=== PATIENT | female | born 1960 | race Caucasian/White ===

== ENCOUNTER 2023-03-17 06:15 | Emergency (ER) | payer OTHER, SELFPAY ==
[2023-03-17 06:26] VITALS: BP 134/69; PULSE 108; RESP 16; TEMP 36.9; O2SAT 100; BMI 18.3
--- NOTE | 2023-03-17 06:47 | DI.CT.S_ITS ---
PROCEDURE: CT ABDOMEN PELVIS W CON INDICATIONS: Abdominal pain TECHNIQUE: After the administration of intravenous contrast, axial sections acquired from the lung bases to the pubic symphysis. Coronal and sagittal reformats were performed. For radiation dose reduction, the following was used: automated exposure control, adjustment of mA and/or kV according to patient size. COMPARISON: None. FINDINGS: Image quality: Diagnostic. Lower Chest: Patchy consolidations in the right lower lobe. 3 mm right lower lobe nodule. ABDOMEN: Liver: Right hepatic lobe low attenuating mass measuring approximately 1.9 cm with suggestion of peripheral enhancement is incompletely characterized. Gallbladder: No radiopaque gallstones or wall thickening. Biliary ducts: No biliary dilation. Pancreas: Multiple multiple cystic structures are seen within the pancreas body and tail adjacent to the duct. The largest cystic structure measures up to 1.1 cm. The pancreatic duct is mildly dilated measuring up to 5 mm in caliber. . Spleen: Size is within normal limits. Adrenal Glands: No adrenal nodules. Kidneys and Ureters: No hydronephrosis. No solid mass. No complex renal cystic lesion which requires follow up. Stomach and Bowel: No small bowel obstruction. The large bowel is fluid filled with increased mucosal enhancement suggestive of colitis. No pneumatosis coli. Peritoneum: No abnormal intraperitoneal fluid. No free air. Ventral Wall: No hernia. Abdominal Nodes: No retroperitoneal or mesenteric adenopathy by size criteria. Vessels: Aorta and inferior vena cava are normal in size. Aorto bi iliac atherosclerotic calcifications. PELVIS: Pelvic Organs: Unremarkable. Bladder: Unremarkable. Pelvic Nodes: No enlarged lymph nodes. Miscellaneous: No inguinal hernias are seen. Bones: Degenerative changes without acute or suspicious osseous abnormality. IMPRESSION: Fluid filled large bowel with increased mucosal enhancement suggestive of colitis. Right lower lobe patchy consolidations likely reflect infectious/inflammatory etiology, including atypical viral pneumonia such as covid. Right lower lobe 3 mm nodule. If patient is high risk for lung malignancy, recommend follow-up CT in 12 months to demonstrate stability. Multiple pancreatic cystic masses measuring to 1.1 cm with mildly dilated pancreatic duct measuring up to 5 mm in caliber. Recommend further evaluation with nonemergent abdominal MRI or CT with contrast pancreatic protocol. Right hepatic lobe 1.9 cm low attenuating mass with suggestion of peripheral enhancement is incompletely evaluated on the single phase exam, possible hemangioma. This can be further characterized on exam for pancreatic masses. Dictated by: Deborah Umana M.D. on 03/17/2023 at 8:03 Approved by: Deborah Umana M.D. on 03/17/2023 at 8:18
--- NOTE | 2023-03-17 06:55 | ED_ITS ---
HPI - Abdominal Pain <Kory Gilmore MD - Last Filed: 04/30/23 06:17> General Chief Complaint: Abdominal Pain Stated Complaint: hernia surgery 1yr ago,think might have ripped Time Seen by Provider: 03/17/23 06:47 Source: patient Mode of arrival: Ambulatory History of Present Illness HPI narrative: 63-year-old female who presents with left lower quadrant abdominal pain for 1 month with increased in severity x1 day ago. Pain is described as sharp, non- radiating and worse with palpation. No other complaints or associated symptoms noted. Patient reports hernia repair in that area in 01/2022 Patient arrives via private vehicle. Patient is ambulatory, awake, alert, in no apparent distress and maintaining her own airway. Related Data Home Medications Medication Instructions Recorded Confirmed aripiprazole 10 mg tablet (Abilify) 10 mg PO DAILY 03/21/23 03/29/23 atomoxetine 80 mg capsule 80 mg PO DAILY 03/21/23 03/29/23 (Strattera) lamotrigine 25 mg tablet (Lamictal) 50 mg PO DAILY 03/21/23 03/29/23 potassium chloride 10 mEq 20 meq PO BID 03/21/23 03/29/23 capsule,extended release trazodone 100 mg tablet 100 mg PO BEDTIME PRN 03/21/23 03/29/23 Previous Rx's Medication Instructions Recorded ciprofloxacin HCl 500 mg tablet 500 mg PO BID #20 tabs 03/21/23 (Cipro) metronidazole 500 mg tablet 500 mg PO Q8H #30 tabs 03/21/23 acyclovir 400 mg tablet 400 mg PO TID #30 tabs 03/29/23 Allergies Allergy/AdvReac Type Severity Reaction Status Date / Time Opioids-Meperidine and Allergy Mild Nausea Verified 03/29/23 08:03 Related Review of Systems <Kory Gilmore MD - Last Filed: 04/30/23 06:17> Review of Systems Narrative: See HPI for pertinent positives, otherwise review of systems negative Patient History <Kory Gilmore MD - Last Filed: 04/30/23 06:17> Medical History (Updated 04/24/23 @ 20:55 by Katya Garcia) Fibromyalgia (~2008) Substance abuse Restless leg syndrome Arthritis Osteopenia Foot pain Chicken pox Vertigo Pancreatitis Hemorrhoid Colon polyps Coronary artery calcification seen on CT scan Osteoarthritis of left hip CKD (chronic kidney disease) Hx of bulimia nervosa Hx of anorexia nervosa Depression ADD (attention deficit disorder) History of tobacco use Nodule of lower lobe of right lung Family History (Updated 04/24/23 @ 21:02 by Katya Garcia) Father History of heart disease Hypertension Sister Mental health problem Hypertension Stroke Fracture Grandfather Cancer Grandmother Brain aneurysm Social History Smoking Status: Former smoker Smoking Status: Former smoker Substance Use Type: does not use Exam <Kory Gilmore MD - Last Filed: 04/30/23 06:17> Initial Vital Signs Initial Vital Signs: Vital Signs Temperature 98.4 F 03/17/23 06:26 Pulse Rate 108 H 03/17/23 06:26 Respiratory Rate 16 03/17/23 06:26 Blood Pressure 134/69 03/17/23 06:26 Pulse Oximetry 100 03/17/23 06:26 Oxygen Delivery Method Room Air 03/17/23 06:26 Const General: cooperative, healthy appearing, comfortable, well developed, well groomed, No acute distress, No diaphoretic and No ill appearing HENMT Head: normal to inspection, normocephalic and atraumatic Nose: external nose normal and nares normal Eyes General: Yes appearance normal, both eyes and all related structures Neck Neck: normal visual inspection Chest Chest: normal inspection of the chest Resp Effort & Inspection: normal respiratory effort and able to speak in complete sentences Cardio Rate: regular rate Rhythm: regular rhythm GI Inspection: normal to inspection, non-distended, no visible herniation and other (Tenderness localized to scar of hernia repair) External Female Exam: normal external appearance Back/Spine/Pelvis Back: normal to inspection Skin General: no rashes or lesions noted Neuro General: patient alert, patient awake, oriented and moves all extremities Extrem General: normal to inspection and full ROM Psych Appearance: grossly normal and well kempt <Antoni Ohara DO - Last Filed: 03/17/23 08:53> Initial Vital Signs Initial Vital Signs: Vital Signs Temperature 98.4 F 03/17/23 06:26 Pulse Rate 108 H 03/17/23 06:26 Respiratory Rate 16 03/17/23 06:26 Blood Pressure 134/69 03/17/23 06:26 Pulse Oximetry 100 03/17/23 06:26 Oxygen Delivery Method Room Air 03/17/23 06:26 Course <Kory Gilmore MD - Last Filed: 04/30/23 06:17> Course Course Narrative: See MDM Orders Ordered: Discontinued Medications Hydrocodone Bitart/Acetaminophen (Hydrocodone/Acet 5/325 Tablet) 1 tab PO NOW ONE Stop: 03/17/23 08:03 Last Admin: 03/17/23 08:10 Dose: 1 tab Documented By: CTS Vital Signs Vital signs: Vital Signs - 8 hr 03/17/23 06:26 03/17/23 07:10 03/17/23 07:31 Temperature 98.4 F Pulse Rate 108 H 105 H 96 H Respiratory Rate 16 Blood Pressure 134/69 Pulse Oximetry 100 96 100 Oxygen Delivery Method Room Air 03/17/23 07:32 03/17/23 07:32 03/17/23 08:00 Temperature Pulse Rate 96 H 95 H Respiratory Rate Blood Pressure 119/69 Pulse Oximetry 100 99 Oxygen Delivery Method 03/17/23 08:00 03/17/23 08:30 03/17/23 08:30 Temperature Pulse Rate 91 H Respiratory Rate Blood Pressure 120/71 117/64 Pulse Oximetry 98 Oxygen Delivery Method <Antoni Ohara DO - Last Filed: 03/17/23 08:53> Orders Ordered: Discontinued Medications Hydrocodone Bitart/Acetaminophen (Hydrocodone/Acet 5/325 Tablet) 1 tab PO NOW ONE Stop: 03/17/23 08:03 Last Admin: 03/17/23 08:10 Dose: 1 tab Documented By: CTS Vital Signs Vital signs: Vital Signs - 8 hr 03/17/23 06:26 03/17/23 07:10 03/17/23 07:31 Temperature 98.4 F Pulse Rate 108 H 105 H 96 H Respiratory Rate 16 Blood Pressure 134/69 Pulse Oximetry 100 96 100 Oxygen Delivery Method Room Air 03/17/23 07:32 03/17/23 07:32 03/17/23 08:00 Temperature Pulse Rate 96 H 95 H Respiratory Rate Blood Pressure 119/69 Pulse Oximetry 100 99 Oxygen Delivery Method 03/17/23 08:00 03/17/23 08:30 03/17/23 08:30 Temperature Pulse Rate 91 H Respiratory Rate Blood Pressure 120/71 117/64 Pulse Oximetry 98 Oxygen Delivery Method MDM - Abdominal Pain <Kory Gilmore MD - Last Filed: 04/30/23 06:17> Differential Diagnosis Differential diagnosis: Likely abdominal pain, constipation, diverticulitis, gastroenteritis, small bowel obstruction and other (hernia mesh failure) Lab Data 03/17/23 06:50 03/17/23 06:50 Labs: Lab Results 03/17/23 03/17/23 Range/Units 06:50 06:55 WBC 11.9 H (4.5-11.0) X10^3/uL RBC 4.08 (4.0-5.2) X10^6/uL Hgb 12.4 (12.0-16.0) g/dL Hct 37.6 (36-46) % MCV 92.1 (80-100) fL MCH 30.4 (26-34) PG MCHC 33.0 (30-36) % RDW 13.0 (11.6-14.8) % Plt Count 253 (150-400) X10^3/uL Neut % (Auto) 81.1 H (50-75) % Lymph % (Auto) 10.4 L (25-40) % [place] % (Auto) 7.4 (3-14) % Eos % (Auto) 0.7 L (2-4) % Baso % (Auto) 0.4 (0-2) % Neut # (Auto) 9700 H (3065-6284) /uL Lymph # (Auto) 1200 (3125-8777) /uL [place] # (Auto) 900 (0-900) /uL Eos # (Auto) 100 (0-450) /uL Baso # (Auto) 0 (0-100) /uL Sodium 133 L (137-145) mmol/L Potassium 3.5 (3.4-5.1) mmol/L Chloride 96 L (98-107) mmol/L Carbon Dioxide 29 (22-32) mmol/L BUN 18 H (7-17) mg/dL Creatinine 1.46 H (0.52-1.04) mg/dL Estimated GFR 40 L (>60) mL/min BUN/Creatinine Ratio 12.3 (6-22) Glucose 129 H (80-110) mg/dL Calcium 9.2 (8.4-10.2) mg/dL Total Bilirubin 0.4 (0.2-1.3) mg/dL AST 26 (14-36) IU/L ALT 26 (<35) IU/L Alkaline Phosphatase 54 (38-126) U/L Total Protein 5.9 L (6.3-8.2) g/dL Albumin 3.4 L (3.5-5.0) g/dL Globulin 2.5 (1.7-4.1) g/dL Albumin/Globulin Ratio 1.4 (1.0-2.8) Urine Color Yellow Urine Appearance Clear Urine pH 6.5 (4.5-8.0) Ur Specific [place] 1.020 (1.000-1.035) Urine Protein Negative (Negative) Urine Glucose (UA) Negative (Negative) g/dL Urine Ketones Negative (NEGATIVE) Urine Occult Blood Negative (Negative) Urine Nitrate Negative (Negative) Urine Bilirubin Negative (NEGATIVE) Urine Urobilinogen 0.2 (0.2) E.U./dL Ur Leukocyte Esterase Trace H (NEGATIVE) Urine RBC 0-1/hpf (0-5/HPF) Urine WBC 1-5/hpf (0-5/HPF) Ur Squamous Epith Cells 0-1 /hpf (0-5/HPF) Urine Bacteria Occasional (0-1) (None) Ur Culture Indicated? Cult not indicated MDM Narrative Medical decision making narrative: Patient presents with left lower quadrant abdominal pain localized area of previous hernia repair. Current vital signs are within normal limits/no natural. Patient is afebrile. Labs and imaging ordered. Pain control offered but declined by patient. Patient signed out to Dr. Ohara. Please see his note for continuity of care. <Antoni Ohara, DO - Last Filed: 03/17/23 08:53> Lab Data Attestation: I reviewed the patient's lab results. Labs: Lab Results 03/17/23 03/17/23 Range/Units 06:50 06:55 WBC 11.9 H (4.5-11.0) X10^3/uL RBC 4.08 (4.0-5.2) X10^6/uL Hgb 12.4 (12.0-16.0) g/dL Hct 37.6 (36-46) % MCV 92.1 (80-100) fL MCH 30.4 (26-34) PG MCHC 33.0 (30-36) % RDW 13.0 (11.6-14.8) % Plt Count 253 (150-400) X10^3/uL Neut % (Auto) 81.1 H (50-75) % Lymph % (Auto) 10.4 L (25-40) % [place] % (Auto) 7.4 (3-14) % Eos % (Auto) 0.7 L (2-4) % Baso % (Auto) 0.4 (0-2) % Neut # (Auto) 9700 H (5037-9352) /uL Lymph # (Auto) 1200 (6766-9306) /uL [place] # (Auto) 900 (0-900) /uL Eos # (Auto) 100 (0-450) /uL Baso # (Auto) 0 (0-100) /uL Sodium 133 L (137-145) mmol/L Potassium 3.5 (3.4-5.1) mmol/L Chloride 96 L (98-107) mmol/L Carbon Dioxide 29 (22-32) mmol/L BUN 18 H (7-17) mg/dL Creatinine 1.46 H (0.52-1.04) mg/dL Estimated GFR 40 L (>60) mL/min BUN/Creatinine Ratio 12.3 (6-22) Glucose 129 H (80-110) mg/dL Calcium 9.2 (8.4-10.2) mg/dL Total Bilirubin 0.4 (0.2-1.3) mg/dL AST 26 (14-36) IU/L ALT 26 (<35) IU/L Alkaline Phosphatase 54 (38-126) U/L Total Protein 5.9 L (6.3-8.2) g/dL Albumin 3.4 L (3.5-5.0) g/dL Globulin 2.5 (1.7-4.1) g/dL Albumin/Globulin Ratio 1.4 (1.0-2.8) Urine Color Yellow Urine Appearance Clear Urine pH 6.5 (4.5-8.0) Ur Specific [place] 1.020 (1.000-1.035) Urine Protein Negative (Negative) Urine Glucose (UA) Negative (Negative) g/dL Urine Ketones Negative (NEGATIVE) Urine Occult Blood Negative (Negative) Urine Nitrate Negative (Negative) Urine Bilirubin Negative (NEGATIVE) Urine Urobilinogen 0.2 (0.2) E.U./dL Ur Leukocyte Esterase Trace H (NEGATIVE) Urine RBC 0-1/hpf (0-5/HPF) Urine WBC 1-5/hpf (0-5/HPF) Ur Squamous Epith Cells 0-1 /hpf (0-5/HPF) Urine Bacteria Occasional (0-1) (None) Ur Culture Indicated? Cult not indicated Imaging Data CT scan - abdomen/pelvis: Radiologist's Impression: PROCEDURE: CT ABDOMEN PELVIS W CON INDICATIONS: Abdominal pain TECHNIQUE: After the administration of intravenous contrast, axial sections acquired from the lung bases to the pubic symphysis. Coronal and sagittal reformats were performed. For radiation dose reduction, the following was used: automated exposure control, adjustment of mA and/or kV according to patient size. COMPARISON: None. FINDINGS: Image quality: Diagnostic. Lower Chest: Patchy consolidations in the right lower lobe. 3 mm right lower lobe nodule. ABDOMEN: Liver: Right hepatic lobe low attenuating mass measuring approximately 1.9 cm with suggestion of peripheral enhancement is incompletely characterized. Gallbladder: No radiopaque gallstones or wall thickening. Biliary ducts: No biliary dilation. Pancreas: Multiple multiple cystic structures are seen within the pancreas body and tail adjacent to the duct. The largest cystic structure measures up to 1.1 cm. The pancreatic duct is mildly dilated measuring up to 5 mm in caliber. . Spleen: Size is within normal limits. Adrenal Glands: No adrenal nodules. Kidneys and Ureters: No hydronephrosis. No solid mass. No complex renal cystic lesion which requires follow up. Stomach and Bowel: No small bowel obstruction. The large bowel is fluid filled with increased mucosal enhancement suggestive of colitis. No pneumatosis coli. Peritoneum: No abnormal intraperitoneal fluid. No free air. Ventral Wall: No hernia. Abdominal Nodes: No retroperitoneal or mesenteric adenopathy by size criteria. Vessels: Aorta and inferior vena cava are normal in size. Aorto bi iliac atherosclerotic calcifications. PELVIS: Pelvic Organs: Unremarkable. Bladder: Unremarkable. Pelvic Nodes: No enlarged lymph nodes. Miscellaneous: No inguinal hernias are seen. Bones: Degenerative changes without acute or suspicious osseous abnormality. IMPRESSION: Fluid filled large bowel with increased mucosal enhancement suggestive of colitis. Right lower lobe patchy consolidations likely reflect infectious/inflammatory etiology, including atypical viral pneumonia such as covid. Right lower lobe 3 mm nodule. If patient is high risk for lung malignancy, recommend follow-up CT in 12 months to demonstrate stability. Multiple pancreatic cystic masses measuring to 1.1 cm with mildly dilated pancreatic duct measuring up to 5 mm in caliber. Recommend further evaluation with nonemergent abdominal MRI or CT with contrast pancreatic protocol. Right hepatic lobe 1.9 cm low attenuating mass with suggestion of peripheral enhancement is incompletely evaluated on the single phase exam, possible hemangioma. This can be further characterized on exam for pancreatic masses. MDM Narrative Medical decision making narrative: Patient presents with left lower quadrant abdominal pain localized area of previous hernia repair. Current vital signs are within normal limits/no natural. Patient is afebrile. Labs and imaging ordered. Pain control offered but declined by patient. Patient signed out to Dr. Ohara. Please see his note for continuity of care. Dr. Ohara: Received turned over. Review patient's history and physical exam. CT scan today does show what appears to be a colitis. Patient states she is having loose stools over the past week. The abdominal pain that brought her in today actually has been going on for the past month or so. There are no acute findings noted on the CT scan requiring surgery. We did discuss the incidental findings of the pulmonary nodule. She does have a prior history of a smoker but not currently smoking. She currently does not clinically have pneumonia. We discussed the incidental findings of the liver and also the pancreas. She has no prior history of pancreatitis or other liver issues. She has an appointment scheduled on the of this month with her primary doctor. I advised that she talk with her primary doctor at that point about these incidental findings and further workup. Will discharge patient home with return precautions. She expressed understanding and agreement. Discharge Plan Departure Patient Disposition: Home Clinical Impression: Abdominal pain, Incidental pulmonary nodule, Pancreatic cyst, Liver mass Instructions: DI for Abdominal Pain-Adult Activity Restrictions/Additional Instructions: I recommend that you keep your appointment with your primary doctor that is scheduled for the 18 of this month. Be sure that you let them know that you had a CT scan done today that had the incidental findings on it and to discuss follow-up and further evaluation. You can even contact them on Sunday to let them know to see if there is anything that can be done before your appointment however waiting until the is perfectly acceptable. Return to the emergency department for worsening symptoms Prescriptions: No Action acyclovir 400 mg tablet 400 mg PO TID Qty: 30 0RF Rx Instructions: Take 3x per day for 5-10 days until cold sores resolve lamotrigine [Lamictal] 25 mg tablet 50 mg PO DAILY atomoxetine [Strattera] 80 mg capsule 80 mg PO DAILY aripiprazole [Abilify] 10 mg tablet 10 mg PO DAILY trazodone 100 mg tablet 100 mg PO BEDTIME PRN potassium chloride 10 mEq capsule, extended release 20 meq PO BID metronidazole 500 mg tablet 500 mg PO Q8H Qty: 30 0RF ciprofloxacin HCl [Cipro] 500 mg tablet 500 mg PO BID Qty: 20 0RF Stand Alone Forms: Patient Portal/API
[2023-03-17 06:57] LABS: Add Manual Diff / Slide Review NO; Basophils Absolute Auto 0 /uL (0-100); Basophils Percent Auto 0.4 % (0-2); Eosinophils Absolute Auto 100 /uL (0-450); Eosinophils Percent Auto 0.7 % (2-4); Hematocrit 37.6 % (36-46); Hemoglobin 12.4 g/dL (12.0-16.0); Lymphocytes Absolute Auto 1200 /uL (1100-4500); Lymphocytes Percent Auto 10.4 % (25-40); Mean Corpuscular Hemoglobin 30.4 PG (26-34); Mean Corpuscular Volume 92.1 fL (80-100); Monocytes Absolute Auto 900 /uL (0-900); Monocytes Percent Auto 7.4 % (3-14); Neutrophils Absolute Auto 9700 /uL (1500-7000); Neutrophils Percent Auto 81.1 % (50-75); Platelet Count 253 X10^3/uL (150-400); Red Blood Cell Count 4.08 X10^6/uL (4.0-5.2); White Blood Cell Count 11.9 X10^3/uL (4.5-11.0)
[2023-03-17 06:59] LABS: Appearance Urine UA CLEAR; Bilirubin Urine UA NEGATIVE (NEGATIVE); Color Urine UA YELLOW; Glucose Urine UA NEGATIVE (Negative); Ketones Urine UA NEGATIVE (NEGATIVE); Leukocyte Esterase Urine UA TRACE (NEGATIVE); Nitrite Urine UA NEGATIVE (Negative); Occult Blood Urine UA NEGATIVE (Negative); Protein Urine UA NEGATIVE (Negative); Urobilinogen Urine UA 0.2 E.U./dL (0.2)
[2023-03-17 07:07] LABS: Alanine Aminotransferase 26 IU/L (<35); Albumin 3.4 g/dL (3.5-5.0); Albumin Globulin Ratio 1.4 (1.0-2.8); Alkaline Phosphatase 54 U/L (38-126); Aspartate Aminotransferase 26 IU/L (14-36); BUN Creatinine Ratio 12.3 (6-22); Bilirubin Total 0.4 mg/dL (0.2-1.3); Blood Urea Nitrogen 18 mg/dL (7-17); Calcium 9.2 mg/dL (8.4-10.2); Carbon Dioxide 29 mmol/L (22-32); Chloride 96 mmol/L (98-107); Estimated Glomerular Filt Rate 40 mL/min (>60); Globulin 2.5 g/dL (1.7-4.1); Glucose 129 mg/dL (80-110); HEMOLYSIS < 15 (0-50); Potassium 3.5 mmol/L (3.4-5.1); Sodium 133 mmol/L (137-145); Total Protein 5.9 g/dL (6.3-8.2)
[2023-03-17 07:09] LABS: pH Urine UA 6.5 (4.5-8.0)
[2023-03-17 07:10] VITALS: PULSE 105; O2SAT 96
[2023-03-17 07:14] LABS: Bacteria Urine Occasional (0-1); Culture Indicated Urine Cult Not Indicated; RBC Urine 0-1/HPF (0-5/HPF); Squamous Epithelial Cell Urine 0-1 /HPF (0-5/HPF); WBC Urine 1-5/HPF (0-5/HPF)
[2023-03-17 07:31] VITALS: PULSE 96; O2SAT 100
[2023-03-17 07:32] VITALS: BP 119/69; PULSE 96; O2SAT 100
[2023-03-17 08:00] VITALS: BP 120/71; PULSE 95; O2SAT 99
[2023-03-17] MEDS: HYDROCODONE/ACET 5/325 TABLET 1 TAB PO (08:10)
[2023-03-17 08:30] VITALS: BP 117/64; PULSE 91; O2SAT 98
== END 2023-03-17 08:57 | disposition home or self-care (01) ==
PROVIDERS: Emergency Medicine; Emergency Provider Emergency Medicine
DX: R10.32 Left lower quadrant pain (principal); R16.0 Hepatomegaly, not elsewhere classified; K86.2 Cyst of pancreas; R91.1 Solitary pulmonary nodule
CPT/HCPCS: 36415; 74177; 80053; 81001; 85025; 99283; 99284; Q9967

== ENCOUNTER → 2023-03-22 07:55 | Outpatient (CLI) | payer OTHER, SELFPAY ==
--- NOTE | 2023-03-22 07:57 | DI.RAD.S_ITS ---
PROCEDURE: [id number] W PEL IF PERFORMED INDICATIONS: left hip pain, suspect arthritis TECHNIQUE: AP pelvis with lateral view(s) of the bilateral hip(s). COMPARISON: None. FINDINGS: Bones: No fractures or dislocations. Moderate to severe left hip joint osteoarthritis and moderate right hip joint osteoarthritis is seen. No evidence of avascular necrosis of femoral head. Pelvic ring appears intact. No suspicious bony lesions. Soft tissues: The visualized bowel gas pattern is normal. No suspicious soft tissue calcifications. IMPRESSION: Moderate to severe left hip joint osteoarthritis and moderate right hip joint osteoarthritis. No fracture or dislocation. No evidence of avascular necrosis. Dictated by: Darren Cuevas M.D. on 03/22/2023 at 11:10 Approved by: Darren Cuevas M.D. on 03/22/2023 at 11:25
== END ==
PROVIDERS: PCP Family Medicine; Referring Provider Family Medicine; Visit Provider Family Medicine
DX: M16.0 Bilateral primary osteoarthritis of hip (principal); M25.552 Pain in left hip
CPT/HCPCS: 73522

== ENCOUNTER → 2023-03-30 11:17 | Outpatient (CLI) | payer OTHER, SELFPAY ==
--- NOTE | 2023-03-30 11:18 | DI.MRI.S_ITS ---
PROCEDURE: MR AB PANCREATIC/MRCP PROTOCOL INDICATIONS: R hepatic mass; mult cysts on pancreas w/ mild dilation duct TECHNIQUE: Coronal HASTE through the abdomen, axial 2-D FLASH in- and [id number], and breath-hold T2 FSE with fat saturation through the biliary system and pancreas. Oblique coronal and axial thin-slice HASTE, radial thick-slab HASTE centered on the extrahepatic bile ducts. Intravenous secretin: Not requested. COMPARISON: [facility], CT, CT ABDOMEN PELVIS W CON, 03/17/2023, 7:23. FINDINGS: Image quality: Diagnostic. Gallbladder: No gallstones or wall thickening. Biliary ducts: No biliary dilation. Pancreas: A few T2 hyperintense cystic lesions with connection to the pancreatic duct, largest measuring 1.9 cm in the pancreatic body (series 10, image 1). No associated nodularity. Mild ductal ectasia. OTHER: Lung bases: Unremarkable. Liver: Segment 7 hemangioma measuring 2.4 cm (series 11, image 31). Probable flash filling hemangioma in segment 8 measuring 0.9 cm (series 11, image 29). Spleen: Size is within normal limits. Adrenal Glands: No adrenal nodules. Kidneys and Ureters: No hydronephrosis. No solid mass. No complex renal cystic lesion which requires follow up. Stomach and Bowel: Normal colonic caliber, without significant wall thickening. Peritoneum: No abnormal intraperitoneal fluid. No free air. Ventral Wall: No hernia. Abdominal Nodes: No retroperitoneal or mesenteric adenopathy by size criteria. Vessels: Aorta and inferior vena cava are normal in size. Bones: No aggressive osseous abnormality. IMPRESSION: Pancreatic cystic lesions with connection to the pancreatic duct, largest measuring 1.9 cm. While there is ectasia of the pancreatic duct, there is not dilation by strict size criteria. No nodularity. Given size, follow-up in 1 year for a total of 5 years, per ACR consensus guidelines. Alternatively, GI referral for management could be considered. Liver hemangiomas present. Dictated by: Brody Coles M.D. on 03/30/2023 at 15:08 Approved by: Brody Coles M.D. on 03/30/2023 at 15:30
== END ==
LOC: MRI 11:17
PROVIDERS: PCP Family Medicine; Referring Provider Family Medicine; Visit Provider Family Medicine
DX: K86.2 Cyst of pancreas (principal); R16.0 Hepatomegaly, not elsewhere classified; R10.9 Unspecified abdominal pain; D18.09 Hemangioma of other sites
CPT/HCPCS: 74183; A9579

== ENCOUNTER → 2023-04-12 13:07 | Outpatient (CLI) | payer OTHER, SELFPAY ==
--- NOTE | 2023-04-12 13:08 | DI.CT.S_ITS ---
PROCEDURE: CT LUNG LOW DOSE SCREENING INDICATIONS: Lung cancer screening TECHNIQUE: Noncontrast 2.0-2.5 mm thick sections acquired from the pulmonary apices to the posterior costophrenic angles. 7 mm thick axial MIP, and 5 mm coronal and sagittal reformats were then acquired. For radiation dose reduction, the following was used: automated exposure control, adjustment of mA and/or kV according to patient size. COMPARISON: None. FINDINGS: Image quality: Diagnostic. Lower Neck: No enlarged lymph nodes. Thyroid: The thyroid is small in size. Axillae: No enlarged lymph nodes. Chest Wall: Unremarkable. Bones: Age-appropriate bony degenerative changes are seen. Lungs and Pleura: Within the right lower lobe, there is a 5 mm irregular nodule seen, as on series 3, image 226. Also within the right lower lobe, there is an irregular nodule measuring7 7 by 5 mm, as on series 3, image 192. There is a calcified granuloma seen within the right lower lobe laterally, as on series 3, image 189. On the prior study, there can be seen in retrospect several poorly defined nodules, which have largely resolved. Elsewhere within the lungs, scattered areas of mild ground-glass opacity can be seen, for example within the lingula on series 3, image 167. No pneumothorax or pleural effusions are seen. Heart: Heart size is normal. No pericardial effusion. Moderate coronary artery calcification can be seen. Thoracic Vessels: The aorta and pulmonary arteries demonstrate normal size. Atherosclerotic calcification is noted. Mediastinum and [place]: No enlarged lymph nodes. Esophagus: No wall thickening. There is a small hiatal hernia. Upper Abdomen: Visualized upper abdomen solid organs and bowel loops appear normal. IMPRESSION: Irregular nodules can be seen within the right lower lobe, measuring up to 7 mm. Elsewhere within the lungs, there are areas of mild ground-glass opacity seen, which are most likely related to resolving infection, given the appearance on 03/17/2023. LUNG-RADS 3; recommend 6 month follow-up noncontrast chest CT. Clinically Significant Non-pulmonary Findings: Atherosclerotic calcification, including moderate coronary artery calcification. Prior granulomatous exposure. Small hiatal hernia Dictated by: Efrem Jaramillo M.D. on 04/12/2023 at 15:56 Approved by: Efrem Jaramillo M.D. on 04/12/2023 at 16:01
== END ==
PROVIDERS: PCP Family Medicine; Referring Provider Family Medicine; Visit Provider Family Medicine
DX: Z12.2 Encounter for screening for malignant neoplasm of respiratory organs (principal); Z87.891 Personal history of nicotine dependence; R91.8 Other nonspecific abnormal finding of lung field; I25.10 Atherosclerotic heart disease of native coronary artery without angina pectoris; K44.9 Diaphragmatic hernia without obstruction or gangrene
CPT/HCPCS: 71271

== ENCOUNTER → 2023-05-10 07:15 | Outpatient (CLI) | payer OTHER, SELFPAY ==
[2023-05-10 08:29] LABS: Add Manual Diff / Slide Review NO; Basophils Absolute Auto 0 /uL (0-100); Basophils Percent Auto 0.7 % (0-2); Eosinophils Absolute Auto 100 /uL (0-450); Hematocrit 32.7 % (36-46); Hemoglobin 10.9 g/dL (12.0-16.0); Lymphocytes Absolute Auto 1300 /uL (1100-4500); Lymphocytes Percent Auto 19.1 % (25-40); Mean Corpuscular HGB Conc 33.3 % (30-36); Mean Corpuscular Hemoglobin 30.9 PG (26-34); Mean Corpuscular Volume 92.6 fL (80-100); Monocytes Absolute Auto 1000 /uL (0-900); Monocytes Percent Auto 14.5 % (3-14); Neutrophils Absolute Auto 4400 /uL (1500-7000); Neutrophils Percent Auto 64.7 % (50-75); Platelet Count 220 X10^3/uL (150-400); Red Blood Cell Count 3.53 X10^6/uL (4.0-5.2); Red Cell Distribution Width 14.1 % (11.6-14.8); White Blood Cell Count 6.8 X10^3/uL (4.5-11.0)
[2023-05-10 08:41] LABS: Hemoglobin A1C% w Est Avg Glu 5.9 % (4.0-6.0)
[2023-05-10 09:03] LABS: Albumin 2.5 g/dL (3.5-5.0); BUN Creatinine Ratio 15.8 (6-22); Blood Urea Nitrogen 15 mg/dL (7-17); Calcium 8.3 mg/dL (8.4-10.2); Carbon Dioxide 25 mmol/L (22-32); Chloride 104 mmol/L (98-107); Estimated Glomerular Filt Rate > 60 mL/min (>60); Glucose 90 mg/dL (80-110); HEMOLYSIS < 15 (0-50); Potassium 3.6 mmol/L (3.4-5.1); Sodium 133 mmol/L (137-145)
[2023-05-10 09:10] LABS: Prealbumin 18.4 mg/dL (17.6-36.0)
[2023-05-10 09:28] LABS: Vitamin D 25 Hydroxy (D3) 36.4 ng/mL (30.0-100.0)
== END ==
PROVIDERS: Family Provider Family Medicine; PCP Family Medicine; Referring Provider Orthopaedic Surgery Adult Reconstructive Orthopaedic Surgery; Visit Provider Orthopaedic Surgery Adult Reconstructive Orthopaedic Surgery
DX: Z01.818 Encounter for other preprocedural examination (principal); R77.0 Abnormality of albumin; E55.9 Vitamin D deficiency, unspecified; Z01.812 Encounter for preprocedural laboratory examination; R73.9 Hyperglycemia, unspecified
CPT/HCPCS: 36415; 80048; 82040; 82306; 83036; 84134; 85025; 93005

== ENCOUNTER 2023-05-21 14:58 | Emergency (ER) | payer OTHER, SELFPAY ==
[2023-05-21 15:14] VITALS: BP 109/55; PULSE 94; RESP 18; TEMP 37; O2SAT 100; BMI 17.8
--- NOTE | 2023-05-21 15:44 | DI.RAD.S_ITS ---
PROCEDURE: XR CHEST 2V INDICATIONS: leg swelling TECHNIQUE: 2 views of the chest were acquired. COMPARISON: [facility], CR, XR CHEST 1 VIEW, 06/05/2022, 8:44. FINDINGS: Surgical changes and devices: None. Lungs and pleura: Subtle infiltrate in the right lower lobe. No pleural effusions or pneumothorax. Mediastinum: Mediastinal contours are normal. Heart size is normal. Bones and chest wall: No suspicious bony abnormalities. Soft tissues appear unremarkable. IMPRESSION: Subtle infiltrate in the right lower lobe suspicious for pneumonia. Dictated by: Ivana Escobar M.D. on 05/21/2023 at 16:50 Approved by: Ivana Escobar M.D. on 05/21/2023 at 16:51
--- NOTE | 2023-05-21 15:48 | ED_ITS ---
HPI - Extremity Problem <Dory Molina PA-C - Last Filed: 05/22/23 12:53> General Chief complaint: Extremity Problem,Nontraumatic Stated complaint: leg and feet swelling Time Seen by Provider: 05/21/23 15:28 Source: patient Mode of arrival: Ambulatory History of Present Illness HPI Narrative: 63-year-old female with past medical history osteoarthritis, osteopenia, fibromyalgia presents to the ED with 4 days of feet and hand swelling. Patient complains of acute onset swelling in bilateral feet, lower legs, hands. Patient endorses all-over mild swelling. Patient does endorse some epigastric discomfort, nausea, chills. Patient denies fever, chest pain, shortness of breath, dysuria, vomiting, lightheadedness, dizziness, syncope. Patient is status post a inguinal hernia repair. Patient had a CT scan performed in March 2023 which showed a isolated lung nodule, several pancreatic lesions. Patient is currently being worked up for it. CT also showed calcification, for which her PCP has ordered an angiography. Patient is a past smoker. Related Data Home Medications Medication Instructions Recorded Confirmed aripiprazole 10 mg tablet (Abilify) 10 mg PO DAILY 03/21/23 05/14/23 atomoxetine 80 mg capsule 80 mg PO DAILY 03/21/23 05/14/23 (Strattera) lamotrigine 25 mg tablet (Lamictal) 50 mg PO DAILY 03/21/23 05/14/23 trazodone 100 mg tablet 100 mg PO BEDTIME PRN 03/21/23 05/14/23 Previous Rx's Medication Instructions Recorded acyclovir 400 mg tablet 400 mg PO TID #30 tabs 03/29/23 atorvastatin 40 mg tablet 40 mg PO DAILY #90 tabs 05/14/23 azithromycin 250 mg tablet See Rx Instructions PO .COMPLEX #6 05/21/23 (Zithromax Z-Chet) tabs Allergies Allergy/AdvReac Type Severity Reaction Status Date / Time Opioids-Meperidine and Allergy Mild Nausea Verified 05/14/23 11:10 Related Review of Systems <Dory Molina PA-C - Last Filed: 05/22/23 12:53> Constitutional Constitutional: Reports chills, Denies fatigue, Denies fever(s), Denies frequent falls, Denies lethargy and Denies weakness Eyes Eyes: Denies change in vision, Denies eye discharge, Denies irritation and Denies loss of vision ENT Ears, Nose, Mouth, and Throat: Denies change in voice, Denies dizziness, Denies neck pain, Denies sore throat and Denies throat swelling Cardiovascular Cardiovascular: Denies chest pain, Reports edema, Denies irregular heart rhythm, Reports leg edema, Denies lightheadedness, Denies palpitations, Denies dyspnea, Denies dyspnea on exertion and Denies orthopnea Respiratory Respiratory: Denies cough, Denies dyspnea, Denies dyspnea on exertion and Denies wheezing Gastrointestinal Gastrointestinal: Reports abdominal pain, Denies change in bowel habits, Reports diarrhea, Reports nausea and Denies vomiting Musculoskeletal Musculoskeletal: Denies neck pain and Denies numbness Integumentary/Breasts Skin/Breast: Denies pruritus, Denies erythema, Denies rash and Denies wounds Neurologic Neurologic: Denies behavioral changes, Denies confusion, Denies dizziness, Denies frequent falls, Denies loss of vision, Denies numbness and Denies weakness Psychiatric Psychiatric: Denies anxiety, Denies behavioral changes, Denies confusion, Denies depression, Denies homicidal ideation and Denies suicidal ideation Endocrine Endocrine: Denies fatigue, Denies flushing and Denies palpitations Hematologic/Lymphatic Hematologic/Lymphatic: Denies easy bruising Allergic/Immunologic Allergic/Immunologic: Denies urticaria, Denies throat swelling and Denies wheezing Patient History <Dory Molina PA-C - Last Filed: 05/22/23 12:53> Medical History (Updated 05/21/23 @ 17:58 by Dory Molina PA-C) Fibromyalgia (~2008) Substance abuse Restless leg syndrome Arthritis Osteopenia Foot pain Chicken pox Vertigo Pancreatitis Hemorrhoid Colon polyps Coronary artery calcification seen on CT scan Osteoarthritis of left hip CKD (chronic kidney disease) Hx of bulimia nervosa Hx of anorexia nervosa Depression ADD (attention deficit disorder) History of tobacco use Nodule of lower lobe of right lung Family History (Updated 04/24/23 @ 21:02 by Katya Garcia) Father History of heart disease Hypertension Sister Mental health problem Hypertension Stroke Fracture Grandfather Cancer Grandmother Brain aneurysm Social History Smoking Status: Former smoker Smoking Status: Former smoker alcohol intake frequency: other Substance Use Type: does not use Exam <Dory Molina PA-C - Last Filed: 05/22/23 12:53> Narrative Exam Narrative: Const General:?cooperative, healthy appearing and comfortable [facility] [place] Head:?normal to inspection Ears:?hearing grossly normal bilaterally Nose:?external nose normal Face and sinus:?normal facial exam and sinuses nontender Mouth:?oral mucosae normal Throat:?posterior oropharynx normal Eyes General:?appearance normal, both eyes and all related structures Neck Neck:?normal visual inspection and no lymphadenopathy noted Resp Effort & Inspection:?normal respiratory effort Auscultation:?clear to auscultation bilaterally Cardio Rate:?regular rate Rhythm:?regular rhythm There is bilateral feet and lower leg swelling. Minimal hand swelling. Abdomen does not appear to be distended. GI Abdomen is soft, nondistended. Abdomen with generalized tenderness to palpation, particularly in the epigastric region Neuro General:?patient alert, patient awake and patient oriented x3 Initial Vital Signs Initial Vital Signs: Vital Signs Temperature 98.6 F 05/21/23 15:14 Pulse Rate 94 H 05/21/23 15:14 Respiratory Rate 18 05/21/23 15:14 Blood Pressure 109/55 L 05/21/23 15:14 Pulse Oximetry 100 05/21/23 15:14 Oxygen Delivery Method Room Air 05/21/23 15:14 <Kitty Elizondo DO - Last Filed: 05/23/23 13:38> Initial Vital Signs Initial Vital Signs: Vital Signs Temperature 98.6 F 05/21/23 15:14 Pulse Rate 94 H 05/21/23 15:14 Respiratory Rate 18 05/21/23 15:14 Blood Pressure 109/55 L 05/21/23 15:14 Pulse Oximetry 100 05/21/23 15:14 Oxygen Delivery Method Room Air 05/21/23 15:14 Course <JALEN Chavez Last Filed: 05/22/23 12:53> Orders Ordered: ED Orders 05/21/23 15:44 CXR [XR chest 2V] Stat BNP [NT-proBNP (BNP-Adult 18+)] Stat CBC Auto Diff [Complete Blood Count AUTO DIFF] Stat CMP [Comprehensive Metabolic Panel] Stat Lipase Stat Troponin & CK Cardiac Panel Stat EKG-12 Lead Stat 05/21/23 15:45 MAG [Magnesium] Stat PT [Prothrombin Time INR] Stat PTT [PTT Partial Thromboplastin [place]] Stat Vital Signs Vital signs: Vital Signs - 8 hr 05/21/23 15:14 Temperature 98.6 F Pulse Rate 94 H Respiratory Rate 18 Blood Pressure 109/55 L Pulse Oximetry 100 Oxygen Delivery Method Room Air <Kitty Zander Elizondo DO - Last Filed: 05/23/23 13:38> Orders Ordered: ED Orders 05/21/23 15:44 CXR [XR chest 2V] Stat BNP [NT-proBNP (BNP-Adult 18+)] Stat CBC Auto Diff [Complete Blood Count AUTO DIFF] Stat CMP [Comprehensive Metabolic Panel] Stat Lipase Stat Troponin & CK Cardiac Panel Stat EKG-12 Lead Stat 05/21/23 15:45 MAG [Magnesium] Stat PT [Prothrombin Time INR] Stat PTT [PTT Partial Thromboplastin [place]] Stat Vital Signs Vital signs: Vital Signs - 8 hr 05/21/23 15:14 Temperature 98.6 F Pulse Rate 94 H Respiratory Rate 18 Blood Pressure 109/55 L Pulse Oximetry 100 Oxygen Delivery Method Room Air MDM - Extremity (Nontraumatic) <Dory Molina PA-C - Last Filed: 05/22/23 12:53> Lab Data 05/21/23 15:50 05/21/23 15:50 Labs: Lab Results 05/21/23 Range/Units 15:50 WBC 16.2 H (4.5-11.0) X10^3/uL RBC 3.18 L (4.0-5.2) X10^6/uL Hgb 9.6 L (12.0-16.0) g/dL Hct 29.5 L (36-46) % MCV 92.9 (80-100) fL MCH 30.3 (26-34) PG MCHC 32.6 (30-36) % RDW 14.5 (11.6-14.8) % Plt Count 381 (150-400) X10^3/uL Neut % (Auto) 78.7 H (50-75) % Lymph % (Auto) 10.7 L (25-40) % [place] % (Auto) 9.4 (3-14) % Eos % (Auto) 0.6 L (2-4) % Baso % (Auto) 0.6 (0-2) % Neut # (Auto) 70580 H (2040-2890) /uL Lymph # (Auto) 1700 (9517-5768) /uL [place] # (Auto) 1500 H (0-900) /uL Eos # (Auto) 100 (0-450) /uL Baso # (Auto) 100 (0-100) /uL PT 11.8 (9.4-12.5) SECONDS INR 1.0 (0.9-1.3) APTT 36 (25.1-36.5) SECONDS Sodium 135 L (137-145) mmol/L Potassium 3.8 (3.4-5.1) mmol/L Chloride 102 (98-107) mmol/L Carbon Dioxide 33 H (22-32) mmol/L BUN 12 (7-17) mg/dL Creatinine 0.95 (0.52-1.04) mg/dL Estimated GFR > 60 (>60) mL/min BUN/Creatinine Ratio 12.6 (6-22) Glucose 90 (80-110) mg/dL Calcium 8.5 (8.4-10.2) mg/dL Magnesium 2.0 (1.6-2.3) mg/dL Total Bilirubin 0.2 (0.2-1.3) mg/dL AST 32 (14-36) IU/L ALT 35 H (<35) IU/L Alkaline Phosphatase 75 (38-126) U/L Total Creatine Kinase < 20 L (30-135) U/L Troponin I < 0.012 (0.01-0.034) ng/mL NT-Pro-B Natriuret Pep 400 H (<125) pg/mL Total Protein 5.0 L (6.3-8.2) g/dL Albumin 2.5 L (3.5-5.0) g/dL Globulin 2.5 (1.7-4.1) g/dL Albumin/Globulin Ratio 1.0 (1.0-2.8) Lipase 159 (23-300) U/L Urine Dip Bedside Urine Glucose Negative Bedside Urine Bilirubin - Negative Bedside Urine Ketone - Negative Urine Specific [place] 1.015 Bedside Urine Occult Blood - Negative Bedside Urine pH 6.0 Bedside Urine Protein - Negative Bedside Urine Urobilinogen - Negative Bedside Urine Nitrite - Negative Bedside Urine Leukocytes - Negative Esterase MDM Narrative Medical decision making narrative: 63-year-old female with past medical history osteoarthritis, osteopenia, fibromyalgia presents to the ED with 4 days of feet and hand swelling. Concern for CKD, renal insufficiency, CHF, malignancy, other. Will obtain EKG, chest x- ray, labs, troponin, BNP. Will reassess WBC elevated to 16.2, labs otherwise within normal limits. Troponin BNP within normal limits. UA without UTI. EKG is normal sinus rhythm with no acute ST-T changes. No axis deviation. Chest x-ray shows a subtle infiltrate in the right lower lobe suspicious for pneumonia. Chest CTA shows no pulmonary embolus. There are multiple subsolid ground-glass nodules present bilaterally, predominantly involving the right upper lobe and right lower, most likely infectious or inflammatory in etiology. Compared to the last CT dated 04/12/2023, right upper lobe and lower lobe nodules are increased but lingula opacities are decreased. There is mild coronary artery atherosclerosis. CT abdomen pelvis shows segmental small-bowel wall thickening suggesting enteritis. Fluid-filled colon loops are noted, nonspecific and probably secondary to enteritis. No colonic wall thickening. There are punctate calcifications in pancreatic uncinate process, likely secondary to chronic pancreatitis. Multiple indeterminate cystic lesions in pancreas. Differential diagnosis are benign cyst versus IPMN. There is a 1.2 x 2.0 cm indeterminate hypodense lesion in the right hepatic lobe, unchanged. Patient's WBC elevation could possibly be due to pneumonia versus infectious or inflammatory process of enteritis. Prescribed antibiotics. Unclear etiology of foot swelling. Recommend follow-up with PCP. Recommend follow-up with GI for further evaluation of pancreatic, hepatic lesions and to r/o malignancies. Recommend a being hydration and resting an elevation of feet. ED return precautions were discussed with patient. Patient verbalized understanding. Medical records reviewed: Yes <Kitty Elizondo, - Last Filed: 05/23/23 13:38> Lab Data Labs: Lab Results 05/21/23 Range/Units 15:50 WBC 16.2 H (4.5-11.0) X10^3/uL RBC 3.18 L (4.0-5.2) X10^6/uL Hgb 9.6 L (12.0-16.0) g/dL Hct 29.5 L (36-46) % MCV 92.9 (80-100) fL MCH 30.3 (26-34) PG MCHC 32.6 (30-36) % RDW 14.5 (11.6-14.8) % Plt Count 381 (150-400) X10^3/uL Neut % (Auto) 78.7 H (50-75) % Lymph % (Auto) 10.7 L (25-40) % [place] % (Auto) 9.4 (3-14) % Eos % (Auto) 0.6 L (2-4) % Baso % (Auto) 0.6 (0-2) % Neut # (Auto) 58978 H (8001-2175) /uL Lymph # (Auto) 1700 (8012-0810) /uL [place] # (Auto) 1500 H (0-900) /uL Eos # (Auto) 100 (0-450) /uL Baso # (Auto) 100 (0-100) /uL PT 11.8 (9.4-12.5) SECONDS INR 1.0 (0.9-1.3) APTT 36 (25.1-36.5) SECONDS Sodium 135 L (137-145) mmol/L Potassium 3.8 (3.4-5.1) mmol/L Chloride 102 (98-107) mmol/L Carbon Dioxide 33 H (22-32) mmol/L BUN 12 (7-17) mg/dL Creatinine 0.95 (0.52-1.04) mg/dL Estimated GFR > 60 (>60) mL/min BUN/Creatinine Ratio 12.6 (6-22) Glucose 90 (80-110) mg/dL Calcium 8.5 (8.4-10.2) mg/dL Magnesium 2.0 (1.6-2.3) mg/dL Total Bilirubin 0.2 (0.2-1.3) mg/dL AST 32 (14-36) IU/L ALT 35 H (<35) IU/L Alkaline Phosphatase 75 (38-126) U/L Total Creatine Kinase < 20 L (30-135) U/L Troponin I < 0.012 (0.01-0.034) ng/mL NT-Pro-B Natriuret Pep 400 H (<125) pg/mL Total Protein 5.0 L (6.3-8.2) g/dL Albumin 2.5 L (3.5-5.0) g/dL Globulin 2.5 (1.7-4.1) g/dL Albumin/Globulin Ratio 1.0 (1.0-2.8) Lipase 159 (23-300) U/L Urine Dip Bedside Urine Glucose Negative Bedside Urine Bilirubin - Negative Bedside Urine Ketone - Negative Urine Specific [place] 1.015 Bedside Urine Occult Blood - Negative Bedside Urine pH 6.0 Bedside Urine Protein - Negative Bedside Urine Urobilinogen - Negative Bedside Urine Nitrite - Negative Bedside Urine Leukocytes - Negative Esterase Discharge Plan Departure Patient Disposition: Home Clinical Impression: Foot swelling Pneumonia Qualifiers: Pneumonia type: due to unspecified organism Laterality: right Lung location: u nspecified part of lung Qualified Code(s): J18.9 - Pneumonia, unspecified organism Instructions: DI for Pneumonia -- Adult, DI for Peripheral Edema -- Bilateral Activity Restrictions/Additional Instructions: You were evaluated in the ED today for foot swelling. Your EKG and chest x-ray were normal. Your labs did show an elevated white count and your CT chest did show a possible pneumonia. Your CT scan of the abdomen and pelvis was largely unchanged from prior 1 in March of this year, however it does show an enteritis which could be from food poisoning. Again, the antibiotic prescribed for the pneumonia will cover a bacterial cause for the food poisoning. It is not entirely clear why you have the feet swelling over the past several days. It is advisable to really load up on your water intake which will help with some of that water retention. Please follow-up with your PCP as soon as possible. Please keep your appointment with the GI doctor in July as scheduled for further workup of the pancreatic nodules. Return to the ED if you have worsening symptoms, chest pain, shortness of breath. Prescriptions: New azithromycin [Zithromax Z-Chet] 250 mg tablet See Rx Instructions .ROUTE .COMPLEX Qty: 6 0RF Rx Instructions: For 250 mg dose pack: take 500 mg today (day 1), then 250 mg for 4 days (days 2-5) No Action acyclovir 400 mg tablet 400 mg PO TID Qty: 30 0RF Rx Instructions: Take 3x per day for 5-10 days until cold sores resolve atorvastatin 40 mg tablet 40 mg PO DAILY Qty: 90 3RF lamotrigine [Lamictal] 25 mg tablet 50 mg PO DAILY atomoxetine [Strattera] 80 mg capsule 80 mg PO DAILY aripiprazole [Abilify] 10 mg tablet 10 mg PO DAILY trazodone 100 mg tablet 100 mg PO BEDTIME PRN Referrals: Dee Dee Mann DO [Primary Care Provider] - Stand Alone Forms: Patient Portal/API ED Sign-out <Kitty Elizondo DO - Last Filed: 05/23/23 13:38> Cosign ED Attending Bertha Attestation: I was immediately available in the department for consultation.
[2023-05-21 16:04] LABS: Add Manual Diff / Slide Review NO; Basophils Absolute Auto 100 /uL (0-100); Basophils Percent Auto 0.6 % (0-2); Eosinophils Absolute Auto 100 /uL (0-450); Eosinophils Percent Auto 0.6 % (2-4); Hematocrit 29.5 % (36-46); Hemoglobin 9.6 g/dL (12.0-16.0); Lymphocytes Absolute Auto 1700 /uL (1100-4500); Lymphocytes Percent Auto 10.7 % (25-40); Mean Corpuscular HGB Conc 32.6 % (30-36); Mean Corpuscular Hemoglobin 30.3 PG (26-34); Mean Corpuscular Volume 92.9 fL (80-100); Monocytes Absolute Auto 1500 /uL (0-900); Monocytes Percent Auto 9.4 % (3-14); Neutrophils Absolute Auto 12700 /uL (1500-7000); Neutrophils Percent Auto 78.7 % (50-75); Platelet Count 381 X10^3/uL (150-400); Red Blood Cell Count 3.18 X10^6/uL (4.0-5.2); Red Cell Distribution Width 14.5 % (11.6-14.8); White Blood Cell Count 16.2 X10^3/uL (4.5-11.0)
[2023-05-21 16:17] LABS: Prothrombin Time 11.8 SECONDS (9.4-12.5)
[2023-05-21 16:20] LABS: PTT Partial Thromboplastin Tim 36 SECONDS (25.1-36.5)
[2023-05-21 16:23] LABS: Alanine Aminotransferase 35 IU/L (<35); Albumin 2.5 g/dL (3.5-5.0); Alkaline Phosphatase 75 U/L (38-126); Aspartate Aminotransferase 32 IU/L (14-36); BUN Creatinine Ratio 12.6 (6-22); Bilirubin Total 0.2 mg/dL (0.2-1.3); Blood Urea Nitrogen 12 mg/dL (7-17); Calcium 8.5 mg/dL (8.4-10.2); Carbon Dioxide 33 mmol/L (22-32); Chloride 102 mmol/L (98-107); Creatine Kinase < 20 U/L (30-135); Estimated Glomerular Filt Rate > 60 mL/min (>60); Globulin 2.5 g/dL (1.7-4.1); Glucose 90 mg/dL (80-110); HEMOLYSIS < 15 (0-50); Lipase 159 U/L (23-300); Potassium 3.8 mmol/L (3.4-5.1); Sodium 135 mmol/L (137-145)
--- NOTE | 2023-05-21 16:40 | DI.CT.S_ITS ---
PROCEDURE: CT ABDOMEN PELVIS W CON INDICATIONS: leg swelling, abd pain TECHNIQUE: After the administration of intravenous contrast, axial sections acquired from the lung bases to the pubic symphysis. Coronal and sagittal reformats were performed. For radiation dose reduction, the following was used: automated exposure control, adjustment of mA and/or kV according to patient size. COMPARISON: [facility], CT, CT LUNG LOW DOSE SCREENING, 04/12/2023, 13:17. [facility], MR, MR AB PANCREATIC/MRCP PROTOCOL, 03/30/2023, 11:26. [facility], CT, CT ABDOMEN PELVIS W CON, 03/17/2023, 7:23. FINDINGS: Image quality: Diagnostic. Lower Chest: Please see separate CT chest angiogram report. ABDOMEN: Liver: Normal size. There is a 1.2 x 2.0 cm hypodense lesion in the posterior segment of the right hepatic lobe medially, unchanged in size. No solid mass. Gallbladder: No radiopaque gallstones or wall thickening. Biliary ducts: No biliary dilation. Pancreas: Punctate calcifications involving the uncinate process likely secondary to chronic pancreatitis. Cystic changes in pancreas. For example, there is a 1 cm cyst in the pancreatic body. A 0.7 cm cyst is seen in the pancreatic head and neck junction. The pancreatic duct is mildly dilated. Spleen: Size is within normal limits. Adrenal Glands: No adrenal nodules. Kidneys and Ureters: No hydronephrosis. No solid mass. No complex renal cystic lesion which requires follow up. Stomach and Bowel: Normal bowel caliber. There is wall thickening involving the small intestine in the left upper quadrant and right lower quadrant the with sparing of the terminal ileum. Fluid-filled distal small colon loops are seen without wall thickening. Peritoneum: No abnormal intraperitoneal fluid. No free air. Ventral Wall: No significant ventral hernia. Abdominal Nodes: No retroperitoneal or mesenteric adenopathy by size criteria. Vessels: Aorta and inferior vena cava are normal in size. Severe atherosclerotic calcifications. PELVIS: Pelvic Organs: Unremarkable. Bladder: No bladder wall thickening, accounting for underdistention. Pelvic Nodes: No enlarged lymph nodes. Miscellaneous: No inguinal hernias are seen. Bones: No aggressive osseous abnormality. Mild spondylitic changes in lumbar spine. Subtle anterior wedge deformity of T12 and L3. IMPRESSION: 1. Segmental small bowel wall thickening suggesting enteritis. Fluid-filled colon loops are noted, nonspecific and probably secondary to enteritis. No colonic wall thickening. 2. Punctate calcifications in pancreatic uncinate process, likely secondary to chronic pancreatitis. 3. Multiple indeterminate cystic lesions in pancreas. Differential diagnoses are benign cyst versus IPMN. Consider CT or MRI follow-up in 12 months. 4. A 1.2 x 2.0 cm indeterminate hypodense lesion in the right hepatic lobe, unchanged. Dictated by: Ivana Escobar M.D. on 05/21/2023 at 16:21 Approved by: Ivana Escobar M.D. on 05/21/2023 at 16:37
--- NOTE | 2023-05-21 16:40 | DI.CT.S_ITS ---
PROCEDURE: CT ANGIO CHEST PE PROTOCOL INDICATIONS: leg swelling TECHNIQUE: After the administration of intravenous contrast, 2 mm thick sections acquired from the pulmonary apices to the posterior costophrenic angles. 3-dimensional maximum intensity projection (MIP) coronal and sagittal reformats were then acquired through the thorax. For radiation dose reduction, the following was used: automated exposure control, adjustment of mA and/or kV according to patient size. COMPARISON: [facility], CT, CT ABDOMEN PELVIS W CON, 03/17/2023, 7:23. [facility], CT, CT LUNG LOW DOSE SCREENING, 04/12/2023, 13:17. [facility], CR, XR CHEST 2V, 05/21/2023, 15:58. FINDINGS: Image quality: Diagnostic. Pulmonary arteries: Pulmonary arteries are normal in size, and demonstrate no intraluminal filling defects to suggest central pulmonary embolism. Lower Neck: No enlarged lymph nodes. Thyroid: No thyroid nodules which require sonographic follow up, per consensus guidelines. Axillae: No enlarged lymph nodes. Chest Wall: Unremarkable. Bones: Unremarkable. Lungs and Pleura: There are multiple subsolid nodules bilaterally, predominantly involving the right upper lobe and right lower lobe. Compared to the last exam dated 04/12/2023, right upper lobe and lower lobe nodules are increased but pulmonary opacities in lingula are improved. No pneumothorax or pleural effusions. No consolidation. Heart: Heart size is normal. No pericardial effusion. Thoracic Vessels: No aortic aneurysm. Mediastinum and [place]: No enlarged lymph nodes. Esophagus: No wall thickening. Small hiatal hernia. Upper Abdomen: Please see separate CT abdomen pelvis report. IMPRESSION: 1. No pulmonary embolus. 2. Multiple subsolid ground glass nodules are present bilaterally, predominantly involving the right upper lobe and right lower, most likely infectious or inflammatory in etiology. Compared to the last CT dated 04/12/2023, right upper lobe and lower lobe nodules are increased, but lingula opacities are decreased. Recommend follow-up to resolution. 3. Mild coronary artery atherosclerosis. Dictated by: Ivana Escobar M.D. on 05/21/2023 at 16:11 Approved by: Ivana Escobar M.D. on 05/21/2023 at 16:20
[2023-05-21 16:41] LABS: NT-proBNP (BNP-Adult 18+) 400 pg/mL (<125); Troponin I < 0.012 ng/mL (0.01-0.034)
[2023-05-21 18:02] VITALS: BP 98/56; PULSE 89; RESP 16; O2SAT 100
== END 2023-05-21 18:23 | disposition home or self-care (01) ==
PROVIDERS: Emergency Provider Student in an Organized Health Care Education/Training Program; Family Provider Family Medicine; PCP Family Medicine
DX: R60.9 Edema, unspecified (principal); J18.9 Pneumonia, unspecified organism; R10.13 Epigastric pain
CPT/HCPCS: 71046; 71275; 74177; 80053; 81003; 82550; 83690; 83735; 83880; 84484; 85025; 85610; 85730; 93005; 93010; 99284; Q9967

== ENCOUNTER → 2023-05-31 08:59 | Outpatient (CLI) | payer OTHER, SELFPAY ==
--- NOTE | 2023-05-31 09:00 | DI.ECHO.S_ITS ---
[facility]---------+ [facility] +---------+ : : [address] : : : : [id number] : : : : Phone: [phone]+ Echocardiogram Report + + :Name: JERROD HUITRON Study Date: 05/31/2023 Height: 66 in : :[facility] ReadingLocation: Weight: 105 lb : : Gender: Female BSA: 1.5 m2 : :: 1960 Age: 63 yrs BP: 106/62 mmHg: :Reason For Study: ATHEROSCLEROTIC HEART DISEASE : :Ordering Physician: KT, : :GENEVIEVE Performed By: Julian Potter : :Referring: GENEVIEVE MERAZ : + + Interpretation Summary 1) Normal left ventricular thickness and size with mildly reducedsystolic function (EF 45-50%). 2) Normal right ventricular size and function. 3) No significant valvular abnormalities. 4) Compared to the Echo done 06/05/2022, LVEF has decreased from 50-55% to 45- 50% on this study. Procedure: A two-dimensional transthoracic echocardiogram with color flow and Doppler was performed. The study quality was technically adequate. Comparison is made with the echocardiogram of 06/05/2022. The patient was in normal sinus rhythm during the exam. The heart rate ranged between 92-97 bpm during the study. Left Ventricle: The left ventricle is normal in size and wall thickness. The ejection fraction is estimated to be 45-50%. Right Ventricle: The right ventricle is normal in size and function. The right ventricular systolic function is normal. Atria: The left atrial size is normal. Right atrial size is normal. The interatrial septum grossly appears intact with no obvious evidence for an atrial septal defect. Mitral Valve: The mitral valve is normal in structure and function. There is no mitral valve stenosis. There is mild mitral regurgitation. Aortic Valve: The aortic valve is trileaflet. There is no aortic valve stenosis. No aortic regurgitation is present. Tricuspid Valve: The tricuspid valve is normal in structure and function. There is no tricuspid stenosis. There is trace tricuspid regurgitation. The right ventricular systolic pressure is estimated to be at least 24 mmHg based on an estimated right atrial pressure of 3 mm Hg. Pulmonic Valve: The pulmonic valve leaflets are thin and pliable; valve motion is normal. There is no pulmonic valvular stenosis. There is a trace or physiologic amount of pulmonic regurgitation. Great Vessels: The aortic root is normal size. The dimensions of the ascending aorta are normal. The IVC is of normal diameter and collapses greater than 50% with a sniff. This suggests a low right atrial pressure of 3 mm Hg. Pericardium/ Pleura There is no pericardial effusion. There is no pleural effusion. MMode/2D Measurements & Calculations LVIDd: 4.8 cm LVOT diam: 1.9 cm LVIDs: 3.5 cm Ao root diam: 3.2 cm FS: 26.6 % asc Aorta Diam: 3.0 cm IVSd: 0.85 cm Ao Arch Diam (Prox Trans): 2.4 cm LVPWd: 0.89 cm LV hernandez. diameter/BSA (cm/m^2): 3.2 LV sys. diameter/BSA (cm/m^2): 2.3 LA A2 area: 15.4 cm2 RA long axis: 3.9 cm LA A4 area: 11.1 cm2 RA area: 10.1 cm2 LA length (vol): 4.2 cm RA vol: 22.7 ml LA vol: 34.6 ml RA : 14.9 ml/m2 LA vol index: 22.7 ml/m2 IVC diam: 1.1 cm RVD1 (basal): 3.2 cm RVD2 (mid): 2.6 cm TAPSE: 2.0 cm Doppler Measurements & Calculations Ao V2 max: 130.8 cm/sec LVOT Max Eliud: 93.7 cm/sec Ao V2 mean: 91.5 cm/sec LV V1 max P.5 mmHg Ao max P.8 mmHg LV V1 VTI: 16.4 cm Ao mean P.7 mmHg VALERIY(I,D): 2.0 cm2 Ao V2 VTI: 24.0 cm VALERIY(V,D): 2.1 cm2 sev ratio: 0.68 VALERIY indexed to BSA (cm^2/m^2): 1.3 MV E max eliud: 68.2 cm/sec TR max eliud: 230.0 cm/sec MV A max eliud: 81.1 cm/sec TR max P.2 mmHg MV E/A: 0.84 PA V2 max: 83.6 cm/sec Med Peak E' Eliud: 7.6 cm/sec PA V2 mean: 66.2 cm/sec E/E' med: 9.0 PA mean P.8 mmHg Lat Peak E' Eliud: 7.7 cm/sec PA pr(Accel): 29.3 mmHg E/E' lat: 8.9 E/e' average: 8.9 MV dec time: 0.19 sec SV(LVOT): 48.9 ml Reading Physician:10:54 AM
== END ==
LOC: ECHO 09:00
PROVIDERS: Family Provider Family Medicine; PCP Family Medicine; Referring Provider Family Medicine; Visit Provider Family Medicine
DX: I34.0 Nonrheumatic mitral (valve) insufficiency (principal); I25.10 Atherosclerotic heart disease of native coronary artery without angina pectoris; M79.89 Other specified soft tissue disorders
CPT/HCPCS: 93306

== ENCOUNTER → 2023-07-06 10:46 | Outpatient (CLI) | payer OTHER, SELFPAY ==
[2023-07-06 12:44] LABS: Add Manual Diff / Slide Review NO; Basophils Absolute Auto 0 /uL (0-100); Basophils Percent Auto 0.6 % (0-2); Eosinophils Absolute Auto 200 /uL (0-450); Eosinophils Percent Auto 1.8 % (2-4); Hematocrit 37.7 % (36-46); Hemoglobin 12.4 g/dL (12.0-16.0); Lymphocytes Absolute Auto 2000 /uL (1100-4500); Lymphocytes Percent Auto 22.8 % (25-40); Monocytes Absolute Auto 900 /uL (0-900); Monocytes Percent Auto 10.7 % (3-14); Neutrophils Absolute Auto 5600 /uL (1500-7000); Neutrophils Percent Auto 64.1 % (50-75); Platelet Count 258 X10^3/uL (150-400); Red Blood Cell Count 4.01 X10^6/uL (4.0-5.2); Red Cell Distribution Width 12.8 % (11.6-14.8); White Blood Cell Count 8.7 X10^3/uL (4.5-11.0)
[2023-07-06 13:31] LABS: Alanine Aminotransferase 32 IU/L (<35); Albumin 3.7 g/dL (3.5-5.0); Albumin Globulin Ratio 1.6 (1.0-2.8); Alkaline Phosphatase 66 U/L (38-126); Aspartate Aminotransferase 33 IU/L (14-36); BUN Creatinine Ratio 14.6 (6-22); Bilirubin Total 0.3 mg/dL (0.2-1.3); Blood Urea Nitrogen 20 mg/dL (7-17); Calcium 9.4 mg/dL (8.4-10.2); Carbon Dioxide 35 mmol/L (22-32); Chloride 90 mmol/L (98-107); Cholesterol 148 mg/dL (140-199); Estimated Glomerular Filt Rate 43 mL/min (>60); Globulin 2.3 g/dL (1.7-4.1); Glucose 111 mg/dL (80-110); HDL Cholesterol 58 mg/dL (40-60); HEMOLYSIS < 15 (0-50); LDL Cholesterol Calculated 48 mg/dL (<100); Potassium 3.1 mmol/L (3.4-5.1); Sodium 135 mmol/L (137-145); Triglycerides 211 mg/dL (35-150)
== END ==
PROVIDERS: Family Provider Family Medicine; PCP Family Medicine; Referring Provider Family Medicine; Visit Provider Family Medicine
DX: Z13.220 Encounter for screening for lipoid disorders (principal); I25.10 Atherosclerotic heart disease of native coronary artery without angina pectoris; Z87.891 Personal history of nicotine dependence; I50.20 Unspecified systolic (congestive) heart failure; R74.8 Abnormal levels of other serum enzymes; D64.9 Anemia, unspecified; R79.89 Other specified abnormal findings of blood chemistry
CPT/HCPCS: 36415; 80053; 80061; 85025

== ENCOUNTER 2023-07-27 06:05 | Day surgery (SDC) | payer OTHER, SELFPAY ==
[2023-07-17 08:19] VITALS: BMI 18.0
[2023-07-27] VITALS (21 sets, daily range): BP systolic 80–129; BP diastolic 40–75; PULSE 83–107; RESP 12–90; TEMP 36.6–38.6; O2SAT 18–100; BMI 16.9
--- NOTE | 2023-07-27 | DI.RAD.S_ITS ---
PROCEDURE: XR HIP W PEL IF DONE LT 2V INDICATIONS: TOTAL LT HIP TECHNIQUE: Six fluoroscopic views of the hip were acquired. COMPARISON: [facility], CR, [id number] W PEL IF PERFORMED, 03/22/2023, 8:09. FINDINGS: Left hip arthroplasty Sizer and arthroplasty components are present in place. No unexpected fractures. IMPRESSION: Intraoperative fluoroscopy for left hip arthroplasty. Dictated by: Danyelle Easley M.D. on 07/27/2023 at 15:54 Approved by: Danyelle Easley M.D. on 07/27/2023 at 15:55
--- NOTE | 2023-07-27 06:00 | DI.RAD.S_ITS ---
PROCEDURE: XR HIP W PEL IF DONE LT 2V INDICATIONS: DAVID TECHNIQUE: 2 view(s) of the hip acquired. COMPARISON: [facility], CR, XR HIP W PEL IF DONE LT 2V, 07/27/2023, 8:39. FINDINGS: Bones: Patient is status post total left hip arthroplasty, with hardware components in expected positions. The hip joint appears congruent. The visualized bony structures appear intact. Soft tissues: Overlying postoperative changes are noted. No suspicious soft tissue densities. IMPRESSION: Expected immediate postoperative appearance, status post total left hip arthroplasty. Dictated by: Kodi Colindres M.D. on 07/27/2023 at 11:17 Approved by: Kodi Colindres M.D. on 07/27/2023 at 11:18
[2023-07-27] MEDS: MELOXICAM 7.5 MG TABLET PO (06:52)
[2023-07-27] MEDS: ACETAMINOPHEN 325 MG TABLET 975 MG PO (06:52)
[2023-07-27] MEDS: LACTATED RINGERS 1,000 ML 42 ML IV ×2 (06:53→09:20)
--- NOTE | 2023-07-27 07:42 | PM.PREOP ---
Pre-operative Note Interval Note History & Physical reviewed/Exam performed by Physician: Yes Changes to H&P: No
[2023-07-27 07:44] LABS: Influenza A - CEPHEID Flu A NEGATIVE (NEGATIVE); Influenza B - CEPHEID Flu B NEGATIVE (NEGATIVE); Respiratory Syncytial Virus Negative (Negative)
[2023-07-27] MEDS: CEFAZOLIN 2 GM/100 ML PREMIX 100 ML IV ×2 (07:45→17:09)
--- NOTE | 2023-07-27 08:24 | SUR.OPER ---
Supine on padded Kimberly table with bilateral legs secured in padded positioning boots and suspended in positioning spars, operative leg in traction per surgeon. Head on one pillow. Arms on secured on padded armboards <90 degrees abduction. Padded perineal post in place per surgeon.
[2023-07-27 09:12] LABS: COVID-19 CEPHEID 4-PLEX PCR Negative (Negative)
[2023-07-27] MEDS: ROPIVACAINE/EPI/CLONIDINE/KET 50 ML SYRINGE INJ (09:22)
[2023-07-27] MEDS: TRANEXAMIC ACID 1,000 MG VIAL 1000 MG INJ ×2 (09:23→09:31)
[2023-07-27] MEDS: SODIUM CHLORIDE IRRIG SOLUTION 250 ML, EPINEPHrine 1 MG IRR (09:25)
--- NOTE | 2023-07-27 09:50 | P.OP_ITS ---
Operative Date/Time/Diagnoses Date of procedure: 07/27/23 Pre-op diagnosis: Left hip osteoarthritis Post-op diagnosis: same Procedure & Clinicians Procedure: Left hybrid total hip arthroplasty with cemented femoral component and uncemented acetabular component through direct anterior approach Same procedure as scheduled: Yes Surgeon: Roland Wills Laborer Cook House: Krystyna Hooks Anesthesia Type: Spinal, Sedation and Local Operative Notes Estimated Blood Loss (mL): 200 Procedure in detail: Left Hybrid Direct Anterior Total Hip Arthroplasty with Uncemented Acetabular Component and Cemented Femoral Component: Implants: * Depuy [place] Gription size 50 cup?with 2 screws (40 mm and 15 mm) * Depuy C Stem femoral stem size 2 standard offset? * 32 mm +5 ceramic femoral head? Procedure Summary: This 63-year-old female patient had debilitating symptoms secondary to left hip osteoarthritis. When she was seen preoperatively I noted that she had a very slender body habitus. Due to concerns regarding her nutritional status I obtained a DEXA scan which demonstrated a T-score of-2.3 in her operative hip. She was additionally mildly anemic with a hemoglobin of 10.9 and had a low prealbumin on her preoperative nutritional panel. Based on these results I counseled her to utilized high-protein supplementation and iron supplementation in anticipation of her eventual surgery. Since she began doing this she has successfully gained 5 lb in the lead up to surgery. Intraoperatively today I noted poor bone quality consistent with her preoperative DEXA scan. I therefore utilized screws for supplemental fixation on her acetabular component and cemented femoral fixation. She had instability past 120? of manual external rotation during initial trialing so during the cementation of the final stem I left the stem slightly proud to increased length slightly. I repeated the trialing process and found that this had resolved the instability. All radiographic parameters were appropriate. Procedure in Detail: This patient was seen preoperatively and evaluated for hip pain which was refractory to numerous nonoperative treatment modalities. Their hip pain co rrelated with radiographic changes demonstrating significant degeneration in the hip joint. The risks and benefits of continued nonoperative management versus operative management were discussed at length and all of the patient?s questions were answered. Additional educational materials providing further details beyond our discussion in clinic were provided via a publicly available patient educati on video which included the incidence of medical complications associated with total hip arthroplasty, reasons for revision following total hip arthroplasty, and patient satisfaction rates following total hip arthroplasty. That video can be accessed at [email or web address] . With this understanding of the risks inherent to the procedure, the patient elected to move forward with operative management. Following preoperative optimization, the patient was scheduled for surgery. The patient was met in the preoperative holding area the day of the procedure and all questions were answered. The patient?s nares were swabbed with betadine in order to decolonize them from MRSA. Informed consent was signed and the operative limb was marked with indelible ink.? The patient was brought back to the operating room where anesthesia was induced. The patient was transferred to the [place] table and all bony prominences were padded. The operative site was prepped and draped in the usual sterile fashion. Prior to incision, tranexamic acid and cefazolin were administered. Operative templating images were displayed demonstrating the anticipated implant sizes and correct operative extremity. A timeout procedure was performed verifying the patient?s identity, medical comorbidities, allergies, relevant medications, anesthesia type and the surgical plan. All present were in agreement. The assistance of a physician patient care nursing assistant was required for positioning, room setup, soft tissue retraction and wound closure. Without this assistance, the procedure would have been significantly more challenging and time consuming.?? A direct anterior approach to the hip was utilized. This was performed with a longitudinal incision through a Heuter interval. The incision was planned 2 cm distal and 2 cm lateral to the ASIS extending towards the lateral patella, in line with the muscle body of the TFL. Following incision, the subcutaneous tissue was dissected while taking care to avoid injury to the lateral femoral cutaneous nerve. The fascia overlying the TFL was identified by dissecting off the overlying fat and identifying perforating vessels to the TFL. The TFL fascia was incised and dissected away from the medial border of the TFL. A cobra retractor was placed over the superior femoral neck between the abductors and the hip capsule and used to reflect the TFL laterally. A Hankins self-retainer was then placed in the distal aspect of the wound between the TFL and the rectus femoris. This was tensioned to open up the direct anterior interval and the lateral circumflex vessels were identified and coagulated using electrocautery. The floor of the TFL fascia was incised, exposing the pericapsular fat overlying the hip capsule. A second cobra retractor was placed on the inferior femoral neck. A double-bent soft tissue retractor was placed on the anterior wall of the acetabulum and used to tension the reflected head of rectus femoris, which was then released in order to limit soft tissue tension. A capsulotomy was made in the midline of the anterior hip capsule in line with the femoral neck ending at the vastus tubercle. The double-bent retractor was removed in order to limit the amount of time that a soft tissue retractor remained on the anterior wall and protect the femoral nerve. Tag stitches were placed in the superior and inferior leaflets of the hip capsule. An Bentley soft tissue retractor was introduced over the tag stitches and tensioned in the interval between the rectus femoris and the TFL in order to retract and protect those muscles. The cobra retractors were replaced intracapsularly, with one over the superior neck in the pocket created by the base of the greater trochanter and the other on the femoral head. The capsulotomy was extended laterally to the base of the greater trochanter and medially to the lesser trochanter. This required externally rotating the hip. Once the lesser trochanter had been identified, a neck cut was planned according to measurements from preoperative templating. A ruler was cut at the length measured between the superior aspect of the lesser trochanter and the collar of the prosthesis. This line was extended towards the inferior aspect of the lateral cobra retractor to plan a cut which would leave minimal residual femoral neck laterally. The neck was cut at 60 degrees of external rotation along that line. A second cut was performed to remove a large napkin ring and facilitate head extraction. The napkin ring cut and femoral head were removed.?? A broad anterior wall retractor was placed between the labrum and the anterior capsule so that the anterior capsule would prevent capturing and pinching the femoral nerve anteriorly. An additional retractor was placed on the posterior wall. External rotation and traction were applied through the [place] table so that the cut surface of the femoral neck would not restrict access to the acetabulum. The labrum was excised sharply and the pulvinar was excised with electrocautery to limit bleeding from branches of the obturator artery. Acetabular reamers were selected based on preoperative templating and measurements of the excised femoral head. These were introduced into the acetabulum. Fluoroscopy was utilized to replicate a standing AP pelvis radiograph by centering over the pelv is, rotating until there was appropriate symmetry between the obturator foramen, and introducing caudal tilt to match the position of the pubic symphysis relative to the sacrococcygeal junction according to the patient?s anatomy. Fluoroscopy was utilized to ensure appropriate reaming depth. Once satisfied with the reaming depth corresponding to the preoperative template and the pinch fit between the columns, an appropriate sized acetabular cup was selected which would provide 1 mm of press-fit. This cup was introduced and manipulated until appropriate abduction and anteversion angles were obtained with careful attention to appropriate abduction and anteversion angles as evaluated by the position of the cup relative to the anterior and posterior rivera of the acetabulum and the AP fluoroscopy which recreated the patient?s standing radiograph. The cup was impacted into place. Two screws were placed to provide additional fixation. Peripheral osteophytes were removed. The acetabular liner w as then placed with care to ensure locking of the locking mechanism.? Attention was then turned to the femur. All retractors were removed, traction was released, a retractor was placed in the interval between the hip capsule and the gluteus minimus, and the hip was externally rotated to 90 degrees. Traction was applied through the [place] table to tension the lateral capsule and this was released using electrocautery. Traction was released and a [place] hook was placed posteriorly around the proximal femur at the level of the vastus ridge. The table height was lowered in order to restrict the tension on the anterior structures during hip hyperextension to limit the risk of femoral nerve palsy. With traction off and the hip at 90 degrees of external rotation, the hip was hyperextended and adducted while manually elevating the femur away from the acetabulum with the [place] hook to ensure it would not be caught behind the greater trochanter. An asymmetric retractor was placed over the calcar and a broad double-pronged retractor was placed over the greater trochanter. The tag stitch capturing the lateral leaflet of the capsule was moved to the medial side, leaving the conjoined and piriformis tendons isolated in the face of the greater trochanter. The hip was externally rotated and elevated. A release of the conjoined tendon was not necessary in order to obtain adequate exposure for broaching. The canal was opened with an opening broach and a rasp was used to remove cancellous bone. A rongeur was used to remove the residual lateral bone at the base of the greater trochanter to avoid placing the stem in varus. The femur was then broached to the appropriate sized stem yielding good rotational fit and fill of the canal as well as appropriate version of the stem trial. Neck and head trials were placed, all retractors were removed and the hip was returned to neutral abduction and extension. I then reduced the hip. Initial trialing was performed with a size 2 broach, a standard offset neck and a +1.5 head. I initially manually externally rotated the hip and found that it easily dislocated. I therefore upsized to a +5 head. This would still dislocate past 120? of external rotation. I then locked the hip in 45 degrees of external rotation and dropped it to the floor with traction off which demonstrated no instability. An AP pelvis fluoroscopic image matching the preoperative standing radiograph with both lesser trochanters visible and both hips in 40 degrees of external rotation demonstrated that the operative side was likely very slightly short relative to the nonoperative side. AP and lateral hip fluoroscopic images were obtained to evaluate the broach size which demonstrated that the broach was slightly undersized. The hip was dislocated and I returned to the broaching position. Based on my evaluation during initial trialing I planned to use the size 2 broach even though it was slightly undersized as this would just require a slightly larger cement mantle and going up to a size 3 stem would not increase any of my leg lengths were offset. I furthermore planned to leave the stem slightly proud to my broached position to slightly increased the leg length and resolved the instability with 120? of external rotation. I then prepared for cementation. Prior to cementation I irrigated the canal, placed a cement restrictor, irrigated the canal again, placed epinephrine-soaked vaginal packing with a whistle-tip catheter, and removed the whistle-tip catheter after insertion of cement. I placed the definitive stem. Cement was allowed to dry. A head trial was placed and I reduced the hip and repeated the trialing process. The the hip was stable with maximum external rotation, and a 45 degree drop test. Leg lengths was equal to the contralateral side using an AP fluoroscopic image with a long metal bar across the trans ischial line to control for fluoroscopic distortion. Cement fill and stem sizing was appropriate on AP and lateral images. A dilute mixture of betadine and peroxide was used to bathe the soft tissues during final fluoroscopic assessment. The hip was copiously irrigated with pulse lavage. The capsule was closed with absorbable interrupted suture. The TFL fascia was closed with barbed suture while carefully protecting the lateral femoral cutaneous nerve from entrapment. A mixture of Ropivacaine, Epinephrine, Clonidine and Toradol was infiltrated throughout the soft tissues. The skin was closed with 2-0 and 3-0 sutures. Surgical glue was applied and a soft dressing was placed.??The sponge, instrument and needle counts were reported as being correct at the end of the case.??No obvious complications occurred. The patient was transferred from the [place] table back to a stretcher. The patient emerged from anesthesia without difficulty and was taken to the PACU in a stable condition.? Plan for aftercare: * Anterior hip precautions * Weightbearing as tolerated * Aspirin 81 twice per day for DVT prophylaxis * Anticipate discharge home today * Change into normal clothes upon arrival on the hospital floor * Mobilize in the halls as much as is logistically possible. If physical therapy is unavailable for mobilization, then patient should mobilize with nursing staff * Multimodal pain regimen with no IV opioids ordered * Apply ice machine to operative hip. Ensure that sufficient ice is in the c hamber for the pad to remain cold * Follow up at [facility] in 2 weeks * Detailed postoperative instructions available at [email or web address]
[2023-07-27] MEDS: ALBUTEROL/IPRATROPIUM 3 ML AMPUL INH (10:05)
[2023-07-27] MEDS: ALBUMIN HUMAN 12.5 GM/50 ML VIAL IV (11:27)
[2023-07-27] MEDS: OXYCODONE IR 5 MG TABLET PO ×3 (12:05→18:56)
[2023-07-27] MEDS: ACETAMINOPHEN 325 MG TABLET 650 MG PO ×2 (12:06→17:19)
[2023-07-27] MEDS: LACTATED RINGERS 1,000 ML 100 ML IV ×2 (12:10→15:18)
--- NOTE | 2023-07-27 15:10 | PT.IIE ---
Current Diagnoses Unilateral primary osteoarthritis, left hip (07/27/23) Surgery Performed Operation Date: 07/27/23 07:45 Actual Procedures p Total Hip Arthroplasty/Anterior Approach(Left) - Roland Wills MD Surgical History (Last Reviewed 07/27/23 @ 06:44 by Trista Jimenez, RN) Hx of hernia repair (~2020) Hx of thumb surgery Hx of tonsillectomy Medical History (Last Reviewed 07/27/23 @ 06:44 by Trista Jimenez RN) Acid reflux ADD (attention deficit disorder) Anxiety Arthritis Chicken pox CKD (chronic kidney disease) Colon polyps Coronary artery calcification seen on CT scan Depression Easy bruisability Ectopic Fibromyalgia (~2008) Foot pain Hemorrhoid History of COVID-19 (~2019) History of tobacco use HLD (hyperlipidemia) Hx of anorexia nervosa Hx of bulimia nervosa Nodule of lower lobe of right lung Osteoarthritis Osteoarthritis of left hip Osteopenia Pancreatitis Restless leg syndrome Substance abuse Vertigo Physical Therapy Inpatient Evaluation/Re-Eval M1 PT/OT-IP Prior Functional Status Start: 07/27/23 18:00 Freq: NEEDED Status: Active Protocol: Document 07/27/23 15:10 AB (Rec: 07/27/23 18:14 AB [id number]) Medical Review Prior Functional Status Medical History Reviewed Yes Communication able to make needs known Mobility and Gait pt stated that she was modified independent with all mobilities and ambulation without AD but occasionally uses a SPC Social History Household Members spouse Living Arrangements RV Number of Floors (Floors) One Floor Number of Stairs To Enter/Railing? ramp to enter Home Environment Standard Height Toilet,Walk in Shower Home Equipment Front Wheel Walker,Straight Cane,Hand Held Shower,Grab Bars In Shower M2 PT-IP Current Condition Start: 07/27/23 18:00 Freq: NEEDED Status: Active Protocol: Document 07/27/23 15:10 AB (Rec: 07/27/23 18:14 AB [id number]) Physical Therapy Current Condition Current Condition Evaluation Date 07/27/23 Treatment Diagnosis s/p L DAVID anterior; difficulty in walking Onset Date 07/27/23 M3 PT-IP Subjective Start: 07/27/23 18:00 Freq: NEEDED Status: Active Protocol: Document 07/27/23 15:10 AB (Rec: 07/27/23 18:14 AB [id number]) Subjective Physical Therapy Visit Type Type Initial Evaluation Visit Start Time 15:10 Visit Stop Time 16:13 Number of SALT CUTTER Visits 0 Physical Therapy Visit Comments Patient Comments agreeable to do PT Therapy Pain Assessment Pain When Pain Assessed At Rest Location left hip Scale Used pain scale not stated Pain Management Techniques Apply Cold,Distraction, Modification of Treatment,Re- positioning,Timing of Activity with Medications M4 PT-IP Mobility and Gait Start: 07/27/23 18:00 Freq: NEEDED Status: Active Protocol: Document 07/27/23 15:10 AB (Rec: 07/27/23 18:14 [id number]) PT-Bed Mobility Assessment Supine to Sit Supine to Sit Minimal Assistance,1 Person Assistance Sit to Supine Sit to Supine Minimal Assistance,1 Person Assistance PT-Transfer Assessment Sit to and From Stand Sit to and from Stand Minimal Assistance,1 Person Assistance,Use of Upper Extremities Equipment Transfer Assistive Device Gait Belt,Front Wheeled Walker Orthotic/Prosthetic Devices or Brace: No Comments Mobility Comments pt supine in bed and agreeable to do PT. BP in supine: 84/44 and rechecked: 82/37. no c/o dizziness in supine. agreed to mobilize with PT and BP monitored. obtained PLOF and home set up from pt. post-op folder provided and reviewed contents. educated pt regarding anterior hip precautions for LLE. pt was able to recall hip precautions afterwards. pt completed supine to sit min A and cues for techniques. able to sit on EOB with slight lightheadedness but stable. BP in sittin/72. pt completed sit to stand min A . able to stand using fWW for support CGA. BP in standin/42. instructed pt to sit back on EOB. pt completed sit to supine min A. BP in supine : 79/41. positioned pt on the bed. BP checked again: 84/42. cold therapy machine applied. call light and table placed within reach. pt will inform spouse to come in at ~ 9am for caregiver training. informed nurse regarding BP. PT-Balance Assessment Sitting Balance and Reactions Static Sitting Balance Ability Normal Dynamic Sitting Balance Ability Good Standing Balance and Reactions Static Standing Balance Ability Fair Dynamic Standing Balance Ability Fair Device Used FWW M5 PT-IP Objective Assessments Start: 07/27/23 18:00 Freq: NEEDED Status: Active Protocol: Document 07/27/23 15:10 AB (Rec: 07/27/23 18:14 AB [id number]) Orientation Orientation/Cognition Level of Alertness Alert Orientation Name,Place,Situation Language Function Ability No Deficits Noted Safety Awareness Decreased Safety Awareness Memory Description No Deficits Noted Gross Range of Motion Lower Extremity ROM Assessment Within Functional Limits Strength Lower Extremity Strength Assessment Left Impaired Hip 3-/5 Knee 4-5 Sensation Assessment Sensation Sensation Description Numbness Comments Sensation Comments slight inner calf numbness on LLE Muscle Tone Muscle Tone WNL Yes M6 PT-IP Treatment Start: 07/27/23 18:00 Freq: NEEDED Status: Active Protocol: Document 07/27/23 15:10 AB (Rec: 07/27/23 18:14 AB [id number]) Physical Therapy Treatment Education Education Provided Precautions,Weight Bearing Status,Post-Op Packet,Safety M7 PT-IP Assessment and Plan Start: 07/27/23 18:00 Freq: NEEDED Status: Active Protocol: Document 07/27/23 15:10 AB (Rec: 07/27/23 18:14 AB [id number]) PT Summary Assessment and Plan Potential Rehabilitation Potential Fair Status of Condition at Evaluation Evolving Summary Impairments Pain,ROM,Strength,Balance, Coordination,Sensation,Tone, Cognition,Bed Mobility, Transfers,Gait,Activity Tolerance Assessment Summary pt is a 63 y/o F s/p L DAVID anterior approach. pt with L hip anterior precautions and is WBAT. pt presenting with decrease BP 84/44 in supine and decreases to 75/42 in standing limiting mobility at this time. pt requiring min A for bed mobility and sit to stand but unable to transfer or ambulate due to decrease in BP. caregiver training set up for tomorrow at ~ 9 am. will continue to assess progress. Goals Bed Mobility Goal Independent Transfer Goal Independent,Front Wheeled Walker Gait Goal Independent,Front Wheel Walker Gait Distance 200 Days to Meet Goals 5 Frequency of Treatment Frequency Of Treatment Twice a Day Treatment Plan Physical Therapy Treatment Plan Bed Mobility Training,Transfer Training,Gait Training, Therapeutic Exercise,Balance Retraining,Post Op Education, Discharge Planning,Hot or Cold Pack,Neuromuscular Re-ed, Coordination Retraining,Manual Therapy Other Recommendations and Next Treatment caregiver training 07/27@ 9am Focus Precautions Anterior Hip Precautions No Hip Extension,No Hip External Rotation Other Precautions droplet precautions Weight Bearing Status Weight Bearing Status Weight Bear as Tolerated Allowed Weight Bearing Amount (enter % LLE WBAT or #) (%) Recommendations To Nursing Amount of Assist Needed 1 Person Assist Discharge Recommendations PT Discharge Recommendations Home with Assistance, Outpatient PT Transportation Needs at Discharge Private Vehicle
--- NOTE | 2023-07-27 15:18 | SUR.PREOP ---
Primary Nurse, Aysha, calling to report that patient is hypotensive with dizziness 81/46; reported findings to Dr Wills, currently in the middle of surgery. No orders from Dr Wills but Dr Wills informing PACU nurse that hospitalist would need to be consulted for hypotension. Relayed conversation to inpatient primary nurse.
[2023-07-27 16:49] LABS: Hemoglobin 8.6 g/dL (12.0-16.0); Mean Corpuscular HGB Conc 33.2 % (30-36); Mean Corpuscular Hemoglobin 30.5 PG (26-34); Mean Corpuscular Volume 92.1 fL (80-100); Platelet Count 165 X10^3/uL (150-400); Red Blood Cell Count 2.82 X10^6/uL (4.0-5.2); Red Cell Distribution Width 12.7 % (11.6-14.8); White Blood Cell Count 16.9 X10^3/uL (4.5-11.0)
[2023-07-27 17:03] LABS: Alanine Aminotransferase 27 IU/L (<35); Albumin 2.6 g/dL (3.5-5.0); Albumin Globulin Ratio 1.5 (1.0-2.8); Alkaline Phosphatase 51 U/L (38-126); Aspartate Aminotransferase 38 IU/L (14-36); BUN Creatinine Ratio 11.6 (6-22); Bilirubin Total 0.3 mg/dL (0.2-1.3); Blood Urea Nitrogen 18 mg/dL (7-17); Calcium 7.4 mg/dL (8.4-10.2); Carbon Dioxide 31 mmol/L (22-32); Chloride 93 mmol/L (98-107); Estimated Glomerular Filt Rate 37 mL/min (>60); Globulin 1.7 g/dL (1.7-4.1); Glucose 107 mg/dL (80-110); HEMOLYSIS < 15 (0-50); Sodium 128 mmol/L (137-145); Total Protein 4.3 g/dL (6.3-8.2)
[2023-07-27 17:05] LABS: Potassium 2.7 mmol/L (3.4-5.1)
--- NOTE | 2023-07-27 17:05 | OT.IP.EVAL ---
Current Diagnoses Unilateral primary osteoarthritis, left hip (07/27/23) Surgery Performed Operation Date: 07/27/23 07:45 Actual Procedures p Total Hip Arthroplasty/Anterior Approach(Left) - Roland Wills MD Past Medical History (Last Reviewed 07/27/23 @ 06:44 by Trista Jimenez, RN) Acid reflux ADD (attention deficit disorder) Anxiety Arthritis Chicken pox CKD (chronic kidney disease) Colon polyps Coronary artery calcification seen on CT scan Depression Easy bruisability Ectopic Fibromyalgia (~2008) Foot pain Hemorrhoid History of COVID-19 (~2019) History of tobacco use HLD (hyperlipidemia) Hx of anorexia nervosa Hx of bulimia nervosa Nodule of lower lobe of right lung Osteoarthritis Osteoarthritis of left hip Osteopenia Pancreatitis Restless leg syndrome Substance abuse Vertigo Surgical History (Last Reviewed 07/27/23 @ 06:44 by Trista Jimenez, RN) Hx of hernia repair (~2020) Hx of thumb surgery Hx of tonsillectomy Occupational Therapy Inpatient Evaluation/Re-Eval M1 PT/OT-IP Prior Functional Status Start: 07/27/23 17:07 Freq: NEEDED Status: Active Protocol: Document 07/27/23 16:50 [facility] (Rec: 07/27/23 17:19 [facility] [id number]) Medical Review Prior Functional Status Communication Independent Mobility and Gait Independent with no device but had pain and limited her distance. Activities of Daily Living and IADL's Pt had pain during ADL and IADL needs. Prior Functional Level (Other details) Pt's to be able to assist pt. Social History Household Members spouse Living Arrangements Mobile home Number of Floors (Floors) One Floor Number of Stairs To Enter/Railing? 3 steps with bilateral narrow steps. Home Environment Standard Height Toilet,Walk in Shower Home Equipment Front Wheel Walker,Straight Cane,Hand Held Shower Additional Social History Comment Pt states has already ordered a shower stool. 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 Patient/Caregiver Goals To go home. OT Pain Assessment Pain When Pain Assessed At Rest Pain Present Pain Present Pain Reported Location left hip Intensity 8 Scale Used Numeric (0 - 10) M4 OT- IP ADL's Start: 07/27/23 17:07 Freq: Status: Active Protocol: Document 07/27/23 16:50 [facility] (Rec: 07/27/23 17:19 [facility] [id number]) OT NET-[id number]-[id number] General Evaluation Self-Feeding Ability Independent OT ADL-Grooming Comments OT Grooming Comments No performed, no issues anticipated. OT ADL-Oral Care Comments Oral Care Comments Not performed, no need anticipated. OT ADL-Dressing Comments OT Dressing Comments Spoke of LB dressing needs for the pt and techniques. Pt states her will be able to assist. OT ADL-Toileting Comments OT Toileting Comments Educated pt to be mindful of her leg positioning needs especially during ADL needs. Suggested use of wet wipes and may be helpful to wear pads at night so not to have to hurry to the bathroom. OT ADL-Bathing Comments OT Bathing Comments Pt states has order a shower stool. Went over care of dressing for showering needs. M5 OT- IP IADL's Start: 07/27/23 17:07 Freq: Status: Active Protocol: Document 07/27/23 16:50 [facility] (Rec: 07/27/23 17:19 [facility] [id number]) OT-Instrumental Activities of Daily Living Deficits IADL Deficits Identified Deficits Home Safety Awareness Awareness of Need for Assistance at Home Good Awareness Ability to Problem Solve Emergency Able to Problem Solve Situations Home Safety Comments Pt's to be able to assist her. M6 OT- IP Functional Cognition Start: 07/27/23 17:07 Freq: Status: Active Protocol: Document 07/27/23 16:50 [facility] (Rec: 07/27/23 17:19 [facility] [id number]) Cognitive Factors Limiting Selfcare Function Cognitive Ability Level of Alertness Alert Patient Orientation Name,Age,Birthday,Month,Date, Year,Day of Week,Place, Situation Attention Span Ability Capable of Focused Attention, Capable of Sustained Attention Ability to Follow Commands Able to Follow One Step Commands Cognitive Comments Cognitive Assessment Comments Pt able to state her precautions. OT- Vision and Hearing OT- Hearing Assessment OT- Hearing Assessment WFL OT- Vision Assessment Visual Acuity Glasses All The Time Visual Attentiveness WFL Occular Pursuits WFL M7 OT- IP Mobility and Balance Start: 07/27/23 17:07 Freq: Status: Active Protocol: Document 07/27/23 16:50 [facility] (Rec: 07/27/23 17:19 [facility] [id number]) OT-Transfer Assessment Comments Mobility Comments Pt low BP while sitting 90/45. Spoke of sleeping positioning at night. Spoke of getting into and out of the car. M8 OT- IP Objective Assessments Start: 07/27/23 17:07 Freq: Status: Active Protocol: Document 07/27/23 16:50 [facility] (Rec: 07/27/23 17:19 [facility] [id number]) OT Gross Range of Motion Upper Extremity Range of Motion Assessment Within Functional Limits OT Strength Upper Extremity Strength Assessment Within Functional Limits M9 OT- IP Assessment and Plan Start: 07/27/23 17:07 Freq: Status: Active Protocol: Document 07/27/23 16:50 [facility] (Rec: 07/27/23 17:19 [facility] [id number]) OT Summary Assessment and Plan Potential Rehabilitation Potential Good Analytic Complexity at Evaluation Low Summary OT Impairments Pain,Balance,Functional Mobility,Dressing,Toileting, Bathing,Toilet Transfers, Shower Transfers,Activity Tolerance Progress Towards Goals Slow Progress due to Medical Issues Assessment Summary Pt low complexity and main barriers are pt having low BP and pain. Able to go over ADL equipment needs with pt and how to incorporate her hip precautions for ADL needs. Pt to go home with her when medically stable and have outpt PT. Goals Self-Feeding Goal Independent Grooming Goal Independent Dressing Goal Standby Assistance Toileting Goal Independent Bathing Goal Standby Assistance Toilet Transfer Goal Independent Shower Transfer Goal Standby Assistance Days to Meet Goals 5 Frequency of Treatment Frequency Of Treatment Once a Day Treatment Plan OT Treatment Plan ADL Training,Functional Mobility,Patient/Family Education,Discharge Planning Discharge Recommendations OT Discharge Recommendations Home with Assistance, Outpatient PT Home Equipment Needs LB dressing equipment, shower chair, long handled brush/ sponge, pads Transportation Needs at Discharge Private Vehicle
[2023-07-27 17:14] LABS: Troponin I < 0.012 ng/mL (0.01-0.034)
[2023-07-27] MEDS: IBUPROFEN 600 MG TABLET PO (17:18)
--- NOTE | 2023-07-27 17:26 | PM.CALLCOV.1 ---
Call Coverage Note Note Date of Patient Contact: 07/27/23 Narrative of Care Provided: Asked to evaluate patient's orthostatic hypotension. Labs are reassuring, notable for mildly low potassium, Hg of 8.6, troponin ordered given her prior TTE with EF of around 45% which was unremarkable. Orthostatic hypotension is likely related to anesthesia and acute blood loss anemia at this time. No further interventions recommended after repletion of potassium. If additional interventions will formally consult.
--- NOTE | 2023-07-27 17:54 | PC.NURSE ---
Day shift: Pt admitted to ACU from PACU. Noted that pt febrile to 101.5 prior to surgery with wet intermittent cough. When patient arrived on unit, no longer febrile. Cough still persistent, though lungs sound clear. O2 94 percent on room air. Pt was tested for covid and flu prior to surgery, which came back negative. Spoke with computer operations manager Magdalena, who recommended putting patient on droplet precaustions due to persistent cough. Pt rating pain 8/10. PO oxycodone + APAP given with adequate relief. Pt has been hypotensive since coming out of surgery. Notified MD Wills via JAYASHREE and ADAMARIS Hooks of continued decreased BP, did not hear back so called GALVANIZER ZINC Saritha who called into the OR to notified MD Wills. MD Wills reported that he could not put in orders for patient so this RN needed to consult hospitalist. Hospitalist MD Doty ordered labs and EKG. Critical potassium of 2.7. Notified MD Doty of lab results, and he instructed this RN to notify pharmacy. This RN called Airam, pharmacist, who said she would call MD Wills because patient's kidney function wasn't great. Potassium not replaced this shift, and Airam ordered PO potassium for 2100 this evening. RT at bedside and did EKG - relatively normal, with some irregularities likely due to low potassium. Pt continues to be hypotensive, though MAP is improving, and dizzy with sitting/standing. MD Doty and Elma aware. Will continue to monitor.
[2023-07-27] MEDS: CALCIUM CARBONATE 500 MG TAB PO ×2 (18:26→20:32)
[2023-07-27] MEDS: POTASSIUM CHLORIDE 20 MEQ TAB PO ×2 (20:32)
[2023-07-27] MEDS: ARIPiprazole 10 MG TABLET PO (20:32)
[2023-07-27] MEDS: ASPIRIN EC 81 MG TABLET PO (20:32)
[2023-07-27] MEDS: TRAZODONE 50 MG TABLET 150 MG PO (20:32)
[2023-07-27] MEDS: lamoTRIgine 100 MG TABLET 50 MG PO (20:32)
[2023-07-27] MEDS: FERROUS SULFATE 325 MG TABLET PO (20:33)
--- NOTE | 2023-07-27 20:39 | PM.PN.1 ---
Subjective Subjective Interval history: Patient seen postoperatively. Resting comfortably. Ice in place. No acute distress. Pain well controlled. She has been persistently hypotensive postoperatively. Most recently systolic in 90s and diastolic in 50s. This has been persistent since she was in the PACU. She has not been symptomatic from the hypotension. She has mobilized briefly with physical therapy but the session was discontinued due to her hypotension. I have consulted the medical team for input. We will continue monitoring her. If necessary to remain inpatient until Sunday in order to stabilize from a hemodynamic perspective we will do so. She is otherwise doing very well. Her dressing is clean dry and intact and she has intact plantar flexion and dorsiflexion of the ankle and intact quadriceps function. She has a palpable DP pulse and a well-perfused foot. Exam Vital Signs (past 8 hours): - 07/27/23 12:40 07/27/23 13:40 07/27/23 14:40 Temperature 98.5 F 98.9 F 98.9 F Pulse Rate 100 H 100 H 94 H Respiratory Rate 17 14 16 Blood Pressure 92/48 L 91/47 L 81/46 L Pulse Oximetry 97 98 100 Oxygen Flow Rate 07/27/23 15:31 07/27/23 17:53 07/27/23 18:16 Temperature 97.9 F 98.6 F Pulse Rate 95 H 90 Respiratory Rate 20 Blood Pressure 93/46 L 98/44 L 101/57 L Pulse Oximetry 94 100 Oxygen Flow Rate 0 07/27/23 20:24 Temperature 98.8 F Pulse Rate 89 Respiratory Rate 16 Blood Pressure 93/48 L Pulse Oximetry 97 Oxygen Flow Rate Oxygen Delivery Method Room Air Oxygen Flow Rate 0 Objective Labs 07/27/23 16:40 07/27/23 16:40 Labs: Laboratory Results - last 24 hr 07/27/23 07/27/23 06:56 16:40 WBC 16.9 H RBC 2.82 L Hgb 8.6 L Hct 26.0 L MCV 92.1 MCH 30.5 MCHC 33.2 RDW 12.7 Plt Count 165 Sodium 128 L Potassium 2.7 L* Chloride 93 L Carbon Dioxide 31 BUN 18 H Creatinine 1.55 H Estimated GFR 37 L BUN/Creatinine Ratio 11.6 Glucose 107 Calcium 7.4 L Total Bilirubin 0.3 AST 38 H ALT 27 Alkaline Phosphatase 51 Troponin I < 0.012 Total Protein 4.3 L Albumin 2.6 L Globulin 1.7 Albumin/Globulin Ratio 1.5 SARS-CoV-2 (PCR) Negative Influenza A (RT-PCR) Flu a negative Influenza B (RT-PCR) Flu b negative RSV (PCR) Negative PFSH Medical History Anxiety Easy bruisability Osteoarthritis Ectopic Acid reflux HLD (hyperlipidemia) History of COVID-19 (~2019) Fibromyalgia (~2008) Substance abuse Restless leg syndrome Arthritis Osteopenia Foot pain Chicken pox Vertigo Pancreatitis Hemorrhoid Colon polyps Coronary artery calcification seen on CT scan Osteoarthritis of left hip CKD (chronic kidney disease) Hx of bulimia nervosa Hx of anorexia nervosa Depression ADD (attention deficit disorder) History of tobacco use Nodule of lower lobe of right lung Surgical History Hx of thumb surgery Hx of tonsillectomy Hx of hernia repair (~2020) Family History Father History of heart disease Hypertension Sister Mental health problem Hypertension Stroke Fracture Grandfather Cancer Grandmother Brain aneurysm Social History household members: spouse Smoking Status: Former smoker alcohol intake: former Quality VTE Deep Vein Thrombosis/Pulmonary Embolism Present on Admission: No
[2023-07-28] VITALS (8 sets, daily range): BP systolic 88–108; BP diastolic 42–61; PULSE 81–95; RESP 16–19; TEMP 36.3–37.1; O2SAT 91–98
[2023-07-28] MEDS: LACTATED RINGERS 1,000 ML 100 ML IV
[2023-07-28] MEDS: CEFAZOLIN 2 GM/100 ML PREMIX 100 ML IV
[2023-07-28] MEDS: SODIUM CHLORIDE 0.9% 500 ML 1000 ML IV (04:35)
[2023-07-28 04:51] LABS: Hematocrit 25.7 % (36-46); Hemoglobin 8.6 g/dL (12.0-16.0)
[2023-07-28 05:20] LABS: BUN Creatinine Ratio 13.5 (6-22); Blood Urea Nitrogen 20 mg/dL (7-17); Calcium 8.2 mg/dL (8.4-10.2); Carbon Dioxide 31 mmol/L (22-32); Chloride 98 mmol/L (98-107); Estimated Glomerular Filt Rate 39 mL/min (>60); Glucose 122 mg/dL (80-110); HEMOLYSIS < 15 (0-50); Magnesium 1.7 mg/dL (1.6-2.3); Potassium 3.1 mmol/L (3.4-5.1); Sodium 132 mmol/L (137-145)
[2023-07-28] MEDS: TRAMADOL 50 MG TABLET PO (05:24)
[2023-07-28] MEDS: ACETAMINOPHEN 325 MG TABLET 650 MG PO ×4 (06:15→17:50)
[2023-07-28] MEDS: IBUPROFEN 600 MG TABLET PO ×4 (06:16→17:50)
[2023-07-28] MEDS: LORATADINE 10 MG TABLET PO (08:56)
[2023-07-28] MEDS: VENLAFAXINE ER 75 MG CAP 150 MG PO (08:56)
[2023-07-28] MEDS: FERROUS SULFATE 325 MG TABLET PO ×2 (08:56→21:09)
[2023-07-28] MEDS: ATORVASTATIN 20 MG TABLET 40 MG PO (08:56)
[2023-07-28] MEDS: DOCUSATE 100 MG CAPSULE PO ×2 (08:56→21:09)
[2023-07-28] MEDS: ASPIRIN EC 81 MG TABLET PO ×2 (08:56→21:09)
[2023-07-28] MEDS: OXYCODONE IR 5 MG TABLET PO ×4 (09:00→21:08)
--- NOTE | 2023-07-28 09:00 | PT.IPTN ---
Current Diagnoses Unilateral primary osteoarthritis, left hip (07/27/23) Surgery Performed Operation Date: 07/27/23 07:45 Actual Procedures p Total Hip Arthroplasty/Anterior Approach(Left) - Roland Wills MD Physical Therapy Treatment Note M2 PT-IP Current Condition Start: 07/27/23 18:00 Freq: NEEDED Status: Active Protocol: Document 07/27/23 15:10 AB (Rec: 07/27/23 18:14 AB [id number]) Physical Therapy Current Condition Current Condition Evaluation Date 07/27/23 Treatment Diagnosis s/p L DAVID anterior; difficulty in walking Onset Date 07/27/23 M3 PT-IP Subjective Start: 07/27/23 18:00 Freq: NEEDED Status: Active Protocol: Document 07/28/23 09:31 TS (Rec: 07/28/23 09:38 TS [id number]) Subjective Physical Therapy Visit Type Type Treatment Note Visit Start Time 09:00 Visit Stop Time 09:25 Number of HOMEOPATHIC DOCTOR Visits 1 Physical Therapy Visit Comments Patient Comments Pt found resting in bed, is agreeable to PT. Therapy Pain Assessment Pain When Pain Assessed During Mobility Pain Present Pain Present Pain Reported M4 PT-IP Mobility and Gait Start: 07/27/23 18:00 Freq: NEEDED Status: Active Protocol: Document 07/28/23 09:31 TS (Rec: 07/28/23 09:38 TS [id number]) PT-Bed Mobility Assessment Supine to Sit Supine to Sit Standby Assistance Scooting Scooting to Edge of Bed Standby Assistance PT-Transfer Assessment Sit to and From Stand Sit to and from Stand Standby Assistance Equipment Transfer Assistive Device Gait Belt,Front Wheeled Walker Orthotic/Prosthetic Devices or Brace: No Comments Mobility Comments BP in supine 90/51. Supine to sit SBA with HOB elevated and BUE support. BP in sitting 100 /44, pt denied any dizziness. Spouse donned gait belt. STS from bed SBA with FWW, BP in standing 111/47, pt reports some dizziness coming and going. She ambulated ~40' in room SBA with FWW. She performed steps with spouse CGA x4 with B handrails. Pt was left in chair, all needs met, RN notified. Gait Assessment Gait Gait Assistance Required: Standby Assistance Distance (Feet) 40 Assistive Devices Assistive Device Gait Belt,Front Wheeled Walker Gait Deviations General Gait Pattern Decreased Stride Length, Decreased Feet Clearance,Step- to Gait Factors Limiting Gait Function Factors Limiting Gait Function Decreased Activity Tolerance, Decreased Strength,Poor Balance Stair Climbing Assessment Evaluation Level of Assist On Stairs Contact Guard Assistance,1 Person Assistance Devices Stair Climbing Assistive Devices Left Railing,Right Railing Technique/Endurance Stair Climbing Direction Ascend and Descend Stair Climbing Technique Step to Step Number of Steps Climbed 4 PT-Balance Assessment Sitting Balance and Reactions Static Sitting Balance Ability Normal Dynamic Sitting Balance Ability Good Standing Balance and Reactions Static Standing Balance Ability Good Dynamic Standing Balance Ability Good Device Used FWW M5 PT-IP Objective Assessments Start: 07/27/23 18:00 Freq: NEEDED Status: Active Protocol: Document 07/27/23 15:10 AB (Rec: 07/27/23 18:14 AB [id number]) Orientation Orientation/Cognition Level of Alertness Alert Orientation Name,Place,Situation Language Function Ability No Deficits Noted Safety Awareness Decreased Safety Awareness Memory Description No Deficits Noted Gross Range of Motion Lower Extremity ROM Assessment Within Functional Limits Strength Lower Extremity Strength Assessment Left Impaired Hip 3-/5 Knee 4-5 Sensation Assessment Sensation Sensation Description Numbness Comments Sensation Comments slight inner calf numbness on LLE Muscle Tone Muscle Tone WNL Yes M6 PT-IP Treatment Start: 07/27/23 18:00 Freq: NEEDED Status: Active Protocol: Document 07/28/23 09:31 TS (Rec: 07/28/23 09:38 [id number]) Physical Therapy Treatment Education Education Provided Precautions,Weight Bearing Status,Post-Op Packet,Safety M7 PT-IP Assessment and Plan Start: 07/27/23 18:00 Freq: NEEDED Status: Active Protocol: Document 07/28/23 09:31 TS (Rec: 07/28/23 09:38 [id number]) PT Summary Assessment and Plan Potential Rehabilitation Potential Good Summary Impairments Pain,ROM,Strength,Balance, Coordination,Sensation,Tone, Cognition,Bed Mobility, Transfers,Gait,Activity Tolerance Progress Towards Goals Progressing Toward Goals Assessment Summary Neena is progressing well with her mobility. She is SBA for all bed mobility and STS from bed with FWW. She progressed her gait to ~40'SBA with FWW. She performed steps with spouse CGA with B handrails x4 . She had some dizziness that would come and go in standing, BP 11/47, up from 90/51 supine in bed. Spouse was instrcuted in and performed donning of gait belt, gait and stair training. PT is recommending home with assist and outpatient PT. Goals Bed Mobility Goal Independent Transfer Goal Independent,Front Wheeled Walker Gait Goal Independent,Front Wheel Walker Gait Distance 200 Days to Meet Goals 5 Frequency of Treatment Frequency Of Treatment Twice a Day Treatment Plan Physical Therapy Treatment Plan Bed Mobility Training,Transfer Training,Gait Training, Therapeutic Exercise,Balance Retraining,Post Op Education, Discharge Planning,Hot or Cold Pack,Neuromuscular Re-ed, Coordination Retraining,Manual Therapy Precautions Anterior Hip Precautions No Hip Extension,No Hip External Rotation Other Precautions droplet precautions Weight Bearing Status Weight Bearing Status Weight Bear as Tolerated Allowed Weight Bearing Amount (enter % LLE WBAT or #) (%) Recommendations To Nursing Amount of Assist Needed Standby Assistance Discharge Recommendations PT Discharge Recommendations Home with Assistance, Outpatient PT Transportation Needs at Discharge Private Vehicle
--- NOTE | 2023-07-28 09:21 | CM.DANOTE ---
DCP: Case received, EMR reviewed and met with patient. Introduced self and role. Was able to obtain information regarding patient's baseline activity status prior to hospitalization. DCP assessment completed with information currently available. Patient is a 63 year old female who admitted yesterday morning to the care of the orthopedic team. PCP: Dr. Mann. Payer: [facility]. Patient came to the hospital via private vehicle for a surgical procedure. Patient had left hybrid total hip arthroplasty, anterior approach. Patient has history of left hip osteoarthritis. Met with patient in her room. She was sitting up in bed, pleasant, noted a hoarse voice. Nurse, Jaja, indicated that she had developed some viral symptoms, tests came back negative. Also, was having some low blood pressures, and has not yet worked with P.T. Confirmed with patient that she resides here in [place] with spouse, Darius. At her baseline, she is independent, and is employed at [employer]. Indicated that her and spouse are currently living in an , and will be preparing for her to have knee surgery as well. P: DCP to continue to follow. She will be working with P.T. Patient should be able to go home when deemed medically stable. Sejal Morrell RN/Medical I D Sales Discharge Planning/Care Management CM Discharge Assessment Start: 07/28/23 09:19 Freq: Status: Active Protocol: Document 07/28/23 09:19 (Rec: 07/28/23 09:21 [id number]) Discharge Planning Assessment Assigned Cable Testers Helper Sejal Morrell RN/Medical I D Sales Advance Directives? No History Provided By Patient,Medical Record Prior Living Arrangements Mobile home Household Members spouse Type of transporation used prior to Drives own vehicle admit Independent with ADL's Yes Is patient alert and oriented? Yes Caregiver for Another No Barriers to Discharge No Comment Was having some blood pressures issues. Discharge Plan Home Transportation Arrangement Spouse Referrals Initiated None needed Additional Comment Has not yet worked with P.T. Whiteboard Updated in Patient Room with Yes name and ext. # of Cable Testers Helper Review Status In Process Next Review Type Continued Stay Review Pre-Anesthesia Assessment Start: 07/17/23 08:19 Freq: Status: Active Protocol: Document 07/17/23 08:19 CAB (Rec: 07/17/23 09:37 CAB [id number]) Pre-Anesthesia Assessment Patient Information Reviewed Via Phone Assessment Assessment Completed With Patient Diagnostic Results BMP/CMP,CBC,EKG Comment Labs/EKG @ Primary Care Provider Dee Dee Mann Comment Clearance form 05/09/23 scanned and in surgery folder Seen Specialist in Last 12 Months Yes Specialist Seen Orthopedist Primary Language Nam[place]ian Guncotton Packer Required No Height 5 ft 5.5 in Weight 110 lb Body Mass Index (BMI) 18.0 Hearing Ability Normal Visual Assist Glasses Barriers to Learning Memory Comment Full implants top and bottom Hx Anesthesia Reactions No Hx Family Anesthesia Reaction No Hx Malignant Hyperthermia No Hx Blood Transfusions Yes: s/p 2nd vaginal delivery Hx Blood Transfusion Reaction No Anesthesia Review Requested Yes: PAC courtesy re: Medical history Fire Code Inspector No alcohol intake former alcohol intake frequency other Alcohol Intake Frequency Other: Sober x 20 years Smoking Status Former smoker how long ago did patient quit smoking Quit 2008 Substance Use Type does not use,former substance user Comment Last used 1994 Pain Present Pain Reported Musculoskeletal Symptoms Abnormal Gait,Difficulty Walking,Joint Pain,Muscle Cramps History of Falling (Recent or History of No ) Patient is completely paralyzed or No completely immobile Prosthesis or Orthotic Device Cane Mental Status Oriented to own ability Is patient on oxygen? No Does patient have SHIRLEY/SOB No Hx Sleep Apnea No Currently Taking a Beta Bradley No Can You Climb a Flight of Stairs Without Yes SOB Hx Chest Pain No Hx SOB No Hx Syncope or Dizziness No Anti-Coagulant Therapy No Has a Fha Underwriter No: Scheduled to see in August 2023 Cardiac Testing Yes: Echo @ 05/31/23 LVEF decreased from 50-55% to 45-50 % Hx Pacemaker/ICD No Pacemaker Rep Required? No Diet Type At Home Regular Dysphagia Yes: Difficulty with solids Gastrointestinal Symptoms Reflux Chronic UTI No Urinary Catheter Present No Hx Urinary Self Catheterization No Diabetes No HgbA1C 5.9 Date 07/06/23 Patient No Lactating No Hx Drug Resistant Organism No Presence of External or Internal Medical No Devices Received a COVID vaccine? Yes Received all doses? Yes Marital Status Lives With spouse Current Living Arrangements Mobile home Number of Floors (Floors) One Floor Support System Spouse Does the Patient Have Assistance After Yes Surgery Patient Discharge Plan Description Return Home Comment Pt not advised on length of stay per surgeon Feels Safe in Current Environment Yes Been Physically Hurt or Threatened By a No Person in Current Environment Do you have thoughts of harming yourself None or others? Do you have a plan to hurt yourself or No Plan others? Do You Have Any Spiritual Beliefs That No May Affect Your HC Choices? Do You Have Any Cultural Practices That No May Affect Your HC Choices? Comment Hinduism Who Can We Speak to About Patient's Care Family, friends Identifying Code for Release of Patient Declines to issue Information Health Care Proxy/Next of Kin Darius () Health Care Proxy Emergency Contact Name Olvin (son) Emergency Contact Advance Directives? No Power of Cheesemaker No PAC Instructions Do not shave/clip surgical site,Durable medical equipment ,Medications to take/avoid, Nasal antibiotic,No ETOH/ petroleum product on skin DOS, NPO,Post-op transportation,Pre -surgical wash,Sensory aids, Sturdy shoes/comfortable clothes,Do not bring valuables and remove jewelry
--- NOTE | 2023-07-28 11:01 | PM.PNPO.1 ---
Subjective Subjective Interval history: Neena is a pleasant 63 year old female who is POD#1 s/p L DAVID by Dr. Wills. She has been persistently hypotensive postoperatively. Most recently systolic in 80s and diastolic in 40s. This has been persistent since she was in the PACU. She is not been symptomatic from the hypotension while resting but does feel light headed when standing up and working with PT. Medicine was consulted yesterday for input, we will continue monitoring her. Otherwise she is doing very well. She reports moderate pain that is tolerable with the oral pain medication. Lives at home with her who is willing and able to aid in her postop recovery, they do live in an RV and therefore plan to stay in a hotel for the first 2 nights post hospital discharge. Has post-op PT scheduled with [facility] and post-op pain medications at home already. She has been able to get up and urinate on her own with the assistance of a walker, she did have a purewik in place last night. Denies fever, chills, chest pain, shortness of breath, nausea, vomiting. Exam Vital Signs (past 8 hours): - 07/28/23 04:27 07/28/23 06:00 07/28/23 08:00 Temperature 97.4 F L 98.3 F Pulse Rate 81 91 H Respiratory Rate 16 19 Blood Pressure 89/44 L 93/53 L 88/42 L Pulse Oximetry 91 97 Oxygen Delivery Method Room Air Oxygen Flow Rate 0 Narrative Exam Narrative: Lying in bed comfortably during our interview this morning. SCDs on and functioning. Resp Effort & Inspection: normal respiratory effort and able to speak in complete sentences Cardio Other: Regular rate, brisk capillary refill. Skin Other: No rash. Neuro General: patient alert, patient awake and patient oriented x3 Extrem Other: Grossly normal alignment. 3/5 strength with PF, 5/5 EHL, DF. Intact quadriceps function Calf soft and nontender. Gross sensation intact to the LLE although she does have some pre-existing neuropathy in her left foot. She has a palpable DP pulse and a well-perfused foot. Dressing is clean, dry and intact over the left anterior hip. Ice pad in place over the left hip. Psych Appearance: grossly normal Mental Status: mental status grossly normal Speech and Movement: speech and movement normal Objective Labs 07/28/23 04:32 07/28/23 04:32 Labs: Laboratory Results - last 24 hr 07/27/23 07/28/23 16:40 04:32 WBC 16.9 H RBC 2.82 L Hgb 8.6 L 8.6 L Hct 26.0 L 25.7 L MCV 92.1 MCH 30.5 MCHC 33.2 RDW 12.7 Plt Count 165 Sodium 128 L 132 L Potassium 2.7 L* 3.1 L Chloride 93 L 98 Carbon Dioxide 31 31 BUN 18 H 20 H Creatinine 1.55 H 1.48 H Estimated GFR 37 L 39 L BUN/Creatinine Ratio 11.6 13.5 Glucose 107 122 H Calcium 7.4 L 8.2 L Magnesium 1.7 Total Bilirubin 0.3 AST 38 H ALT 27 Alkaline Phosphatase 51 Troponin I < 0.012 Total Protein 4.3 L Albumin 2.6 L Globulin 1.7 Albumin/Globulin Ratio 1.5 PFSH Medical History Anxiety Easy bruisability Osteoarthritis Ectopic Acid reflux HLD (hyperlipidemia) History of COVID-19 (~2019) Fibromyalgia (~2008) Substance abuse Restless leg syndrome Arthritis Osteopenia Foot pain Chicken pox Vertigo Pancreatitis Hemorrhoid Colon polyps Coronary artery calcification seen on CT scan Osteoarthritis of left hip CKD (chronic kidney disease) Hx of bulimia nervosa Hx of anorexia nervosa Depression ADD (attention deficit disorder) History of tobacco use Nodule of lower lobe of right lung Surgical History Hx of thumb surgery Hx of tonsillectomy Hx of hernia repair (~2020) Family History Father History of heart disease Hypertension Sister Mental health problem Hypertension Stroke Fracture Grandfather Cancer Grandmother Brain aneurysm Social History household members: spouse Smoking Status: Former smoker alcohol intake: former Assessment & Plan Post-op Postoperative Procedures: Procedures Operation Date: 07/27/23 07:45 Actual Procedure Side Surgeon p Total Hip Arthroplasty/Anterior Approach Left Roland Wills MD Postoperative day: 1 Postoperative status narrative: post-op hypotension, orthostatic hypotension Postoperative plan narrative: 1) Will continue to monitor BP and vitals. If necessary to remain inpatient until Sunday in order to stabilize from a hemodynamic perspective we will do so. Likely d/c to home tomorrow. 2) Continue to work with PT as tolerated, weight bearing as tolerated. Maintain anterior hip precautions. 3) ASA BID for DVT prophylaxis. 4) Continued multimodal pain management with ice to the hip for additional pain control. She has Oxycodone and Tramadol ordered, will try to control pain with Tramadol as much as possible to help limit any further lowering of the BP. She has her post-op pain medications at home already for when she d/c from hospital. 5) Keep dressing clean, dry and intact until 2 week postop appointment. No soaking the incision site in pools or tubs. All patients questions were answered and she is in agreement with the treatment plan. Quality VTE Deep Vein Thrombosis/Pulmonary Embolism Present on Admission: No
[2023-07-28] MEDS: CALCIUM CARBONATE 500 MG TAB PO ×4 (11:13→21:08)
[2023-07-28] MEDS: MIDODRINE HCL 5 MG TABLET 2.5 MG PO ×2 (12:08→17:49)
--- NOTE | 2023-07-28 14:55 | PT-IP ANOTE ---
Pt was to d/c this morning but is staying one more night due to concerns over her low BP. She was cleared by PT for home. She refused to work with PT at this time and will get up with nursing and her spouse later this afternoon. PT will check on her tomorrow morning.
[2023-07-28] MEDS: polyethylene glycoL 3350 17 GM POWD.PACK PO (17:58)
--- NOTE | 2023-07-28 18:23 | PM.CN ---
History of Present Illness Consult details Date Patient Seen: 07/28/23 Time Patient Seen: 18:26 Chief complaint: Left Total Hip Arthroplasty/Anterior Narrative: This is a 63 year old female with PMH of CKD, firbomyalgia, borderline EF but no prior history / signs of heart failure, anxiety and depression who was admitted after a left DAVID on 07/26. Medicine was asked for consultation for orthostatic hypotension. Yesterday patient had unremarkable lab workup, only notable for an acute blood loss anemia which is stable. Renal function appeared stable. She was mildly hypokalemic and troponin was negative, she denies chest pain. She remained orthostatic this AM, and midodrine was initiated at 2.5 mg TID, with improvement this evening. Meds Home Medications and Allergies Home Medications Medication Instructions Recorded Confirmed Type aripiprazole 10 mg tablet (Abilify) 10 mg PO BEDTIME 03/21/23 07/27/23 History atomoxetine 80 mg capsule 100 mg PO DAILY 03/21/23 07/27/23 History (Strattera) lamotrigine 25 mg tablet (Lamictal) 50 mg PO BEDTIME 03/21/23 07/27/23 History trazodone 100 mg tablet 150 mg PO BEDTIME 03/21/23 07/27/23 History atorvastatin 40 mg tablet 40 mg PO DAILY #90 tabs 05/14/23 07/27/23 Rx potassium chloride 20 mEq 20 meq PO DAILY #90 tabs 07/06/23 07/27/23 Rx tablet,extended release ferrous sulfate 325 mg (65 mg 325 mg PO BID 07/17/23 07/27/23 History iron) tablet loratadine 10 mg tablet 10 mg PO DAILY 07/17/23 07/27/23 History (Allerclear) venlafaxine 150 mg 150 mg PO DAILY 07/17/23 07/27/23 History capsule,extended release 24 hr ibuprofen 200 mg tablet 400 mg PO Q8H PRN Pain (Scale 07/27/23 07/27/23 History Score 7-10) Allergies Allergy/AdvReac Type Severity Reaction Status Date / Time Opioids-Meperidine and AdvReac Mild Nausea Verified 07/27/23 06:44 Related Review of Systems Review of Systems Narrative: All other systems reviewed with the patient and are negative unless otherwise stated. Exam Vital Signs (past 8 hours): - 07/28/23 12:00 05/18/24 14:16 07/28/23 16:00 Temperature 98.1 F 98.8 F Pulse Rate 95 H 84 Respiratory Rate 19 19 Blood Pressure 106/56 L 101/48 L 107/57 L Pulse Oximetry 94 98 Oxygen Delivery Method Room Air Oxygen Flow Rate 0 Narrative Exam Narrative: General:? Patient is well developed and well nourished, in no distress at this time. Chest:? Normal AP diameter and contour without kyphoscoliosis, no tachypnea, equal chest rise bilaterally. Lungs:? CTA b/l no wheezing rhonchi or rales. Cardio:?RRR no m/r/g. Abdomen: S NT ND. Musculoskeletal:? Muscle strength and tone are equal within normal limits, no deformity. Extremities: No edema or joint effusions. No cyanosis or clubbing. Neuro:? Alert and orientated x3,? sensation to touch intact in all extremities, no gross deficits noted of cranial nerves. Psych:? Patient has a well-kept appearance, appropriate affect, mental status attitude thought context and judgment are appropriate for age. Objective Labs 07/28/23 04:32 07/28/23 04:32 Labs: Laboratory Results - last 24 hr 07/28/23 04:32 Hgb 8.6 L Hct 25.7 L Sodium 132 L Potassium 3.1 L Chloride 98 Carbon Dioxide 31 BUN 20 H Creatinine 1.48 H Estimated GFR 39 L BUN/Creatinine Ratio 13.5 Glucose 122 H Calcium 8.2 L Magnesium 1.7 PFSH Medical History Anxiety Easy bruisability Osteoarthritis Ectopic Acid reflux HLD (hyperlipidemia) History of COVID-19 (~2019) Fibromyalgia (~2008) Substance abuse Restless leg syndrome Arthritis Osteopenia Foot pain Chicken pox Vertigo Pancreatitis Hemorrhoid Colon polyps Coronary artery calcification seen on CT scan Osteoarthritis of left hip CKD (chronic kidney disease) Hx of bulimia nervosa Hx of anorexia nervosa Depression ADD (attention deficit disorder) History of tobacco use Nodule of lower lobe of right lung Surgical History Hx of thumb surgery Hx of tonsillectomy Hx of hernia repair (~2020) Family History Father History of heart disease Hypertension Sister Mental health problem Hypertension Stroke Fracture Grandfather Cancer Grandmother Brain aneurysm Social History household members: spouse Tobacco & Substance Use Smoking Status: Former smoker alcohol intake: former Assessment & Plan Assessment & Plan narrative: 1. Orthostatic hypotension - likely secondary to combination of pain medication, acute blood loss anemia. It is persistent today. Improved with 2.5 mg TID of midodrine. Will continue for now and attempt to discontinue prior to discharge. If still present tomorrow will discuss how to monitor BP at home and stop medication at home. - No current symptoms to suggest cardiac etiology including palpitations, dyspnea, or LE edema. No additional evaluation is necessary at this time. - no indication for transfusion, h/h stable at 8.6. 2. Acute blood loss anemia secondary to surgical procedure, stable. 3. Hyponatremia, mild, chronic 4. CKD, stage III - unknown baseline creatinine, but stable here between 1.3 and 1.5. Continue to monitor with BMP. 5. Hypokalemia - repleted yesterday with 20 meQ in addition to home 20 meq. continue home dosing today. Continue to follow with BMP. Mg okay at 1.7. Code: Full, surrogate is patient's spouse DVT: per primary service I have utilized all available immediate resources to obtain, update, or review the patient's current medications. Medicine will continue to follow along until discharge as noted above. If more ambulatory and improved symptoms okay to discharge tomorrow, ideally without midodrine but this can be taken at home as well. Additional history obtained via discussions with the orthopedic provider yesterday. These discussions contributed to the creation of the above assessment and plan. I have reviewed patient's presenting documentation, labs, and imaging personally.
[2023-07-28] MEDS: ARIPiprazole 10 MG TABLET PO (21:08)
[2023-07-28] MEDS: lamoTRIgine 100 MG TABLET 50 MG PO (21:08)
[2023-07-28] MEDS: SODIUM CHLORIDE 0.9% FLUSH 10 ML IV (21:09)
[2023-07-28] MEDS: POTASSIUM CHLORIDE 20 MEQ TAB PO (21:09)
[2023-07-28] MEDS: TRAZODONE 50 MG TABLET 150 MG PO (21:09)
[2023-07-29] VITALS: BP 115/59; PULSE 96; RESP 16; TEMP 36.4; O2SAT 92
[2023-07-29] MEDS: IBUPROFEN 600 MG TABLET PO ×3 (00:54→13:01)
[2023-07-29] MEDS: ACETAMINOPHEN 325 MG TABLET 650 MG PO ×3 (00:54→13:02)
[2023-07-29 04:00] VITALS: BP 104/45; PULSE 101; RESP 19; TEMP 36.1; O2SAT 93
[2023-07-29 05:15] LABS: BUN Creatinine Ratio 14.2 (6-22); Blood Urea Nitrogen 18 mg/dL (7-17); Carbon Dioxide 26 mmol/L (22-32); Chloride 107 mmol/L (98-107); Estimated Glomerular Filt Rate 47 mL/min (>60); Glucose 83 mg/dL (80-110); HEMOLYSIS 20 (0-50); Magnesium 1.9 mg/dL (1.6-2.3); Potassium 3.3 mmol/L (3.4-5.1); Sodium 136 mmol/L (137-145)
[2023-07-29] MEDS: MIDODRINE HCL 5 MG TABLET 2.5 MG PO ×2 (06:16→13:03)
[2023-07-29 08:00] VITALS: BP 108/54; PULSE 101; RESP 16; TEMP 36.9; O2SAT 97
[2023-07-29] MEDS: FERROUS SULFATE 325 MG TABLET PO (08:33)
[2023-07-29] MEDS: LORATADINE 10 MG TABLET PO (08:34)
[2023-07-29] MEDS: VENLAFAXINE ER 75 MG CAP 150 MG PO (08:34)
[2023-07-29] MEDS: DOCUSATE 100 MG CAPSULE PO (08:34)
[2023-07-29] MEDS: ASPIRIN EC 81 MG TABLET PO (08:34)
[2023-07-29] MEDS: OXYCODONE IR 5 MG TABLET PO ×2 (08:34→14:00)
[2023-07-29] MEDS: ATORVASTATIN 20 MG TABLET 40 MG PO (08:34)
[2023-07-29] MEDS: POTASSIUM CHLORIDE 20 MEQ TAB 40 MEQ PO ×2 (08:35→13:59)
[2023-07-29] MEDS: CALCIUM CARBONATE 500 MG TAB PO ×2 (09:11→09:12)
--- NOTE | 2023-07-29 10:22 | PT.IPTN ---
Current Diagnoses Unilateral primary osteoarthritis, left hip (07/27/23) Surgery Performed Operation Date: 07/27/23 07:45 Actual Procedures p Total Hip Arthroplasty/Anterior Approach(Left) - Roland Wills MD Physical Therapy Treatment Note M2 PT-IP Current Condition Start: 07/27/23 18:00 Freq: NEEDED Status: Active Protocol: Document 07/27/23 15:10 AB (Rec: 07/27/23 18:14 AB [id number]) Physical Therapy Current Condition Current Condition Evaluation Date 07/27/23 Treatment Diagnosis s/p L DAVID anterior; difficulty in walking Onset Date 07/27/23 M3 PT-IP Subjective Start: 07/27/23 18:00 Freq: NEEDED Status: Active Protocol: Document 07/29/23 10:02 KS (Rec: 07/29/23 12:08 KS [id number]) Subjective Physical Therapy Visit Type Type Treatment Note Visit Start Time 10:02 Visit Stop Time 10:22 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 M4 PT-IP Mobility and Gait Start: 07/27/23 18:00 Freq: NEEDED Status: Active Protocol: Document 07/29/23 10:02 KS (Rec: 07/29/23 12:08 KS [id number]) PT-Bed Mobility Assessment Scooting Scooting to Edge of Bed Standby Assistance PT-Transfer Assessment Sit to and From Stand Sit to and from Stand Standby Assistance Equipment Transfer Assistive Device Gait Belt,Front Wheeled Walker Orthotic/Prosthetic Devices or Brace: No Transfers Transfer Destination Chair Transfer Technique amulated Transfer Ability Level of Assist Standby Assistance,Contact Guard Assistance,1 Person Assistance,Use of Upper Extremities Comments Mobility Comments Pt in chair upon arrival, agreeable to ambulate. SBA for scooting. CGA for sit<>stand w/ FWW. Pt ambulated ~150 ft w / FWW and CGA reported very slight lightheadedness that resolved on its own. Returned to chair. Left w/ all needs in reach. Gait Assessment Gait Gait Assistance Required: Standby Assistance,Contact Guard Assist Distance (Feet) 150 Gait Deviations General Gait Pattern Decreased Stride Length, Decreased Feet Clearance,Step- to Gait Factors Limiting Gait Function Factors Limiting Gait Function Decreased Activity Tolerance, Decreased Strength,Poor Balance Comments Gait Comments Good use of FWW, good safety awareness. Stair Climbing Assessment Evaluation Level of Assist On Stairs Contact Guard Assistance,1 Person Assistance PT-Balance Assessment Sitting Balance and Reactions Static Sitting Balance Ability Normal Dynamic Sitting Balance Ability Good Standing Balance and Reactions Static Standing Balance Ability Good Dynamic Standing Balance Ability Good Device Used FWW M5 PT-IP Objective Assessments Start: 07/27/23 18:00 Freq: NEEDED Status: Active Protocol: Document 07/27/23 15:10 AB (Rec: 07/27/23 18:14 AB [id number]) Orientation Orientation/Cognition Level of Alertness Alert Orientation Name,Place,Situation Language Function Ability No Deficits Noted Safety Awareness Decreased Safety Awareness Memory Description No Deficits Noted Gross Range of Motion Lower Extremity ROM Assessment Within Functional Limits Strength Lower Extremity Strength Assessment Left Impaired Hip 3-/5 Knee 4-5 Sensation Assessment Sensation Sensation Description Numbness Comments Sensation Comments slight inner calf numbness on LLE Muscle Tone Muscle Tone WNL Yes M6 PT-IP Treatment Start: 07/27/23 18:00 Freq: NEEDED Status: Active Protocol: Document 07/29/23 10:02 KS (Rec: 07/29/23 12:08 KS [id number]) Physical Therapy Treatment Education Education Provided Precautions,Weight Bearing Status,Post-Op Packet,Safety M7 PT-IP Assessment and Plan Start: 07/27/23 18:00 Freq: NEEDED Status: Active Protocol: Document 07/29/23 10:02 KS (Rec: 07/29/23 12:08 KS [id number]) PT Summary Assessment and Plan Potential Rehabilitation Potential Good Summary Impairments Pain,ROM,Strength,Balance, Coordination,Sensation,Tone, Cognition,Bed Mobility, Transfers,Gait,Activity Tolerance Progress Towards Goals Progressing Toward Goals Assessment Summary Neena continues to show progress w/ mobility. SBA to CGA throughout treatment. Able to tolerate 150 ft ambulation CGA. Feels better today, plans on staying in a hotel prior to going home d/t stairs . PT is recommending home with assist and outpatient PT. Goals Bed Mobility Goal Independent Transfer Goal Independent,Front Wheeled Walker Gait Goal Independent,Front Wheel Walker Gait Distance 200 Days to Meet Goals 5 Frequency of Treatment Frequency Of Treatment Twice a Day Treatment Plan Physical Therapy Treatment Plan Bed Mobility Training,Transfer Training,Gait Training, Therapeutic Exercise,Balance Retraining,Post Op Education, Discharge Planning,Hot or Cold Pack,Neuromuscular Re-ed, Coordination Retraining,Manual Therapy Precautions Anterior Hip Precautions No Hip Extension,No Hip External Rotation Other Precautions droplet precautions Weight Bearing Status Weight Bearing Status Weight Bear as Tolerated Allowed Weight Bearing Amount (enter % LLE WBAT or #) (%) Recommendations To Nursing Amount of Assist Needed Standby Assistance Discharge Recommendations PT Discharge Recommendations Home with Assistance, Outpatient PT Transportation Needs at Discharge Private Vehicle
[2023-07-29 12:00] VITALS: BP 144/77; PULSE 98; RESP 16; TEMP 37.1; O2SAT 99
--- NOTE | 2023-07-29 12:17 | PM.PN.1 ---
Subjective Subjective Interval history: 63 F consulted for orthostatic hypotension. Markedly better today, able to walk 150 ft with PT. Plans on going home today. Exam Vital Signs (past 8 hours): - 07/29/23 08:00 Temperature 98.4 F Pulse Rate 101 H Respiratory Rate 16 Blood Pressure 108/54 L Pulse Oximetry 97 Oxygen Flow Rate 0 Oxygen Delivery Method Room Air Oxygen Flow Rate 0 Narrative Exam Narrative: Gen: no acute distress, awake and alert. Objective Labs 07/28/23 04:32 07/29/23 04:28 Labs: Laboratory Results - last 24 hr 07/29/23 04:28 Sodium 136 L Potassium 3.3 L Chloride 107 Carbon Dioxide 26 BUN 18 H Creatinine 1.27 H Estimated GFR 47 L BUN/Creatinine Ratio 14.2 Glucose 83 Calcium 9.0 Magnesium 1.9 PFSH Medical History Anxiety Easy bruisability Osteoarthritis Ectopic Acid reflux HLD (hyperlipidemia) History of COVID-19 (~2019) Fibromyalgia (~2008) Substance abuse Restless leg syndrome Arthritis Osteopenia Foot pain Chicken pox Vertigo Pancreatitis Hemorrhoid Colon polyps Coronary artery calcification seen on CT scan Osteoarthritis of left hip CKD (chronic kidney disease) Hx of bulimia nervosa Hx of anorexia nervosa Depression ADD (attention deficit disorder) History of tobacco use Nodule of lower lobe of right lung Surgical History Hx of thumb surgery Hx of tonsillectomy Hx of hernia repair (~2020) Family History Father History of heart disease Hypertension Sister Mental health problem Hypertension Stroke Fracture Grandfather Cancer Grandmother Brain aneurysm Social History household members: spouse Smoking Status: Former smoker alcohol intake: former Assessment & Plan Assessment & Plan narrative: 1. Orthostatic hypotension - likely secondary to combination of pain medication, acute blood loss anemia. - responded well to 2.5 mg of midodrine. Advised patient to continue to monitor BP at home. And when SBP is in the 120-130 range (she normally is low 100s normally), she can trial stopping the midodrine. If she becomes dizzy recommended to remain on this temporarily and re-attempt stopping in a few days. Recommend outpatient follow up with PCP if symptoms remain ongoing after about a week or so. - No current symptoms to suggest cardiac etiology including palpitations, dyspnea, or LE edema. No additional evaluation is necessary at this time. - no indication for transfusion, h/h stable at 8.6. 2. Acute blood loss anemia secondary to surgical procedure, stable. 3. Hyponatremia, mild, chronic 4. CKD, stage III - unknown baseline creatinine, but stable here between 1.3 and 1.5. Cr 1.27 today, improved. 5. Hypokalemia - repleted yesterday with 20 meQ in addition to home 20 meq. continue home dosing today. Continue to follow with BMP. Mg okay at 1.9 Code: Full, surrogate is patient's spouse DVT: per primary service I have utilized all available immediate resources to obtain, update, or review the patient's current medications. Medicine will sign off at this time. Additional history obtained via discussions with the orthopedic provider yesterday. These discussions contributed to the creation of the above assessment and plan. I have reviewed patient's presenting documentation, labs, and imaging personally. Quality VTE Deep Vein Thrombosis/Pulmonary Embolism Present on Admission: No
--- NOTE | 2023-07-29 12:44 | PT.IPTN ---
Current Diagnoses Unilateral primary osteoarthritis, left hip (07/27/23) Surgery Performed Operation Date: 07/27/23 07:45 Actual Procedures p Total Hip Arthroplasty/Anterior Approach(Left) - Roland Wills MD Physical Therapy Treatment Note M2 PT-IP Current Condition Start: 07/27/23 18:00 Freq: NEEDED Status: Active Protocol: Document 07/27/23 15:10 AB (Rec: 07/27/23 18:14 AB [id number]) Physical Therapy Current Condition Current Condition Evaluation Date 07/27/23 Treatment Diagnosis s/p L DAVID anterior; difficulty in walking Onset Date 07/27/23 M3 PT-IP Subjective Start: 07/27/23 18:00 Freq: NEEDED Status: Active Protocol: Document 07/29/23 12:30 KS (Rec: 07/29/23 13:48 KS [id number]) Subjective Physical Therapy Visit Type Type Treatment Note Visit Start Time 12:30 Visit Stop Time 12:44 Number of SOUP PERSON Visits 3 Physical Therapy Visit Comments Patient Comments Pt agreeable to PT. Reports abdominal discomfort - RN aware. M4 PT-IP Mobility and Gait Start: 07/27/23 18:00 Freq: NEEDED Status: Active Protocol: Document 07/29/23 12:30 KS (Rec: 07/29/23 13:48 KS [id number]) PT-Bed Mobility Assessment Scooting Scooting to Edge of Bed Standby Assistance PT-Transfer Assessment Sit to and From Stand Sit to and from Stand Standby Assistance Equipment Transfer Assistive Device Gait Belt,Front Wheeled Walker Orthotic/Prosthetic Devices or Brace: No Transfers Transfer Destination Chair Transfer Technique amulated Transfer Ability Level of Assist Standby Assistance,Contact Guard Assistance,1 Person Assistance,Use of Upper Extremities Comments Mobility Comments Pt in bed upon arrival, agreeable to ambulate. SBA for bed mobility/scooting. CGA for sit<>stand w/ FWW. Pt ambulated ~50 ft w/ FWW and CGA reported very slight lightheadedness that resolved on its own. BP drops some after ambulation but not low. Returned to bed w/ Min A for LE elevation. Left w/ all needs in reach. Gait Assessment Gait Gait Assistance Required: Standby Assistance,Contact Guard Assist Distance (Feet) 50 Assistive Devices Assistive Device Gait Belt,Front Wheeled Walker Gait Deviations General Gait Pattern Decreased Stride Length, Decreased Feet Clearance,Step- to Gait Factors Limiting Gait Function Factors Limiting Gait Function Decreased Activity Tolerance, Decreased Strength,Poor Balance Comments Gait Comments Good use of FWW, good safety awareness. PT-Balance Assessment Sitting Balance and Reactions Static Sitting Balance Ability Normal Dynamic Sitting Balance Ability Good Standing Balance and Reactions Static Standing Balance Ability Good Dynamic Standing Balance Ability Good Device Used FWW M5 PT-IP Objective Assessments Start: 07/27/23 18:00 Freq: NEEDED Status: Active Protocol: Document 07/27/23 15:10 AB (Rec: 07/27/23 18:14 AB [id number]) Orientation Orientation/Cognition Level of Alertness Alert Orientation Name,Place,Situation Language Function Ability No Deficits Noted Safety Awareness Decreased Safety Awareness Memory Description No Deficits Noted Gross Range of Motion Lower Extremity ROM Assessment Within Functional Limits Strength Lower Extremity Strength Assessment Left Impaired Hip 3-/5 Knee 4-5 Sensation Assessment Sensation Sensation Description Numbness Comments Sensation Comments slight inner calf numbness on LLE Muscle Tone Muscle Tone WNL Yes M6 PT-IP Treatment Start: 07/27/23 18:00 Freq: NEEDED Status: Active Protocol: Document 07/29/23 12:30 KS (Rec: 07/29/23 13:48 KS [id number]) Physical Therapy Treatment Education Education Provided Precautions,Weight Bearing Status,Post-Op Packet,Safety M7 PT-IP Assessment and Plan Start: 07/27/23 18:00 Freq: NEEDED Status: Active Protocol: Document 07/29/23 12:30 KS (Rec: 07/29/23 13:48 KS [id number]) PT Summary Assessment and Plan Potential Rehabilitation Potential Good Summary Impairments Pain,ROM,Strength,Balance, Coordination,Sensation,Tone, Cognition,Bed Mobility, Transfers,Gait,Activity Tolerance Progress Towards Goals Progressing Toward Goals Assessment Summary Neena requires just SBA for most mobility, Min A for assisting LLE back into bed for sit<>sup. Still reports lightheadedness, but BP stable from sit>stand. Her biggest complaint right now is her abdominal pain due to constipation, nurse aware. Pt plans on staying in a hotel prior to going home d/t stairs . PT is recommending home with assist and outpatient PT. Goals Bed Mobility Goal Independent Transfer Goal Independent,Front Wheeled Walker Gait Goal Independent,Front Wheel Walker Gait Distance 200 Days to Meet Goals 5 Frequency of Treatment Frequency Of Treatment Twice a Day Treatment Plan Physical Therapy Treatment Plan Bed Mobility Training,Transfer Training,Gait Training, Therapeutic Exercise,Balance Retraining,Post Op Education, Discharge Planning,Hot or Cold Pack,Neuromuscular Re-ed, Coordination Retraining,Manual Therapy Precautions Anterior Hip Precautions No Hip Extension,No Hip External Rotation Other Precautions droplet precautions Weight Bearing Status Weight Bearing Status Weight Bear as Tolerated Allowed Weight Bearing Amount (enter % LLE WBAT or #) (%) Recommendations To Nursing Amount of Assist Needed Standby Assistance Discharge Recommendations PT Discharge Recommendations Home with Assistance, Outpatient PT Transportation Needs at Discharge Private Vehicle
[2023-07-29] MEDS: polyethylene glycoL 3350 17 GM POWD.PACK PO (13:01)
--- NOTE | 2023-07-29 13:11 | CM.DPC ---
DCP Discharge Home Per Hospitalist, pt stable and signed off as they were consulting for medical needs. Per PT, pt making great progress and recommending home with spouse assist and outpt PT. Waiting for Ortho to complete discharge orders. SW met bedside with pt and explained role and she confirms that she feels as good as I could be and preference is discharge today and confirms that she and spouse reside in an RV but plan to d/c to a hotel tonight and spouse will provide transport as soon as pt calls him once discharge orders placed and pwk provided. Pt does not anticipate any further needs at this time. RN already called Ortho MD and updated. Plan: Patient to discharge home today via spouse POV once Ortho MD rounds on pt and completes discharge. No further SW needs at this time. Lucy Gaspar MSW
--- NOTE | 2023-07-29 14:33 | PM.PN.1 ---
Exam Vital Signs (past 8 hours): - 07/29/23 08:00 07/29/23 12:00 Temperature 98.4 F 98.7 F Pulse Rate 101 H 98 H Respiratory Rate 16 16 Blood Pressure 108/54 L 144/77 H Pulse Oximetry 97 99 Oxygen Flow Rate 0 0 Oxygen Delivery Method Room Air Oxygen Flow Rate 0 Objective Labs 07/28/23 04:32 07/29/23 04:28 Labs: Laboratory Results - last 24 hr 07/29/23 04:28 Sodium 136 L Potassium 3.3 L Chloride 107 Carbon Dioxide 26 BUN 18 H Creatinine 1.27 H Estimated GFR 47 L BUN/Creatinine Ratio 14.2 Glucose 83 Calcium 9.0 Magnesium 1.9 PFSH Medical History Anxiety Easy bruisability Osteoarthritis Ectopic Acid reflux HLD (hyperlipidemia) History of COVID-19 (~2019) Fibromyalgia (~2008) Substance abuse Restless leg syndrome Arthritis Osteopenia Foot pain Chicken pox Vertigo Pancreatitis Hemorrhoid Colon polyps Coronary artery calcification seen on CT scan Osteoarthritis of left hip CKD (chronic kidney disease) Hx of bulimia nervosa Hx of anorexia nervosa Depression ADD (attention deficit disorder) History of tobacco use Nodule of lower lobe of right lung Surgical History Hx of thumb surgery Hx of tonsillectomy Hx of hernia repair (~2020) Family History Father History of heart disease Hypertension Sister Mental health problem Hypertension Stroke Fracture Grandfather Cancer Grandmother Brain aneurysm Social History household members: spouse Smoking Status: Former smoker alcohol intake: former Assessment & Plan Assessment & Plan narrative: POD#2 s/p left DAVID. Patient was not seen today by me in time for discharge due to patient did not appear on my inpatient list/rounding list while I was rounding in the hospital this morning. I was notified about patient's clearance by PT and ready for discharge at 2PM. Patient is ready to be discharged and has all meds for discharge and confirmed with her nurse. I was instructed by her nurse that patient is doing well and is eager to go. PT/OT has cleared her for discharge. In order to not delay her discharge further, discharge order was entered into the computer remotely and patient will be discharged without being seen by me today. Quality VTE Deep Vein Thrombosis/Pulmonary Embolism Present on Admission: No
--- NOTE | 2023-07-29 14:41 | P.PN_ITS ---
Exam Vital Signs (past 8 hours): - 07/29/23 08:00 07/29/23 12:00 Temperature 98.4 F 98.7 F Pulse Rate 101 H 98 H Respiratory Rate 16 16 Blood Pressure 108/54 L 144/77 H Pulse Oximetry 97 99 Oxygen Flow Rate 0 0 Oxygen Delivery Method Room Air Oxygen Flow Rate 0 Objective Labs 07/28/23 04:32 07/29/23 04:28 Labs: Laboratory Results - last 24 hr 07/29/23 04:28 Sodium 136 L Potassium 3.3 L Chloride 107 Carbon Dioxide 26 BUN 18 H Creatinine 1.27 H Estimated GFR 47 L BUN/Creatinine Ratio 14.2 Glucose 83 Calcium 9.0 Magnesium 1.9 PFSH Medical History Anxiety Easy bruisability Osteoarthritis Ectopic Acid reflux HLD (hyperlipidemia) History of COVID-19 (~2019) Fibromyalgia (~2008) Substance abuse Restless leg syndrome Arthritis Osteopenia Foot pain Chicken pox Vertigo Pancreatitis Hemorrhoid Colon polyps Coronary artery calcification seen on CT scan Osteoarthritis of left hip CKD (chronic kidney disease) Hx of bulimia nervosa Hx of anorexia nervosa Depression ADD (attention deficit disorder) History of tobacco use Nodule of lower lobe of right lung Surgical History Hx of thumb surgery Hx of tonsillectomy Hx of hernia repair (~2020) Family History Father History of heart disease Hypertension Sister Mental health problem Hypertension Stroke Fracture Grandfather Cancer Grandmother Brain aneurysm Social History household members: spouse Smoking Status: Former smoker alcohol intake: former Assessment & Plan Assessment & Plan narrative: 0 POD#2 s/p left DAVID. Patient was not seen today by me in time for discharge due to patient did not appear on my inpatient list/rounding list while I was rounding in the hospital this morning. I was notified about patient's clearance by PT and ready for discharge at 2PM. Patient is ready to be discharged and has all meds for discharge and confirmed with her nurse. I was instructed by her nurse that patient is doing well and is eager to go. PT/OT has cleared her for discharge. Patient has walked with walker during PT and is cleared for discharge to home. In order to not delay her discharge further, discharge order was entered into the computer remotely and patient will be discharged without being seen by me today. Quality VTE Deep Vein Thrombosis/Pulmonary Embolism Present on Admission: No
== END 2023-07-29 15:10 | disposition home or self-care (01) ==
LOC: OR 06:06 → AC 06:09
PROVIDERS: Internal Medicine; Family Provider Family Medicine; PCP Family Medicine; Referring Provider Orthopaedic Surgery Adult Reconstructive Orthopaedic Surgery; Visit Provider Orthopaedic Surgery Adult Reconstructive Orthopaedic Surgery
PROC: (CPT 27130; principal; 2023-07-27 07:45)
DX: M16.12 Unilateral primary osteoarthritis, left hip (principal); I95.1 Orthostatic hypotension; D62 Acute posthemorrhagic anemia; E87.1 Hypo-osmolality and hyponatremia; N18.30 Chronic kidney disease, stage 3 unspecified; E87.6 Hypokalemia; Z11.52 Encounter for screening for COVID-19
CPT/HCPCS: 27130; 0241U; 36415; 73502; 76000; 80048; 80053; 83735; 84484; 85014; 85018; 85027; 93005; 93010; 97116; 97163; 97165; 97530; 97535; C1776; J0171; J0690; J2250; J2704; J3010; P9041

== ENCOUNTER → 2023-08-02 09:50 | Outpatient (CLI) | payer OTHER, SELFPAY ==
[2023-07-27 11:55] VITALS: BMI 16.9
--- NOTE | 2023-08-02 09:52 | DI.US.S_ITS ---
PROCEDURE: US PERIPH VENOUS LOW EXTREM LT INDICATIONS: lower leg pain and swelling TECHNIQUE: Real-time imaging, as well as color and pulse Doppler interrogation, were performed of the lower extremity deep veins from the inguinal ligament to the popliteal fossa, with documentation of the visualized calf veins. COMPARISON: None. FINDINGS: The common femoral, femoral, popliteal, and the visualized calf veins are normally compressible, and free of intraluminal thrombus. Color and pulse Doppler demonstrate normal phasic intraluminal flow. There is normal augmentation response to distal compression maneuver. IMPRESSION: No evidence of DVT in vision left lower extremity veins. Dictated by: Darren Cuevas M.D. on 08/02/2023 at 13:08 Approved by: Darren Cuevas M.D. on 08/02/2023 at 13:08
== END ==
PROVIDERS: Family Provider Family Medicine; PCP Family Medicine; Referring Provider Physician Assistant; Visit Provider Physician Assistant
DX: M79.662 Pain in left lower leg (principal)
CPT/HCPCS: 93971

== ENCOUNTER 2023-09-10 11:07 | Day surgery (SDC) | payer OTHER, SELFPAY ==
[2023-07-27 11:55] VITALS: BMI 16.9
--- NOTE | 2023-09-10 | PATH_ITS ---
[facility] Accession Number: [id number] No. of containers..06 Tissue . 01 Material submitted: . PART A: duodenum - DUODENUM PART B: gastrointestinal site - ANTRUM PART C: esophagus - DISTAL ESOPHAGUS PART D: esophagus - MID ESOPHAGUS PART E: colon - TRANSVERSE COLON POLYPS PART F: colon - DISTAL TRANSVERSE POLYP . 01 Diagnosis: Part A: DUODENUM: Duodenal mucosa with no diagnostic alterations. No active inflammation and no evidence of celiac disease. . Part B: ANTRUM: Gastric mucosa with mild chronic inflammation and features of reactive gastropathy. No Helicobacter organisms identified. No intestinal metaplasia, dysplasia, or malignancy identified. . Part C: DISTAL ESOPHAGUS: Squamocolumnar junctional mucosa with mild reactive changes suggestive of reflux. No goblet cell metaplasia or dysplasia identified. Eosinophils are not increased. . Part D: MID ESOPHAGUS: Squamous mucosa with no diagnostic alterations. Eosinophils are not increased. . Part E: TRANSVERSE COLON POLYPS: Tubular adenomas. . Part F: DISTAL TRANSVERSE POLYP: Tubular adenoma. [facility] 09/14/2023 1445 Local . 01 Electronically signed: . Michi Rodrigues MD, Pathologist NPI- [id number] . 01 Gross description: . A. Received in formalin with two patient identifiers and duodenum biopsy, are two birch soft tissue fragments, both measuring 0.3 cm in greatest dimension. Submitted in A1. . B. Received in formalin with two patient identifiers and antrum, are two birch soft tissue fragments, 0.2 to 0.3 cm in greatest dimension. Submitted in B1. . C. Received in formalin with two patient identifiers and distal esophagus, is a single birch soft tissue fragment, 0.2 cm in greatest dimension. Submitted in C1. . D. Received in formalin with two patient identifiers and mild esophageal biopsy, are two birch soft tissue fragments, 0.2 to 0.3 cm in greatest dimension. Submitted in D1. . E. Received in formalin with two patient identifiers and transverse colon polyps, are three birch soft tissue fragments, 0.2 to 0.4 cm in greatest dimension. Submitted in E1. . F. Received in formalin with two patient identifiers and distal transverse colon polyps, are multiple birch soft tissue fragments aggregating to 1.5 x 0.8 x 0.3 cm. Filtered and submitted in F1. (KB:[id number]) /MRV 09/14/2023 1445 Local . 01 Microscopic: . Part B: ANTRUM: An immunohistochemical stain was performed to evaluate for Helicobacter organisms and is negative. The control stains appropriately. * This test was developed and its performance characteristics determined by [employer]. It has not been cleared or approved by the U.S. Food and Drug Administration. The FDA has determined that such clearance or approval is not necessary. This test is used for clinical purposes. It should not be regarded as investigational or for research. . 01 Pathologist provided ICD-10: D12.3, K21.0, K29.60 . 01 CPT . 427825, 930897, 647443, 324312, 179109, [id number], [id number] Specimen Comment: A courtesy copy of this report has been sent to [phone] Performed at: [address] [address], [place], [place] [id number] MD Michi Rodrigues MD Phone: [phone]
--- NOTE | 2023-09-10 11:56 | P.HP_ITS ---
History of Present Illness History of Present Illness Date Patient Seen: 09/10/23 Time Patient Seen: 11:56 Chief complaint: EGD/Colonoscopy Narrative: I reviewed my recent office note. No significant changes with the exception of about a 50% overall improvement in swallowing since initiating omeprazole once daily. [facility] Medical History Anxiety Easy bruisability Osteoarthritis Ectopic Acid reflux HLD (hyperlipidemia) History of COVID-19 (~2019) Fibromyalgia (~2008) Substance abuse Restless leg syndrome Arthritis Osteopenia Foot pain Chicken pox Vertigo Pancreatitis Hemorrhoid Colon polyps Coronary artery calcification seen on CT scan Osteoarthritis of left hip CKD (chronic kidney disease) Hx of bulimia nervosa Hx of anorexia nervosa Depression ADD (attention deficit disorder) History of tobacco use Nodule of lower lobe of right lung Surgical History Hx of thumb surgery Hx of tonsillectomy Hx of hernia repair (~2020) Family History Father History of heart disease Hypertension Sister Mental health problem Hypertension Stroke Fracture Grandfather Cancer Grandmother Brain aneurysm Social History household members: spouse Smoking Status: Former smoker alcohol intake: former Meds Home Medications and Allergies Home Medications Medication Instructions Recorded Confirmed Type aripiprazole 10 mg tablet (Abilify) 10 mg PO BEDTIME 03/21/23 07/27/23 History atomoxetine 80 mg capsule 100 mg PO DAILY 03/21/23 07/27/23 History (Strattera) lamotrigine 25 mg tablet (Lamictal) 50 mg PO BEDTIME 03/21/23 07/27/23 History trazodone 100 mg tablet 150 mg PO BEDTIME 03/21/23 07/27/23 History atorvastatin 40 mg tablet 40 mg PO DAILY #90 tabs 05/14/23 07/27/23 Rx potassium chloride 20 mEq 20 meq PO DAILY #90 tabs 07/06/23 07/27/23 Rx tablet,extended release ferrous sulfate 325 mg (65 mg 325 mg PO BID 07/17/23 07/27/23 History iron) tablet loratadine 10 mg tablet 10 mg PO DAILY 07/17/23 07/27/23 History (Allerclear) venlafaxine 150 mg 150 mg PO DAILY 07/17/23 07/27/23 History capsule,extended release 24 hr ibuprofen 200 mg tablet 400 mg PO Q8H PRN Pain (Scale 07/27/23 07/27/23 History Score 7-10) Allergies Allergy/AdvReac Type Severity Reaction Status Date / Time Opioids-Meperidine and AdvReac Mild Nausea Verified 07/27/23 06:44 Related Review of Systems Review of Systems ROS: Yes All systems reviewed with the patient and are negative except as otherwise documented Exam Const General: cooperative HENNJ Head: normal to inspection Eyes General: appearance normal, both eyes and all related structures Neck Neck: normal visual inspection Chest Chest: normal inspection of the chest Resp Effort & Inspection: normal respiratory effort Cardio Rate: regular rate GI Inspection: normal to inspection Skin General: no rashes or lesions noted Neuro General: patient alert and patient awake Extrem General: normal to inspection and no pedal edema Psych Appearance: grossly normal Assessment & Plan Assessment & Plan narrative: 63-year-old female with dysphagia and probable reflux plus a personal history of unknown histology colon polyps. EGD and colonoscopy are pursued today.
--- NOTE | 2023-09-10 11:57 | PM.PREOP ---
Pre-operative Note Interval Note History & Physical reviewed/Exam performed by Physician: Yes Changes to H&P: No ASA Class (for procedural sedation): III
[2023-09-10 12:06] VITALS: BP 126/71; PULSE 71; RESP 12; TEMP 36.8; O2SAT 100
[2023-09-10] MEDS: LACTATED RINGERS 1,000 ML 42 ML IV (12:13)
--- NOTE | 2023-09-10 13:51 | PM.OP.EC ---
Operative Date/Time/Diagnoses Date of procedure: 09/10/23 Time of procedure: 13:51 Pre-op diagnosis: Dysphagia, personal history of colon polyps. Post-op diagnosis: same Procedure & Clinicians Study performed: EGD with biopsies and a colonoscopy with hot snare polypectomy, cold snare polypectomy, and cold forceps polypectomy Same procedure as scheduled: Yes Indications: Dysphagia, history of colon polyps Surgeon: Chris Pierre Procedure Notes SCOAP/Timeout: Done Procedure in detail: After the risks and benefits were explained, written and verbal informed consent was obtained. The patient was brought into the procedure room and placed into the left lateral decubitus position. Please see anesthesia notes for sedation details. The scope was introduced into the mouth through the bite block and advanced under direct visualization to the 2nd portion of the duodenum. The scope was slowly withdrawn carefully examining the mucosa for any defects or lesions. Retroflexed views were accomplished in the stomach. The stomach was decompressed, the scope was then removed from the patient who tolerated the procedure well. The patient was then turned around. A digital rectal examination was accomplished. The scope was introduced into the rectum and advanced to the cecum as identified by the appendiceal orifice and ileocecal valve. The scope was slowly withdrawn to carefully examine the mucosa for any defects or lesions. Multiple direct views were made through the dentate line for exclusion of pathology. The colon was decompressed. The scope was removed the patient who tolerated the procedure well. Pediatric colonoscope Bowel prep suboptimal; this required copious amounts of irrigation and suctioned to render it adequate. Scope withdrawal time: 18 minutes Sedation minutes: 57 Complications: none Impression: 1. Duodenal: There was an erosion in the duodenal bulb. Couple of biopsies were taken from D2 for exclusion of sprue. 2. Stomach: Patient had a gastropathy characterized by patchy erythema mostly in the antrum. Antral biopsies were taken for exclusion of H pylori or other pathology. No ulcers or mass lesions no outlet obstruction. Retroflexed views of the LES were fairly unremarkable. 3. Esophagus: The squamocolumnar junction generally correlated with the top of the gastric folds. GEJ was at about 35 cm from the incisors. The diaphragmatic pinchcock was at about 37 cm from the incisors. I did not appreciate any active esophagitis at this time. There were a few tiny islands of salmon-colored mucosa in the distal esophagus which may represent healed mucosa from prior erosions. Biopsy was taken from 1 of these islands for exclusion of underlying specialized intestinal metaplasia. The remainder of the esophagus was unremarkable throughout. However, midesophageal biopsies were additionally taken for exclusion of eosinophilic esophagitis. I did not see any stricturing throughout the entire esophagus. 4. Colon: The patient had a moderately tortuous colon with some diverticulosis in the left colon. There was small polyp in the transverse removed with cold snare. Nearby were a couple of diminutive polyps removed with cold forceps. In the distal transverse colon there was a sessile approximately 11 mm polyp removed with hot snare polypectomy. Excision appeared to be complete. Within the limitations of bowel prep, no additional mucosa pathology identified. Grade 2-3 hemorrhoids were noted. Endoscopic diagnosis 1. Gastropathy 2. Small sliding hiatal hernia 3. Distal esophageal salmon-colored islands 4. Duodenal erosion 5. Diverticulosis 6. Tortuous colon 7. Multiple colon polyps 8. Grade 2-3 hemorrhoids Post-procedure Plan for aftercare: 1. Await histology. 2. Continue omeprazole 3. Follow up GI clinic 4. The timing of repeat colonoscopy will be contingent on histopathology results. Disposition: PACU
[2023-09-10 13:54] VITALS: BP 110/69; PULSE 74; RESP 14; TEMP 36.2; O2SAT 98
[2023-09-10 13:59] VITALS: BP 115/68; PULSE 86; RESP 16; O2SAT 99
[2023-09-10 14:04] VITALS: BP 112/78; BP 116/77; PULSE 76; PULSE 81; RESP 14; RESP 15; TEMP 36.2; O2SAT 100
== END 2023-09-10 14:18 | disposition home or self-care (01) ==
PROVIDERS: Family Provider Family Medicine; PCP Family Medicine; Referring Provider Internal Medicine Gastroenterology; Visit Provider Internal Medicine Gastroenterology
PROC: 0DJ08ZZ Inspection of Upper Intestinal Tract, Via Natural or Artificial Opening Endoscopic (ICD-10-PCS; CPT 45385; principal; 2023-09-10 12:30)
PROC: 0DJD8ZZ Inspection of Lower Intestinal Tract, Via Natural or Artificial Opening Endoscopic (ICD-10-PCS; CPT 45378; 2023-09-10 12:30)
DX: Z12.11 Encounter for screening for malignant neoplasm of colon (principal); Z86.010 Personal history of colon polyps; R13.10 Dysphagia, unspecified; K64.1 Second degree hemorrhoids; K57.30 Diverticulosis of large intestine without perforation or abscess without bleeding; K31.9 Disease of stomach and duodenum, unspecified; K44.9 Diaphragmatic hernia without obstruction or gangrene; K29.50 Unspecified chronic gastritis without bleeding; D12.3 Benign neoplasm of transverse colon
CPT/HCPCS: 45385; 45380; 43239; J2704

== ENCOUNTER → 2023-10-30 11:01 | Outpatient (CLI) | payer OTHER, SELFPAY ==
[2023-07-27 11:55] VITALS: BMI 16.9
== END ==
PROVIDERS: Family Provider Family Medicine; PCP Family Medicine; Referring Provider Family Medicine; Visit Provider Family Medicine
DX: R30.0 Dysuria (principal)
CPT/HCPCS: 87077; 87086; 87147

== ENCOUNTER 2023-11-29 09:45 | Outpatient (RCR) | payer OTHER, SELFPAY ==
--- NOTE | 2023-06-05 15:53 | PT.OIE ---
Current Diagnoses Bilateral primary osteoarthritis of hip (06/05/23) Other lack of coordination (06/05/23) Weakness (06/05/23) Past Medical History (Last Updated 04/24/23 @ 20:55 by Katya Garcia) ADD (attention deficit disorder) Arthritis Chicken pox CKD (chronic kidney disease) Colon polyps Coronary artery calcification seen on CT scan Depression Fibromyalgia (~2008) Foot pain Hemorrhoid History of tobacco use Hx of anorexia nervosa Hx of bulimia nervosa Nodule of lower lobe of right lung Osteoarthritis of left hip Osteopenia Pancreatitis Restless leg syndrome Substance abuse Vertigo Visit Care Team Role Provider Type Dee Dee Mann DO Family Provider Physician Primary Care Provider Specialty: [facility] Practice Address: [address] [place] [address], [facility] [address], [place], [address] Email: [email or web address] Neftali Hayes DO Attending Provider Physician Referring Provider Specialty: [facility] Address: [address] [place] [address], [id number] Email: Physical Therapy Initial Evaluation PT-OP-A Visit Information Start: 06/05/23 10:31 Freq: Status: Active Protocol: Document 06/05/23 10:31 NM (Rec: 06/05/23 12:16 NM [id number]) Out-Patient Physical Therapy Visit Information Visit Information Visit Type Initial Evaluation Visit Start Time 10:32 Visit Stop Time 11:15 Visit Number 1 Evaluation Information Evaluation Date 06/05/23 PT-OP-B Current Condition Start: 06/05/23 10:31 Freq: Status: Active Protocol: Document 06/05/23 10:31 NM (Rec: 06/05/23 12:16 NM [id number]) Current Condition History of Current Condition Onset Date January 2023 Current Complaints pain, immobility, weakness, stuck History of Current Condition Pt is planning to have surgery on L hip with Dr. Wills. She has a hx of OA in B hips, L>R. Pt reports that she feels stuck. She has pain with standing/walking >45 minutes, movement (twisting, hip flexion), achy with sitting. 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 Reports difficulty with dressing, putting on shoes. She lives in an RV, has a platform with 2 steps and B hand rails, has walk in shower. She has a spc with a base. Current Functional Impairments (Reported) Functional Limitations- Recreation/ Dog show (sits) Hobbies PT-OP-C Subjective Start: 06/05/23 10:31 Freq: Status: Active Protocol: Document 06/05/23 10:31 NM (Rec: 06/05/23 12:16 NM [id number]) OP-PT Subjective Patient Comments Patient Comments see hx above for pt report Patient Questionnaires Lower Extremity Functional Scale LEFS Score 22/80 OP-PT Pain Assessment Location L hip Pain Location Details groin, lateral and posterior hip Intensity 6 Description Aching,Sharp Frequency Constant Radiating Location to quad in center Pain Aggravating Factors Changing Position,ADL's, Activity,Walking,Stair Climbing Pain Alleviating Factors Heat,Elevation,Rest Other Pain Alleviating Factors hot tub Home Pain Medication Use Pain Medications Used No Pain Behaviors Pain Behaviors Guarding,Holding Area PT-OP-D Balance Start: 06/05/23 10:31 Freq: Status: Active Protocol: Document 06/05/23 10:31 NM (Rec: 06/05/23 12:16 NM [id number]) Balance Tests Single Limb Standing Single Limb- Right 3 seconds, increased sway Single Limb- Left 1 second, painful and increased sway Tandem Tandem Standing 5 seconds; difficulty achieving, painful on LLE PT-OP-E Functional Tests Start: 06/05/23 10:31 Freq: Status: Active Protocol: Document 06/05/23 10:31 NM (Rec: 06/05/23 12:16 NM [id number]) Functional Tests 6 Minute Walk Test Distance 1095 ft Device Used gait belt Comments antalgic, reports increased pain, decrease L stance, trunk lean L 30 Second Sit to Stand Test Score 12 Comments hip pain Five Times Sit to Stand Test Score 13 sec Comments 20, hip pain PT-OP-F Manual Assessment Start: 06/05/23 10:31 Freq: Status: Active Protocol: Document 06/05/23 10:31 NM (Rec: 06/05/23 12:16 NM [id number]) Manual Assessments Soft Tissue Assessment Soft Tissue Mobility Assessment Tight B hip flexors, heel cords Joint Mobility Assessment Joint Mobility Assessment Limited B hip mobility passively with flexion, ER, IR . LLE limited globally. Lacks terminal knee extension bilaterally PT-OP-G Mobility & Gait Start: 06/05/23 10:31 Freq: Status: Active Protocol: Document 06/05/23 10:31 NM (Rec: 06/05/23 12:16 NM [id number]) OP Gait Assessment Gait Gait Assistance Required: Independent Distance (Feet) 1,095 Assistive Devices Assistive Device Gait Belt Gait Deviations General Gait Pattern Antalgic,Decreased Stride Length Factors Limiting Gait Function Factors Limiting Gait Function Decreased Activity Tolerance, Decreased Strength,Pain Comments Gait Comments Decreased L stance time Stair Climbing Evaluation Evaluation Level of Assist On Stairs Independent Devices Stair Climbing Assistive Devices None Technique/Endurance Stair Climbing Direction Ascend and Descend Stair Climbing Technique Step Over Step Number of Steps Climbed 4 Stair Climbing Set # Repetitions (reps) 1 Comments Stair Climbing Comments antalgic, B hand rail assist, decreased L stance PT-OP-H Neuro Start: 06/05/23 10:31 Freq: Status: Active Protocol: Document 06/05/23 10:31 NM (Rec: 06/05/23 12:16 NM [id number]) Sensation Evaluation Comments Summary Comments BLE intact to light touch sensation, but 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 PT-OP-J Posture/Palpation/Skin Start: 06/05/23 10:31 Freq: Status: Active Protocol: Document 06/05/23 10:31 NM (Rec: 06/05/23 12:16 NM [id number]) Posture Evaluation Position Standing Head/C-Spine Posture C-Spine Flattened T-Spine Posture Increased Kyphosis Pelvis Posture Anteriorly Tilted Weight Distribution Weight Shifted Right,Decreased Wt.Bear on (L) Hip Posture (L) Neutral,(R) Neutral Patellar Posture (L) Superior,(R) Superior Ankle/Foot Posture (L) Pronated,(R) Pronated Palpation Assessment Location R hip Palpation Details minimal tenderness at greater trochanter L hip Palpation Findings Tenderness Palpation Details tenderness at L groin, quad, and greater trochanter PT-OP-K Range of Motion Start: 06/05/23 10:31 Freq: Status: Active Protocol: Document 06/05/23 10:31 NM (Rec: 06/05/23 12:16 NM [id number]) Hip Goniometric Range of Motion Hip Right Flexion w/Knee Flexed 90 Extension 15 Abduction 20 Internal Rotation 15 External Rotation 40 Comments pain with ER/IR, hamstring 140 deg Left Flexion w/Knee Flexed 90 Extension 8 Abduction 15 Internal Rotation 15 External Rotation 15 Comments pain with ER/IR, abd, flex, ext, add hamstring 150 deg Knee Goniometric Range of Motion Knee Right Flexion Active (degrees) 135 Extension Active (degrees) 3 Left Flexion Active (degrees) 140 Extension Active (degrees) 3 PT-OP-L Special Tests Start: 06/05/23 10:31 Freq: Status: Active Protocol: Document 06/05/23 10:31 NM (Rec: 06/05/23 12:16 NM [id number]) Special Tests Hip Special Tests Straight Leg Raise Test Results + Comments unable to lift LLE Log Roll Test Test Results + SANTOS Test Results + Comments L PT-OP-M Strength Start: 06/05/23 10:31 Freq: Status: Active Protocol: Document 06/05/23 10:31 NM (Rec: 06/05/23 12:16 NM [id number]) Hip Strength Hip Manual Muscle Testing Right Flexion (L2) 4- Good- Extension (S1) 3+ Fair+ Abduction 4- Good- Adduction 4 Good External Rotation 4 Good Internal Rotation 4- Good- Comments pain with flex, IR Left Flexion (L2) 3+ Fair+ Extension (S1) 3+ Fair+ Abduction 4- Good- Adduction 4 Good External Rotation 3+ Fair+ Internal Rotation 3+ Fair+ Comments pain with ER/IR/Flex Knee Strength Knee Manual Muscle Testing Right Flexion (S2) 4 Good Extension (L3) 4 Good Left Flexion (S2) 4 Good Extension (L3) 4- Good- Ankle/Foot Strength Ankle and Foot Manual Muscle Testing Right Dorsiflexion (L4) 4 Good Plantarflexion (S1) 4 Good Inversion 4 Good Eversion (S1) 4 Good Left Dorsiflexion (L4) 4 Good Plantarflexion (S1) 4 Good Inversion 4 Good Eversion (S1) 4 Good PT-OP-Q Treatments Start: 06/05/23 10:31 Freq: Status: Active Protocol: Document 06/05/23 10:31 NM (Rec: 06/05/23 17:13 NM [id number]) Gait Training Gait Activity stairs Device Used spc, 1 hand rail Level of Assistance close SBA Distance/Duration 2 sets x 4 stairs Treatment Focus sequencing, safety, mechanics, pain management Comments Cued for sequencing spc and up with good (R), down with bad (L) with 1 hand rail use to steady prn in order to simulate home spc Description normal gait Device Used spc Level of Assistance close SBA with moderate cues for sequencing Surface stable Distance/Duration 200 ft Treatment Focus sequencing, spc placement, gait mechanics, pain management Comments Cued for 2 pt pattern with spc in R hand to offload L hip during gait. Pt fitted for spc height, educated on how to measure for home use PT-OP-T Assessment and Plan Start: 06/05/23 10:31 Freq: Status: Active Protocol: Document 06/05/23 10:31 NM (Rec: 06/05/23 12:16 NM [id number]) Physical Therapy Assessment Rehab Potential Rehabilitation Potential Fair Evaluation Complexity Number of Personal Factors/Comorbidities 1-2 Number of Body Systems Impaired 1-2 Clinical Presentation at Evaluation Stable Impairments Impairments Activity Tolerance,Balance, Functional Activities, Functional Mobility,Gait, Integument,Pain,Posture,ROM, Sensation,Soft Tissue Mobility ,Strength Goals Four Impairment squats Impairment 5x STS 13 sec Short Term Goal (STG) Pt will perform at least 10 bilateral squats with pain <6/ 10 in order to demonstrate improved BLE strength and knee flexion required for transfers and gait STG Duration 6 weeks Detention Goal (LTG) Pt will perform 5x STS using LRAD or hand support post- operatively in order to demonstrate improved BLE strength and knee flexion required for transfers and gait LTG Duration 12 weeks Three Impairment gait Impairment 6 MWT distance 1095 ft without LRAD pre-operatively Short Term Goal (STG) Pt will be able to ambulate > 1200 ft using LRAD during 6 MWT pre-operatively in order to demonstrate improved gait mechanics, sequencing with AD, and BLE strength STG Duration 6 weeks Detention Goal (LTG) Pt will be ambulate >1200 ft during 6 MWT post-operatively using LRAD in order to demonstrate improved mobility for household and community ambulation, decreased fall risk, and improve BLE strength LTG Duration 12 weeks Two Impairment gait Impairment pre-operatively no AD use Short Term Goal (STG) Pt will demonstrate normal gait mechanics with LRAD presurgically in order to improve mobility and symptom management in addition to decreased fall risk STG Duration 6 weeks Ring Stamper Goal (LTG) Pt will demonstrate normal gait mechanics with LRAD after surgery in order to demonstrate improved mobility and ability to participate in ADLs/IADLs LTG Duration 12 weeks One Impairment HEP Short Term Goal (STG) Pt will begin HEP 2-3x/wk in order to maximize B hip strength prior to surgery and to improve post-operative outcomes STG Duration 6 weeks Detention Goal (LTG) Pt will report compliance with HEP at least 2-3x/wk in order to maximize BLE after surgery and to be able to transition safely into [facility] program after discharge from PT LTG Duration 12 weeks Assessment Summary Assessment Pt is a 63 y.o. female with L hip pain. She has a dx of OA, confirmed with radiographs. Pt is planning to have DAVID performed in future but surgery has not been planned yet. At this time, pt has decreased L hip AROM and PROM. All motions are painful and restricted. Pt has decreased L hip strength globally. Right hip and knee strength is greater than LLE, but also limited due to OA in R hip. Pt ambulated 1095 ft without an AD during 6 MWT, but gait is antalgic and increased pain symptoms as she fatigued. Her balance is poor in tandem, narrow, and single leg stance, which increases fall risk. PT educated pt on exam findings, plan of care, and initiated gait training with spc to assist pt in pain management at this time and post- operatively. Pt needs further gait and stair training prior to surgery with FWW in order to be able to enter and manuever in home. Pt would benefit from skilled PT for BLE strengthening and mobility training in order to improve activity tolerance and improve pain symptoms both pre- operatively and post- operatively. Physical Therapy Plan Frequency and Duration Frequency of Treatment 1-2x/wk Duration of treatment (weeks) 12 Plan of Care Start Date 06/05/23 Plan of Care End Date 08/31/23 Therapeutic Interventions Therapeutic Interventions Balance Training,Gait Training ,Home Exercise Program,Joint Mobilizations,Manual Therapy, Neuromuscular Re-education, Orthotic/Prosthetic Management ,Patient/Caregiver Education, Self-Care/Home Management, Sensory Integration,Soft Tissue Mobilization,Taping, Therapeutic Activities, Therapeutic Exercises Modalities Cold Pack/Ice Massage,Electric Stimulation,Hot Packs, Ultrasound,Vasopneumatic Devices Next Visit Focus/Plan Next Note Type Treatment Note Next Visit Plan Gait training with FWW/spc and stairs, side step with FWW and spc, precautions (anterior hip), gentle strengthening and ROM for post op HEP for hip strengthening
--- NOTE | 2023-06-05 15:54 | PT.OPPOC ---
Physical, Occupational & Speech Therapy At [facility] Current Diagnoses Bilateral primary osteoarthritis of hip (06/05/23) Other lack of coordination (06/05/23) Weakness (06/05/23) Visit Care Team Role Provider Type Dee Dee Mann DO Family Provider Physician Primary Care Provider Specialty: [facility] Address: [address] [place] [address], [facility] [address], [address] Email: [email or web address] Neftali Hayes DO Attending Provider Physician Referring Provider Specialty: [facility] Address: [address] [place] [address], [id number] Email: Plan Of Care PT-OP-T Assessment and Plan Start: 06/05/23 10:31 Freq: Status: Active Protocol: Document 06/05/23 10:31 NM (Rec: 06/05/23 12:16 NM [id number]) Physical Therapy Assessment Rehab Potential Rehabilitation Potential Fair Evaluation Complexity Number of Personal Factors/Comorbidities 1-2 Number of Body Systems Impaired 1-2 Clinical Presentation at Evaluation Stable Impairments Impairments Activity Tolerance,Balance, Functional Activities, Functional Mobility,Gait, Integument,Pain,Posture,ROM, Sensation,Soft Tissue Mobility ,Strength Goals Four Impairment squats Impairment 5x STS 13 sec Short Term Goal (STG) Pt will perform at least 10 bilateral squats with pain <6/ 10 in order to demonstrate improved BLE strength and knee flexion required for transfers and gait STG Duration 6 weeks Immunology Specialist Goal (LTG) Pt will perform 5x STS using LRAD or hand support post- operatively in order to demonstrate improved BLE strength and knee flexion required for transfers and gait LTG Duration 12 weeks Three Impairment gait Impairment 6 MWT distance 1095 ft without LRAD pre-operatively Short Term Goal (STG) Pt will be able to ambulate > 1200 ft using LRAD during 6 MWT pre-operatively in order to demonstrate improved gait mechanics, sequencing with AD, and BLE strength STG Duration 6 weeks Immunology Specialist Goal (LTG) Pt will be ambulate >1200 ft during 6 MWT post-operatively using LRAD in order to demonstrate improved mobility for household and community ambulation, decreased fall risk, and improve BLE strength LTG Duration 12 weeks Two Impairment gait Impairment pre-operatively no AD use Short Term Goal (STG) Pt will demonstrate normal gait mechanics with LRAD presurgically in order to improve mobility and symptom management in addition to decreased fall risk STG Duration 6 weeks Snf Goal (LTG) Pt will demonstrate normal gait mechanics with LRAD after surgery in order to demonstrate improved mobility and ability to participate in ADLs/IADLs LTG Duration 12 weeks One Impairment HEP Short Term Goal (STG) Pt will begin HEP 2-3x/wk in order to maximize B hip strength prior to surgery and to improve post-operative outcomes STG Duration 6 weeks Snf Goal (LTG) Pt will report compliance with HEP at least 2-3x/wk in order to maximize BLE after surgery and to be able to transition safely into [facility] program after discharge from PT LTG Duration 12 weeks Assessment Summary Assessment Pt is a 63 y.o. female with L hip pain. She has a dx of OA, confirmed with radiographs. Pt is planning to have DAVID performed in future but surgery has not been planned yet. At this time, pt has decreased L hip AROM and PROM. All motions are painful and restricted. Pt has decreased L hip strength globally. Right hip and knee strength is greater than LLE, but also limited due to OA in R hip. Pt ambulated 1095 ft without an AD during 6 MWT, but gait is antalgic and increased pain symptoms as she fatigued. Her balance is poor in tandem, narrow, and single leg stance, which increases fall risk. PT educated pt on exam findings, plan of care, and initiated gait training with spc to assist pt in pain management at this time and post- operatively. Pt needs further gait and stair training prior to surgery with FWW in order to be able to enter and manuever in home. Pt would benefit from skilled PT for BLE strengthening and mobility training in order to improve activity tolerance and improve pain symptoms both pre- operatively and post- operatively. Physical Therapy Plan Frequency and Duration Frequency of Treatment 1-2x/wk Duration of treatment (weeks) 12 Plan of Care Start Date 06/05/23 Plan of Care End Date 08/31/23 Therapeutic Interventions Therapeutic Interventions Balance Training,Gait Training ,Home Exercise Program,Joint Mobilizations,Manual Therapy, Neuromuscular Re-education, Orthotic/Prosthetic Management ,Patient/Caregiver Education, Self-Care/Home Management, Sensory Integration,Soft Tissue Mobilization,Taping, Therapeutic Activities, Therapeutic Exercises Modalities Cold Pack/Ice Massage,Electric Stimulation,Hot Packs, Ultrasound,Vasopneumatic Devices Next Visit Focus/Plan Next Note Type Treatment Note Next Visit Plan Gait training with FWW/spc and stairs, side step with FWW and spc, precautions (anterior hip), gentle strengthening and ROM for post op HEP for hip strengthening Plan of Care Dates Plan of Care Start Date 06/05/23 Plan of Care End Date 08/31/23 Electronically Signed by: Tere Demarco, PT 06/06/23 0808 If you are in agreement with this Plan of Care, please return a signed and dated copy. I have reviewed this Plan of Care and certify that the skilled therapy services above are required to meet the patient?s needs. Physician Signature Date Printed Name and Credentials Clinical Instructor Signature Printed Name and Credentials
--- NOTE | 2023-06-12 16:44 | PT.OTN ---
Current Diagnoses Bilateral primary osteoarthritis of hip (06/12/23) Other lack of coordination (06/12/23) Weakness (06/12/23) Physical Therapy Treatment Note PT-OP-A Visit Information Start: 06/05/23 10:31 Freq: Status: Active Protocol: Document 06/12/23 13:51 AB (Rec: 06/12/23 14:33 AB [id number]) Out-Patient Physical Therapy Visit Information Visit Information Visit Type Treatment Note Visit Start Time 13:48 Visit Stop Time 14:32 Visit Number 2 Number of PAYLOADER OPERATOR Visits 1 Evaluation Information Evaluation Date 06/05/23 PT-OP-B Current Condition Start: 06/05/23 10:31 Freq: Status: Active Protocol: Document 06/05/23 10:31 NM (Rec: 06/05/23 12:16 NM [id number]) Current Condition History of Current Condition Onset Date January 2023 Current Complaints pain, immobility, weakness, stuck History of Current Condition Pt is planning to have surgery on L hip with Dr. Wills. She has a hx of OA in B hips, L>R. Pt reports that she feels stuck. She has pain with standing/walking >45 minutes, movement (twisting, hip flexion), achy with sitting. 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 Reports difficulty with dressing, putting on shoes. She lives in an , has a platform with 2 steps and B hand rails, has walk in shower. She has a [employer] [facility] [place] with a base. Current Functional Impairments (Reported) Functional Limitations- Recreation/ Dog show (sits) Hobbies PT-OP-C Subjective Start: 06/05/23 10:31 Freq: Status: Active Protocol: Document 06/12/23 13:51 AB (Rec: 06/12/23 14:33 AB [id number]) OP-PT Subjective Patient Comments Patient Comments Patient reports she does not have a surgery date, reports Angel want her to have at least 3 PT visits. Patient rates pain 6-7/10 left hip. PT-OP-D Balance Start: 06/05/23 10:31 Freq: Status: Active Protocol: Document 06/05/23 10:31 NM (Rec: 06/05/23 12:16 NM [id number]) Balance Tests Single Limb Standing Single Limb- Right 3 seconds, increased sway Single Limb- Left 1 second, painful and increased sway Tandem Tandem Standing 5 seconds; difficulty achieving, painful on LLE PT-OP-E Functional Tests Start: 06/05/23 10:31 Freq: Status: Active Protocol: Document 06/05/23 10:31 NM (Rec: 06/05/23 12:16 NM [id number]) Functional Tests 6 Minute Walk Test Distance 1095 ft Device Used gait belt Comments antalgic, reports increased pain, decrease L stance, trunk lean L 30 Second Sit to Stand Test Score 12 Comments hip pain Five Times Sit to Stand Test Score 13 sec Comments 20, hip pain PT-OP-F Manual Assessment Start: 06/05/23 10:31 Freq: Status: Active Protocol: Document 06/05/23 10:31 NM (Rec: 06/05/23 12:16 NM [id number]) Manual Assessments Soft Tissue Assessment Soft Tissue Mobility Assessment Tight B hip flexors, heel cords Joint Mobility Assessment Joint Mobility Assessment Limited B hip mobility passively with flexion, ER, IR . LLE limited globally. Lacks terminal knee extension bilaterally PT-OP-G Mobility & Gait Start: 06/05/23 10:31 Freq: Status: Active Protocol: Document 06/05/23 10:31 NM (Rec: 06/05/23 12:16 NM [id number]) OP Gait Assessment Gait Gait Assistance Required: Independent Distance (Feet) 1,095 Assistive Devices Assistive Device Gait Belt Gait Deviations General Gait Pattern Antalgic,Decreased Stride Length Factors Limiting Gait Function Factors Limiting Gait Function Decreased Activity Tolerance, Decreased Strength,Pain Comments Gait Comments Decreased L stance time Stair Climbing Evaluation Evaluation Level of Assist On Stairs Independent Devices Stair Climbing Assistive Devices None Technique/Endurance Stair Climbing Direction Ascend and Descend Stair Climbing Technique Step Over Step Number of Steps Climbed 4 Stair Climbing Set # Repetitions (reps) 1 Comments Stair Climbing Comments antalgic, B hand rail assist, decreased L stance PT-OP-H Neuro Start: 06/05/23 10:31 Freq: Status: Active Protocol: Document 06/05/23 10:31 NM (Rec: 06/05/23 12:16 NM [id number]) Sensation Evaluation Comments Summary Comments BLE intact to light touch sensation, but 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 PT-OP-J Posture/Palpation/Skin Start: 06/05/23 10:31 Freq: Status: Active Protocol: Document 06/05/23 10:31 NM (Rec: 06/05/23 12:16 NM [id number]) Posture Evaluation Position Standing Head/C-Spine Posture C-Spine Flattened T-Spine Posture Increased Kyphosis Pelvis Posture Anteriorly Tilted Weight Distribution Weight Shifted Right,Decreased Wt.Bear on (L) Hip Posture (L) Neutral,(R) Neutral Patellar Posture (L) Superior,(R) Superior Ankle/Foot Posture (L) Pronated,(R) Pronated Palpation Assessment Location R hip Palpation Details minimal tenderness at greater trochanter L hip Palpation Findings Tenderness Palpation Details tenderness at L groin, quad, and greater trochanter PT-OP-K Range of Motion Start: 06/05/23 10:31 Freq: Status: Active Protocol: Document 06/05/23 10:31 NM (Rec: 06/05/23 12:16 NM [id number]) Hip Goniometric Range of Motion Hip Right Flexion w/Knee Flexed 90 Extension 15 Abduction 20 Internal Rotation 15 External Rotation 40 Comments pain with ER/IR, hamstring 140 deg Left Flexion w/Knee Flexed 90 Extension 8 Abduction 15 Internal Rotation 15 External Rotation 15 Comments pain with ER/IR, abd, flex, ext, add hamstring 150 deg Knee Goniometric Range of Motion Knee Right Flexion Active (degrees) 135 Extension Active (degrees) 3 Left Flexion Active (degrees) 140 Extension Active (degrees) 3 PT-OP-L Special Tests Start: 06/05/23 10:31 Freq: Status: Active Protocol: Document 06/05/23 10:31 NM (Rec: 06/05/23 12:16 NM [id number]) Special Tests Hip Special Tests Straight Leg Raise Test Results + Comments unable to lift LLE Log Roll Test Test Results + SANTOS Test Results + Comments L PT-OP-M Strength Start: 06/05/23 10:31 Freq: Status: Active Protocol: Document 06/05/23 10:31 NM (Rec: 06/05/23 12:16 NM [id number]) Hip Strength Hip Manual Muscle Testing Right Flexion (L2) 4- Good- Extension (S1) 3+ Fair+ Abduction 4- Good- Adduction 4 Good External Rotation 4 Good Internal Rotation 4- Good- Comments pain with flex, IR Left Flexion (L2) 3+ Fair+ Extension (S1) 3+ Fair+ Abduction 4- Good- Adduction 4 Good External Rotation 3+ Fair+ Internal Rotation 3+ Fair+ Comments pain with ER/IR/Flex Knee Strength Knee Manual Muscle Testing Right Flexion (S2) 4 Good Extension (L3) 4 Good Left Flexion (S2) 4 Good Extension (L3) 4- Good- Ankle/Foot Strength Ankle and Foot Manual Muscle Testing Right Dorsiflexion (L4) 4 Good Plantarflexion (S1) 4 Good Inversion 4 Good Eversion (S1) 4 Good Left Dorsiflexion (L4) 4 Good Plantarflexion (S1) 4 Good Inversion 4 Good Eversion (S1) 4 Good PT-OP-Q Treatments Start: 06/05/23 10:31 Freq: Status: Active Protocol: Document 06/12/23 13:51 AB (Rec: 06/12/23 14:33 AB [id number]) Therapeutic Exercises Supine Exercises Modified Edmond stretch Comments unable to tolerate SLR Supine Exercise Name AA, unable to perform without assist Resistance left Comments Verbal cues to quad set knee to chest with gapping Side left Reps/Minutes 60 seconds X 2 bridge Side bilateral Resistance 2X10 Comments verbal cues Sidelying Exercises reverse clamshell Sidelying Exercise Name AROM Reps/Minutes X10 Comments verbal cues clamshell Sidelying Exercise Name AROM Reps/Minutes X10 Comments Verbal cues Standing Exercises side stepping Standing Exercise Name hands on parallel bars Reps/Minutes 2 min Comments VC to avoid toeing out Therapeutic Activity Therapeutic Activity supine to and from sit Reps/Minutes X1 Comments Verbal cues to scoot with knees bent to edge of bed then sit up and slide LE off bend for supine to sit, verbal cues to scoot back in sitting until most of LE is on bed prior to lying on back Gait Training Gait Activity stairs Device Used spc, 1 hand rail Level of Assistance close SBA Distance/Duration 2 sets x 4 stairs Treatment Focus sequencing, safety, mechanics, pain management Comments VC up with good down with bad and for UE position on railing spc Description normal gait Device Used spc Level of Assistance supervision Surface stable Distance/Duration 30 feet Treatment Focus height of cane Comments SPC adjusted for height Manual Therapy Treatment Soft Tissue Mobilization left piriformis Mobilization Type Cross-Friction,Rolling Intensity/Depth Moderate Body Position Sidelying Comments monitored for pain left hip flexor at groin Mobilization Type Cross-Friction Intensity/Depth Superficial Body Position Supine Comments monitored for pain Joint Mobilizations distraction/LAD Joint left hip Direction distraction Grade II Body Position one minute Self-Care/Home Management Treatment Education Other Education Patient ed to discontinue all HEP exercise post surgery and made aware she will receive new exercises. Activities Self-Care/Home Management Activities side stepping, clamshell, reverse clamshell and bridge to HEP PT-OP-T Assessment and Plan Start: 06/05/23 10:31 Freq: Status: Active Protocol: Document 06/12/23 13:51 AB (Rec: 06/12/23 14:33 AB [id number]) Physical Therapy Assessment Goals Four Impairment squats Impairment 5x STS 13 sec Short Term Goal (STG) Pt will perform at least 10 bilateral squats with pain <6/ 10 in order to demonstrate improved BLE strength and knee flexion required for transfers and gait STG Duration 6 weeks Group Home Goal (LTG) Pt will perform 5x STS using LRAD or hand support post- operatively in order to demonstrate improved BLE strength and knee flexion required for transfers and gait LTG Duration 12 weeks Three Impairment gait Impairment 6 MWT distance 1095 ft without LRAD pre-operatively Short Term Goal (STG) Pt will be able to ambulate > 1200 ft using LRAD during 6 MWT pre-operatively in order to demonstrate improved gait mechanics, sequencing with AD, and BLE strength STG Duration 6 weeks Drapery Counselor Goal (LTG) Pt will be ambulate >1200 ft during 6 MWT post-operatively using LRAD in order to demonstrate improved mobility for household and community ambulation, decreased fall risk, and improve BLE strength LTG Duration 12 weeks Two Impairment gait Impairment pre-operatively no AD use Short Term Goal (STG) Pt will demonstrate normal gait mechanics with LRAD presurgically in order to improve mobility and symptom management in addition to decreased fall risk STG Duration 6 weeks Drapery Counselor Goal (LTG) Pt will demonstrate normal gait mechanics with LRAD after surgery in order to demonstrate improved mobility and ability to participate in ADLs/IADLs LTG Duration 12 weeks One Impairment HEP Short Term Goal (STG) Pt will begin HEP 2-3x/wk in order to maximize B hip strength prior to surgery and to improve post-operative outcomes STG Duration 6 weeks Drapery Counselor Goal (LTG) Pt will report compliance with HEP at least 2-3x/wk in order to maximize BLE after surgery and to be [facility] LTG Duration 12 weeks Assessment Summary Assessment Patient rates pain 8/ end of session, unable to transfer sit to stand with a normal movement pattern or perform SLR without assist, required repeated trials for descending stairs with step to pattern favoring left LE. Physical Therapy Plan Frequency and Duration Frequency of Treatment 1-2x/wk Duration of treatment (weeks) 12 Plan of Care Start Date 06/05/23 Plan of Care End Date 08/31/23 Next Visit Focus/Plan Next Note Type Treatment Note Next Visit Plan Focus on gait training with walker, manual, review HEP and stairs, progress HEP to sit to stand/squat and SLR as able /schedule 1X a week.
--- NOTE | 2023-06-14 11:03 | PT.OTN ---
Current Diagnoses Bilateral primary osteoarthritis of hip (06/14/23) Other lack of coordination (06/14/23) Weakness (06/14/23) Physical Therapy Treatment Note PT-OP-A Visit Information Start: 06/05/23 10:31 Freq: Status: Active Protocol: Document 06/14/23 08:02 AB (Rec: 06/14/23 11:02 AB [id number]) Out-Patient Physical Therapy Visit Information Visit Information Visit Type Treatment Note Visit Note Access Code: [email or web address] Visit Start Time 09:48 Visit Stop Time 10:29 Visit Number 3 Number of VISCERA WASHER Visits 2 Evaluation Information Evaluation Date 06/05/23 PT-OP-B Current Condition Start: 06/05/23 10:31 Freq: Status: Active Protocol: Document 06/05/23 10:31 NM (Rec: 06/05/23 12:16 NM [id number]) Current Condition History of Current Condition Onset Date January 2023 Current Complaints pain, immobility, weakness, stuck History of Current Condition Pt is planning to have surgery on L hip with Dr. Wills. She has a hx of OA in B hips, L>R. Pt reports that she feels stuck. She has pain with standing/walking >45 minutes, movement (twisting, hip flexion), achy with sitting. 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 Reports difficulty with dressing, putting on shoes. She lives in an , has a platform with 2 steps and B hand rails, has walk in shower. [place] [facility] [place]. Current Functional Impairments (Reported) Functional Limitations- Recreation/ Dog show (sits) Hobbies PT-OP-C Subjective Start: 06/05/23 10:31 Freq: Status: Active Protocol: Document 06/14/23 08:02 AB (Rec: 06/14/23 11:02 AB [id number]) OP-PT Subjective Patient Comments Patient Comments Patient ambulates into session with FWW rating pain 5/10 reports performing HEP PT-OP-D Balance Start: 06/05/23 10:31 Freq: Status: Active Protocol: Document 06/05/23 10:31 NM (Rec: 06/05/23 12:16 NM [id number]) Balance Tests Single Limb Standing Single Limb- Right 3 seconds, increased sway Single Limb- Left 1 second, painful and increased sway Tandem Tandem Standing 5 seconds; difficulty achieving, painful on LLE PT-OP-E Functional Tests Start: 06/05/23 10:31 Freq: Status: Active Protocol: Document 06/05/23 10:31 NM (Rec: 06/05/23 12:16 NM [id number]) Functional Tests 6 Minute Walk Test Distance 1095 ft Device Used gait belt Comments antalgic, reports increased pain, decrease L stance, trunk lean L 30 Second Sit to Stand Test Score 12 Comments hip pain Five Times Sit to Stand Test Score 13 sec Comments 20, hip pain PT-OP-F Manual Assessment Start: 06/05/23 10:31 Freq: Status: Active Protocol: Document 06/05/23 10:31 NM (Rec: 06/05/23 12:16 NM [id number]) Manual Assessments Soft Tissue Assessment Soft Tissue Mobility Assessment Tight B hip flexors, heel cords Joint Mobility Assessment Joint Mobility Assessment Limited B hip mobility passively with flexion, ER, IR . LLE limited globally. Lacks terminal knee extension bilaterally PT-OP-G Mobility & Gait Start: 06/05/23 10:31 Freq: Status: Active Protocol: Document 06/05/23 10:31 NM (Rec: 06/05/23 12:16 NM [id number]) OP Gait Assessment Gait Gait Assistance Required: Independent Distance (Feet) 1,095 Assistive Devices Assistive Device Gait Belt Gait Deviations General Gait Pattern Antalgic,Decreased Stride Length Factors Limiting Gait Function Factors Limiting Gait Function Decreased Activity Tolerance, Decreased Strength,Pain Comments Gait Comments Decreased L stance time Stair Climbing Evaluation Evaluation Level of Assist On Stairs Independent Devices Stair Climbing Assistive Devices None Technique/Endurance Stair Climbing Direction Ascend and Descend Stair Climbing Technique Step Over Step Number of Steps Climbed 4 Stair Climbing Set # Repetitions (reps) 1 Comments Stair Climbing Comments antalgic, B hand rail assist, decreased L stance PT-OP-H Neuro Start: 06/05/23 10:31 Freq: Status: Active Protocol: Document 06/05/23 10:31 NM (Rec: 06/05/23 12:16 NM [id number]) Sensation Evaluation Comments Summary Comments BLE intact to light touch sensation, but 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 PT-OP-J Posture/Palpation/Skin Start: 06/05/23 10:31 Freq: Status: Active Protocol: Document 06/05/23 10:31 NM (Rec: 06/05/23 12:16 NM [id number]) Posture Evaluation Position Standing Head/C-Spine Posture C-Spine Flattened T-Spine Posture Increased Kyphosis Pelvis Posture Anteriorly Tilted Weight Distribution Weight Shifted Right,Decreased Wt.Bear on (L) Hip Posture (L) Neutral,(R) Neutral Patellar Posture (L) Superior,(R) Superior Ankle/Foot Posture (L) Pronated,(R) Pronated Palpation Assessment Location R hip Palpation Details minimal tenderness at greater trochanter L hip Palpation Findings Tenderness Palpation Details tenderness at L groin, quad, and greater trochanter PT-OP-K Range of Motion Start: 06/05/23 10:31 Freq: Status: Active Protocol: Document 06/05/23 10:31 NM (Rec: 06/05/23 12:16 NM [id number]) Hip Goniometric Range of Motion Hip Right Flexion w/Knee Flexed 90 Extension 15 Abduction 20 Internal Rotation 15 External Rotation 40 Comments pain with ER/IR, hamstring 140 deg Left Flexion w/Knee Flexed 90 Extension 8 Abduction 15 Internal Rotation 15 External Rotation 15 Comments pain with ER/IR, abd, flex, ext, add hamstring 150 deg Knee Goniometric Range of Motion Knee Right Flexion Active (degrees) 135 Extension Active (degrees) 3 Left Flexion Active (degrees) 140 Extension Active (degrees) 3 PT-OP-L Special Tests Start: 06/05/23 10:31 Freq: Status: Active Protocol: Document 06/05/23 10:31 NM (Rec: 06/05/23 12:16 NM [id number]) Special Tests Hip Special Tests Straight Leg Raise Test Results + Comments unable to lift LLE Log Roll Test Test Results + SANTOS Test Results + Comments L PT-OP-M Strength Start: 06/05/23 10:31 Freq: Status: Active Protocol: Document 06/05/23 10:31 NM (Rec: 06/05/23 12:16 NM [id number]) Hip Strength Hip Manual Muscle Testing Right Flexion (L2) 4- Good- Extension (S1) 3+ Fair+ Abduction 4- Good- Adduction 4 Good External Rotation 4 Good Internal Rotation 4- Good- Comments pain with flex, IR Left Flexion (L2) 3+ Fair+ Extension (S1) 3+ Fair+ Abduction 4- Good- Adduction 4 Good External Rotation 3+ Fair+ Internal Rotation 3+ Fair+ Comments pain with ER/IR/Flex Knee Strength Knee Manual Muscle Testing Right Flexion (S2) 4 Good Extension (L3) 4 Good Left Flexion (S2) 4 Good Extension (L3) 4- Good- Ankle/Foot Strength Ankle and Foot Manual Muscle Testing Right Dorsiflexion (L4) 4 Good Plantarflexion (S1) 4 Good Inversion 4 Good Eversion (S1) 4 Good Left Dorsiflexion (L4) 4 Good Plantarflexion (S1) 4 Good Inversion 4 Good Eversion (S1) 4 Good PT-OP-Q Treatments Start: 06/05/23 10:31 Freq: Status: Active Protocol: Document 06/14/23 08:02 AB (Rec: 06/14/23 11:02 AB [id number]) Therapeutic Exercises Supine Exercises figure 4 Supine Exercise Name from hooklying Side left Reps/Minutes 2x first not jay second 60 seconds Comments tolerated post knee to chest with towel roll for gaping pirifomris Supine Exercise Name from hooklying Reps/Minutes X1 60 seconds Modified Edmond stretch Side left Reps/Minutes 60 seconds Comments tolerates with pillow under left LE knee to chest with gapping Side left Reps/Minutes 60 seconds X 1 Sitting Exercises seated hip abduction with band Side bilateral Equipment Used level one light blue band Reps/Minutes 1X1 minute Comments verbal cues Standing Exercises sit to stand with UE use Standing Exercise Name sit to stand with UE use Side bilateral Reps/Minutes X5 post initial X1 for hip hinge training Comments Patient ed self tactile cues for hip keely and mechanics of sit to stand Gait Training Gait Activity Gait training with front wheeled walker in and outdoors. Device Used FWW Surface level, and sidewalk/curbs/ carpet/tile Distance/Duration 9 minutes Treatment Focus safe tech, FWW adjusted for height Comments ascending and descending curbs with FWW, turning with FWW, over carpet/tile transisitions , backing to chair and UE positioning for sit to and from stand Manual Therapy Treatment Soft Tissue Mobilization left piriformis Mobilization Type Cross-Friction,Rolling Intensity/Depth Moderate Body Position Sidelying Comments monitored for pain left hip flexor at groin Mobilization Type Cross-Friction Intensity/Depth Superficial Body Position Supine Comments monitored for pain Joint Mobilizations distraction/LAD Joint left hip Direction distraction Grade II Body Position 2 minutes Self-Care/Home Management Treatment Activities Self-Care/Home Management Activities sit to stand, seated hip abduction with one minute hold with level one band to HEP PT-OP-T Assessment and Plan Start: 06/05/23 10:31 Freq: Status: Active Protocol: Document 06/14/23 08:02 AB (Rec: 06/14/23 11:02 AB [id number]) Physical Therapy Assessment Goals Four Impairment squats Impairment 5x STS 13 sec Short Term Goal (STG) Pt will perform at least 10 bilateral squats with pain <6/ 10 in order to demonstrate improved BLE strength and knee flexion required for transfers and gait STG Duration 6 weeks Assistant Golf Course Superintendent Goal (LTG) Pt will perform 5x STS using LRAD or hand support post- operatively in order to demonstrate improved BLE strength and knee flexion required for transfers and gait LTG Duration 12 weeks Three Impairment gait Impairment 6 MWT distance 1095 ft without LRAD pre-operatively Short Term Goal (STG) Pt will be able to ambulate > 1200 ft using LRAD during 6 MWT pre-operatively in order to demonstrate improved gait mechanics, sequencing with AD, and BLE strength STG Duration 6 weeks Assistant Golf Course Superintendent Goal (LTG) Pt will be ambulate >1200 ft during 6 MWT post-operatively using LRAD in order to demonstrate improved mobility for household and community ambulation, decreased fall risk, and improve BLE strength LTG Duration 12 weeks Two Impairment gait Impairment pre-operatively no AD use Short Term Goal (STG) Pt will demonstrate normal gait mechanics with LRAD presurgically in order to improve mobility and symptom management in addition to decreased fall risk STG Duration 6 weeks Assistant Golf Course Superintendent Goal (LTG) Pt will demonstrate normal gait mechanics with LRAD after surgery in order to demonstrate improved mobility and ability to participate in ADLs/IADLs LTG Duration 12 weeks One Impairment HEP Short Term Goal (STG) Pt will begin HEP 2-3x/wk in order to maximize B hip strength prior to surgery and to improve post-operative outcomes STG Duration 6 weeks Senior Living Goal (LTG) Pt will report compliance with HEP at least 2-3x/wk in order to maximize BLE after surgery and to be [facility] LTG Duration 12 weeks Assessment Summary Assessment Patient rates left hip pain 6/ 10 ambulating with FWW end of session. Nenea was able to perform sit to stand with a normal movement pattern/and UE use this session. Physical Therapy Plan Frequency and Duration Frequency of Treatment 1-2x/wk Duration of treatment (weeks) 12 Plan of Care Start Date 06/05/23 Plan of Care End Date 08/31/23 Next Visit Focus/Plan Next Note Type Treatment Note Next Visit Plan Add SLR to HEP if able to tolerate/perform correctly, manual, review stairs. Possible progress note if this is last scheduled visit.
--- NOTE | 2023-06-22 15:45 | PT.OTN ---
Current Diagnoses Bilateral primary osteoarthritis of hip (06/22/23) Other lack of coordination (06/22/23) Weakness (06/22/23) Physical Therapy Treatment Note PT-OP-A Visit Information Start: 06/05/23 10:31 Freq: Status: Active Protocol: Document 06/22/23 13:48 NM (Rec: 06/22/23 14:32 NM [id number]) Out-Patient Physical Therapy Visit Information Visit Information Visit Type Treatment Note Visit Start Time 13:48 Visit Stop Time 14:28 Visit Number 4 Evaluation Information Evaluation Date 06/05/23 PT-OP-B Current Condition Start: 06/05/23 10:31 Freq: Status: Active Protocol: Document 06/05/23 10:31 NM (Rec: 06/05/23 12:16 NM [id number]) Current Condition History of Current Condition Onset Date January 2023 Current Complaints pain, immobility, weakness, stuck History of Current Condition Pt is planning to have surgery on L hip with Dr. Wills. She has a hx of OA in B hips, L>R. Pt reports that she feels stuck. She has pain with standing/walking >45 minutes, movement (twisting, hip flexion), achy with sitting. 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 Reports difficulty with dressing, putting on shoes. She lives in an , has a platform with 2 steps and B hand rails, has walk in shower. She has a spc with a base. Current Functional Impairments (Reported) Functional Limitations- Recreation/ Dog show (sits) Hobbies PT-OP-C Subjective Start: 06/05/23 10:31 Freq: Status: Active Protocol: Document 06/22/23 13:48 NM (Rec: 06/22/23 14:32 NM [id number]) OP-PT Subjective Patient Comments Patient Comments Pt presents with spc today. She states that her surgery was denied until further PT, being appealed this wek. Reports 7/10 pain in hip. Does HEP daily, reports that all are painful but they are helpful. Can do more than 5 sit to stands PT-OP-D Balance Start: 06/05/23 10:31 Freq: Status: Active Protocol: Document 06/05/23 10:31 NM (Rec: 06/05/23 12:16 NM [id number]) Balance Tests Single Limb Standing Single Limb- Right 3 seconds, increased sway Single Limb- Left 1 second, painful and increased sway Tandem Tandem Standing 5 seconds; difficulty achieving, painful on LLE PT-OP-E Functional Tests Start: 06/05/23 10:31 Freq: Status: Active Protocol: Document 06/05/23 10:31 NM (Rec: 06/05/23 12:16 NM [id number]) Functional Tests 6 Minute Walk Test Distance 1095 ft Device Used gait belt Comments antalgic, reports increased pain, decrease L stance, trunk lean L 30 Second Sit to Stand Test Score 12 Comments hip pain Five Times Sit to Stand Test Score 13 sec Comments 20, hip pain PT-OP-F Manual Assessment Start: 06/05/23 10:31 Freq: Status: Active Protocol: Document 06/05/23 10:31 NM (Rec: 06/05/23 12:16 NM [id number]) Manual Assessments Soft Tissue Assessment Soft Tissue Mobility Assessment Tight B hip flexors, heel cords Joint Mobility Assessment Joint Mobility Assessment Limited B hip mobility passively with flexion, ER, IR . LLE limited globally. Lacks terminal knee extension bilaterally PT-OP-G Mobility & Gait Start: 06/05/23 10:31 Freq: Status: Active Protocol: Document 06/05/23 10:31 NM (Rec: 06/05/23 12:16 NM [id number]) OP Gait Assessment Gait Gait Assistance Required: Independent Distance (Feet) 1,095 Assistive Devices Assistive Device Gait Belt Gait Deviations General Gait Pattern Antalgic,Decreased Stride Length Factors Limiting Gait Function Factors Limiting Gait Function Decreased Activity Tolerance, Decreased Strength,Pain Comments Gait Comments Decreased L stance time Stair Climbing Evaluation Evaluation Level of Assist On Stairs Independent Devices Stair Climbing Assistive Devices None Technique/Endurance Stair Climbing Direction Ascend and Descend Stair Climbing Technique Step Over Step Number of Steps Climbed 4 Stair Climbing Set # Repetitions (reps) 1 Comments Stair Climbing Comments antalgic, B hand rail assist, decreased L stance PT-OP-H Neuro Start: 06/05/23 10:31 Freq: Status: Active Protocol: Document 06/05/23 10:31 NM (Rec: 06/05/23 12:16 NM [id number]) Sensation Evaluation Comments Summary Comments BLE intact to light touch sensation, but 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 PT-OP-J Posture/Palpation/Skin Start: 06/05/23 10:31 Freq: Status: Active Protocol: Document 06/05/23 10:31 NM (Rec: 06/05/23 12:16 NM [id number]) Posture Evaluation Position Standing Head/C-Spine Posture C-Spine Flattened T-Spine Posture Increased Kyphosis Pelvis Posture Anteriorly Tilted Weight Distribution Weight Shifted Right,Decreased Wt.Bear on (L) Hip Posture (L) Neutral,(R) Neutral Patellar Posture (L) Superior,(R) Superior Ankle/Foot Posture (L) Pronated,(R) Pronated Palpation Assessment Location R hip Palpation Details minimal tenderness at greater trochanter L hip Palpation Findings Tenderness Palpation Details tenderness at L groin, quad, and greater trochanter PT-OP-K Range of Motion Start: 06/05/23 10:31 Freq: Status: Active Protocol: Document 06/05/23 10:31 NM (Rec: 06/05/23 12:16 NM [id number]) Hip Goniometric Range of Motion Hip Right Flexion w/Knee Flexed 90 Extension 15 Abduction 20 Internal Rotation 15 External Rotation 40 Comments pain with ER/IR, hamstring 140 deg Left Flexion w/Knee Flexed 90 Extension 8 Abduction 15 Internal Rotation 15 External Rotation 15 Comments pain with ER/IR, abd, flex, ext, add hamstring 150 deg Knee Goniometric Range of Motion Knee Right Flexion Active (degrees) 135 Extension Active (degrees) 3 Left Flexion Active (degrees) 140 Extension Active (degrees) 3 PT-OP-L Special Tests Start: 06/05/23 10:31 Freq: Status: Active Protocol: Document 06/05/23 10:31 NM (Rec: 06/05/23 12:16 NM [id number]) Special Tests Hip Special Tests Straight Leg Raise Test Results + Comments unable to lift LLE Log Roll Test Test Results + SANTOS Test Results + Comments L PT-OP-M Strength Start: 06/05/23 10:31 Freq: Status: Active Protocol: Document 06/05/23 10:31 NM (Rec: 06/05/23 12:16 NM [id number]) Hip Strength Hip Manual Muscle Testing Right Flexion (L2) 4- Good- Extension (S1) 3+ Fair+ Abduction 4- Good- Adduction 4 Good External Rotation 4 Good Internal Rotation 4- Good- Comments pain with flex, IR Left Flexion (L2) 3+ Fair+ Extension (S1) 3+ Fair+ Abduction 4- Good- Adduction 4 Good External Rotation 3+ Fair+ Internal Rotation 3+ Fair+ Comments pain with ER/IR/Flex Knee Strength Knee Manual Muscle Testing Right Flexion (S2) 4 Good Extension (L3) 4 Good Left Flexion (S2) 4 Good Extension (L3) 4- Good- Ankle/Foot Strength Ankle and Foot Manual Muscle Testing Right Dorsiflexion (L4) 4 Good Plantarflexion (S1) 4 Good Inversion 4 Good Eversion (S1) 4 Good Left Dorsiflexion (L4) 4 Good Plantarflexion (S1) 4 Good Inversion 4 Good Eversion (S1) 4 Good PT-OP-Q Treatments Start: 06/05/23 10:31 Freq: Status: Active Protocol: Document 06/22/23 13:48 NM (Rec: 06/22/23 14:32 NM [id number]) Therapeutic Exercises Supine Exercises figure 4 Supine Exercise Name from hooklying Side bilateral Equipment Used decreased L ROM Reps/Minutes 1x60 Comments reports good stretch, states w /o pain pirifomris Supine Exercise Name from hooklying Reps/Minutes 1x60 Modified Edmond stretch Side bilateral Reps/Minutes 1x30 SLR Supine Exercise Name 1. quad set, 2. trial SLR Side left Equipment Used pillow under thigh Reps/Minutes 1. 1x10 w/ 3 hold, 2. trialed small range 1x5 Comments good quad set but inc pain, unable to lift w/ hip flex bridge Side bilateral Resistance lvl 2 tb around thighs Reps/Minutes 1x15 with 3 hold Comments cues for glute squeeze Sitting Exercises hip ER Sitting Exercise Name trialed Side left Resistance AROM Reps/Minutes 2x10 Comments less painful than clam hip IR Sitting Exercise Name trialed in PT Side bilateral Resistance AROM Equipment Used small orange ball between knees Reps/Minutes 2x10 Comments reports same as sidelying; cued to maintain pain free seated hip abduction with band Sitting Exercise Name clam (unilateral) Side bilateral Resistance lvl 2 band around thighs Reps/Minutes 2x10 Comments cued to keep foot stationary; fatiguing but pain free Standing Exercises sit to stand with UE use Standing Exercise Name sit to stand with UE use Side bilateral Reps/Minutes 1x10 w/o AD, 1x10 w/ spc Comments Patient ed self tactile cues for hip keely and mechanics of sit to stand Gait Training Gait Activity stairs Device Used spc, 1 hand rail Level of Assistance close SBA Distance/Duration 2 sets x 4 stairs Treatment Focus sequencing, safety, mechanics, pain management Comments VC up with good down with bad and for UE position on railing . Challenging for pt to remember with sequencing of spc, improved with reps spc Description normal gait Device Used spc Level of Assistance supervision Surface stable Distance/Duration 250 ft Treatment Focus height of cane Comments SPC at correct height. Cued for 2pt gait sequencing, placement of spc further to side to prevent tripping of RLE. Cued also for hip abd during gait for more stable MICHELE. Requires increased time Self-Care/Home Management Treatment Education Patient Education Home Exercise Program,Joint Protection,Safety Other Education HEP: seated hip IR vs sidelying reverse clams depending on pt preference. Educated to not continue HEP after surgery and to perform exercises provided by PT in hospital post op PT-OP-T Assessment and Plan Start: 06/05/23 10:31 Freq: Status: Active Protocol: Document 06/22/23 13:48 NM (Rec: 06/22/23 14:32 NM [id number]) Physical Therapy Assessment Goals Four Impairment squats Impairment 5x STS 13 sec Short Term Goal (STG) Pt will perform at least 10 bilateral squats with pain <6/ 10 in order to demonstrate improved BLE strength and knee flexion required for transfers and gait STG Duration 6 weeks Prison Goal (LTG) Pt will perform 5x STS using LRAD or hand support post- operatively in order to demonstrate improved BLE strength and knee flexion required for transfers and gait LTG Duration 12 weeks Three Impairment gait Impairment 6 MWT distance 1095 ft without LRAD pre-operatively Short Term Goal (STG) Pt will be able to ambulate > 1200 ft using LRAD during 6 MWT pre-operatively in order to demonstrate improved gait mechanics, sequencing with AD, and BLE strength STG Duration 6 weeks Prison Goal (LTG) Pt will be ambulate >1200 ft during 6 MWT post-operatively using LRAD in order to demonstrate improved mobility for household and community ambulation, decreased fall risk, and improve BLE strength LTG Duration 12 weeks Two Impairment gait Impairment pre-operatively no AD use Short Term Goal (STG) Pt will demonstrate normal gait mechanics with LRAD presurgically in order to improve mobility and symptom management in addition to decreased fall risk STG Duration 6 weeks Prison Goal (LTG) Pt will demonstrate normal gait mechanics with LRAD after surgery in order to demonstrate improved mobility and ability to participate in ADLs/IADLs LTG Duration 12 weeks One Impairment HEP Short Term Goal (STG) Pt will begin HEP 2-3x/wk in order to maximize B hip strength prior to surgery and to improve post-operative outcomes STG Duration 6 weeks Integrity Analyst Goal (LTG) Pt will report compliance with HEP at least 2-3x/wk in order to maximize BLE after surgery and to be able to transition safely [facility] after discharge from PT LTG Duration 12 weeks Assessment Summary Assessment Pt reports no increase in hip pain at end of session. Continued with HEP review, strengthening hip muscles. Progressed to seated clam unilaterally. Pt's LLE weaker than RLE during clams. Increased number of reps of sit to stand. Pt able to perform several reps using both spc and without spc assistance; however, requires UE support due to glute/quad weakness. Trialed seated hip IR with cues to remain within pain free range vs sidelying clam; pt reports less painful, but continues to require cues to remain within pain free range. Pt able to add isometric hold to bridge, band added to improve glute medius activation. Pt continues to have difficulty with sequencing spc during gait. Cued for spc more laterally on R side to decrease fall risk, sequencing, and wider MICHELE. Pt demos improved sequencing on stairs with spc and rail, but still requires moderate cueing for correct LE for joint protection. Pt would benefit from skilled PT for progressive BLE strengthening prior to surgery in order to improve strength, decrease fall risk, and improve activity tolerance. Physical Therapy Plan Frequency and Duration Frequency of Treatment 1-2x/wk Duration of treatment (weeks) 12 Plan of Care Start Date 06/05/23 Plan of Care End Date 08/31/23 Therapeutic Interventions Therapeutic Interventions Balance Training,Gait Training ,Home Exercise Program,Joint Mobilizations,Manual Therapy, Neuromuscular Re-education, Orthotic/Prosthetic Management ,Patient/Caregiver Education, Self-Care/Home Management, Sensory Integration,Soft Tissue Mobilization,Taping, Therapeutic Activities, Therapeutic Exercises Modalities Cold Pack/Ice Massage,Electric Stimulation,Hot Packs, Ultrasound,Vasopneumatic Devices Next Visit Focus/Plan Next Note Type Treatment Note Next Visit Plan Next session: glute strengthening Add SLR to HEP if able to tolerate/perform correctly, manual, review stairs. Possible progress note if this is last scheduled visit.
--- NOTE | 2023-06-26 13:37 | PT.OTN ---
Current Diagnoses Bilateral primary osteoarthritis of hip (06/26/23) Other lack of coordination (06/26/23) Weakness (06/26/23) Physical Therapy Treatment Note PT-OP-A Visit Information Start: 06/05/23 10:31 Freq: Status: Active Protocol: Document 06/26/23 09:05 NM (Rec: 06/26/23 09:47 NM [id number]) Out-Patient Physical Therapy Visit Information Visit Information Visit Type Progress Note Visit Start Time 09:05 Visit Stop Time 09:45 Visit Number 5 Evaluation Information Evaluation Date 06/05/23 PT-OP-B Current Condition Start: 06/05/23 10:31 Freq: Status: Active Protocol: Document 06/05/23 10:31 NM (Rec: 06/05/23 12:16 NM [id number]) Current Condition History of Current Condition Onset Date January 2023 Current Complaints pain, immobility, weakness, stuck History of Current Condition Pt is planning to have surgery on L hip with Dr. Wills. She has a hx of OA in B hips, L>R. Pt reports that she feels stuck. She has pain with standing/walking >45 minutes, movement (twisting, hip flexion), achy with sitting. 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 Reports difficulty with dressing, putting on shoes. She lives in an , has a platform with 2 steps and B hand rails, has walk in shower. She has a spc with a base. Current Functional Impairments (Reported) Functional Limitations- Recreation/ Dog show (sits) Hobbies PT-OP-C Subjective Start: 06/05/23 10:31 Freq: Status: Active Protocol: Document 06/26/23 09:05 NM (Rec: 06/26/23 09:47 NM [id number]) OP-PT Subjective Patient Comments Patient Comments Pt reports sore after last session. States 4/10 pain in L hip, specifically groin PT-OP-D Balance Start: 06/05/23 10:31 Freq: Status: Active Protocol: Document 06/05/23 10:31 NM (Rec: 06/05/23 12:16 NM [id number]) Balance Tests Single Limb Standing Single Limb- Right 3 seconds, increased sway Single Limb- Left 1 second, painful and increased sway Tandem Tandem Standing 5 seconds; difficulty achieving, painful on LLE PT-OP-E Functional Tests Start: 06/05/23 10:31 Freq: Status: Active Protocol: Document 06/05/23 10:31 NM (Rec: 06/05/23 12:16 NM [id number]) Functional Tests 6 Minute Walk Test Distance 1095 ft Device Used gait belt Comments antalgic, reports increased pain, decrease L stance, trunk lean L 30 Second Sit to Stand Test Score 12 Comments hip pain Five Times Sit to Stand Test Score 13 sec Comments 20, hip pain PT-OP-F Manual Assessment Start: 06/05/23 10:31 Freq: Status: Active Protocol: Document 06/05/23 10:31 NM (Rec: 06/05/23 12:16 NM [id number]) Manual Assessments Soft Tissue Assessment Soft Tissue Mobility Assessment Tight B hip flexors, heel cords Joint Mobility Assessment Joint Mobility Assessment Limited B hip mobility passively with flexion, ER, IR . LLE limited globally. Lacks terminal knee extension bilaterally PT-OP-G Mobility & Gait Start: 06/05/23 10:31 Freq: Status: Active Protocol: Document 06/05/23 10:31 NM (Rec: 06/05/23 12:16 NM [id number]) OP Gait Assessment Gait Gait Assistance Required: Independent Distance (Feet) 1,095 Assistive Devices Assistive Device Gait Belt Gait Deviations General Gait Pattern Antalgic,Decreased Stride Length Factors Limiting Gait Function Factors Limiting Gait Function Decreased Activity Tolerance, Decreased Strength,Pain Comments Gait Comments Decreased L stance time Stair Climbing Evaluation Evaluation Level of Assist On Stairs Independent Devices Stair Climbing Assistive Devices None Technique/Endurance Stair Climbing Direction Ascend and Descend Stair Climbing Technique Step Over Step Number of Steps Climbed 4 Stair Climbing Set # Repetitions (reps) 1 Comments Stair Climbing Comments antalgic, B hand rail assist, decreased L stance PT-OP-H Neuro Start: 06/05/23 10:31 Freq: Status: Active Protocol: Document 06/05/23 10:31 NM (Rec: 06/05/23 12:16 NM [id number]) Sensation Evaluation Comments Summary Comments BLE intact to light touch sensation, but 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 PT-OP-J Posture/Palpation/Skin Start: 06/05/23 10:31 Freq: Status: Active Protocol: Document 06/05/23 10:31 NM (Rec: 06/05/23 12:16 NM [id number]) Posture Evaluation Position Standing Head/C-Spine Posture C-Spine Flattened T-Spine Posture Increased Kyphosis Pelvis Posture Anteriorly Tilted Weight Distribution Weight Shifted Right,Decreased Wt.Bear on (L) Hip Posture (L) Neutral,(R) Neutral Patellar Posture (L) Superior,(R) Superior Ankle/Foot Posture (L) Pronated,(R) Pronated Palpation Assessment Location R hip Palpation Details minimal tenderness at greater trochanter L hip Palpation Findings Tenderness Palpation Details tenderness at L groin, quad, and greater trochanter PT-OP-K Range of Motion Start: 06/05/23 10:31 Freq: Status: Active Protocol: Document 06/05/23 10:31 NM (Rec: 06/05/23 12:16 NM [id number]) Hip Goniometric Range of Motion Hip Right Flexion w/Knee Flexed 90 Extension 15 Abduction 20 Internal Rotation 15 External Rotation 40 Comments pain with ER/IR, hamstring 140 deg Left Flexion w/Knee Flexed 90 Extension 8 Abduction 15 Internal Rotation 15 External Rotation 15 Comments pain with ER/IR, abd, flex, ext, add hamstring 150 deg Knee Goniometric Range of Motion Knee Right Flexion Active (degrees) 135 Extension Active (degrees) 3 Left Flexion Active (degrees) 140 Extension Active (degrees) 3 PT-OP-L Special Tests Start: 06/05/23 10:31 Freq: Status: Active Protocol: Document 06/05/23 10:31 NM (Rec: 06/05/23 12:16 NM [id number]) Special Tests Hip Special Tests Straight Leg Raise Test Results + Comments unable to lift LLE Log Roll Test Test Results + SANTOS Test Results + Comments L PT-OP-M Strength Start: 06/05/23 10:31 Freq: Status: Active Protocol: Document 06/05/23 10:31 NM (Rec: 06/05/23 12:16 NM [id number]) Hip Strength Hip Manual Muscle Testing Right Flexion (L2) 4- Good- Extension (S1) 3+ Fair+ Abduction 4- Good- Adduction 4 Good External Rotation 4 Good Internal Rotation 4- Good- Comments pain with flex, IR Left Flexion (L2) 3+ Fair+ Extension (S1) 3+ Fair+ Abduction 4- Good- Adduction 4 Good External Rotation 3+ Fair+ Internal Rotation 3+ Fair+ Comments pain with ER/IR/Flex Knee Strength Knee Manual Muscle Testing Right Flexion (S2) 4 Good Extension (L3) 4 Good Left Flexion (S2) 4 Good Extension (L3) 4- Good- Ankle/Foot Strength Ankle and Foot Manual Muscle Testing Right Dorsiflexion (L4) 4 Good Plantarflexion (S1) 4 Good Inversion 4 Good Eversion (S1) 4 Good Left Dorsiflexion (L4) 4 Good Plantarflexion (S1) 4 Good Inversion 4 Good Eversion (S1) 4 Good PT-OP-Q Treatments Start: 06/05/23 10:31 Freq: Status: Active Protocol: Document 06/26/23 09:05 NM (Rec: 06/26/23 09:47 NM [id number]) Therapeutic Exercises Sitting Exercises LAQ Side bilateral Resistance AROM with 5 hold Reps/Minutes 2x12x5 Comments pain free; cued TKE with good quad set, medium Standing Exercises hip extension Side left Resistance AROM Equipment Used hand support on plinth, slight fwd lean Reps/Minutes 2x10 Comments cued glute squeeze with extension squat Side bilateral Resistance AROM Equipment Used hand support on plinth to chair Reps/Minutes 1x10 Comments reports slight increase hip pain; no knee valgus sit to stand with UE use Standing Exercise Name sit to stand with UE use Side bilateral Reps/Minutes 1x10 w/o spc Comments min use of hands to assist side stepping Standing Exercise Name hands on plinth Side bilateral Resistance AROM Reps/Minutes 10x5 ft Comments improved neutral toes, upright posture Gait Training Gait Activity stairs Device Used spc, 1 hand rail Level of Assistance close SBA Distance/Duration 2 sets x 4 stairs Treatment Focus sequencing, safety, mechanics, pain management Comments Improved sequencing and spc placement, coordination. spc Description normal gait Device Used spc Level of Assistance close SBA Surface stable Distance/Duration 6MWT: 711 ft Treatment Focus sequencing and placement of spc, distance Comments Demos improved sequencing with distance, fatigues quickly and relies on UE for assistance to offload L hip, reports less pain with SPC use than IE Manual Therapy Treatment Soft Tissue Mobilization left piriformis Body Location piriformis, glute, prox HS Mobilization Type Cross-Friction,Rolling Intensity/Depth Moderate Body Position Sidelying Comments Increased tenderness at L glutes and piriformis, decreased with gentle rolling and cross friction. left hip flexor at groin Body Location hip flexors, adductors, abductors, Mobilization Type Cross-Friction,Rolling Body Position Supine Comments Performed distal>proximal rolling. Monitored for pain, tender spots in hip flexors, adductors. Education on self STM with heat for pain symptom reduction Joint Mobilizations distraction/LAD Joint left hip Direction distraction Grade II Body Position Supine Reps/Duration 1x60 Comments Pt pain free, reports good reduction in L hip pain symptoms Self-Care/Home Management Treatment Education Patient Education Home Exercise Program Other Education HEP: LAQ PT-OP-T Assessment and Plan Start: 06/05/23 10:31 Freq: Status: Active Protocol: Document 06/26/23 09:05 NM (Rec: 06/26/23 09:47 NM [id number]) Physical Therapy Assessment Goals Four Impairment squats Impairment 5x STS 13 sec Short Term Goal (STG) Pt will perform at least 10 bilateral squats with pain <6/ 10 in order to demonstrate improved BLE strength and knee flexion required for transfers and gait 06/26/23: 10 squats with hand support, 10 STS STG Duration 6 weeks MET Closing Supervisor Goal (LTG) Pt will perform 5x STS using LRAD or hand support post- operatively in order to demonstrate improved BLE strength and knee flexion required for transfers and gait LTG Duration 12 weeks Three Impairment gait Impairment 6 MWT distance 1095 ft without LRAD pre-operatively Short Term Goal (STG) Pt will be able to ambulate > 1200 ft using LRAD during 6 MWT pre-operatively in order to demonstrate improved gait mechanics, sequencing with AD, and BLE strength 06/26/23: 711 ft with spc STG Duration 6 weeks PROGRESSING Custodial Goal (LTG) Pt will be ambulate >1200 ft during 6 MWT post-operatively using LRAD in order to demonstrate improved mobility for household and community ambulation, decreased fall risk, and improve BLE strength LTG Duration 12 weeks Two Impairment gait Impairment pre-operatively no AD use Short Term Goal (STG) Pt will demonstrate normal gait mechanics with LRAD presurgically in order to improve mobility and symptom management in addition to decreased fall risk 06/26/23: slight antalgic gait with spc use but improved upright posture, slight L circumduction STG Duration 6 weeks PROGRESSING Custodial Goal (LTG) Pt will demonstrate normal gait mechanics with LRAD after surgery in order to demonstrate improved mobility and ability to participate in ADLs/IADLs LTG Duration 12 weeks One Impairment HEP Short Term Goal (STG) Pt will begin HEP 2-3x/wk in order to maximize B hip strength prior to surgery and to improve post-operative outcomes 06/26/23: compliant 7 days/wk STG Duration 6 weeks Custodial Goal (LTG) Pt will report compliance with HEP at least 2-3x/wk in order to maximize BLE after surgery and to be able to transition safely into [facility] program after discharge from PT LTG Duration 12 weeks Assessment Summary Assessment Pt tolerated treatment well without increased pain in L hip. During 6 MWT, pt ambulated 711 ft with spc using improved gait mechanics and with less pain compared to IE distance. Pt continues to require occasional cues for sequencing and spc placement. Trialed squats vs sit to stand . Pt requires less UE assist for sit to stand and able to perform more reps before break required. Cued smaller depth with squat to limit hip pain. Manual treatment to decrease soft tissue restrictions of L hip. Demos tenderness of hip flexors, adductors, glutes. Education on soft tissue mobilization and heat for pain reduction as part of HEP. Initiated LAQ for quad strengthening. Physical Therapy Plan Frequency and Duration Frequency of Treatment 1-2x/wk Duration of treatment (weeks) 12 Plan of Care Start Date 06/05/23 Plan of Care End Date 08/31/23 Therapeutic Interventions Therapeutic Interventions Balance Training,Gait Training ,Home Exercise Program,Joint Mobilizations,Manual Therapy, Neuromuscular Re-education, Orthotic/Prosthetic Management ,Patient/Caregiver Education, Self-Care/Home Management, Sensory Integration,Soft Tissue Mobilization,Taping, Therapeutic Activities, Therapeutic Exercises Modalities Cold Pack/Ice Massage,Electric Stimulation,Hot Packs, Ultrasound,Vasopneumatic Devices Next Visit Focus/Plan Next Note Type Treatment Note Next Visit Plan Next session: resisted side step if tolerated, LAQ, HSC, hip abduction, hip ADD, hip abd in standing/seated, gentle pain free hip mobility Manual Gait training prn
--- NOTE | 2023-06-29 16:14 | PT-OP ANOTE ---
PT called and spoke to pt at 1614 about newly planned surgery date on 07/26. Recommended pt keep appt on 07/01, then will cancel remaining appt and perform HEP until surgery for strengthening. Pt already educated to not continue HEP after surgery and aware that she will be issued new HEP after re-evaluation. Pt verbalizes agreement. Will schedule new appt post op once cleared to begin PT by surgeon
--- NOTE | 2023-07-02 16:15 | PT.OTN ---
Current Diagnoses Bilateral primary osteoarthritis of hip (07/02/23) Other lack of coordination (07/02/23) Weakness (07/02/23) Physical Therapy Treatment Note PT-OP-A Visit Information Start: 06/05/23 10:31 Freq: Status: Active Protocol: Document 07/02/23 13:48 AB (Rec: 07/02/23 16:15 AB [id number]) Out-Patient Physical Therapy Visit Information Visit Information Visit Type Treatment Note Visit Start Time 01:49 Visit Stop Time 14:28 Visit Number 6 Number of JOIST SETTER Visits 1 Evaluation Information Evaluation Date 06/05/23 PT-OP-B Current Condition Start: 06/05/23 10:31 Freq: Status: Active Protocol: Document 06/05/23 10:31 NM (Rec: 06/05/23 12:16 NM [id number]) Current Condition History of Current Condition Onset Date January 2023 Current Complaints pain, immobility, weakness, stuck History of Current Condition Pt is planning to have surgery on L hip with Dr. Wills. She has a hx of OA in B hips, L>R. Pt reports that she feels stuck. She has pain with standing/walking >45 minutes, movement (twisting, hip flexion), achy with sitting. 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 Reports difficulty with dressing, putting on shoes. She lives in an , has a platform with 2 steps and B hand rails, has walk in shower. She has a [employer] [place]. Current Functional Impairments (Reported) Functional Limitations- Recreation/ Dog show (sits) Hobbies PT-OP-C Subjective Start: 06/05/23 10:31 Freq: Status: Active Protocol: Document 07/02/23 13:48 AB (Rec: 07/02/23 16:15 AB [id number]) OP-PT Subjective Patient Comments Patient Comments Patient reports she is really sore today, not sure what she did. Patient reports performing the exerices are going well is doing them every day. Patient reports she feels stronger. PT-OP-D Balance Start: 06/05/23 10:31 Freq: Status: Active Protocol: Document 06/05/23 10:31 NM (Rec: 06/05/23 12:16 NM [id number]) Balance Tests Single Limb Standing Single Limb- Right 3 seconds, increased sway Single Limb- Left 1 second, painful and increased sway Tandem Tandem Standing 5 seconds; difficulty achieving, painful on LLE PT-OP-E Functional Tests Start: 06/05/23 10:31 Freq: Status: Active Protocol: Document 06/05/23 10:31 NM (Rec: 06/05/23 12:16 NM [id number]) Functional Tests 6 Minute Walk Test Distance 1095 ft Device Used gait belt Comments antalgic, reports increased pain, decrease L stance, trunk lean L 30 Second Sit to Stand Test Score 12 Comments hip pain Five Times Sit to Stand Test Score 13 sec Comments 20, hip pain PT-OP-F Manual Assessment Start: 06/05/23 10:31 Freq: Status: Active Protocol: Document 06/05/23 10:31 NM (Rec: 06/05/23 12:16 NM [id number]) Manual Assessments Soft Tissue Assessment Soft Tissue Mobility Assessment Tight B hip flexors, heel cords Joint Mobility Assessment Joint Mobility Assessment Limited B hip mobility passively with flexion, ER, IR . LLE limited globally. Lacks terminal knee extension bilaterally PT-OP-G Mobility & Gait Start: 06/05/23 10:31 Freq: Status: Active Protocol: Document 06/05/23 10:31 NM (Rec: 06/05/23 12:16 NM [id number]) OP Gait Assessment Gait Gait Assistance Required: Independent Distance (Feet) 1,095 Assistive Devices Assistive Device Gait Belt Gait Deviations General Gait Pattern Antalgic,Decreased Stride Length Factors Limiting Gait Function Factors Limiting Gait Function Decreased Activity Tolerance, Decreased Strength,Pain Comments Gait Comments Decreased L stance time Stair Climbing Evaluation Evaluation Level of Assist On Stairs Independent Devices Stair Climbing Assistive Devices None Technique/Endurance Stair Climbing Direction Ascend and Descend Stair Climbing Technique Step Over Step Number of Steps Climbed 4 Stair Climbing Set # Repetitions (reps) 1 Comments Stair Climbing Comments antalgic, B hand rail assist, decreased L stance PT-OP-H Neuro Start: 06/05/23 10:31 Freq: Status: Active Protocol: Document 06/05/23 10:31 NM (Rec: 06/05/23 12:16 NM [id number]) Sensation Evaluation Comments Summary Comments BLE intact to light touch sensation, but 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 PT-OP-J Posture/Palpation/Skin Start: 06/05/23 10:31 Freq: Status: Active Protocol: Document 06/05/23 10:31 NM (Rec: 06/05/23 12:16 NM [id number]) Posture Evaluation Position Standing Head/C-Spine Posture C-Spine Flattened T-Spine Posture Increased Kyphosis Pelvis Posture Anteriorly Tilted Weight Distribution Weight Shifted Right,Decreased Wt.Bear on (L) Hip Posture (L) Neutral,(R) Neutral Patellar Posture (L) Superior,(R) Superior Ankle/Foot Posture (L) Pronated,(R) Pronated Palpation Assessment Location R hip Palpation Details minimal tenderness at greater trochanter L hip Palpation Findings Tenderness Palpation Details tenderness at L groin, quad, and greater trochanter PT-OP-K Range of Motion Start: 06/05/23 10:31 Freq: Status: Active Protocol: Document 06/05/23 10:31 NM (Rec: 06/05/23 12:16 NM [id number]) Hip Goniometric Range of Motion Hip Right Flexion w/Knee Flexed 90 Extension 15 Abduction 20 Internal Rotation 15 External Rotation 40 Comments pain with ER/IR, hamstring 140 deg Left Flexion w/Knee Flexed 90 Extension 8 Abduction 15 Internal Rotation 15 External Rotation 15 Comments pain with ER/IR, abd, flex, ext, add hamstring 150 deg Knee Goniometric Range of Motion Knee Right Flexion Active (degrees) 135 Extension Active (degrees) 3 Left Flexion Active (degrees) 140 Extension Active (degrees) 3 PT-OP-L Special Tests Start: 06/05/23 10:31 Freq: Status: Active Protocol: Document 06/05/23 10:31 NM (Rec: 06/05/23 12:16 NM [id number]) Special Tests Hip Special Tests Straight Leg Raise Test Results + Comments unable to lift LLE Log Roll Test Test Results + SANTOS Test Results + Comments L PT-OP-M Strength Start: 06/05/23 10:31 Freq: Status: Active Protocol: Document 06/05/23 10:31 NM (Rec: 06/05/23 12:16 NM [id number]) Hip Strength Hip Manual Muscle Testing Right Flexion (L2) 4- Good- Extension (S1) 3+ Fair+ Abduction 4- Good- Adduction 4 Good External Rotation 4 Good Internal Rotation 4- Good- Comments pain with flex, IR Left Flexion (L2) 3+ Fair+ Extension (S1) 3+ Fair+ Abduction 4- Good- Adduction 4 Good External Rotation 3+ Fair+ Internal Rotation 3+ Fair+ Comments pain with ER/IR/Flex Knee Strength Knee Manual Muscle Testing Right Flexion (S2) 4 Good Extension (L3) 4 Good Left Flexion (S2) 4 Good Extension (L3) 4- Good- Ankle/Foot Strength Ankle and Foot Manual Muscle Testing Right Dorsiflexion (L4) 4 Good Plantarflexion (S1) 4 Good Inversion 4 Good Eversion (S1) 4 Good Left Dorsiflexion (L4) 4 Good Plantarflexion (S1) 4 Good Inversion 4 Good Eversion (S1) 4 Good PT-OP-Q Treatments Start: 06/05/23 10:31 Freq: Status: Active Protocol: Document 07/02/23 13:48 AB (Rec: 07/02/23 16:15 AB [id number]) Therapeutic Exercises Sitting Exercises seated hip abduction with band Sitting Exercise Name clam (unilateral) Side bilateral Resistance level 2 band Reps/Minutes 2X10, one minute hold one time Standing Exercises standing hip extension with band Side bilateral Equipment Used level 2 band Reps/Minutes X10 X 2 side stepping Standing Exercise Name CGA Side bilateral Equipment Used level 2 band Reps/Minutes 10 feet X5 left and right Therapeutic Activity Therapeutic Activity Gait training with FWW Comments over carpet line/ practicing negoitating carpet, practicing pattern for curbs and approach to and from steps. Also reviewed the pattern for stairs with 2 rails, with 4 stairs 2 rails ascending with good leg descending with band leg performed X 1 supine to and from sit Reps/Minutes X1 Comments Verbal cues to scoot with knees bent to edge of bed then sit up and slide LE off bend for supine to sit, verbal cues to scoot back in sitting until most of LE is on bed prior to lying on back Manual Therapy Treatment Soft Tissue Mobilization left piriformis Body Location left piriformis Mobilization Type Cross-Friction,Rolling Intensity/Depth Moderate Body Position Sidelying Comments Increased tenderness at L glutes and piriformis, decreased with gentle rolling and cross friction. left hip flexor at groin Body Location hip flexors, , Mobilization Type Cross-Friction,Rolling Body Position Supine Comments prior to exercise Joint Mobilizations distraction/LAD Joint left hip Direction distraction Grade II Body Position Supine Reps/Duration 1x60 Comments monitored for pain PT-OP-T Assessment and Plan Start: 06/05/23 10:31 Freq: Status: Active Protocol: Document 07/02/23 13:48 AB (Rec: 07/02/23 16:15 AB [id number]) Physical Therapy Assessment Goals Four Impairment squats Impairment 5x STS 13 sec Short Term Goal (STG) Pt will perform at least 10 bilateral squats with pain <6/ 10 in order to demonstrate improved BLE strength and knee flexion required for transfers and gait 06/26/23: 10 squats with hand support, 10 STS STG Duration 6 weeks MET Supervisor Rod Placing Goal (LTG) Pt will perform 5x STS using LRAD or hand support post- operatively in order to demonstrate improved BLE strength and knee flexion required for transfers and gait LTG Duration 12 weeks Three Impairment gait Impairment 6 MWT distance 1095 ft without LRAD pre-operatively Short Term Goal (STG) Pt will be able to ambulate > 1200 ft using LRAD during 6 MWT pre-operatively in order to demonstrate improved gait mechanics, sequencing with AD, and BLE strength 06/26/23: 711 ft with spc STG Duration 6 weeks PROGRESSING Supervisor Rod Placing Goal (LTG) Pt will be ambulate >1200 ft during 6 MWT post-operatively using LRAD in order to demonstrate improved mobility for household and community ambulation, decreased fall risk, and improve BLE strength LTG Duration 12 weeks Two Impairment gait Impairment pre-operatively no AD use Short Term Goal (STG) Pt will demonstrate normal gait mechanics with LRAD presurgically in order to improve mobility and symptom management in addition to decreased fall risk 06/26/23: slight antalgic gait with spc use but improved upright posture, slight L circumduction STG Duration 6 weeks PROGRESSING Longterm Goal (LTG) Pt will demonstrate normal gait mechanics with LRAD after surgery in order to demonstrate improved mobility and ability to participate in ADLs/IADLs LTG Duration 12 weeks One Impairment HEP Short Term Goal (STG) Pt will begin HEP 2-3x/wk in order to maximize B hip strength prior to surgery and to improve post-operative outcomes 06/26/23: compliant 7 days/wk STG Duration 6 weeks Supervisor Rod Placing Goal (LTG) Pt will report compliance with HEP at least 2-3x/wk in order to maximize BLE after surgery and to be able to transition safely into [facility] after discharge from PT LTG Duration 12 weeks Assessment Summary Assessment 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 Physical Therapy Plan Next Visit Focus/Plan Next Note Type Re-Evaluation Next Visit Plan Likely next session will require new eval due to schedule surgery.
--- NOTE | 2023-08-07 15:45 | PT.OTRE ---
Current Diagnoses Bilateral primary osteoarthritis of hip (08/09/23) Unilateral primary osteoarthritis, left hip (08/09/23) Other lack of coordination (08/09/23) Weakness (08/09/23) Past Medical History (Last Reviewed 07/28/23 @ 18:29 by Jason Doty DO) Acid reflux ADD (attention deficit disorder) Anxiety Arthritis Chicken pox CKD (chronic kidney disease) Colon polyps Coronary artery calcification seen on CT scan Depression Easy bruisability Ectopic Fibromyalgia (~2008) Foot pain Hemorrhoid History of COVID-19 (~2019) History of tobacco use HLD (hyperlipidemia) Hx of anorexia nervosa Hx of bulimia nervosa Nodule of lower lobe of right lung Osteoarthritis Osteoarthritis of left hip Osteopenia Pancreatitis Restless leg syndrome Substance abuse Vertigo Surgical History (Last Reviewed 07/28/23 @ 18:29 by Jason Doty DO) Hx of hernia repair (~2020) Hx of thumb surgery Hx of tonsillectomy Visit Care Team Role Provider Type Dee Dee Mann DO Family Provider Physician Primary Care Provider Specialty: Family Practice Address: [address] [place] [address], [address], [address] Email: [email or web address] Roland Wills MD Attending Provider Physician Referring Provider Specialty: Orthopedics Orthopedic Surgery Address: [address] [place] [address], [address] Email: [email or web address] Re-Evaluation PT-OP-A Visit Information Start: 06/05/23 10:31 Freq: Status: Active Protocol: Document 08/07/23 09:01 NM (Rec: 08/07/23 09:48 NM [id number]) Out-Patient Physical Therapy Visit Information Visit Information Visit Type Re-Evaluation Visit Note DOS 07/27/23 Visit Start Time 09:01 Visit Stop Time 09:45 Visit Number 7 Evaluation Information Evaluation Date 08/07/23 Precautions Precautions Anterior hip precautions: no hip ext, no bridging, no prone , no hip ER beyond neutral PT-OP-B Current Condition Start: 06/05/23 10:31 Freq: Status: Active Protocol: Document 08/07/23 09:01 NM (Rec: 08/07/23 16:53 NM [id number]) Current Condition History of Current Condition Onset Date DOS 07/27/23 Current Complaints pain, mobility History of Current Condition Pt s/p L DAVID on 07/27/23. She had an anterior approach, currently has anterior hip precautions. Pt reports that surgery went without complication, but she spent a couple of days in the hospital due to low blood pressure. She is currently on blood pressure medication, which she does not normally take. Pt has been performing heel slides, ankle pumps. Pt is having most difficulty with getting in and out of bed. She is using a FWW for mobility but has been trying to take steps without RW as able. She is having most difficulty with dressing, standing, bed mobility, sleeping. Pt is planning to return to work on 09/19 and will need to work 4 hr shifts (sand 4 hrs, lifting up to 40#, bending and reaching for stocking). Pt reports that over the weekend, she got very sick and had to lie on her R side, so her L hip hurts more than normal now . She states that she spoke to Dr. Wills, who thinks it's a strained muscle and not dislocated. Pt reports tingling at her toes on LLE, which was not present before surgery. 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 (2 hrs at time with 10 minute break), lifting up to 40#, bending and stocking Current Functional Impairments (Reported) Functional Limitations- Mobility/Gait 4 stairs to enter home, has rails; not using FWW to enter, only rails Functional Limitations- Other using walk in shower, grab bars in shower, shower stool PT-OP-C Subjective Start: 06/05/23 10:31 Freq: Status: Active Protocol: Document 08/07/23 09:01 NM (Rec: 08/07/23 09:48 NM [id number]) OP-PT Subjective Patient Comments Patient Comments Pt had surgeron 07/26, her surgeon was Dr. Wills. She will see PA this Sunday. See hx above for pt report Patient Questionnaires Lower Extremity Functional Scale LEFS Score 10/80 OP-PT Pain Assessment Location L hip Pain Location Details groin, none at incision, lateral hip Intensity 8 Description Aching,Sharp Pain Aggravating Factors Position,ADL's,Activity, Standing,Walking,Stair Climbing Pain Alleviating Factors Cold,Medication,Elevation Comments Pain Comments tylenol/ibuprofen every 6-8 hrs, meloxipan for inflammation, oxy at night PT-OP-D Balance Start: 06/05/23 10:31 Freq: Status: Active Protocol: Document 06/05/23 10:31 NM (Rec: 06/05/23 12:16 NM [id number]) Balance Tests Single Limb Standing Single Limb- Right 3 seconds, increased sway Single Limb- Left 1 second, painful and increased sway Tandem Tandem Standing 5 seconds; difficulty achieving, painful on LLE PT-OP-E Functional Tests Start: 06/05/23 10:31 Freq: Status: Active Protocol: Document 06/05/23 10:31 NM (Rec: 06/05/23 12:16 NM [id number]) Functional Tests 6 Minute Walk Test Distance 1095 ft Device Used gait belt Comments antalgic, reports increased pain, decrease L stance, trunk lean L 30 Second Sit to Stand Test Score 12 Comments hip pain Five Times Sit to Stand Test Score 13 sec Comments 20, hip pain PT-OP-F Manual Assessment Start: 06/05/23 10:31 Freq: Status: Active Protocol: Document 06/05/23 10:31 NM (Rec: 06/05/23 12:16 NM [id number]) Manual Assessments Soft Tissue Assessment Soft Tissue Mobility Assessment Tight B hip flexors, heel cords Joint Mobility Assessment Joint Mobility Assessment Limited B hip mobility passively with flexion, ER, IR . LLE limited globally. Lacks terminal knee extension bilaterally PT-OP-G Mobility & Gait Start: 06/05/23 10:31 Freq: Status: Active Protocol: Document 08/07/23 09:01 NM (Rec: 08/07/23 16:53 NM [id number]) OP Mobility Evaluation Bed Mobility Rolling SBA Supine to and from Sit min A to bring LLE to EOB supine <> sit Transfers Sit to Stand close SBA to FWW Bed to Chair Transfers close SBA with FWW OP Gait Assessment Gait Gait Assistance Required: Standby Assistance Distance (Feet) 200 Assistive Devices Assistive Device Gait Belt,Front Wheeled Walker Gait Deviations General Gait Pattern Antalgic Factors Limiting Gait Function Factors Limiting Gait Function Decreased Sensation,Decreased Strength,Limited Range of Motion,Pain Comments Gait Comments decreased stride length and WBAT on LLE. Good upright posture PT-OP-H Neuro Start: 06/05/23 10:31 Freq: Status: Active Protocol: Document 06/05/23 10:31 NM (Rec: 06/05/23 12:16 NM [id number]) Sensation Evaluation Comments Summary Comments BLE intact to light touch sensation, but 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 PT-OP-J Posture/Palpation/Skin Start: 06/05/23 10:31 Freq: Status: Active Protocol: Document 08/07/23 09:01 NM (Rec: 08/07/23 16:53 NM [id number]) Palpation Assessment Location L hip Palpation Details Tenderness reported in anterior hip near groin, over incision. Did not palpate due to incision Skin Assessment Incisional Assessment Incision Appearance/Comments Incision covered by dressing, which is c/d/i. No signs of redness or infection around dressings Other Assessments Skin Assessment Comments L ankle figure 8 (edema): 50 cm PT-OP-K Range of Motion Start: 06/05/23 10:31 Freq: Status: Active Protocol: Document 08/07/23 09:01 NM (Rec: 08/07/23 09:48 NM [id number]) Hip Goniometric Range of Motion Hip Measured in Degrees Right Flexion w/Knee Flexed 90 Extension 15 Abduction 20 Internal Rotation 15 External Rotation 40 Left Comments Pre-surgery: 90 deg flex, 8 deg ext, 15 deg abd, 15 deg IR , 15 deg ER; pain with ER/IR, abd, flex, ext, add; hamstring 150 deg 08/06: did not measure ROM due to hip precautions PT-OP-L Special Tests Start: 06/05/23 10:31 Freq: Status: Active Protocol: Document 06/05/23 10:31 NM (Rec: 06/05/23 12:16 NM [id number]) Special Tests Hip Special Tests Straight Leg Raise Test Results + Comments unable to lift LLE Log Roll Test Test Results + SANTOS Test Results + Comments L PT-OP-M Strength Start: 06/05/23 10:31 Freq: Status: Active Protocol: Document 08/07/23 09:01 NM (Rec: 08/07/23 09:48 NM [id number]) Hip Strength Hip Manual Muscle Testing Right Flexion (L2) 4- Good- Extension (S1) 3+ Fair+ Abduction 4- Good- Adduction 4 Good External Rotation 4 Good Internal Rotation 4- Good- Left Comments pre-surgery: pain with ER/IR/ Flex; 3+/5 with flex/ext/ER/IR ; 4-/5 abd; 4/5 ADD 08/07/23: did not assess due to hip precuations Knee Strength Knee Manual Muscle Testing Right Flexion (S2) 4 Good Extension (L3) 4 Good Left Flexion (S2) 4 Good Extension (L3) 4- Good- PT-OP-Q Treatments Start: 06/05/23 10:31 Freq: Status: Active Protocol: Document 08/07/23 09:01 NM (Rec: 08/07/23 09:48 NM [id number]) Therapeutic Exercises Supine Exercises glute set Supine Exercise Name trunk elevated Side left Resistance isometric Equipment Used R performed simultaneously Reps/Minutes 10x5 hold Comments decreased activation; cued no hip lift from table quad set Supine Exercise Name trunk elevated Side left Resistance isometric Equipment Used R performed simultaneously Reps/Minutes 10x5 hold, PT hand under pt knee for tactile cue Comments improved quad activation w/ reps; pain free hip abduction Supine Exercise Name trunk elevated; straight leg Side left Equipment Used PT assist at ankle, on pillow case Reps/Minutes 2x5 Comments neutral hip positioning; to tolerance, w/i pain free range heel slides Supine Exercise Name trunk elevated on bolster Side left Reps/Minutes 2x8 Comments no increase in hip pain Therapeutic Activity Therapeutic Activity bed mobility and transfers Reps/Minutes 5 minutes Comments Cues for positioning and scooting onto bed, PT min A with LLE onto bed. Education on use of leg corpsman or gait belt prn for assistance at home sit to stand Reps/Minutes 10 times Comments close SBA to FWW, BUE assist to ascend. Requires increased time Self-Care/Home Management Treatment Education Patient Education Body Mechanics,Fall Risk,Home Exercise Program,Joint Protection,Pain Management Other Education Education on use of FWW at home with gait for safety, planning to transition to spc vs no AD due to balance when pt ready. Educated on crytherapy on/off for pain reduction, elevation. Reviewed anterior hip precautions with HEP, mobility, and positioning HEP: glute squeezes, quad sets , heel slides, sit to stand to FWW PT-OP-T Assessment and Plan Start: 06/05/23 10:31 Freq: Status: Active Protocol: Document 08/07/23 09:01 NM (Rec: 08/07/23 09:48 NM [id number]) Physical Therapy Assessment Rehab Potential Rehabilitation Potential Good Evaluation Complexity Number of Personal Factors/Comorbidities 3 or More Number of Body Systems Impaired 1-2 Clinical Presentation at Evaluation Stable Impairments Impairments Activity Tolerance,Balance, Edema,Functional Activities, Functional Mobility,Gait, Integument,Pain,Posture,ROM, Sensation,Soft Tissue Mobility ,Strength,Transfers Goals Five Impairment squat Impairment must be able to squat for return to job Short Term Goal (STG) Pt will be able to perform at least 10 bilateral squats without increase in baseline pain or LOB in order to demonstrate increased BLE strength for transfers, ADLs, return to work if appropriate STG Duration 6 weeks Billet Driller Goal (LTG) Pt will be able to perform at least 5 squats and lift at least 10# from the ground to at least chest height in order to perform job functions, if appropriate LTG Duration 12 weeks Four Impairment gait Impairment using FWW (pre-operative 6 MWT 1095 ft) Short Term Goal (STG) Pt will be able to ambulate without AD at least community distances (at least 800 ft) with normal gait mechanics STG Duration 6 weeks Billet Driller Goal (LTG) Pt will be able to ambulate at least 1000 ft without AD in order to demonstrate improved ADL tolerance and ability to ambulate in community LTG Duration 12 weeks Three Impairment standing Impairment needs to be able to stand for at least 2 hours Short Term Goal (STG) Pt will be able to stand with or without AD for at least 30 minutes without increase in baseline pain STG Duration 8 weeks Billet Driller Goal (LTG) Pt will be able to stand without AD for at least 1 hour without increase in baseline pain in order to return to work LTG Duration 12 weeks Two Impairment strength Short Term Goal (STG) Pt will increase L hip flex/ abd/ext strength to at least 4 /5 MMT in order to demonstrate increased strength for standing and ADLs STG Duration 6 weeks Billet Driller Goal (LTG) Pt will increase L hip flex/ abd/ext strength to at least 4 +/5 MMT in order to demonstrate increased strength for standing and ADLs LTG Duration 12 weeks One Impairment ROM Short Term Goal (STG) Pt will increase L hip flexion to at least 90 deg for gait, stairs, and transfers STG Duration 6 weeks Shelter Goal (LTG) Pt will increase L hip flexion to at least 110 deg in order to perform gait, stairs, and transfers LTG Duration 12 weeks Assessment Summary Assessment Pt is a 63 y.o. female no s/p L DAVID on 07/26. She is currently 1.5 weeks post-op with anterior hip precautions and WBAT using FWW. Prior to surgery, pt used FWW and spc as needed. Pt has impairments with mobility, ROM, strength, ADLs, and transfers. 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 Pt participated in PT pre- operatively, and she was compliant with HEP. She has swelling in her LLE; PT educated on use of compression sock to assist with swelling management. Her LLE strength not formally assessed due to surgical precautions. Currently, she is close SBA with transfers, except for bed mobility. Pt requires min A to assist LLE onto bed. Pt was educated on anterior hip precautions, WB status, positioning, bed mobility, and fall risk. Emphasis on transfers and safety. Initiated HEP for strengthening. Pt able to perform heels slides, quad sets, and glute squeezes without pain. PT assisted at ankle for hip abduction within small ROM. Pt educated on exam findings and plan of care , created goals with pt. Pt did have incident between surgery and Pt re-evaluation where she had increased L hip pain when lying on her R hip; she has reported it to Dr. Wills. Pt would benefit from skilled PT for LLE strengthening and ROM for improved pain management, increased mobility, and to improve ability to participate in ADLs. Physical Therapy Plan Frequency and Duration Frequency of Treatment 1-2x/wk Duration of treatment (weeks) 12 Plan of Care Start Date 08/07/23 Plan of Care End Date 11/02/23 Therapeutic Interventions Therapeutic Interventions Balance Training,Gait Training ,Home Exercise Program,Joint Mobilizations,Manual Therapy, Neuromuscular Re-education, Orthotic/Prosthetic Management ,Patient/Caregiver Education, Self-Care/Home Management, Sensory Integration,Soft Tissue Mobilization,Taping, Therapeutic Activities, Therapeutic Exercises Modalities Cold Pack/Ice Massage,Electric Stimulation,Hot Packs, Ultrasound,Vasopneumatic Devices Next Visit Focus/Plan Next Note Type Treatment Note Next Visit Plan anterior hip precautions, WBAT review heel slides, quad sets, glute squeezes. Sit to stand, transfers, gait with FWW, stairs seated LAQ, HSC, seated heel slides
--- NOTE | 2023-08-07 15:46 | PT.OPPOC ---
Addendum entered and electronically signed by Tere Demarco PT 08/10/23 08:51: send new POC to pt's PCP Original Note: Physical, Occupational & Speech Therapy At [facility] Current Diagnoses Bilateral primary osteoarthritis of hip (08/09/23) Unilateral primary osteoarthritis, left hip (08/09/23) Other lack of coordination (08/09/23) Weakness (08/09/23) Visit Care Team Role Provider Type Dee Dee Mann DO Family Provider Physician Primary Care Provider Specialty: Family Practice Address: [address] [place] [address], [facility] [address], [address] Email: [email or web address] Roland Wills MD Attending Provider Physician Referring Provider Specialty: Orthopedics Orthopedic Surgery Address: [address] [place] [address], [address] Email: [email or web address] Plan Of Care PT-OP-T Assessment and Plan Start: 06/05/23 10:31 Freq: Status: Active Protocol: Document 08/07/23 09:01 NM (Rec: 08/07/23 09:48 NM [id number]) Physical Therapy Assessment Rehab Potential Rehabilitation Potential Good Evaluation Complexity Number of Personal Factors/Comorbidities 3 or More Number of Body Systems Impaired 1-2 Clinical Presentation at Evaluation Stable Impairments Impairments Activity Tolerance,Balance, Edema,Functional Activities, Functional Mobility,Gait, Integument,Pain,Posture,ROM, Sensation,Soft Tissue Mobility ,Strength,Transfers Goals Five Impairment squat Impairment must be able to squat for return to job Short Term Goal (STG) Pt will be able to perform at least 10 bilateral squats without increase in baseline pain or LOB in order to demonstrate increased BLE strength for transfers, ADLs, return to work if appropriate STG Duration 6 weeks Half-Way Goal (LTG) Pt will be able to perform at least 5 squats and lift at least 10# from the ground to at least chest height in order to perform job functions, if appropriate LTG Duration 12 weeks Four Impairment gait Impairment using FWW (pre-operative 6 MWT 1095 ft) Short Term Goal (STG) Pt will be able to ambulate without AD at least community distances (at least 800 ft) with normal gait mechanics STG Duration 6 weeks Half-Way Goal (LTG) Pt will be able to ambulate at least 1000 ft without AD in order to demonstrate improved ADL tolerance and ability to ambulate in community LTG Duration 12 weeks Three Impairment standing Impairment needs to be able to stand for at least 2 hours Short Term Goal (STG) Pt will be able to stand with or without AD for at least 30 minutes without increase in baseline pain STG Duration 8 weeks Half-Way Goal (LTG) Pt will be able to stand without AD for at least 1 hour without increase in baseline pain in order to return to work LTG Duration 12 weeks Two Impairment strength Short Term Goal (STG) Pt will increase L hip flex/ abd/ext strength to at least 4 /5 MMT in order to demonstrate increased strength for standing and ADLs STG Duration 6 weeks Raking Machine Operator Goal (LTG) Pt will increase L hip flex/ abd/ext strength to at least 4 +/5 MMT in order to demonstrate increased strength for standing and ADLs LTG Duration 12 weeks One Impairment ROM Short Term Goal (STG) Pt will increase L hip flexion to at least 90 deg for gait, stairs, and transfers STG Duration 6 weeks Raking Machine Operator Goal (LTG) Pt will increase L hip flexion to at least 110 deg in order to perform gait, stairs, and transfers LTG Duration 12 weeks Assessment Summary Assessment Pt is a 63 y.o. female no s/p L DAVID on 07/26. She is currently 1.5 weeks post-op with anterior hip precautions and WBAT using FWW. Prior to surgery, pt used FWW and spc as needed. Pt has impairments with mobility, ROM, strength, ADLs, and transfers. 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 Pt participated in PT pre- operatively, and she was compliant with HEP. She has swelling in her LLE; PT educated on use of compression sock to assist with swelling management. Her LLE strength not formally assessed due to surgical precautions. Currently, she is close SBA with transfers, except for bed mobility. Pt requires min A to assist LLE onto bed. Pt was educated on anterior hip precautions, WB status, positioning, bed mobility, and fall risk. Emphasis on transfers and safety. Initiated HEP for strengthening. Pt able to perform heels slides, quad sets, and glute squeezes without pain. PT assisted at ankle for hip abduction within small ROM. Pt educated on exam findings and plan of care , created goals with pt. Pt did have incident between surgery and Pt re-evaluation where she had increased L hip pain when lying on her R hip; she has reported it to Dr. Wills. Pt would benefit from skilled PT for LLE strengthening and ROM for improved pain management, increased mobility, and to improve ability to participate in ADLs. Physical Therapy Plan Frequency and Duration Frequency of Treatment 1-2x/wk Duration of treatment (weeks) 12 Plan of Care Start Date 08/07/23 Plan of Care End Date 11/02/23 Therapeutic Interventions Therapeutic Interventions Balance Training,Gait Training ,Home Exercise Program,Joint Mobilizations,Manual Therapy, Neuromuscular Re-education, Orthotic/Prosthetic Management ,Patient/Caregiver Education, Self-Care/Home Management, Sensory Integration,Soft Tissue Mobilization,Taping, Therapeutic Activities, Therapeutic Exercises Modalities Cold Pack/Ice Massage,Electric Stimulation,Hot Packs, Ultrasound,Vasopneumatic Devices Next Visit Focus/Plan Next Note Type Treatment Note Next Visit Plan anterior hip precautions, WBAT review heel slides, quad sets, glute squeezes. Sit to stand, transfers, gait with FWW, stairs seated LAQ, HSC, seated heel slides Plan of Care Dates Plan of Care Start Date 08/07/23 Plan of Care End Date 11/02/23 Electronically Signed by: Tere Demarco, PT 08/09/23 0948 If you are in agreement with this Plan of Care, please return a signed and dated copy. I have reviewed this Plan of Care and certify that the skilled therapy services above are required to meet the patient?s needs. Physician Signature Date Printed Name and Credentials Clinical Instructor Signature Printed Name and Credentials
--- NOTE | 2023-08-09 12:56 | PT.OTN ---
Current Diagnoses Bilateral primary osteoarthritis of hip (08/09/23) Unilateral primary osteoarthritis, left hip (08/09/23) Other lack of coordination (08/09/23) Weakness (08/09/23) Physical Therapy Treatment Note PT-OP-A Visit Information Start: 06/05/23 10:31 Freq: Status: Active Protocol: Document 08/09/23 09:21 AB (Rec: 08/09/23 10:31 AB [id number]) Out-Patient Physical Therapy Visit Information Visit Information Visit Type Treatment Note Visit Start Time 09:48 Visit Stop Time 10:29 Visit Number 8 Number of HEDIS ABSTRACTOR Visits 2 Precautions Precautions Anterior hip precautions: no hip ext, no bridging, no prone , no hip ER beyond neutral PT-OP-B Current Condition Start: 06/05/23 10:31 Freq: Status: Active Protocol: Document 08/07/23 09:01 NM (Rec: 08/07/23 16:53 NM [id number]) Current Condition History of Current Condition Onset Date DOS 07/27/23 Current Complaints pain, mobility History of Current Condition Pt s/p L DAVID on 07/27/23. She had an anterior approach, currently has anterior hip precautions. Pt reports that surgery went without complication, but she spent a couple of days in the hospital due to low blood pressure. She is currently on blood pressure medication, which she does not normally take. Pt has been performing heel slides, ankle pumps. Pt is having most difficulty with getting in and out of bed. She is using a FWW for mobility but has been trying to take steps without RW as able. She is having most difficulty with dressing, standing, bed mobility, sleeping. Pt is planning to return to work on 09/19 and will need to work 4 hr shifts (sand 4 hrs, lifting up to 40#, bending and reaching for stocking). Pt reports that over the weekend, she got very sick and had to lie on her R side, so her L hip hurts more than normal now . She states that she spoke to Dr. Wills, who thinks it's a strained muscle and not dislocated. Pt reports tingling at her toes on LLE, which was not present before surgery. 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 (2 hrs at time with 10 minute break), lifting up to 40#, bending and stocking Current Functional Impairments (Reported) Functional Limitations- Mobility/Gait 4 stairs to enter home, has rails; not using FWW to enter, only rails Functional Limitations- Other using walk in shower, grab bars in shower, shower stool PT-OP-C Subjective Start: 06/05/23 10:31 Freq: Status: Active Protocol: Document 08/09/23 09:21 AB (Rec: 08/09/23 10:31 AB [id number]) OP-PT Subjective Patient Comments Patient Comments Patient reports she cannot move to the left, swing the leg left when getting it into the car, reports pain all the way down the left LE . PT-OP-D Balance Start: 06/05/23 10:31 Freq: Status: Active Protocol: Document 06/05/23 10:31 NM (Rec: 06/05/23 12:16 NM [id number]) Balance Tests Single Limb Standing Single Limb- Right 3 seconds, increased sway Single Limb- Left 1 second, painful and increased sway Tandem Tandem Standing 5 seconds; difficulty achieving, painful on LLE PT-OP-E Functional Tests Start: 06/05/23 10:31 Freq: Status: Active Protocol: Document 06/05/23 10:31 NM (Rec: 06/05/23 12:16 NM [id number]) Functional Tests 6 Minute Walk Test Distance 1095 ft Device Used gait belt Comments antalgic, reports increased pain, decrease L stance, trunk lean L 30 Second Sit to Stand Test Score 12 Comments hip pain Five Times Sit to Stand Test Score 13 sec Comments 20, hip pain PT-OP-F Manual Assessment Start: 06/05/23 10:31 Freq: Status: Active Protocol: Document 06/05/23 10:31 NM (Rec: 06/05/23 12:16 NM [id number]) Manual Assessments Soft Tissue Assessment Soft Tissue Mobility Assessment Tight B hip flexors, heel cords Joint Mobility Assessment Joint Mobility Assessment Limited B hip mobility passively with flexion, ER, IR . LLE limited globally. Lacks terminal knee extension bilaterally PT-OP-G Mobility & Gait Start: 06/05/23 10:31 Freq: Status: Active Protocol: Document 08/07/23 09:01 NM (Rec: 08/07/23 16:53 NM [id number]) OP Mobility Evaluation Bed Mobility Rolling SBA Supine to and from Sit min A to bring LLE to EOB supine <> sit Transfers Sit to Stand close SBA to FWW Bed to Chair Transfers close SBA with FWW OP Gait Assessment Gait Gait Assistance Required: Standby Assistance Distance (Feet) 200 Assistive Devices Assistive Device Gait Belt,Front Wheeled Walker Gait Deviations General Gait Pattern Antalgic Factors Limiting Gait Function Factors Limiting Gait Function Decreased Sensation,Decreased Strength,Limited Range of Motion,Pain Comments Gait Comments decreased stride length and WBAT on LLE. Good upright posture PT-OP-H Neuro Start: 06/05/23 10:31 Freq: Status: Active Protocol: Document 06/05/23 10:31 NM (Rec: 06/05/23 12:16 NM [id number]) Sensation Evaluation Comments Summary Comments BLE intact to light touch sensation, but 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 PT-OP-J Posture/Palpation/Skin Start: 06/05/23 10:31 Freq: Status: Active Protocol: Document 08/07/23 09:01 NM (Rec: 08/07/23 16:53 NM [id number]) Palpation Assessment Location L hip Palpation Details Tenderness reported in anterior hip near groin, over incision. Did not palpate due to incision Skin Assessment Incisional Assessment Incision Appearance/Comments Incision covered by dressing, which is c/d/i. No signs of redness or infection around dressings Other Assessments Skin Assessment Comments L ankle figure 8 (edema): 50 cm PT-OP-K Range of Motion Start: 06/05/23 10:31 Freq: Status: Active Protocol: Document 08/07/23 09:01 NM (Rec: 08/07/23 09:48 NM [id number]) Hip Goniometric Range of Motion Hip Right Flexion w/Knee Flexed 90 Extension 15 Abduction 20 Internal Rotation 15 External Rotation 40 Left Comments Pre-surgery: 90 deg flex, 8 deg ext, 15 deg abd, 15 deg IR , 15 deg ER; pain with ER/IR, abd, flex, ext, add; hamstring 150 deg 08/06: did not measure ROM due to hip precautions PT-OP-L Special Tests Start: 06/05/23 10:31 Freq: Status: Active Protocol: Document 06/05/23 10:31 NM (Rec: 06/05/23 12:16 NM [id number]) Special Tests Hip Special Tests Straight Leg Raise Test Results + Comments unable to lift LLE Log Roll Test Test Results + SANTOS Test Results + Comments L PT-OP-M Strength Start: 06/05/23 10:31 Freq: Status: Active Protocol: Document 08/07/23 09:01 NM (Rec: 08/07/23 09:48 NM [id number]) Hip Strength Hip Manual Muscle Testing Right Flexion (L2) 4- Good- Extension (S1) 3+ Fair+ Abduction 4- Good- Adduction 4 Good External Rotation 4 Good Internal Rotation 4- Good- Left Comments pre-surgery: pain with ER/IR/ Flex; 3+/5 with flex/ext/ER/IR ; 4-/5 abd; 4/5 ADD 08/07/23: did not assess due to hip precuations Knee Strength Knee Manual Muscle Testing Right Flexion (S2) 4 Good Extension (L3) 4 Good Left Flexion (S2) 4 Good Extension (L3) 4- Good- PT-OP-Q Treatments Start: 06/05/23 10:31 Freq: Status: Active Protocol: Document 08/09/23 09:21 AB (Rec: 08/09/23 10:31 AB [id number]) Therapeutic Exercises Supine Exercises AA SLR Side left Reps/Minutes X12 Comments Unable to perform without assist ankle pumps Supine Exercise Name with LE elevated above the heart Reps/Minutes 30 X 2 glute set Supine Exercise Name trunk elevated Side left Resistance isometric Equipment Used R performed simultaneously Reps/Minutes 10x5 hold Comments decreased activation; cued no hip lift from table quad set Supine Exercise Name trunk elevated Side left Resistance isometric Equipment Used R performed simultaneously Reps/Minutes X10 for 5 seconds hip abduction Equipment Used with towel under LE Reps/Minutes 3X5 Comments VC for neutral position avoiding toeing out. heel slides Supine Exercise Name trunk elevated on bolster Side left Reps/Minutes 2X10 Sitting Exercises LAQ Reps/Minutes X13 Comments verbal cues Standing Exercises bilateral heel raise Reps/Minutes 2X10 Comments VC to lower heels to floor slowly side step Standing Exercise Name with UE support Reps/Minutes 2 min Comments VC to avoid toeing out Therapeutic Activity Therapeutic Activity car transfers Name performed from edge of mat Comments VC to move legs and body in one movement, and for scooting one hip at a time with weight shift. VC to avoid ER bed mobility and transfers Reps/Minutes 3 minutes Comments VC to use UE to scoot body back into position on bed and position LE above knee fully on bed, then use UE's as needed to assist, Verbal cues to avoid toeing out when sliding LE off bed. Gait Training Gait Activity Gait training with front wheeled walker in and outdoors. Description Indoors Device Used FWW Treatment Focus height of FWW increased, VC to press down on FWW when left LE is in stance PT-OP-T Assessment and Plan Start: 06/05/23 10:31 Freq: Status: Active Protocol: Document 08/09/23 09:21 AB (Rec: 08/09/23 10:31 AB [id number]) Physical Therapy Assessment Goals Five Impairment squat Impairment must be able to squat for return to job Short Term Goal (STG) Pt will be able to perform at least 10 bilateral squats without increase in baseline pain or LOB in order to demonstrate increased BLE strength for transfers, ADLs, return to work if appropriate STG Duration 6 weeks Turning Lathe Tender Goal (LTG) Pt will be able to perform at least 5 squats and lift at least 10# from the ground to at least chest height in order to perform job functions, if appropriate LTG Duration 12 weeks Four Impairment gait Impairment must be able to squat for return to job Short Term Goal (STG) Pt will be able to ambulate without AD at least community distances (at least 800 ft) with normal gait mechanics STG Duration 6 weeks Senior Care Goal (LTG) Pt will be able to ambulate at least 1000 ft without AD in order to demonstrate improved ADL tolerance and ability to ambulate in community LTG Duration 12 weeks Three Impairment standing Impairment using FWW (pre-operative 6 MWT 1095 ft) Short Term Goal (STG) Pt will be able to stand with or without AD for at least 30 minutes without increase in baseline pain STG Duration 8 weeks Turning Lathe Tender Goal (LTG) Pt will be able to stand without AD for at least 1 hour without increase in baseline pain in order to return to work LTG Duration 12 weeks Two Impairment strength Impairment needs to be able to stand for at least 2 hours Short Term Goal (STG) Pt will increase L hip flex/ abd/ext strength to at least 4 /5 MMT in order to demonstrate increased strength for standing and ADLs STG Duration 6 weeks Senior Care Goal (LTG) Pt will increase L hip flex/ abd/ext strength to at least 4 +/5 MMT in order to demonstrate increased strength for standing and ADLs LTG Duration 12 weeks One Impairment ROM Short Term Goal (STG) Pt will increase L hip flexion to at least 90 deg for gait, stairs, and transfers STG Duration 6 weeks Turning Lathe Tender Goal (LTG) Pt will increase L hip flexion to at least 110 deg in order to perform gait, stairs, and transfers LTG Duration 12 weeks Assessment Summary Assessment Patient reports pain with ambulation dec from 07/19 to with VC to increase weight bearing through UE's onto FWW and FWW height increased felt better per patient and posture appears more normal. Physical Therapy Plan Frequency and Duration Frequency of Treatment 1-2x/wk Duration of treatment (weeks) 12 Plan of Care Start Date 08/07/23 Plan of Care End Date 11/02/23 Next Visit Focus/Plan Next Note Type Treatment Note Next Visit Plan anterior hip precautions, WBAT review heel slides, quad sets, glute squeezes. Sit to stand, transfers, gait with FWW, stairs seated LAQ, HSC, seated heel slides
--- NOTE | 2023-08-14 11:47 | PT.OTN ---
Current Diagnoses Bilateral primary osteoarthritis of hip (08/14/23) Unilateral primary osteoarthritis, left hip (08/14/23) Other lack of coordination (08/14/23) Weakness (08/14/23) Physical Therapy Treatment Note PT-OP-A Visit Information Start: 06/05/23 10:31 Freq: Status: Active Protocol: Document 08/14/23 08:12 AB (Rec: 08/14/23 11:46 AB [id number]) Out-Patient Physical Therapy Visit Information Visit Information Visit Type Treatment Note Visit Note 05/19 since eval Access Code [email or web address] Visit Start Time 09:46 Visit Stop Time 10:29 Visit Number 9 Number of CONFIGURATION ENGINEER Visits 3 Evaluation Information Evaluation Date 08/07/23 Precautions Precautions Anterior hip precautions: no hip ext, no bridging, no prone , no hip ER beyond neutral PT-OP-B Current Condition Start: 06/05/23 10:31 Freq: Status: Active Protocol: Document 08/07/23 09:01 NM (Rec: 08/07/23 16:53 NM [id number]) Current Condition History of Current Condition Onset Date DOS 07/27/23 Current Complaints pain, mobility History of Current Condition Pt s/p L DAVID on 07/27/23. She had an anterior approach, currently has anterior hip precautions. Pt reports that surgery went without complication, but she spent a couple of days in the hospital due to low blood pressure. She is currently on blood pressure medication, which she does not normally take. Pt has been performing heel slides, ankle pumps. Pt is having most difficulty with getting in and out of bed. She is using a FWW for mobility but has been trying to take steps without RW as able. She is having most difficulty with dressing, standing, bed mobility, sleeping. Pt is planning to return to work on 09/19 and will need to work 4 hr shifts (sand 4 hrs, lifting up to 40#, bending and reaching for stocking). Pt reports that over the weekend, she got very sick and had to lie on her R side, so her L hip hurts more than normal now . She states that she spoke to Dr. Wills, who thinks it's a strained muscle and not dislocated. Pt reports tingling at her toes on LLE, which was not present before surgery. 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 ( raised previous session ) Patient rates left hip pain 5/10 ambulating into session with FWW. Patient reports she cannot lift her leg without using her UE's. SLS left LE without UE use 1 sec with reports of increased pain. PT-OP-D Balance Start: 06/05/23 10:31 Freq: Status: Active Protocol: Document 06/05/23 10:31 NM (Rec: 06/05/23 12:16 NM [id number]) Balance Tests Single Limb Standing Single Limb- Right 3 seconds, increased sway Single Limb- Left 1 second, painful and increased sway Tandem Tandem Standing 5 seconds; difficulty achieving, painful on LLE PT-OP-E Functional Tests Start: 06/05/23 10:31 Freq: Status: Active Protocol: Document 06/05/23 10:31 NM (Rec: 06/05/23 12:16 NM [id number]) Functional Tests 6 Minute Walk Test Distance 1095 ft Device Used gait belt Comments antalgic, reports increased pain, decrease L stance, trunk lean L 30 Second Sit to Stand Test Score 12 Comments hip pain Five Times Sit to Stand Test Score 13 sec Comments 20, hip pain PT-OP-F Manual Assessment Start: 06/05/23 10:31 Freq: Status: Active Protocol: Document 06/05/23 10:31 NM (Rec: 06/05/23 12:16 NM [id number]) Manual Assessments Soft Tissue Assessment Soft Tissue Mobility Assessment Tight B hip flexors, heel cords Joint Mobility Assessment Joint Mobility Assessment Limited B hip mobility passively with flexion, ER, IR . LLE limited globally. Lacks terminal knee extension bilaterally PT-OP-G Mobility & Gait Start: 03/26/24 10:31 Freq: Status: Active Protocol: Document 08/07/23 09:01 NM (Rec: 08/07/23 16:53 NM [id number]) OP Mobility Evaluation Bed Mobility Rolling SBA Supine to and from Sit min A to bring LLE to EOB supine <> sit Transfers Sit to Stand close SBA to FWW Bed to Chair Transfers close SBA with FWW OP Gait Assessment Gait Gait Assistance Required: Standby Assistance Distance (Feet) 200 Assistive Devices Assistive Device Gait Belt,Front Wheeled Walker Gait Deviations General Gait Pattern Antalgic Factors Limiting Gait Function Factors Limiting Gait Function Decreased Sensation,Decreased Strength,Limited Range of Motion,Pain Comments Gait Comments decreased stride length and WBAT on LLE. Good upright posture PT-OP-H Neuro Start: 06/05/23 10:31 Freq: Status: Active Protocol: Document 06/05/23 10:31 NM (Rec: 06/05/23 12:16 NM [id number]) Sensation Evaluation Comments Summary Comments BLE intact to light touch sensation, but 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 PT-OP-J Posture/Palpation/Skin Start: 06/05/23 10:31 Freq: Status: Active Protocol: Document 08/07/23 09:01 NM (Rec: 08/07/23 16:53 NM [id number]) Palpation Assessment Location L hip Palpation Details Tenderness reported in anterior hip near groin, over incision. Did not palpate due to incision Skin Assessment Incisional Assessment Incision Appearance/Comments Incision covered by dressing, which is c/d/i. No signs of redness or infection around dressings Other Assessments Skin Assessment Comments L ankle figure 8 (edema): 50 cm PT-OP-K Range of Motion Start: 06/05/23 10:31 Freq: Status: Active Protocol: Document 08/07/23 09:01 NM (Rec: 08/07/23 09:48 NM [id number]) Hip Goniometric Range of Motion Hip Right Flexion w/Knee Flexed 90 Extension 15 Abduction 20 Internal Rotation 15 External Rotation 40 Left Comments Pre-surgery: 90 deg flex, 8 deg ext, 15 deg abd, 15 deg IR , 15 deg ER; pain with ER/IR, abd, flex, ext, add; hamstring 150 deg 08/06: did not measure ROM due to hip precautions PT-OP-L Special Tests Start: 06/05/23 10:31 Freq: Status: Active Protocol: Document 06/05/23 10:31 NM (Rec: 06/05/23 12:16 NM [id number]) Special Tests Hip Special Tests Straight Leg Raise Test Results + Comments unable to lift LLE Log Roll Test Test Results + SANTOS Test Results + Comments L PT-OP-M Strength Start: 06/05/23 10:31 Freq: Status: Active Protocol: Document 08/07/23 09:01 NM (Rec: 08/07/23 09:48 NM [id number]) Hip Strength Hip Manual Muscle Testing Right Flexion (L2) 4- Good- Extension (S1) 3+ Fair+ Abduction 4- Good- Adduction 4 Good External Rotation 4 Good Internal Rotation 4- Good- Left Comments pre-surgery: pain with ER/IR/ Flex; 3+/5 with flex/ext/ER/IR ; 4-/5 abd; 4/5 ADD 08/07/23: did not assess due to hip precuations Knee Strength Knee Manual Muscle Testing Right Flexion (S2) 4 Good Extension (L3) 4 Good Left Flexion (S2) 4 Good Extension (L3) 4- Good- PT-OP-Q Treatments Start: 06/05/23 10:31 Freq: Status: Active Protocol: Document 08/14/23 08:12 AB (Rec: 08/14/23 11:46 AB [id number]) Therapeutic Exercises Supine Exercises marching Supine Exercise Name marching from hooklying Side bilateral Reps/Minutes 5X 2 AA SLR Side left Reps/Minutes X10 Comments Unable to perform without assist ankle pumps Supine Exercise Name with LE elevated above the heart Reps/Minutes 30 X 2 glute set Supine Exercise Name trunk slightly elevated Side bilateral Resistance isometric Reps/Minutes 10 X 5 second hold hip abduction Supine Exercise Name trunk slightly elevated Side left Equipment Used with towel under LE Reps/Minutes 2X10 Comments VC for neutral position avoiding toeing out. heel slides Supine Exercise Name trunk elevated slightly Side left Reps/Minutes X10 Sitting Exercises Seated SLR Side left Reps/Minutes X5 Comments verbal cues knee flexion Sitting Exercise Name on scooter and AROM Side left Reps/Minutes 2 min on scooter X 6 without scooter LAQ Side left Resistance level one band light blue Reps/Minutes X10 without band X 10 and X 6 with band Comments verbal cues to fully extend the knee Standing Exercises side step Standing Exercise Name with UE support Reps/Minutes 2 min Comments VC to avoid toeing out Manual Therapy Treatment Soft Tissue Mobilization left hip Body Location scar tissue and for swelling ankle to hip Mobilization Type Cross-Friction,Rolling Intensity/Depth Moderate Body Position Hooklying Comments also superficial PT-OP-T Assessment and Plan Start: 06/05/23 10:31 Freq: Status: Active Protocol: Document 08/14/23 08:12 AB (Rec: 08/14/23 11:46 AB [id number]) Physical Therapy Assessment Goals Five Impairment squat Impairment must be able to squat for return to job Short Term Goal (STG) Pt will be able to perform at least 10 bilateral squats without increase in baseline pain or LOB in order to demonstrate increased BLE strength for transfers, ADLs, return to work if appropriate STG Duration 6 weeks Motor Man Goal (LTG) Pt will be able to perform at least 5 squats and lift at least 10# from the ground to at least chest height in order to perform job functions, if appropriate LTG Duration 12 weeks Four Impairment gait Impairment must be able to squat for return to job Short Term Goal (STG) Pt will be able to ambulate without AD at least community distances (at least 800 ft) with normal gait mechanics STG Duration 6 weeks Motor Man Goal (LTG) Pt will be able to ambulate at least 1000 ft without AD in order to demonstrate improved ADL tolerance and ability to ambulate in community LTG Duration 12 weeks Three Impairment standing Impairment using FWW (pre-operative 6 MWT 1095 ft) Short Term Goal (STG) Pt will be able to stand with or without AD for at least 30 minutes without increase in baseline pain STG Duration 8 weeks Half-Way Goal (LTG) Pt will be able to stand without AD for at least 1 hour without increase in baseline pain in order to return to work LTG Duration 12 weeks Two Impairment strength Impairment needs to be able to stand for at least 2 hours Short Term Goal (STG) Pt will increase L hip flex/ abd/ext strength to at least 4 /5 MMT in order to demonstrate increased strength for standing and ADLs STG Duration 6 weeks Motor Man Goal (LTG) Pt will increase L hip flex/ abd/ext strength to at least 4 +/5 MMT in order to demonstrate increased strength for standing and ADLs LTG Duration 12 weeks One Impairment ROM Short Term Goal (STG) Pt will increase L hip flexion to at least 90 deg for gait, stairs, and transfers STG Duration 6 weeks Motor Man Goal (LTG) Pt will increase L hip flexion to at least 110 deg in order to perform gait, stairs, and transfers LTG Duration 12 weeks Assessment Summary Assessment Patient reports she feels like the muscles in her left leg have been working for a month, but no pain standing with FWW end of session. Physical Therapy Plan Frequency and Duration Frequency of Treatment 1-2x/wk Duration of treatment (weeks) 12 Plan of Care Start Date 08/07/23 Plan of Care End Date 11/02/23 Next Visit Focus/Plan Next Note Type Treatment Note Next Visit Plan anterior hip precautions, WBAT review Sit to stand to HEP, transfers, gait with FWW, stairs, Reassess SLR, possibly add band to side stepping. HSC, seated heel slides
--- NOTE | 2023-08-16 12:53 | PT.OTN ---
Current Diagnoses Bilateral primary osteoarthritis of hip (08/16/23) Unilateral primary osteoarthritis, left hip (08/16/23) Other lack of coordination (08/16/23) Weakness (08/16/23) Physical Therapy Treatment Note PT-OP-A Visit Information Start: 06/05/23 10:31 Freq: Status: Active Protocol: Document 08/16/23 10:34 NM (Rec: 08/16/23 11:18 NM [id number]) Out-Patient Physical Therapy Visit Information Visit Information Visit Type Treatment Note Visit Note 06/19 since re-eval Visit Start Time 10:35 Visit Stop Time 11:15 Visit Number 10 Evaluation Information Evaluation Date 08/07/23 Precautions Precautions Anterior hip precautions: no hip ext, no bridging, no prone , no hip ER beyond neutral PT-OP-B Current Condition Start: 06/05/23 10:31 Freq: Status: Active Protocol: Document 08/07/23 09:01 NM (Rec: 08/07/23 16:53 NM [id number]) Current Condition History of Current Condition Onset Date DOS 07/27/23 Current Complaints pain, mobility History of Current Condition Pt s/p L DAVID on 07/27/23. She had an anterior approach, currently has anterior hip precautions. Pt reports that surgery went without complication, but she spent a couple of days in the hospital due to low blood pressure. She is currently on blood pressure medication, which she does not normally take. Pt has been performing heel slides, ankle pumps. Pt is having most difficulty with getting in and out of bed. She is using a FWW for mobility but has been trying to take steps without RW as able. She is having most difficulty with dressing, standing, bed mobility, sleeping. Pt is planning to return to work on 09/19 and will need to work 4 hr shifts (sand 4 hrs, lifting up to 40#, bending and reaching for stocking). Pt reports that over the weekend, she got very sick and had to lie on her R side, so her L hip hurts more than normal now . She states that she spoke to Dr. Wills, who thinks it's a strained muscle and not dislocated. Pt reports tingling at her toes on LLE, which was not present before surgery. 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 Dr. Wills's PA said all looked goods, xrays look good, follow up 08/29, continue with precautions. States difficulty with hip flexion exercises, painful. Says work insurance extended to november instead of september PT-OP-D Balance Start: 06/05/23 10:31 Freq: Status: Active Protocol: Document 06/05/23 10:31 NM (Rec: 06/05/23 12:16 NM [id number]) Balance Tests Single Limb Standing Single Limb- Right 3 seconds, increased sway Single Limb- Left 1 second, painful and increased sway Tandem Tandem Standing 5 seconds; difficulty achieving, painful on LLE PT-OP-E Functional Tests Start: 06/05/23 10:31 Freq: Status: Active Protocol: Document 06/05/23 10:31 NM (Rec: 06/05/23 12:16 NM [id number]) Functional Tests 6 Minute Walk Test Distance 1095 ft Device Used gait belt Comments antalgic, reports increased pain, decrease L stance, trunk lean L 30 Second Sit to Stand Test Score 12 Comments hip pain Five Times Sit to Stand Test Score 13 sec Comments 20, hip pain PT-OP-F Manual Assessment Start: 06/05/23 10:31 Freq: Status: Active Protocol: Document 06/05/23 10:31 NM (Rec: 06/05/23 12:16 NM [id number]) Manual Assessments Soft Tissue Assessment Soft Tissue Mobility Assessment Tight B hip flexors, heel cords Joint Mobility Assessment Joint Mobility Assessment Limited B hip mobility passively with flexion, ER, IR . LLE limited globally. Lacks terminal knee extension bilaterally PT-OP-G Mobility & Gait Start: 06/05/23 10:31 Freq: Status: Active Protocol: Document 08/07/23 09:01 NM (Rec: 08/07/23 16:53 NM [id number]) OP Mobility Evaluation Bed Mobility Rolling SBA Supine to and from Sit min A to bring LLE to EOB supine <> sit Transfers Sit to Stand close SBA to FWW Bed to Chair Transfers close SBA with FWW OP Gait Assessment Gait Gait Assistance Required: Standby Assistance Distance (Feet) 200 Assistive Devices Assistive Device Gait Belt,Front Wheeled Walker Gait Deviations General Gait Pattern Antalgic Factors Limiting Gait Function Factors Limiting Gait Function Decreased Sensation,Decreased Strength,Limited Range of Motion,Pain Comments Gait Comments decreased stride length and WBAT on LLE. Good upright posture PT-OP-H Neuro Start: 06/05/23 10:31 Freq: Status: Active Protocol: Document 06/05/23 10:31 NM (Rec: 06/05/23 12:16 NM [id number]) Sensation Evaluation Comments Summary Comments BLE intact to light touch sensation, but 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 PT-OP-J Posture/Palpation/Skin Start: 06/05/23 10:31 Freq: Status: Active Protocol: Document 08/07/23 09:01 NM (Rec: 08/07/23 16:53 NM [id number]) Palpation Assessment Location L hip Palpation Details Tenderness reported in anterior hip near groin, over incision. Did not palpate due to incision Skin Assessment Incisional Assessment Incision Appearance/Comments Incision covered by dressing, which is c/d/i. No signs of redness or infection around dressings Other Assessments Skin Assessment Comments L ankle figure 8 (edema): 50 cm PT-OP-K Range of Motion Start: 06/05/23 10:31 Freq: Status: Active Protocol: Document 08/07/23 09:01 NM (Rec: 08/07/23 09:48 NM [id number]) Hip Goniometric Range of Motion Hip Right Flexion w/Knee Flexed 90 Extension 15 Abduction 20 Internal Rotation 15 External Rotation 40 Left Comments Pre-surgery: 90 deg flex, 8 deg ext, 15 deg abd, 15 deg IR , 15 deg ER; pain with ER/IR, abd, flex, ext, add; hamstring 150 deg 08/06: did not measure ROM due to hip precautions PT-OP-L Special Tests Start: 06/05/23 10:31 Freq: Status: Active Protocol: Document 06/05/23 10:31 NM (Rec: 06/05/23 12:16 NM [id number]) Special Tests Hip Special Tests Straight Leg Raise Test Results + Comments unable to lift LLE Log Roll Test Test Results + SANTOS Test Results + Comments L PT-OP-M Strength Start: 06/05/23 10:31 Freq: Status: Active Protocol: Document 08/07/23 09:01 NM (Rec: 08/07/23 09:48 NM [id number]) Hip Strength Hip Manual Muscle Testing Right Flexion (L2) 4- Good- Extension (S1) 3+ Fair+ Abduction 4- Good- Adduction 4 Good External Rotation 4 Good Internal Rotation 4- Good- Left Comments pre-surgery: pain with ER/IR/ Flex; 3+/5 with flex/ext/ER/IR ; 4-/5 abd; 4/5 ADD 08/07/23: did not assess due to hip precuations Knee Strength Knee Manual Muscle Testing Right Flexion (S2) 4 Good Extension (L3) 4 Good Left Flexion (S2) 4 Good Extension (L3) 4- Good- PT-OP-Q Treatments Start: 06/05/23 10:31 Freq: Status: Active Protocol: Document 08/16/23 10:34 NM (Rec: 08/16/23 11:18 NM [id number]) Therapeutic Exercises Supine Exercises marching Supine Exercise Name marching from hooklying Side bilateral Reps/Minutes 2x10 Comments PT holding but not helping at knee/ankle, cued slower ankle pumps Supine Exercise Name with LE elevated above the heart Reps/Minutes 2x30 Comments for swelling management hip abduction Supine Exercise Name trunk slightly elevated Side left Equipment Used pillow case on foot Reps/Minutes 2x8 Comments cued to prevent toeing out; improved ROM, less pain heel slides Supine Exercise Name trunk elevated slightly Side left Equipment Used pillow case on foot Reps/Minutes 2x10 Comments 55-65 deg hip flexion, cued slightly more ea time Sitting Exercises hip abduction Sitting Exercise Name isometric Side bilateral Equipment Used 25-50% effort Reps/Minutes 2x5 10 hold Comments PT hand provide resistance, then pt hands; pain free Standing Exercises march Standing Exercise Name non-alt, leg in front of pt to prevent ext Equipment Used with FWW, hand support Reps/Minutes 1x15 Comments cued to remain w/i pain free range sit to stand with UE use Standing Exercise Name without UE assist to stand from elevated surface Side bilateral Resistance lvl 1 band around lower thighs Equipment Used to FWW Reps/Minutes 3x5 Comments cued for ant weight shift w/ reach fwd; pain free Manual Therapy Treatment Soft Tissue Mobilization left hip Body Location for swelling ankle to hip, quad/hip flexors Mobilization Type Rolling Intensity/Depth Superficial Body Position Hooklying Comments Gentle rolling, swelling management from ankle to hip with legs elevated on bolster above heart. 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 without ability to sit, education to continue with swelling management (elevation , cryotherapy at hip, gentle compression socks) PT-OP-T Assessment and Plan Start: 06/05/23 10:31 Freq: Status: Active Protocol: Document 08/16/23 10:34 NM (Rec: 08/16/23 11:18 NM [id number]) Physical Therapy Assessment Goals Five Impairment squat Impairment must be able to squat for return to job Short Term Goal (STG) Pt will be able to perform at least 10 bilateral squats without increase in baseline pain or LOB in order to demonstrate increased BLE strength for transfers, ADLs, return to work if appropriate STG Duration 6 weeks Mcfp Goal (LTG) Pt will be able to perform at least 5 squats and lift at least 10# from the ground to at least chest height in order to perform job functions, if appropriate LTG Duration 12 weeks Four Impairment gait Impairment must be able to squat for return to job Short Term Goal (STG) Pt will be able to ambulate without AD at least community distances (at least 800 ft) with normal gait mechanics STG Duration 6 weeks Stencil Sprayer Goal (LTG) Pt will be able to ambulate at least 1000 ft without AD in order to demonstrate improved ADL tolerance and ability to ambulate in community LTG Duration 12 weeks Three Impairment standing Impairment using FWW (pre-operative 6 MWT 1095 ft) Short Term Goal (STG) Pt will be able to stand with or without AD for at least 30 minutes without increase in baseline pain STG Duration 8 weeks Stencil Sprayer Goal (LTG) Pt will be able to stand without AD for at least 1 hour without increase in baseline pain in order to return to work LTG Duration 12 weeks Two Impairment strength Impairment needs to be able to stand for at least 2 hours Short Term Goal (STG) Pt will increase L hip flex/ abd/ext strength to at least 4 /5 MMT in order to demonstrate increased strength for standing and ADLs STG Duration 6 weeks Mcfp Goal (LTG) Pt will increase L hip flex/ abd/ext strength to at least 4 +/5 MMT in order to demonstrate increased strength for standing and ADLs LTG Duration 12 weeks One Impairment ROM Short Term Goal (STG) Pt will increase L hip flexion to at least 90 deg for gait, stairs, and transfers STG Duration 6 weeks Mcfp Goal (LTG) Pt will increase L hip flexion to at least 110 deg in order to perform gait, stairs, and transfers LTG Duration 12 weeks Assessment Summary Assessment Pt tolerated session well. She currently has 65 deg hip flexion with heel slides. Able to achieve greater hip flexion ROM with less pain. Pt also able to perform supine hip abduction with greater ROM and less pain; initiated seated hip abduction isometric for increased glute activation. Initiated seated hip abduction. Pt demos decreased quad activation, pain with seated hip flexion. No pain with standing hip flexion to FWW; cued to maintain precautions by keeping LE in front of pt. Trialed sit to stand without hand support to FWW from elevated surface to improve quad/glute control. Cued to initiate motion with anterior weight shift and wider MICHELE for balance. Educated for swelling mgmt with compression sock, DVT signs and to go to ED if DVT symptoms occur. 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 Pt would benefit from skilled PT in order to improve L hip mobility and strength while maintaining precautions in order to improve activity tolerance, strength, and pain management. Physical Therapy Plan Frequency and Duration Frequency of Treatment 1-2x/wk Duration of treatment (weeks) 12 Plan of Care Start Date 08/07/23 Plan of Care End Date 11/02/23 Therapeutic Interventions Therapeutic Interventions Balance Training,Gait Training ,Home Exercise Program,Joint Mobilizations,Manual Therapy, Neuromuscular Re-education, Orthotic/Prosthetic Management ,Patient/Caregiver Education, Self-Care/Home Management, Sensory Integration,Soft Tissue Mobilization,Taping, Therapeutic Activities, Therapeutic Exercises Modalities Cold Pack/Ice Massage,Electric Stimulation,Hot Packs, Ultrasound,Vasopneumatic Devices Next Visit Focus/Plan Next Note Type Treatment Note Next Visit Plan anterior hip precautions, WBAT E-stim on quad with quad set/ LAQ, review seated vs standing may, sit to stand from elevated surface w/ decreased hand support, side step w/ band if jay review Sit to stand to HEP, transfers, gait with FWW, stairs, Reassess SLR, possibly add band to side stepping. HSC, seated heel slides
--- NOTE | 2023-08-22 08:14 | PT.OTN ---
Current Diagnoses Bilateral primary osteoarthritis of hip (08/22/23) Unilateral primary osteoarthritis, left hip (08/22/23) Other lack of coordination (08/22/23) Weakness (08/22/23) Physical Therapy Treatment Note PT-OP-A Visit Information Start: 06/05/23 10:31 Freq: Status: Active Protocol: Document 08/22/23 07:34 SP (Rec: 08/22/23 08:19 SP [id number]) Out-Patient Physical Therapy Visit Information Visit Information Visit Type Treatment Note Visit Note 07/19 since re-eval Visit Start Time 07:34 Visit Stop Time 08:14 Visit Number 11 Number of [employer] Visits 1 Evaluation Information Evaluation Date 08/07/23 Precautions Precautions Anterior hip precautions: no hip ext, no bridging, no prone , no hip ER beyond neutral PT-OP-B Current Condition Start: 06/05/23 10:31 Freq: Status: Active Protocol: Document 08/07/23 09:01 NM (Rec: 08/07/23 16:53 NM [id number]) Current Condition History of Current Condition Onset Date DOS 07/27/23 Current Complaints pain, mobility History of Current Condition Pt s/p L DAVID on 07/27/23. She had an anterior approach, currently has anterior hip precautions. Pt reports that surgery went without complication, but she spent a couple of days in the hospital due to low blood pressure. She is currently on blood pressure medication, which she does not normally take. Pt has been performing heel slides, ankle pumps. Pt is having most difficulty with getting in and out of bed. She is using a FWW for mobility but has been trying to take steps without RW as able. She is having most difficulty with dressing, standing, bed mobility, sleeping. Pt is planning to return to work on 09/19 and will need to work 4 hr shifts (sand 4 hrs, lifting up to 40#, bending and reaching for stocking). Pt reports that over the weekend, she got very sick and had to lie on her R side, so her L hip hurts more than normal now . She states that she spoke to Dr. Wills, who thinks it's a strained muscle and not dislocated. Pt reports tingling at her toes on LLE, which was not present before surgery. 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 Still can't put regular shoe on due to L ankle swelling. PT-OP-D Balance Start: 06/05/23 10:31 Freq: Status: Active Protocol: Document 06/05/23 10:31 NM (Rec: 06/05/23 12:16 NM [id number]) Balance Tests Single Limb Standing Single Limb- Right 3 seconds, increased sway Single Limb- Left 1 second, painful and increased sway Tandem Tandem Standing 5 seconds; difficulty achieving, painful on LLE PT-OP-E Functional Tests Start: 06/05/23 10:31 Freq: Status: Active Protocol: Document 06/05/23 10:31 NM (Rec: 06/05/23 12:16 NM [id number]) Functional Tests 6 Minute Walk Test Distance 1095 ft Device Used gait belt Comments antalgic, reports increased pain, decrease L stance, trunk lean L 30 Second Sit to Stand Test Score 12 Comments hip pain Five Times Sit to Stand Test Score 13 sec Comments 20, hip pain PT-OP-F Manual Assessment Start: 06/05/23 10:31 Freq: Status: Active Protocol: Document 06/05/23 10:31 NM (Rec: 06/05/23 12:16 NM [id number]) Manual Assessments Soft Tissue Assessment Soft Tissue Mobility Assessment Tight B hip flexors, heel cords Joint Mobility Assessment Joint Mobility Assessment Limited B hip mobility passively with flexion, ER, IR . LLE limited globally. Lacks terminal knee extension bilaterally PT-OP-G Mobility & Gait Start: 06/05/23 10:31 Freq: Status: Active Protocol: Document 08/07/23 09:01 NM (Rec: 08/07/23 16:53 NM [id number]) OP Mobility Evaluation Bed Mobility Rolling SBA Supine to and from Sit min A to bring LLE to EOB supine <> sit Transfers Sit to Stand close SBA to FWW Bed to Chair Transfers close SBA with FWW OP Gait Assessment Gait Gait Assistance Required: Standby Assistance Distance (Feet) 200 Assistive Devices Assistive Device Gait Belt,Front Wheeled Walker Gait Deviations General Gait Pattern Antalgic Factors Limiting Gait Function Factors Limiting Gait Function Decreased Sensation,Decreased Strength,Limited Range of Motion,Pain Comments Gait Comments decreased stride length and WBAT on LLE. Good upright posture PT-OP-H Neuro Start: 06/05/23 10:31 Freq: Status: Active Protocol: Document 06/05/23 10:31 NM (Rec: 06/05/23 12:16 NM [id number]) Sensation Evaluation Comments Summary Comments BLE intact to light touch sensation, but 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 PT-OP-J Posture/Palpation/Skin Start: 06/05/23 10:31 Freq: Status: Active Protocol: Document 08/07/23 09:01 NM (Rec: 08/07/23 16:53 NM [id number]) Palpation Assessment Location L hip Palpation Details Tenderness reported in anterior hip near groin, over incision. Did not palpate due to incision Skin Assessment Incisional Assessment Incision Appearance/Comments Incision covered by dressing, which is c/d/i. No signs of redness or infection around dressings Other Assessments Skin Assessment Comments L ankle figure 8 (edema): 50 cm PT-OP-K Range of Motion Start: 06/05/23 10:31 Freq: Status: Active Protocol: Document 08/07/23 09:01 NM (Rec: 08/07/23 09:48 NM [id number]) Hip Goniometric Range of Motion Hip Right Flexion w/Knee Flexed 90 Extension 15 Abduction 20 Internal Rotation 15 External Rotation 40 Left Comments Pre-surgery: 90 deg flex, 8 deg ext, 15 deg abd, 15 deg IR , 15 deg ER; pain with ER/IR, abd, flex, ext, add; hamstring 150 deg 08/06: did not measure ROM due to hip precautions PT-OP-L Special Tests Start: 06/05/23 10:31 Freq: Status: Active Protocol: Document 06/05/23 10:31 NM (Rec: 06/05/23 12:16 NM [id number]) Special Tests Hip Special Tests Straight Leg Raise Test Results + Comments unable to lift LLE Log Roll Test Test Results + SANTOS Test Results + Comments L PT-OP-M Strength Start: 06/05/23 10:31 Freq: Status: Active Protocol: Document 08/07/23 09:01 NM (Rec: 08/07/23 09:48 NM [id number]) Hip Strength Hip Manual Muscle Testing Right Flexion (L2) 4- Good- Extension (S1) 3+ Fair+ Abduction 4- Good- Adduction 4 Good External Rotation 4 Good Internal Rotation 4- Good- Left Comments pre-surgery: pain with ER/IR/ Flex; 3+/5 with flex/ext/ER/IR ; 4-/5 abd; 4/5 ADD 08/07/23: did not assess due to hip precuations Knee Strength Knee Manual Muscle Testing Right Flexion (S2) 4 Good Extension (L3) 4 Good Left Flexion (S2) 4 Good Extension (L3) 4- Good- PT-OP-Q Treatments Start: 06/05/23 10:31 Freq: Status: Active Protocol: Document 08/22/23 07:34 SP (Rec: 08/22/23 08:19 SP [id number]) Therapeutic Exercises Supine Exercises marching Supine Exercise Name marching from hooklying Side bilateral Reps/Minutes x10 Comments good form efforted hip abduction Supine Exercise Name trunk slightly elevated Side left Reps/Minutes x10 Comments cued to prevent toeing out; improved ROM, less pain Standing Exercises hip abduction Side left Resistance AROM Reps/Minutes 2x10 Comments pnfree range, good form march Standing Exercise Name alternate BLE Equipment Used rail Reps/Minutes 2x10 Comments cued to remain w/i pain free range- great form Gait Training Gait Activity spc Description normal gait Device Used spc Level of Assistance close SBA Surface stable Distance/Duration 100 ft around gym & front mirror Treatment Focus LEvel pelvis Comments Demos good sequencing with distance, fatigues at longer distance indoors then relies on R UE for assistance to offload L hip, reports less pain with SPC use Manual Therapy Treatment Soft Tissue Mobilization left hip Body Location quad/hip flexors Mobilization Type Rolling,Other Intensity/Depth Superficial Body Position Hooklying Comments Gentle rolling, swelling management from ankle to hip with legs elevated on bolster above heart. Gentle soft tissue mobilization of quad and hip flexors, avoiding healing incision for pain reduction prior to exercise ALso ankle mobililty: MTPs, calcaneal med/lat, talocrual Self-Care/Home Management Treatment Education Patient Education Safety Other Education Ed non skid socks in house allow LLE clearance /c SPC. Walker community. PT-OP-R Modalities Start: 06/05/23 10:31 Freq: Status: Active Protocol: Document 08/22/23 07:34 SP (Rec: 08/22/23 08:19 SP [id number]) Electric Stimulation Electric Stimulation Indonesian stim L leg Body Location L quad Intensity 20 Cycle 10/10 Comments CO /c SAQ 4 min, LAQ 4 min AAROM end feel tolerate PT-OP-T Assessment and Plan Start: 06/05/23 10:31 Freq: Status: Active Protocol: Document 08/22/23 07:34 SP (Rec: 08/22/23 08:19 SP [id number]) Physical Therapy Assessment Goals Five Impairment squat Impairment must be able to squat for return to job Short Term Goal (STG) Pt will be able to perform at least 10 bilateral squats without increase in baseline pain or LOB in order to demonstrate increased BLE strength for transfers, ADLs, return to work if appropriate STG Duration 6 weeks Longterm Goal (LTG) Pt will be able to perform at least 5 squats and lift at least 10# from the ground to at least chest height in order to perform job functions, if appropriate LTG Duration 12 weeks Four Impairment gait Impairment must be able to squat for return to job Short Term Goal (STG) Pt will be able to ambulate without AD at least community distances (at least 800 ft) with normal gait mechanics STG Duration 6 weeks Aviation Neuropsychologist Goal (LTG) Pt will be able to ambulate at least 1000 ft without AD in order to demonstrate improved ADL tolerance and ability to ambulate in community LTG Duration 12 weeks Three Impairment standing Impairment using FWW (pre-operative 6 MWT 1095 ft) Short Term Goal (STG) Pt will be able to stand with or without AD for at least 30 minutes without increase in baseline pain STG Duration 8 weeks Aviation Neuropsychologist Goal (LTG) Pt will be able to stand without AD for at least 1 hour without increase in baseline pain in order to return to work LTG Duration 12 weeks Two Impairment strength Impairment needs to be able to stand for at least 2 hours Short Term Goal (STG) Pt will increase L hip flex/ abd/ext strength to at least 4 /5 MMT in order to demonstrate increased strength for standing and ADLs STG Duration 6 weeks Longterm Goal (LTG) Pt will increase L hip flex/ abd/ext strength to at least 4 +/5 MMT in order to demonstrate increased strength for standing and ADLs LTG Duration 12 weeks One Impairment ROM Short Term Goal (STG) Pt will increase L hip flexion to at least 90 deg for gait, stairs, and transfers STG Duration 6 weeks Longterm Goal (LTG) Pt will increase L hip flexion to at least 110 deg in order to perform gait, stairs, and transfers LTG Duration 12 weeks Assessment Summary Assessment Pt improved L quad contraction with Indonesian Decreased swelling and increased L ankle mobility with MF glide STMs ( assist at home) and tarsal manual mobility. Indonesian Stim assist SAQ, requires AAROM end feel can do during LAQ. Demonstrates alot effort during supine hip abd but able to increase reps and not need sheet slider support today. Progressed AROM standing exercise, good quad contraction L able to perform RLE abd LLE in neutral positioning. Continued gait with SPC, good sequencing and LLE does tire with distance requiring off loading use SPC in RUE. Discussed ok short distance in the house but concerned with slipper tends to scuff floor, asked if have non skid socks home better until swelling down to wear shoe again. Pt verbalized agreement. She continues to wear compression socks and will bring shorts to PT. Physical Therapy Plan Frequency and Duration Frequency of Treatment 1-2x/wk Duration of treatment (weeks) 12 Plan of Care Start Date 08/07/23 Plan of Care End Date 11/02/23 Therapeutic Interventions Therapeutic Interventions Balance Training,Gait Training ,Home Exercise Program,Joint Mobilizations,Manual Therapy, Neuromuscular Re-education, Orthotic/Prosthetic Management ,Patient/Caregiver Education, Self-Care/Home Management, Sensory Integration,Soft Tissue Mobilization,Taping, Therapeutic Activities, Therapeutic Exercises Modalities Cold Pack/Ice Massage,Electric Stimulation,Hot Packs, Ultrasound,Vasopneumatic Devices Next Visit Focus/Plan Next Note Type Treatment Note Next Visit Plan anterior hip precautions, WBAT Continue: E-stim on quad with quad set SAQ&LAQ, review seated vs standing may, sit to stand from elevated surface w/ decreased hand support, side step w/ band if jay review Sit to stand to HEP, transfers, gait with FWW, stairs, Reassess SLR, possibly add band to side stepping. HSC, seated heel slides
--- NOTE | 2023-08-28 10:13 | PT.OTN ---
Current Diagnoses Bilateral primary osteoarthritis of hip (08/28/23) Unilateral primary osteoarthritis, left hip (08/28/23) Other lack of coordination (08/28/23) Weakness (08/28/23) Physical Therapy Treatment Note PT-OP-A Visit Information Start: 06/05/23 10:31 Freq: Status: Active Protocol: Document 08/28/23 07:28 NM (Rec: 08/28/23 07:52 NM [id number]) Out-Patient Physical Therapy Visit Information Visit Information Visit Type Treatment Note Visit Note 08/19 since re-eval Visit Start Time 07:31 Visit Stop Time 08:13 Visit Number 12 Evaluation Information Evaluation Date 08/07/23 PT-OP-B Current Condition Start: 06/05/23 10:31 Freq: Status: Active Protocol: Document 08/07/23 09:01 NM (Rec: 08/07/23 16:53 NM [id number]) Current Condition History of Current Condition Onset Date DOS 07/27/23 Current Complaints pain, mobility History of Current Condition Pt s/p L DAVID on 07/27/23. She had an anterior approach, currently has anterior hip precautions. Pt reports that surgery went without complication, but she spent a couple of days in the hospital due to low blood pressure. She is currently on blood pressure medication, which she does not normally take. Pt has been performing heel slides, ankle pumps. Pt is having most difficulty with getting in and out of bed. She is using a FWW for mobility but has been trying to take steps without RW as able. She is having most difficulty with dressing, standing, bed mobility, sleeping. Pt is planning to return to work on 09/19 and will need to work 4 hr shifts (sand 4 hrs, lifting up to 40#, bending and reaching for stocking). Pt reports that over the weekend, she got very sick and had to lie on her R side, so her L hip hurts more than normal now . She states that she spoke to Dr. Wills, who thinks it's a strained muscle and not dislocated. Pt reports tingling at her toes on LLE, which was not present before surgery. 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 She is tender to touch in groin and buttocks. She had follow up with Dr. Wills last week. She goes back to work on 10/19. She has pain with ambulation when stepping forward with L swing but denies pain when just standing or when walking. She reports has difficulty with supine hip abd and marching, which is still painful PT-OP-D Balance Start: 06/05/23 10:31 Freq: Status: Active Protocol: Document 06/05/23 10:31 NM (Rec: 06/05/23 12:16 NM [id number]) Balance Tests Single Limb Standing Single Limb- Right 3 seconds, increased sway Single Limb- Left 1 second, painful and increased sway Tandem Tandem Standing 5 seconds; difficulty achieving, painful on LLE PT-OP-E Functional Tests Start: 06/05/23 10:31 Freq: Status: Active Protocol: Document 06/05/23 10:31 NM (Rec: 06/05/23 12:16 NM [id number]) Functional Tests 6 Minute Walk Test Distance 1095 ft Device Used gait belt Comments antalgic, reports increased pain, decrease L stance, trunk lean L 30 Second Sit to Stand Test Score 12 Comments hip pain Five Times Sit to Stand Test Score 13 sec Comments 20, hip pain PT-OP-F Manual Assessment Start: 06/05/23 10:31 Freq: Status: Active Protocol: Document 06/05/23 10:31 NM (Rec: 06/05/23 12:16 NM [id number]) Manual Assessments Soft Tissue Assessment Soft Tissue Mobility Assessment Tight B hip flexors, heel cords Joint Mobility Assessment Joint Mobility Assessment Limited B hip mobility passively with flexion, ER, IR . LLE limited globally. Lacks terminal knee extension bilaterally PT-OP-G Mobility & Gait Start: 06/05/23 10:31 Freq: Status: Active Protocol: Document 08/07/23 09:01 NM (Rec: 08/07/23 16:53 NM [id number]) OP Mobility Evaluation Bed Mobility Rolling SBA Supine to and from Sit min A to bring LLE to EOB supine <> sit Transfers Sit to Stand close SBA to FWW Bed to Chair Transfers close SBA with FWW OP Gait Assessment Gait Gait Assistance Required: Standby Assistance Distance (Feet) 200 Assistive Devices Assistive Device Gait Belt,Front Wheeled Walker Gait Deviations General Gait Pattern Antalgic Factors Limiting Gait Function Factors Limiting Gait Function Decreased Sensation,Decreased Strength,Limited Range of Motion,Pain Comments Gait Comments decreased stride length and WBAT on LLE. Good upright posture PT-OP-H Neuro Start: 06/05/23 10:31 Freq: Status: Active Protocol: Document 06/05/23 10:31 NM (Rec: 06/05/23 12:16 NM [id number]) Sensation Evaluation Comments Summary Comments BLE intact to light touch sensation, but 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 PT-OP-J Posture/Palpation/Skin Start: 06/05/23 10:31 Freq: Status: Active Protocol: Document 08/07/23 09:01 NM (Rec: 08/07/23 16:53 NM [id number]) Palpation Assessment Location L hip Palpation Details Tenderness reported in anterior hip near groin, over incision. Did not palpate due to incision Skin Assessment Incisional Assessment Incision Appearance/Comments Incision covered by dressing, which is c/d/i. No signs of redness or infection around dressings Other Assessments Skin Assessment Comments L ankle figure 8 (edema): 50 cm PT-OP-K Range of Motion Start: 06/05/23 10:31 Freq: Status: Active Protocol: Document 08/07/23 09:01 NM (Rec: 08/07/23 09:48 NM [id number]) Hip Goniometric Range of Motion Hip Right Flexion w/Knee Flexed 90 Extension 15 Abduction 20 Internal Rotation 15 External Rotation 40 Left Comments Pre-surgery: 90 deg flex, 8 deg ext, 15 deg abd, 15 deg IR , 15 deg ER; pain with ER/IR, abd, flex, ext, add; hamstring 150 deg 08/06: did not measure ROM due to hip precautions PT-OP-L Special Tests Start: 06/05/23 10:31 Freq: Status: Active Protocol: Document 06/05/23 10:31 NM (Rec: 06/05/23 12:16 NM [id number]) Special Tests Hip Special Tests Straight Leg Raise Test Results + Comments unable to lift LLE Log Roll Test Test Results + SANTOS Test Results + Comments L PT-OP-M Strength Start: 06/05/23 10:31 Freq: Status: Active Protocol: Document 08/07/23 09:01 NM (Rec: 08/07/23 09:48 NM [id number]) Hip Strength Hip Manual Muscle Testing Right Flexion (L2) 4- Good- Extension (S1) 3+ Fair+ Abduction 4- Good- Adduction 4 Good External Rotation 4 Good Internal Rotation 4- Good- Left Comments pre-surgery: pain with ER/IR/ Flex; 3+/5 with flex/ext/ER/IR ; 4-/5 abd; 4/5 ADD 08/07/23: did not assess due to hip precuations Knee Strength Knee Manual Muscle Testing Right Flexion (S2) 4 Good Extension (L3) 4 Good Left Flexion (S2) 4 Good Extension (L3) 4- Good- PT-OP-Q Treatments Start: 06/05/23 10:31 Freq: Status: Active Protocol: Document 08/28/23 07:28 NM (Rec: 08/28/23 07:52 NM [id number]) Therapeutic Exercises Supine Exercises marching Supine Exercise Name may from hooklying Side bilateral Reps/Minutes 10 Comments improved form hip abduction Side left Equipment Used pillow case on foot Reps/Minutes 2x10 Comments 15-20 deg abd; cued slower, no toe out, max ROM ea time heel slides Side left Equipment Used pillow case on foot Reps/Minutes 2x10 Comments cued more flex ea time, mild discomfort Standing Exercises hip abduction Side left Resistance AROM Reps/Minutes 2x10 Comments pnfree range, good form may Standing Exercise Name alternate BLE Equipment Used rail Reps/Minutes 2x10 Comments cued to remain w/i pain free range- great form side step Side bilateral Resistance level 1 band around thighs Reps/Minutes 4x8 ft Comments neutral foot, cued hand support sit to stand with UE use Side bilateral Resistance level 1 band around thighs to limited valgus Equipment Used to FWW without hand assist Reps/Minutes 10 Comments improved form, cued Manual Therapy Treatment Soft Tissue Mobilization scar mobilization Mobilization Type Rolling,Other Body Position Hooklying Comments Gentle rolling and lifting to healed portions of scar. Educated pt to perform at home , avoiding scabbing and healing portions left hip Body Location quad/hip flexors, glutes/ piriformis Mobilization Type Rolling,Other Intensity/Depth Superficial Body Position Hooklying Comments Gentle rolling, swelling management from ankle to hip with legs elevated on bolster above heart. Gentle soft tissue mobilization of quad and hip flexors, piriformis/glutes for pain reduction. Glutes piriformis moderate intensity, improved with STM Neuro Re-Education Treatment Balance Activities SLS Details for time Surface stable Comments 10 seconds on LLE without hand support on no increase pain in L hip. Increased sway, + trendelenburg but slight Self-Care/Home Management Treatment Education Patient Education Home Exercise Program Other Education Added level 1 band to side steps and sit to stand Education to not perform any HEP from pre-surgery, only post-op HEPs issued. Continued education on use of compression socks for swelling , cryotherapy prn, and non- skid sock or shoe completely on foot when standing/ ambulating for safety PT-OP-R Modalities Start: 06/05/23 10:31 Freq: Status: Active Protocol: Document 08/28/23 07:28 NM (Rec: 08/28/23 07:59 NM [id number]) Electric Stimulation Electric Stimulation Uzbek stim L leg Body Location L quad (VMO and RF) Intensity 20 Cycle 10/10 Ramp 1.0 Comments CO /c SLR x2 min, LAQ 4 min, seated may x2 min PT-OP-T Assessment and Plan Start: 06/05/23 10:31 Freq: Status: Active Protocol: Document 08/28/23 07:28 NM (Rec: 08/28/23 07:52 NM [id number]) Physical Therapy Assessment Goals Five Impairment squat Impairment must be able to squat for return to job Short Term Goal (STG) Pt will be able to perform at least 10 bilateral squats without increase in baseline pain or LOB in order to demonstrate increased BLE strength for transfers, ADLs, return to work if appropriate STG Duration 6 weeks Ancillary Specialist Goal (LTG) Pt will be able to perform at least 5 squats and lift at least 10# from the ground to at least chest height in order to perform job functions, if appropriate LTG Duration 12 weeks Four Impairment gait Impairment must be able to squat for return to job Short Term Goal (STG) Pt will be able to ambulate without AD at least community distances (at least 800 ft) with normal gait mechanics STG Duration 6 weeks Ancillary Specialist Goal (LTG) Pt will be able to ambulate at least 1000 ft without AD in order to demonstrate improved ADL tolerance and ability to ambulate in community LTG Duration 12 weeks Three Impairment standing Impairment using FWW (pre-operative 6 MWT 1095 ft) Short Term Goal (STG) Pt will be able to stand with or without AD for at least 30 minutes without increase in baseline pain STG Duration 8 weeks Intermediate Goal (LTG) Pt will be able to stand without AD for at least 1 hour without increase in baseline pain in order to return to work LTG Duration 12 weeks Two Impairment strength Impairment needs to be able to stand for at least 2 hours Short Term Goal (STG) Pt will increase L hip flex/ abd/ext strength to at least 4 /5 MMT in order to demonstrate increased strength for standing and ADLs STG Duration 6 weeks Intermediate Goal (LTG) Pt will increase L hip flex/ abd/ext strength to at least 4 +/5 MMT in order to demonstrate increased strength for standing and ADLs LTG Duration 12 weeks One Impairment ROM Short Term Goal (STG) Pt will increase L hip flexion to at least 90 deg for gait, stairs, and transfers STG Duration 6 weeks Ancillary Specialist Goal (LTG) Pt will increase L hip flexion to at least 110 deg in order to perform gait, stairs, and transfers LTG Duration 12 weeks Assessment Summary Assessment Pt tolerated session well and demonstrates improved quad control with Uzbek e-stim. She is able to initiate SLR through small range without assistance today. However, pt still reports anterior hip pain with L swing, hip flexion ; less than previous sessions. Demos improved hip abduction range in supine and standing. Progressed to resisted sit to stand without hand assist and resisted side steps with level 1 band around thighs.Educated to wear shoe completely on foot for safety or non-skid sock especially at home. Recommended pt bring spc with FWW next session for gait training. Pt with small + trendelenburg but able to stand 10 sec without LOB and no hand support; however, demos increased sway. Pt would benefit from skilled PT for L hip strengthening and ROM in order to improve symptom management and improve activity tolerance. Physical Therapy Plan Frequency and Duration Frequency of Treatment 1-2x/wk Duration of treatment (weeks) 12 Plan of Care Start Date 08/07/23 Plan of Care End Date 11/02/23 Therapeutic Interventions Therapeutic Interventions Balance Training,Gait Training ,Home Exercise Program,Joint Mobilizations,Manual Therapy, Neuromuscular Re-education, Orthotic/Prosthetic Management ,Patient/Caregiver Education, Self-Care/Home Management, Sensory Integration,Soft Tissue Mobilization,Taping, Therapeutic Activities, Therapeutic Exercises Modalities Cold Pack/Ice Massage,Electric Stimulation,Hot Packs, Ultrasound,Vasopneumatic Devices Next Visit Focus/Plan Next Note Type Treatment Note Next Visit Plan anterior hip precautions, WBAT SLR, abd in sitting/supine/ stand, side steps, march in sitting and stand, SLS Gait training with spc, transition to spc vs FWW if no trendelenburg and SLS > 5-10 sec/pain free Continue: E-stim on quad with quad set,SAQ&LAQ as needed, review seated vs standing may, sit to stand from elevated surface w/ decreased hand support, side step w/ band if jay review Sit to stand to HEP, transfers, gait with FWW, stairs, Reassess SLR, possibly add band to side stepping. HSC, seated heel slides
--- NOTE | 2023-08-31 08:30 | PT-OP ANOTE ---
ALEXANDER Jackson called [facility], spoke with Triage nurse regarding if Dr Wills is still keeping Anterior Hip precautions in place. Nurse submitted message requesting response next week. She suggested in meatime continue precautions knowing 08/23/23 office note scanned in states slow progress gait 4WW/SPC use. Pt has follow up appt in 2 mo, [place] through September.
--- NOTE | 2023-08-31 09:46 | PT.OTN ---
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 She had an anterior approach, currently has anterior hip precautions. Pt reports that surgery went without complication, but she spent a couple of days in the hospital due to low blood pressure. She is currently on blood pressure medication, which she does not normally take. Pt has been performing heel slides, ankle pumps. Pt is having most difficulty with getting in and out of bed. She is using a FWW for mobility but has been trying to take steps without RW as able. She is having most difficulty with dressing, standing, bed mobility, sleeping. Pt is planning to return to work on 09/19 and will need to work 4 hr shifts (sand 4 hrs, lifting up to 40#, bending and reaching for stocking). Pt reports that over the weekend, she got very sick and had to lie on her R side, so her L hip hurts more than normal now . She states that she spoke to Dr. Wills, who thinks it's a strained muscle and not dislocated. Pt reports tingling at her toes on LLE, which was not present before surgery. 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 Wanting to work on SPC use today. PT-OP-D Balance Start: 06/05/23 10:31 Freq: Status: Active Protocol: Document 06/05/23 10:31 NM (Rec: 06/05/23 12:16 NM [id number]) Balance Tests Single Limb Standing Single Limb- Right 3 seconds, increased sway Single Limb- Left 1 second, painful and increased sway Tandem Tandem Standing 5 seconds; difficulty achieving, painful on LLE PT-OP-E Functional Tests Start: 06/05/23 10:31 Freq: Status: Active Protocol: Document 06/05/23 10:31 NM (Rec: 06/05/23 12:16 NM [id number]) Functional Tests 6 Minute Walk Test Distance 1095 ft Device Used gait belt Comments antalgic, reports increased pain, decrease L stance, trunk lean L 30 Second Sit to Stand Test Score 12 Comments hip pain Five Times Sit to Stand Test Score 13 sec Comments 20, hip pain PT-OP-F Manual Assessment Start: 06/05/23 10:31 Freq: Status: Active Protocol: Document 06/05/23 10:31 NM (Rec: 06/05/23 12:16 NM [id number]) Manual Assessments Soft Tissue Assessment Soft Tissue Mobility Assessment Tight B hip flexors, heel cords Joint Mobility Assessment Joint Mobility Assessment Limited B hip mobility passively with flexion, ER, IR . LLE limited globally. Lacks terminal knee extension bilaterally PT-OP-G Mobility & Gait Start: 06/05/23 10:31 Freq: Status: Active Protocol: Document 08/07/23 09:01 NM (Rec: 08/07/23 16:53 NM [id number]) OP Mobility Evaluation Bed Mobility Rolling SBA Supine to and from Sit min A to bring LLE to EOB supine <> sit Transfers Sit to Stand close SBA to FWW Bed to Chair Transfers close SBA with FWW OP Gait Assessment Gait Gait Assistance Required: Standby Assistance Distance (Feet) 200 Assistive Devices Assistive Device Gait Belt,Front Wheeled Walker Gait Deviations General Gait Pattern Antalgic Factors Limiting Gait Function Factors Limiting Gait Function Decreased Sensation,Decreased Strength,Limited Range of Motion,Pain Comments Gait Comments decreased stride length and WBAT on LLE. Good upright posture PT-OP-H Neuro Start: 06/05/23 10:31 Freq: Status: Active Protocol: Document 06/05/23 10:31 NM (Rec: 06/05/23 12:16 NM [id number]) Sensation Evaluation Comments Summary Comments BLE intact to light touch sensation, but 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 PT-OP-J Posture/Palpation/Skin Start: 06/05/23 10:31 Freq: Status: Active Protocol: Document 08/07/23 09:01 NM (Rec: 08/07/23 16:53 NM [id number]) Palpation Assessment Location L hip Palpation Details Tenderness reported in anterior hip near groin, over incision. Did not palpate due to incision Skin Assessment Incisional Assessment Incision Appearance/Comments Incision covered by dressing, which is c/d/i. No signs of redness or infection around dressings Other Assessments Skin Assessment Comments L ankle figure 8 (edema): 50 cm PT-OP-K Range of Motion Start: 06/05/23 10:31 Freq: Status: Active Protocol: Document 08/07/23 09:01 NM (Rec: 08/07/23 09:48 NM [id number]) Hip Goniometric Range of Motion Hip Right Flexion w/Knee Flexed 90 Extension 15 Abduction 20 Internal Rotation 15 External Rotation 40 Left Comments Pre-surgery: 90 deg flex, 8 deg ext, 15 deg abd, 15 deg IR , 15 deg ER; pain with ER/IR, abd, flex, ext, add; hamstring 150 deg 08/06: did not measure ROM due to hip precautions PT-OP-L Special Tests Start: 06/05/23 10:31 Freq: Status: Active Protocol: Document 06/05/23 10:31 NM (Rec: 06/05/23 12:16 NM [id number]) Special Tests Hip Special Tests Straight Leg Raise Test Results + Comments unable to lift LLE Log Roll Test Test Results + SANTOS Test Results + Comments L PT-OP-M Strength Start: 06/05/23 10:31 Freq: Status: Active Protocol: Document 08/07/23 09:01 NM (Rec: 08/07/23 09:48 NM [id number]) Hip Strength Hip Manual Muscle Testing Right Flexion (L2) 4- Good- Extension (S1) 3+ Fair+ Abduction 4- Good- Adduction 4 Good External Rotation 4 Good Internal Rotation 4- Good- Left Comments pre-surgery: pain with ER/IR/ Flex; 3+/5 with flex/ext/ER/IR ; 4-/5 abd; 4/5 ADD 08/07/23: did not assess due to hip precuations Knee Strength Knee Manual Muscle Testing Right Flexion (S2) 4 Good Extension (L3) 4 Good Left Flexion (S2) 4 Good Extension (L3) 4- Good- PT-OP-Q Treatments Start: 06/05/23 10:31 Freq: Status: Active Protocol: Document 08/31/23 09:05 SP (Rec: 08/31/23 10:33 SP [id number]) Therapeutic Exercises Sitting Exercises hip abduction Sitting Exercise Name isometric Side bilateral Resistance TB #1 at thighs Equipment Used 25-50% effort Reps/Minutes 2x5 10 hold Comments PT hand provide resistance, then pt hands; pain free Standing Exercises TKE Standing Exercise Name trialed in PT Side left Resistance AROM isometric quad Equipment Used back to wall, small ball behind knee Reps/Minutes 10 SH x10 Comments cued quad contraction L knee not locked- tired mid quad hip abduction Standing Exercise Name Initated in PT: alternating Side bilateral Resistance AROM Equipment Used near rail Reps/Minutes 2x10 Comments pnfree range, soft TKE stance LE, slower pace, improved stability&form may Standing Exercise Name alternate BLE Equipment Used SPC light contact, near rail Reps/Minutes 2x10 Comments cued to remain w/i pain free range- great form- soft TKE L side step Side bilateral Resistance level 1 band around thighs> ankles Equipment Used near rail PRN contact Reps/Minutes 4x8 ft Comments cued allow soft knee flexion for ft clear lead sit to stand with UE use Side bilateral Resistance level 1 band around thighs to limited valgus Equipment Used arms across chest Reps/Minutes 10 Comments improved form, cued increase knees apart asc>desc Gait Training Gait Activity spc Description normal gait Device Used spc Level of Assistance close SBA Surface stable Distance/Duration 340 ft around clinic, front mirror Treatment Focus Level pelvis, midline stability Comments Demos good sequencing with distance, cued tall, rhomboid & core engagement, increase MICHELE, converting operator RUE WB on cane- Better L soft knee improved stability post ex vs pre ex slight wobble midstance phase. Ed for focused awareness when doing other tasks to allow safety foot clearance and midline stabiltiy. Had 2 L lateral over wt shift initial 20 ft but with corrections good form rest distance. PT-OP-R Modalities Start: 06/05/23 10:31 Freq: Status: Active Protocol: Document 08/31/23 09:05 SP (Rec: 08/31/23 10:33 SP [id number]) Electric Stimulation Electric Stimulation Tunisian stim L leg Body Location L quad (VMO and RF) Intensity 29 Cycle 10/10 Ramp 1.0 Comments CO /c SLR x2 min (needed 5%A maintain lift), LAQ 4 min, seated may x2 min PT-OP-T Assessment and Plan Start: 06/05/23 10:31 Freq: Status: Active Protocol: Document 08/31/23 09:05 SP (Rec: 08/31/23 10:33 SP [id number]) Physical Therapy Assessment Goals Five Impairment squat Impairment must be able to squat for return to job Short Term Goal (STG) Pt will be able to perform at least 10 bilateral squats without increase in baseline pain or LOB in order to demonstrate increased BLE strength for transfers, ADLs, return to work if appropriate STG Duration 6 weeks Tableau Report Developer Goal (LTG) Pt will be able to perform at least 5 squats and lift at least 10# from the ground to at least chest height in order to perform job functions, if appropriate LTG Duration 12 weeks Four Impairment gait Impairment must be able to squat for return to job Short Term Goal (STG) Pt will be able to ambulate without AD at least community distances (at least 800 ft) with normal gait mechanics STG Duration 6 weeks Tableau Report Developer Goal (LTG) Pt will be able to ambulate at least 1000 ft without AD in order to demonstrate improved ADL tolerance and ability to ambulate in community LTG Duration 12 weeks Three Impairment standing Impairment using FWW (pre-operative 6 MWT 1095 ft) Short Term Goal (STG) Pt will be able to stand with or without AD for at least 30 minutes without increase in baseline pain STG Duration 8 weeks Prison Goal (LTG) Pt will be able to stand without AD for at least 1 hour without increase in baseline pain in order to return to work LTG Duration 12 weeks Two Impairment strength Impairment needs to be able to stand for at least 2 hours Short Term Goal (STG) Pt will increase L hip flex/ abd/ext strength to at least 4 /5 MMT in order to demonstrate increased strength for standing and ADLs STG Duration 6 weeks Prison Goal (LTG) Pt will increase L hip flex/ abd/ext strength to at least 4 +/5 MMT in order to demonstrate increased strength for standing and ADLs LTG Duration 12 weeks One Impairment ROM Short Term Goal (STG) Pt will increase L hip flexion to at least 90 deg for gait, stairs, and transfers STG Duration 6 weeks Prison Goal (LTG) Pt will increase L hip flexion to at least 110 deg in order to perform gait, stairs, and transfers LTG Duration 12 weeks Assessment Summary Assessment Pt tolerated tx well, good quad contraction during Tunisian Stim LAQ, very challenged with strength SLR elevation with Tunisian stim support, needed additional support to leg clearance. Improved LLE stability stance time after cues for postural and core&hipabd engagement during ther ex and gait using SPC. Initially LOB but self recovery L initial distance / c SPC, improved rest of distance with occasional cuing . Physical Therapy Plan Frequency and Duration Frequency of Treatment 1-2x/wk Duration of treatment (weeks) 12 Plan of Care Start Date 08/07/23 Plan of Care End Date 11/02/23 Therapeutic Interventions Therapeutic Interventions Balance Training,Gait Training ,Home Exercise Program,Joint Mobilizations,Manual Therapy, Neuromuscular Re-education, Orthotic/Prosthetic Management ,Patient/Caregiver Education, Self-Care/Home Management, Sensory Integration,Soft Tissue Mobilization,Taping, Therapeutic Activities, Therapeutic Exercises Modalities Cold Pack/Ice Massage,Electric Stimulation,Hot Packs, Ultrasound,Vasopneumatic Devices Next Visit Focus/Plan Next Note Type Treatment Note Next Visit Plan anterior hip precautions, WBAT- check received if still update. Continue Tunisian stim and SLR, abd in sitting/supine/stand, side steps, march in sitting and stand, SLS Continue gait training with spc TKE and midline trunk stability, next check if can full transition to spc vs FWW if no trendelenburg and SLS > 5-10 sec/pain free Continue: E-stim on quad with quad set,SAQ&LAQ as needed, review seated vs standing may, sit to stand from elevated surface w/ decreased hand support, side step w/ band if jay review Sit to stand to HEP, transfers, gait with FWW, stairs, Reassess SLR, possibly add band to side stepping. HSC, seated heel slides
--- NOTE | 2023-09-03 09:01 | PT.OTN ---
Current Diagnoses Bilateral primary osteoarthritis of hip (09/03/23) Unilateral primary osteoarthritis, left hip (09/03/23) Other lack of coordination (09/03/23) Weakness (09/03/23) Physical Therapy Treatment Note PT-OP-A Visit Information Start: 06/05/23 10:31 Freq: Status: Active Protocol: Document 09/03/23 08:05 AB (Rec: 09/03/23 08:29 AB [id number]) Out-Patient Physical Therapy Visit Information Visit Information Visit Type Treatment Note Visit Note 10/19 since re-eval Visit Start Time 08:15 Visit Stop Time 08:58 Visit Number 14 Number of TRANSPORTATION REFRIGERATION TECHNICIAN Visits 2 Evaluation Information Evaluation Date 08/07/23 Precautions Precautions Anterior hip precautions: no hip ext, no bridging, no prone , no hip ER beyond neutral PT-OP-B Current Condition Start: 06/05/23 10:31 Freq: Status: Active Protocol: Document 08/07/23 09:01 NM (Rec: 08/07/23 16:53 NM [id number]) Current Condition History of Current Condition Onset Date DOS 07/27/23 Current Complaints pain, mobility History of Current Condition Pt s/p L DAVID on 07/27/23. She had an anterior approach, currently has anterior hip precautions. Pt reports that surgery went without complication, but she spent a couple of days in the hospital due to low blood pressure. She is currently on blood pressure medication, which she does not normally take. Pt has been performing heel slides, ankle pumps. Pt is having most difficulty with getting in and out of bed. She is using a FWW for mobility but has been trying to take steps without RW as able. She is having most difficulty with dressing, standing, bed mobility, sleeping. Pt is planning to return to work on 09/19 and will need to work 4 hr shifts (sand 4 hrs, lifting up to 40#, bending and reaching for stocking). Pt reports that over the weekend, she got very sick and had to lie on her R side, so her L hip hurts more than normal now . She states that she spoke to Dr. Wills, who thinks it's a strained muscle and not dislocated. Pt reports tingling at her toes on LLE, which was not present before surgery. 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 (2 hrs at time with 10 minute break), lifting up to 40#, bending and stocking Current Functional Impairments (Reported) Functional Limitations- Mobility/Gait 4 stairs to enter home, has rails; not using FWW to enter, only rails Functional Limitations- Other using walk in shower, grab bars in shower, shower stool PT-OP-C Subjective Start: 06/05/23 10:31 Freq: Status: Active Protocol: Document 09/03/23 08:05 AB (Rec: 09/03/23 08:29 AB [id number]) OP-PT Subjective Patient Comments Patient Comments Patient reports she is better, continues to have difficutly with the out to the side exercise and pain with attempting a reciprocal pattern on steps. SLS left LE 2 seconds with excessive ipsilateral trunk sidebend and a tinge referring to pain. Quad lag with SLR left LE. Patient reports she is waiting to hear from therapist regarding precautions. PT-OP-D Balance Start: 06/05/23 10:31 Freq: Status: Active Protocol: Document 06/05/23 10:31 NM (Rec: 06/05/23 12:16 NM [id number]) Balance Tests Single Limb Standing Single Limb- Right 3 seconds, increased sway Single Limb- Left 1 second, painful and increased sway Tandem Tandem Standing 5 seconds; difficulty achieving, painful on LLE PT-OP-E Functional Tests Start: 06/05/23 10:31 Freq: Status: Active Protocol: Document 06/05/23 10:31 NM (Rec: 06/05/23 12:16 NM [id number]) Functional Tests 6 Minute Walk Test Distance 1095 ft Device Used gait belt Comments antalgic, reports increased pain, decrease L stance, trunk lean L 30 Second Sit to Stand Test Score 12 Comments hip pain Five Times Sit to Stand Test Score 13 sec Comments 20, hip pain PT-OP-F Manual Assessment Start: 06/05/23 10:31 Freq: Status: Active Protocol: Document 06/05/23 10:31 NM (Rec: 06/05/23 12:16 NM [id number]) Manual Assessments Soft Tissue Assessment Soft Tissue Mobility Assessment Tight B hip flexors, heel cords Joint Mobility Assessment Joint Mobility Assessment Limited B hip mobility passively with flexion, ER, IR . LLE limited globally. Lacks terminal knee extension bilaterally PT-OP-G Mobility & Gait Start: 06/05/23 10:31 Freq: Status: Active Protocol: Document 08/07/23 09:01 NM (Rec: 08/07/23 16:53 NM [id number]) OP Mobility Evaluation Bed Mobility Rolling SBA Supine to and from Sit min A to bring LLE to EOB supine <> sit Transfers Sit to Stand close SBA to FWW Bed to Chair Transfers close SBA with FWW OP Gait Assessment Gait Gait Assistance Required: Standby Assistance Distance (Feet) 200 Assistive Devices Assistive Device Gait Belt,Front Wheeled Walker Gait Deviations General Gait Pattern Antalgic Factors Limiting Gait Function Factors Limiting Gait Function Decreased Sensation,Decreased Strength,Limited Range of Motion,Pain Comments Gait Comments decreased stride length and WBAT on LLE. Good upright posture PT-OP-H Neuro Start: 06/05/23 10:31 Freq: Status: Active Protocol: Document 06/05/23 10:31 NM (Rec: 06/05/23 12:16 NM [id number]) Sensation Evaluation Comments Summary Comments BLE intact to light touch sensation, but 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 PT-OP-J Posture/Palpation/Skin Start: 06/05/23 10:31 Freq: Status: Active Protocol: Document 08/07/23 09:01 NM (Rec: 08/07/23 16:53 NM [id number]) Palpation Assessment Location L hip Palpation Details Tenderness reported in anterior hip near groin, over incision. Did not palpate due to incision Skin Assessment Incisional Assessment Incision Appearance/Comments Incision covered by dressing, which is c/d/i. No signs of redness or infection around dressings Other Assessments Skin Assessment Comments L ankle figure 8 (edema): 50 cm PT-OP-K Range of Motion Start: 06/05/23 10:31 Freq: Status: Active Protocol: Document 08/07/23 09:01 NM (Rec: 08/07/23 09:48 NM [id number]) Hip Goniometric Range of Motion Hip Right Flexion w/Knee Flexed 90 Extension 15 Abduction 20 Internal Rotation 15 External Rotation 40 Left Comments Pre-surgery: 90 deg flex, 8 deg ext, 15 deg abd, 15 deg IR , 15 deg ER; pain with ER/IR, abd, flex, ext, add; hamstring 150 deg 08/06: did not measure ROM due to hip precautions PT-OP-L Special Tests Start: 06/05/23 10:31 Freq: Status: Active Protocol: Document 06/05/23 10:31 NM (Rec: 06/05/23 12:16 NM [id number]) Special Tests Hip Special Tests Straight Leg Raise Test Results + Comments unable to lift LLE Log Roll Test Test Results + SANTOS Test Results + Comments L PT-OP-M Strength Start: 06/05/23 10:31 Freq: Status: Active Protocol: Document 08/07/23 09:01 NM (Rec: 08/07/23 09:48 NM [id number]) Hip Strength Hip Manual Muscle Testing Right Flexion (L2) 4- Good- Extension (S1) 3+ Fair+ Abduction 4- Good- Adduction 4 Good External Rotation 4 Good Internal Rotation 4- Good- Left Comments pre-surgery: pain with ER/IR/ Flex; 3+/5 with flex/ext/ER/IR ; 4-/5 abd; 4/5 ADD 08/07/23: did not assess due to hip precuations Knee Strength Knee Manual Muscle Testing Right Flexion (S2) 4 Good Extension (L3) 4 Good Left Flexion (S2) 4 Good Extension (L3) 4- Good- PT-OP-Q Treatments Start: 06/05/23 10:31 Freq: Status: Active Protocol: Document 09/03/23 08:05 AB (Rec: 09/03/23 08:29 AB [id number]) Gym Equipment Shuttle Rebound red Exercise Details WBOS, stagger, mini squat Reps/Duration 5 min Comments with head turns, visual scanning during WBOS and stagger, counting back by 3's with WBOS Therapeutic Exercises Supine Exercises hamstring stretch Supine Exercise Name from hooklying Resistance left LE Reps/Minutes 60 sec X 2 Comments prior to NMES quad AA SLR Supine Exercise Name AROM Side left Reps/Minutes X10 Comments post e stime Sitting Exercises hip abduction Side bilateral Equipment Used 25-50% effort Reps/Minutes one one minute hold Comments with UE's Seated SLR Side left Reps/Minutes X10 Comments verbal cues LAQ Side left Resistance level one band light blue Reps/Minutes X10 without band X 10 and X 6 with band Comments verbal cues to fully extend the knee Standing Exercises side step Side bilateral Resistance level 2 band around thighs Equipment Used near rail PRN contact Reps/Minutes 10 feet X 6 Comments Verbal cues to avoid toeing out sit to stand with UE use Side bilateral Resistance level 2 band around thighs to limited valgus Equipment Used with UE use Reps/Minutes X10 X3 Comments VC to keep tension on band Neuro Re-Education Treatment Balance Activities thera pads Details 1. WOBS with scanning 2. double pad stepup Reps/Duration one minute WBOS then X 10 for step up Comments CGA hands above bars blue cushion Details marching and Romberg with eyes closed Reps/Duration X10 each Comments hands above bars CGA PT-OP-R Modalities Start: 06/05/23 10:31 Freq: Status: Active Protocol: Document 09/03/23 08:05 AB (Rec: 09/03/23 08:29 AB [id number]) Electric Stimulation Electric Stimulation Micronesian stim L leg Body Location L quad (VMO and RF) Intensity 18 Cycle 10/10 Ramp 0.5 Comments with SLR, quad set, LAQ PT-OP-T Assessment and Plan Start: 06/05/23 10:31 Freq: Status: Active Protocol: Document 09/03/23 08:05 AB (Rec: 09/03/23 08:29 AB [id number]) Physical Therapy Assessment Goals Five Impairment squat Impairment must be able to squat for return to job Short Term Goal (STG) Pt will be able to perform at least 10 bilateral squats without increase in baseline pain or LOB in order to demonstrate increased BLE strength for transfers, ADLs, return to work if appropriate STG Duration 6 weeks Penitentiary Goal (LTG) Pt will be able to perform at least 5 squats and lift at least 10# from the ground to at least chest height in order to perform job functions, if appropriate LTG Duration 12 weeks Four Impairment gait Impairment must be able to squat for return to job Short Term Goal (STG) Pt will be able to ambulate without AD at least community distances (at least 800 ft) with normal gait mechanics STG Duration 6 weeks Penitentiary Goal (LTG) Pt will be able to ambulate at least 1000 ft without AD in order to demonstrate improved ADL tolerance and ability to ambulate in community LTG Duration 12 weeks Three Impairment standing Impairment using FWW (pre-operative 6 MWT 1095 ft) Short Term Goal (STG) Pt will be able to stand with or without AD for at least 30 minutes without increase in baseline pain STG Duration 8 weeks Meteorologist Liaison Goal (LTG) Pt will be able to stand without AD for at least 1 hour without increase in baseline pain in order to return to work LTG Duration 12 weeks Two Impairment strength Impairment needs to be able to stand for at least 2 hours Short Term Goal (STG) Pt will increase L hip flex/ abd/ext strength to at least 4 /5 MMT in order to demonstrate increased strength for standing and ADLs STG Duration 6 weeks Meteorologist Liaison Goal (LTG) Pt will increase L hip flex/ abd/ext strength to at least 4 +/5 MMT in order to demonstrate increased strength for standing and ADLs LTG Duration 12 weeks One Impairment ROM Short Term Goal (STG) Pt will increase L hip flexion to at least 90 deg for gait, stairs, and transfers STG Duration 6 weeks Meteorologist Liaison Goal (LTG) Pt will increase L hip flexion to at least 110 deg in order to perform gait, stairs, and transfers LTG Duration 12 weeks Assessment Summary Assessment Pt able to hold SLR during raise, but slight lag with lower during NMES. Patient reports feeling a little sore end of session. Physical Therapy Plan Frequency and Duration Frequency of Treatment 1-2x/wk Duration of treatment (weeks) 12 Plan of Care Start Date 08/07/23 Plan of Care End Date 11/02/23 Next Visit Focus/Plan Next Note Type Treatment Note Next Visit Plan anterior hip precautions, WBAT- check received if still update. Continue Micronesian stim and SLR, abd in sitting/supine/stand, side steps, march in sitting and stand, SLS Continue gait training with spc TKE and midline trunk stability, next check if can full transition to spc vs FWW if no trendelenburg and SLS > 5-10 sec/pain free Continue: E-stim on quad with quad set,SAQ&LAQ as needed, review seated vs standing may, sit to stand from elevated surface w/ decreased hand support, side step w/ band if jay review Sit to stand to HEP, transfers, gait with FWW, stairs, Reassess SLR, HSC, seated heel slides Assess jay to sit to stand 3X 10 every other day with band
--- NOTE | 2023-09-06 10:06 | PT.OTN ---
Current Diagnoses Bilateral primary osteoarthritis of hip (09/06/23) Unilateral primary osteoarthritis, left hip (09/06/23) Other lack of coordination (09/06/23) Weakness (09/06/23) Physical Therapy Treatment Note PT-OP-A Visit Information Start: 06/05/23 10:31 Freq: Status: Active Protocol: Document 09/06/23 08:13 NM (Rec: 09/06/23 09:03 NM [id number]) Out-Patient Physical Therapy Visit Information Visit Information Visit Type Treatment Note Visit Note 11/19 since re-eval Visit Start Time 08:14 Visit Stop Time 08:54 Visit Number 15 Evaluation Information Evaluation Date 08/07/23 Precautions Precautions Anterior hip precautions: no hip ext, no bridging, no prone , no hip ER beyond neutral PT-OP-B Current Condition Start: 06/05/23 10:31 Freq: Status: Active Protocol: Document 08/07/23 09:01 NM (Rec: 08/07/23 16:53 NM [id number]) Current Condition History of Current Condition Onset Date DOS 07/27/23 Current Complaints pain, mobility History of Current Condition Pt s/p L DAVID on 07/27/23. She had an anterior approach, currently has anterior hip precautions. Pt reports that surgery went without complication, but she spent a couple of days in the hospital due to low blood pressure. She is currently on blood pressure medication, which she does not normally take. Pt has been performing heel slides, ankle pumps. Pt is having most difficulty with getting in and out of bed. She is using a FWW for mobility but has been trying to take steps without RW as able. She is having most difficulty with dressing, standing, bed mobility, sleeping. Pt is planning to return to work on 09/19 and will need to work 4 hr shifts (sand 4 hrs, lifting up to 40#, bending and reaching for stocking). Pt reports that over the weekend, she got very sick and had to lie on her R side, so her L hip hurts more than normal now . She states that she spoke to Dr. Wills, who thinks it's a strained muscle and not dislocated. Pt reports tingling at her toes on LLE, which was not present before surgery. 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 (2 hrs at time with 10 minute break), lifting up to 40#, bending and stocking Current Functional Impairments (Reported) Functional Limitations- Mobility/Gait 4 stairs to enter home, has rails; not using FWW to enter, only rails Functional Limitations- Other using walk in shower, grab bars in shower, shower stool PT-OP-C Subjective Start: 06/05/23 10:31 Freq: Status: Active Protocol: Document 09/06/23 08:13 NM (Rec: 09/06/23 09:03 NM [id number]) OP-PT Subjective Patient Comments Patient Comments Pt reports achiness with walking, reports 3/4-10 L hip pain in morning (has already done exercise). Educated not to perform HEP prior to attending PT. Still has trouble with SLR, marching ( standing). She reports no pain with walking. States that she still has anterior groin pain with exercises and walking. uses spc PT-OP-D Balance Start: 06/05/23 10:31 Freq: Status: Active Protocol: Document 06/05/23 10:31 NM (Rec: 06/05/23 12:16 NM [id number]) Balance Tests Single Limb Standing Single Limb- Right 3 seconds, increased sway Single Limb- Left 1 second, painful and increased sway Tandem Tandem Standing 5 seconds; difficulty achieving, painful on LLE PT-OP-E Functional Tests Start: 06/05/23 10:31 Freq: Status: Active Protocol: Document 06/05/23 10:31 NM (Rec: 06/05/23 12:16 NM [id number]) Functional Tests 6 Minute Walk Test Distance 1095 ft Device Used gait belt Comments antalgic, reports increased pain, decrease L stance, trunk lean L 30 Second Sit to Stand Test Score 12 Comments hip pain Five Times Sit to Stand Test Score 13 sec Comments 20, hip pain PT-OP-F Manual Assessment Start: 06/05/23 10:31 Freq: Status: Active Protocol: Document 06/05/23 10:31 NM (Rec: 06/05/23 12:16 NM [id number]) Manual Assessments Soft Tissue Assessment Soft Tissue Mobility Assessment Tight B hip flexors, heel cords Joint Mobility Assessment Joint Mobility Assessment Limited B hip mobility passively with flexion, ER, IR . LLE limited globally. Lacks terminal knee extension bilaterally PT-OP-G Mobility & Gait Start: 06/05/23 10:31 Freq: Status: Active Protocol: Document 08/07/23 09:01 NM (Rec: 08/07/23 16:53 NM [id number]) OP Mobility Evaluation Bed Mobility Rolling SBA Supine to and from Sit min A to bring LLE to EOB supine <> sit Transfers Sit to Stand close SBA to FWW Bed to Chair Transfers close SBA with FWW OP Gait Assessment Gait Gait Assistance Required: Standby Assistance Distance (Feet) 200 Assistive Devices Assistive Device Gait Belt,Front Wheeled Walker Gait Deviations General Gait Pattern Antalgic Factors Limiting Gait Function Factors Limiting Gait Function Decreased Sensation,Decreased Strength,Limited Range of Motion,Pain Comments Gait Comments decreased stride length and WBAT on LLE. Good upright posture PT-OP-H Neuro Start: 06/05/23 10:31 Freq: Status: Active Protocol: Document 06/05/23 10:31 NM (Rec: 06/05/23 12:16 NM [id number]) Sensation Evaluation Comments Summary Comments BLE intact to light touch sensation, but 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 PT-OP-J Posture/Palpation/Skin Start: 06/05/23 10:31 Freq: Status: Active Protocol: Document 08/07/23 09:01 NM (Rec: 08/07/23 16:53 NM [id number]) Palpation Assessment Location L hip Palpation Details Tenderness reported in anterior hip near groin, over incision. Did not palpate due to incision Skin Assessment Incisional Assessment Incision Appearance/Comments Incision covered by dressing, which is c/d/i. No signs of redness or infection around dressings Other Assessments Skin Assessment Comments L ankle figure 8 (edema): 50 cm PT-OP-K Range of Motion Start: 06/05/23 10:31 Freq: Status: Active Protocol: Document 09/06/23 08:13 NM (Rec: 09/06/23 09:03 NM [id number]) Hip Goniometric Range of Motion Hip Left Comments Pre-surgery: 90 deg flex, 8 deg ext, 15 deg abd, 15 deg IR , 15 deg ER; pain with ER/IR, abd, flex, ext, add; hamstring 150 deg 08/06: did not measure ROM due to hip precautions 09/06/23: 100 deg hip flexion, 15 deg hip abd PT-OP-L Special Tests Start: 06/05/23 10:31 Freq: Status: Active Protocol: Document 06/05/23 10:31 NM (Rec: 06/05/23 12:16 NM [id number]) Special Tests Hip Special Tests Straight Leg Raise Test Results + Comments unable to lift LLE Log Roll Test Test Results + SANTOS Test Results + Comments L PT-OP-M Strength Start: 06/05/23 10:31 Freq: Status: Active Protocol: Document 08/07/23 09:01 NM (Rec: 08/07/23 09:48 NM [id number]) Hip Strength Hip Manual Muscle Testing Right Flexion (L2) 4- Good- Extension (S1) 3+ Fair+ Abduction 4- Good- Adduction 4 Good External Rotation 4 Good Internal Rotation 4- Good- Left Comments pre-surgery: pain with ER/IR/ Flex; 3+/5 with flex/ext/ER/IR ; 4-/5 abd; 4/5 ADD 08/07/23: did not assess due to hip precuations Knee Strength Knee Manual Muscle Testing Right Flexion (S2) 4 Good Extension (L3) 4 Good Left Flexion (S2) 4 Good Extension (L3) 4- Good- PT-OP-Q Treatments Start: 06/05/23 10:31 Freq: Status: Active Protocol: Document 09/06/23 08:13 NM (Rec: 09/06/23 09:03 NM [id number]) Therapeutic Exercises Supine Exercises AA SLR Supine Exercise Name AROM Side left Reps/Minutes 10 Comments challenging; cued maintain QS throughout entire quad set Supine Exercise Name start of session, prior to SLR Side left Equipment Used small towel roll under Reps/Minutes 5x5 Comments good activation but little muscle definition Sitting Exercises hip abduction Sitting Exercise Name 1. isometric hold, 2. L hip abduction isotonic Side bilateral Resistance level 2 band at thighs Equipment Used 25-50% effort Reps/Minutes 1. 60, 2. 2x10 Comments pain free, cued max abduction ROM Seated SLR Sitting Exercise Name LAQ> Seated SLR Side left Reps/Minutes 5 Comments verbal cues; very challenging for pt, small lift off table LAQ Side left Resistance 2# ankle weight Reps/Minutes 2x10 with 5 Comments verbal cues to fully extend the knee; upright Standing Exercises march Standing Exercise Name step tap to 4 step Side bilateral Equipment Used 1 finger on 1 hand on rail for balance Reps/Minutes 10 ea Comments cued slower for control; good upright trunk side step Standing Exercise Name 1. stepping, 2. step over 2 in step Side bilateral Resistance 2# ankle weight Equipment Used near rail PRN contact Reps/Minutes 1. 2x10 ft, 2. 20 ea Comments Verbal cues to avoid toeing out; requires increased time sit to stand with UE use Standing Exercise Name 1. buttock tap to elevated plinth, 2. STS from mesh chair Side bilateral Resistance level 2>level 1 band at thighs to limit valgus Equipment Used no UE use Reps/Minutes 1. 2x8, 2. 5, very challenging Comments cued for ant weight shift Neuro Re-Education Treatment Balance Activities SLS Details bilateral Equipment 2 finger support Reps/Duration 3x10 Comments slight increase in L hip pain Self-Care/Home Management Treatment Education Patient Education Home Exercise Program Other Education HEP: step taps on stairs w/ rail (edu for close by , use rail for balance and gradually decrease to 1 finger contact for balance if feels stable), single leg stance with support on stable surface . No HO but verbally instructed pt to trial seated SLR during LAQ, d/c hip abd isometric in sitting with hand but to continue with band instead PT-OP-R Modalities Start: 06/05/23 10:31 Freq: Status: Active Protocol: Document 09/03/23 08:05 AB (Rec: 09/03/23 08:29 AB [id number]) Electric Stimulation Electric Stimulation Citizen Of [place] stim L leg Body Location L quad (VMO and RF) Intensity 18 Cycle 10/10 Ramp 0.5 Comments with SLR, quad set, LAQ PT-OP-T Assessment and Plan Start: 06/05/23 10:31 Freq: Status: Active Protocol: Document 09/06/23 08:13 NM (Rec: 09/06/23 09:03 NM [id number]) Physical Therapy Assessment Goals Five Impairment squat Impairment must be able to squat for return to job Short Term Goal (STG) Pt will be able to perform at least 10 bilateral squats without increase in baseline pain or LOB in order to demonstrate increased BLE strength for transfers, ADLs, return to work if appropriate STG Duration 6 weeks Section [employer] Property Manager Goal (LTG) Pt will be able to perform at least 5 squats and lift at least 10# from the ground to at least chest height in order to perform job functions, if appropriate LTG Duration 12 weeks Four Impairment gait Impairment must be able to squat for return to job Short Term Goal (STG) Pt will be able to ambulate without AD at least community distances (at least 800 ft) with normal gait mechanics STG Duration 6 weeks Section 8 Property Manager Goal (LTG) Pt will be able to ambulate at least 1000 ft without AD in order to demonstrate improved ADL tolerance and ability to ambulate in community LTG Duration 12 weeks Three Impairment standing Impairment using FWW (pre-operative 6 MWT 1095 ft) Short Term Goal (STG) Pt will be able to stand with or without AD for at least 30 minutes without increase in baseline pain STG Duration 8 weeks Section 8 Property Manager Goal (LTG) Pt will be able to stand without AD for at least 1 hour without increase in baseline pain in order to return to work LTG Duration 12 weeks Two Impairment strength Impairment needs to be able to stand for at least 2 hours Short Term Goal (STG) Pt will increase L hip flex/ abd/ext strength to at least 4 /5 MMT in order to demonstrate increased strength for standing and ADLs STG Duration 6 weeks Senior Care Goal (LTG) Pt will increase L hip flex/ abd/ext strength to at least 4 +/5 MMT in order to demonstrate increased strength for standing and ADLs LTG Duration 12 weeks One Impairment ROM Short Term Goal (STG) Pt will increase L hip flexion to at least 90 deg for gait, stairs, and transfers STG Duration 6 weeks Senior Care Goal (LTG) Pt will increase L hip flexion to at least 110 deg in order to perform gait, stairs, and transfers LTG Duration 12 weeks Assessment Summary Assessment Pt tolerated session well. Demonstrates improved tolerance for therapeutic exercise, but still limited in number of reps and fatigue. Pt requires cues for all exercises for control, resetting between ea rep for correct execution. Still challenged with lower depth of chair during STS due to BLE weakness, but able to perform limited reps. Initiated step taps and lateral step overs for both strengthening of global hip muscles and balance . Pt continues to have discomfort in anterior hip with hip flexion, but less in standing vs sitting. Continues to lack hip flexion strength in sitting vs supine, especially at end range flexion. Currently at 100 deg hip flexion AROM, an improvement. Has small increase in L hip pain with SLS, educated not to d/c spc yet due to pain and balance. Pt would benefit from skilled PT for L hip strengthening, gait, and balance training in order to return to PLOF. Physical Therapy Plan Frequency and Duration Frequency of Treatment 1-2x/wk Duration of treatment (weeks) 12 Plan of Care Start Date 08/07/23 Plan of Care End Date 11/02/23 Therapeutic Interventions Therapeutic Interventions Balance Training,Gait Training ,Home Exercise Program,Joint Mobilizations,Manual Therapy, Neuromuscular Re-education, Orthotic/Prosthetic Management ,Patient/Caregiver Education, Self-Care/Home Management, Sensory Integration,Soft Tissue Mobilization,Taping, Therapeutic Activities, Therapeutic Exercises Modalities Cold Pack/Ice Massage,Electric Stimulation,Hot Packs, Ultrasound,Vasopneumatic Devices Next Visit Focus/Plan Next Note Type Progress Note Next Visit Plan anterior hip precautions, WBAT- check received if still update. May, step up 4 if precautions gone, STS from lower surface, ball toss, gait w/o spc, [place]. sitting/supine /stand, side steps, may in sitting and stand, SLS Continue gait training with spc TKE and midline trunk stability, next check if can full transition to spc vs FWW if no trendelenburg and SLS > 5-10 sec/pain free Continue: E-stim on quad with quad set,SAQ&LAQ as needed, review seated vs standing may, sit to stand from elevated surface w/ decreased hand support, side step w/ band if ajy review Sit to stand to HEP, transfers, gait with FWW, stairs, Reassess SLR, HSC, seated heel slides Assess jay to sit to stand 3X 10 every other day with band
--- NOTE | 2023-09-06 10:21 | PT-OP ANOTE ---
PT called this am and left another message with triage nurse regarding pt's hip precautions. Pt will be 6 weeks post-op on 09/06. Dr. Wills's office has not returned PT or [employer]'s previous calls regarding same message
--- NOTE | 2023-09-07 13:14 | PT-OP ANOTE ---
Per message left with office staff on 09/06/23 at 1303, pt's anterior hip precautions are still in place, no update on when they will be lifted
--- NOTE | 2023-09-11 15:52 | PT.OTN ---
Current Diagnoses Bilateral primary osteoarthritis of hip (09/11/23) Unilateral primary osteoarthritis, left hip (09/11/23) Other lack of coordination (09/11/23) Weakness (09/11/23) Physical Therapy Treatment Note PT-OP-A Visit Information Start: 06/05/23 10:31 Freq: Status: Active Protocol: Document 09/11/23 07:26 NM (Rec: 09/11/23 07:27 NM [id number]) Out-Patient Physical Therapy Visit Information Visit Information Visit Type Progress Note Visit Note 12/19 since re-eval Visit Start Time 08:19 Visit Stop Time 08:59 Visit Number 16 Evaluation Information Evaluation Date 08/07/23 Precautions Precautions Anterior hip precautions: no hip ext, no bridging, no prone , no hip ER beyond neutral PT-OP-B Current Condition Start: 06/05/23 10:31 Freq: Status: Active Protocol: Document 08/07/23 09:01 NM (Rec: 08/07/23 16:53 NM [id number]) Current Condition History of Current Condition Onset Date DOS 07/27/23 Current Complaints pain, mobility History of Current Condition Pt s/p L DAVID on 07/27/23. She had an anterior approach, currently has anterior hip precautions. Pt reports that surgery went without complication, but she spent a couple of days in the hospital due to low blood pressure. She is currently on blood pressure medication, which she does not normally take. Pt has been performing heel slides, ankle pumps. Pt is having most difficulty with getting in and out of bed. She is using a FWW for mobility but has been trying to take steps without RW as able. She is having most difficulty with dressing, standing, bed mobility, sleeping. Pt is planning to return to work on 09/19 and will need to work 4 hr shifts (sand 4 hrs, lifting up to 40#, bending and reaching for stocking). Pt reports that over the weekend, she got very sick and had to lie on her R side, so her L hip hurts more than normal now . She states that she spoke to Dr. Wills, who thinks it's a strained muscle and not dislocated. Pt reports tingling at her toes on LLE, which was not present before surgery. 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 (2 hrs at time with 10 minute break), lifting up to 40#, bending and stocking Current Functional Impairments (Reported) Functional Limitations- Mobility/Gait 4 stairs to enter home, has rails; not using FWW to enter, only rails Functional Limitations- Other using walk in shower, grab bars in shower, shower stool PT-OP-C Subjective Start: 06/05/23 10:31 Freq: Status: Active Protocol: Document 09/11/23 07:26 NM (Rec: 09/11/23 07:28 NM [id number]) OP-PT Subjective Patient Comments Patient Comments Pt reports that she is sore on her L side yesterday for a colonoscopy. Presents with spc , reports soreness with hip flexion during advancing leg. States has been doing exercises that are hard, especially with side steps and step taps to step. PT-OP-D Balance Start: 06/05/23 10:31 Freq: Status: Active Protocol: Document 06/05/23 10:31 NM (Rec: 06/05/23 12:16 NM [id number]) Balance Tests Single Limb Standing Single Limb- Right 3 seconds, increased sway Single Limb- Left 1 second, painful and increased sway Tandem Tandem Standing 5 seconds; difficulty achieving, painful on LLE PT-OP-E Functional Tests Start: 06/05/23 10:31 Freq: Status: Active Protocol: Document 06/05/23 10:31 NM (Rec: 06/05/23 12:16 NM [id number]) Functional Tests 6 Minute Walk Test Distance 1095 ft Device Used gait belt Comments antalgic, reports increased pain, decrease L stance, trunk lean L 30 Second Sit to Stand Test Score 12 Comments hip pain Five Times Sit to Stand Test Score 13 sec Comments 20, hip pain PT-OP-F Manual Assessment Start: 06/05/23 10:31 Freq: Status: Active Protocol: Document 06/05/23 10:31 NM (Rec: 06/05/23 12:16 NM [id number]) Manual Assessments Soft Tissue Assessment Soft Tissue Mobility Assessment Tight B hip flexors, heel cords Joint Mobility Assessment Joint Mobility Assessment Limited B hip mobility passively with flexion, ER, IR . LLE limited globally. Lacks terminal knee extension bilaterally PT-OP-G Mobility & Gait Start: 06/05/23 10:31 Freq: Status: Active Protocol: Document 08/07/23 09:01 NM (Rec: 08/07/23 16:53 NM [id number]) OP Mobility Evaluation Bed Mobility Rolling SBA Supine to and from Sit min A to bring LLE to EOB supine <> sit Transfers Sit to Stand close SBA to FWW Bed to Chair Transfers close SBA with FWW OP Gait Assessment Gait Gait Assistance Required: Standby Assistance Distance (Feet) 200 Assistive Devices Assistive Device Gait Belt,Front Wheeled Walker Gait Deviations General Gait Pattern Antalgic Factors Limiting Gait Function Factors Limiting Gait Function Decreased Sensation,Decreased Strength,Limited Range of Motion,Pain Comments Gait Comments decreased stride length and WBAT on LLE. Good upright posture PT-OP-H Neuro Start: 06/05/23 10:31 Freq: Status: Active Protocol: Document 06/05/23 10:31 NM (Rec: 06/05/23 12:16 NM [id number]) Sensation Evaluation Comments Summary Comments BLE intact to light touch sensation, but 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 PT-OP-J Posture/Palpation/Skin Start: 06/05/23 10:31 Freq: Status: Active Protocol: Document 08/07/23 09:01 NM (Rec: 08/07/23 16:53 NM [id number]) Palpation Assessment Location L hip Palpation Details Tenderness reported in anterior hip near groin, over incision. Did not palpate due to incision Skin Assessment Incisional Assessment Incision Appearance/Comments Incision covered by dressing, which is c/d/i. No signs of redness or infection around dressings Other Assessments Skin Assessment Comments L ankle figure 8 (edema): 50 cm PT-OP-K Range of Motion Start: 06/05/23 10:31 Freq: Status: Active Protocol: Document 09/11/23 07:26 NM (Rec: 09/11/23 07:27 NM [id number]) Hip Goniometric Range of Motion Hip Left Flexion w/Knee Flexed 105 Abduction 20 Comments Pre-surgery: 90 deg flex, 8 deg ext, 15 deg abd, 15 deg IR , 15 deg ER; pain with ER/IR, abd, flex, ext, add; hamstring 150 deg 08/06: did not measure ROM due to hip precautions 09/06/23: 100 deg hip flexion, 15 deg hip abd 09/11/23: 105 deg hip flexion, 20 deg ABD PT-OP-L Special Tests Start: 06/05/23 10:31 Freq: Status: Active Protocol: Document 06/05/23 10:31 NM (Rec: 06/05/23 12:16 NM [id number]) Special Tests Hip Special Tests Straight Leg Raise Test Results + Comments unable to lift LLE Log Roll Test Test Results + SANTOS Test Results + Comments L PT-OP-M Strength Start: 06/05/23 10:31 Freq: Status: Active Protocol: Document 09/11/23 07:26 NM (Rec: 09/11/23 07:27 NM [id number]) Hip Strength Hip Manual Muscle Testing Left Flexion (L2) 3+ Fair+ Abduction 3+ Fair+ Adduction 3+ Fair+ External Rotation 3+ Fair+ Internal Rotation 3+ Fair+ Comments pre-surgery: pain with ER/IR/ Flex; 3+/5 with flex/ext/ER/IR ; 4-/5 abd; 4/5 ADD 08/07/23: did not assess due to hip precuations 09/11/23: 3+/5, minimal resistance against gravity PT-OP-Q Treatments Start: 06/05/23 10:31 Freq: Status: Active Protocol: Document 09/11/23 07:26 NM (Rec: 09/11/23 07:27 NM [id number]) Therapeutic Exercises Supine Exercises AA SLR Supine Exercise Name AROM Side left Reps/Minutes 2x10 Comments improved ROM and quad set; edu to quad set ea time quad set Supine Exercise Name with SAQ prior to SLR Side left Equipment Used ball under leg Reps/Minutes 10 with 2 Comments improved quad activation Standing Exercises TKE Side left Equipment Used medium blue ball Reps/Minutes 10x5 Comments post SLR march Standing Exercise Name step tap to 4 step: 1. fwd, 2 . lateral Side bilateral Resistance 2# ankle weight Equipment Used 1 finger on 1 hand on rail for balance Reps/Minutes 2x10 ea Comments cued slower for control; good upright trunk squat Standing Exercise Name mini-squat Side bilateral Resistance AROM Equipment Used B hand support (flat hand)- balance only Reps/Minutes 2x15 Comments small ROM to minimize hip ext, maintain precautions Manual Therapy Treatment Consent Patient gave verbal consent for manual Yes treatment Soft Tissue Mobilization scar mobilization Mobilization Type Rolling,Other Body Position Hooklying Comments Gentle rolling, lifting, oscillation, twisting of scar. More tender along distal portion, less tenderness as moving more proximal. Fewer adhesions to subcutaneous surfaces with scar mobilization and pt reports less anterior hip discomfort. Scar fully healed, no scabs. left hip Body Location quad/hip flexors Mobilization Type Rolling,Strumming,Other Intensity/Depth Moderate Body Position Hooklying Comments Moderate rolling and strumming of quads/hip flexors prior to scar mobilization. Increased tenderness more distally, but less tenderness after soft tissue mobilization Neuro Re-Education Treatment Balance Activities rockerboard Surface unstable Equipment // bars, close SBA and prn CGA Comments 1. A/P, 60 2. M/L, 60 Cued equal WB on BLE, keep board level, weight shifts to maintain level board, look up ot decrease visual dependence. Cued for safety with stepping up/down to maintain hip precautions, use of UE for stability. Able to maintain level board after 15 seconds hurdles Details close SBA Surface stable Equipment // bars (hovering, prn finger placement to balance) Comments 1. fwd, 4 hurdles x 4 reps ea direction 2. lateral, 4 hurdles x 4 reps ea direction Cued for neutral hip to prevent toe out, ankle dorsiflexion with knee/hip flex for foot clearance. Less challenging to move laterally SLS Details bilateral Equipment 2 finger support (1 finger ea hand) Reps/Duration 3x15 Comments Cued to resting opposite leg on stance leg, reports only muscle fatigue and slight soreness but no pain Self-Care/Home Management Treatment Education Patient Education Joint Protection Other Education Educated per visit with surgeon last week, pt still has anterior hip precautions PT-OP-R Modalities Start: 06/05/23 10:31 Freq: Status: Active Protocol: Document 09/03/23 08:05 AB (Rec: 09/03/23 08:29 AB [id number]) Electric Stimulation Electric Stimulation Scottish stim L leg Body Location L quad (VMO and RF) Intensity 18 Cycle 10/10 Ramp 0.5 Comments with SLR, quad set, LAQ PT-OP-T Assessment and Plan Start: 06/05/23 10:31 Freq: Status: Active Protocol: Document 09/11/23 07:26 NM (Rec: 09/11/23 07:27 NM [id number]) Physical Therapy Assessment Goals Five Impairment squat Impairment must be able to squat for return to job Short Term Goal (STG) Pt will be able to perform at least 10 bilateral squats without increase in baseline pain or LOB in order to demonstrate increased BLE strength for transfers, ADLs, return to work if appropriate 09/11/23: Pt can perform 10 STS without UE assist but great effort; can perform 10 squats with hand support STG Duration 6 weeks PROGRESSING Alf Goal (LTG) Pt will be able to perform at least 5 squats and lift at least 10# from the ground to at least chest height in order to perform job functions, if appropriate LTG Duration 12 weeks Four Impairment gait Impairment must be able to squat for return to job Short Term Goal (STG) Pt will be able to ambulate without AD at least community distances (at least 800 ft) with normal gait mechanics 09/11/23: reports limited ambulation with LRAD due to discomfort with hip flexion STG Duration 6 weeks NOT MET Network Architect Goal (LTG) Pt will be able to ambulate at least 1000 ft without AD in order to demonstrate improved ADL tolerance and ability to ambulate in community LTG Duration 12 weeks Three Impairment standing Impairment using FWW (pre-operative 6 MWT 1095 ft) Short Term Goal (STG) Pt will be able to stand with or without AD for at least 30 minutes without increase in baseline pain 09/11/23: reports able to stand with spc as long as needed STG Duration 8 weeks Alf Goal (LTG) Pt will be able to stand without AD for at least 1 hour without increase in baseline pain in order to return to work LTG Duration 12 weeks Two Impairment strength Impairment needs to be able to stand for at least 2 hours Short Term Goal (STG) Pt will increase L hip flex/ abd/ext strength to at least 4 /5 MMT in order to demonstrate increased strength for standing and ADLs 09/11/23: 3+/5 L hip flex and abd strength; extension not formally tested due to precautions but pt able to perform several sit to stands without UE assist, although fatiguing STG Duration 6 weeks NOT MET Network Architect Goal (LTG) Pt will increase L hip flex/ abd/ext strength to at least 4 +/5 MMT in order to demonstrate increased strength for standing and ADLs LTG Duration 12 weeks One Impairment ROM Short Term Goal (STG) Pt will increase L hip flexion to at least 90 deg for gait, stairs, and transfers 09/11/23: 105 deg hip flexion STG Duration 6 weeks MET Alf Goal (LTG) Pt will increase L hip flexion to at least 110 deg in order to perform gait, stairs, and transfers LTG Duration 12 weeks Progress Towards Goals Progress Towards Goals Progressing Toward Goals,Slow Progress due to Activity Tolerance,Slow Progress due to Medical Issues,Slow Progress - Other Assessment Summary Assessment Pt tolerated session well, currently 6 weeks post-op. Pt still has anterior hip precautions per message from Dr. Wills. Emphasis on manual treatment and scar mobilization to reduce anterior hip discomfort. Pt has good feedback for scar mobilization, reporting less anterior hip pain and with fewer observable adhesions along distal scar. PT educated pt on scar mobility as part of daily routine with education for gentle lifting/ rolling to continue to allow healing subcutaneous tissue. Pt able to perform several sets of SLR today, in addition to forward and lateral marchs with less discomfort than previous sessions. Due to hip precautions, pt only able to perform mini-squats; she continues to be moderately reliant on her UE for support due to BLE weakness. Continued with balance work, especially single leg balance and unstable surfaces in preparation for pt to begin transitioning away from spc for mobility. At this time, pt would benefit from further L hip strengthening and mobility while maintaining hip precautions in order to improve activity tolerance and to be prepared to return to work in October. Physical Therapy Plan Frequency and Duration Frequency of Treatment 1-2x/wk Duration of treatment (weeks) 12 Plan of Care Start Date 08/07/23 Plan of Care End Date 11/02/23 Therapeutic Interventions Therapeutic Interventions Balance Training,Gait Training ,Home Exercise Program,Joint Mobilizations,Manual Therapy, Neuromuscular Re-education, Orthotic/Prosthetic Management ,Patient/Caregiver Education, Self-Care/Home Management, Sensory Integration,Soft Tissue Mobilization,Taping, Therapeutic Activities, Therapeutic Exercises Modalities Cold Pack/Ice Massage,Electric Stimulation,Hot Packs, Ultrasound,Vasopneumatic Devices Next Visit Focus/Plan Next Note Type Treatment Note Next Visit Plan anterior hip precautions still intact per 09/10, WBAT Mini-squat with UE (decrease UE assistance), STS, hip abduction, LAQ, lateral step up, do a 6MWT with LRAD in 1 session only STS from lower surface, ball toss. SLS and balance, hip hinge gracie w/ picking up objects Peralta score - for gait w/o spc, non-antalgic gait then able to remove (trial househodl 1st then community)
--- NOTE | 2023-09-18 16:42 | PT.OTN ---
Current Diagnoses Bilateral primary osteoarthritis of hip (09/18/23) Unilateral primary osteoarthritis, left hip (09/18/23) Other lack of coordination (09/18/23) Weakness (09/18/23) Physical Therapy Treatment Note PT-OP-A Visit Information Start: 06/05/23 10:31 Freq: Status: Active Protocol: Document 09/18/23 08:09 AB (Rec: 09/18/23 09:03 AB [id number]) Out-Patient Physical Therapy Visit Information Visit Information Visit Type Treatment Note Visit Note 03/21 since last PN Visit Start Time 08:17 Visit Stop Time 08:58 Visit Number 17 Number of [employer] Visits 1 Evaluation Information Evaluation Date 08/07/23 Precautions Precautions Anterior hip precautions: no hip ext, no bridging, no prone , no hip ER beyond neutral PT-OP-B Current Condition Start: 06/05/23 10:31 Freq: Status: Active Protocol: Document 08/07/23 09:01 NM (Rec: 08/07/23 16:53 NM [id number]) Current Condition History of Current Condition Onset Date DOS 07/27/23 Current Complaints pain, mobility History of Current Condition Pt s/p L DAVID on 07/27/23. She had an anterior approach, currently has anterior hip precautions. Pt reports that surgery went without complication, but she spent a couple of days in the hospital due to low blood pressure. She is currently on blood pressure medication, which she does not normally take. Pt has been performing heel slides, ankle pumps. Pt is having most difficulty with getting in and out of bed. She is using a FWW for mobility but has been trying to take steps without RW as able. She is having most difficulty with dressing, standing, bed mobility, sleeping. Pt is planning to return to work on 09/19 and will need to work 4 hr shifts (sand 4 hrs, lifting up to 40#, bending and reaching for stocking). Pt reports that over the weekend, she got very sick and had to lie on her R side, so her L hip hurts more than normal now . She states that she spoke to Dr. Wills, who thinks it's a strained muscle and not dislocated. Pt reports tingling at her toes on LLE, which was not present before surgery. 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 (2 hrs at time with 10 minute break), lifting up to 40#, bending and stocking Current Functional Impairments (Reported) Functional Limitations- Mobility/Gait 4 stairs to enter home, has rails; not using FWW to enter, only rails Functional Limitations- Other using walk in shower, grab bars in shower, shower stool PT-OP-C Subjective Start: 06/05/23 10:31 Freq: Status: Active Protocol: Document 09/18/23 08:09 AB (Rec: 09/18/23 09:03 AB [id number]) OP-PT Subjective Patient Comments Patient Comments Patient reports she is doing well today, comments it is up and down, but majority of the time is doing good, exercises are going well. Patient reports she has not heard back from MD regarding precautions . PT-OP-D Balance Start: 06/05/23 10:31 Freq: Status: Active Protocol: Document 06/05/23 10:31 NM (Rec: 06/05/23 12:16 NM [id number]) Balance Tests Single Limb Standing Single Limb- Right 3 seconds, increased sway Single Limb- Left 1 second, painful and increased sway Tandem Tandem Standing 5 seconds; difficulty achieving, painful on LLE PT-OP-E Functional Tests Start: 06/05/23 10:31 Freq: Status: Active Protocol: Document 09/18/23 08:09 AB (Rec: 09/18/23 16:42 AB [id number]) Functional Tests 6 Minute Walk Test Distance 1015 Device Used without device PT-OP-F Manual Assessment Start: 06/05/23 10:31 Freq: Status: Active Protocol: Document 06/05/23 10:31 NM (Rec: 06/05/23 12:16 NM [id number]) Manual Assessments Soft Tissue Assessment Soft Tissue Mobility Assessment Tight B hip flexors, heel cords Joint Mobility Assessment Joint Mobility Assessment Limited B hip mobility passively with flexion, ER, IR . LLE limited globally. Lacks terminal knee extension bilaterally PT-OP-G Mobility & Gait Start: 06/05/23 10:31 Freq: Status: Active Protocol: Document 08/07/23 09:01 NM (Rec: 08/07/23 16:53 NM [id number]) OP Mobility Evaluation Bed Mobility Rolling SBA Supine to and from Sit min A to bring LLE to EOB supine <> sit Transfers Sit to Stand close SBA to FWW Bed to Chair Transfers close SBA with FWW OP Gait Assessment Gait Gait Assistance Required: Standby Assistance Distance (Feet) 200 Assistive Devices Assistive Device Gait Belt,Front Wheeled Walker Gait Deviations General Gait Pattern Antalgic Factors Limiting Gait Function Factors Limiting Gait Function Decreased Sensation,Decreased Strength,Limited Range of Motion,Pain Comments Gait Comments decreased stride length and WBAT on LLE. Good upright posture PT-OP-H Neuro Start: 06/05/23 10:31 Freq: Status: Active Protocol: Document 06/05/23 10:31 NM (Rec: 06/05/23 12:16 NM [id number]) Sensation Evaluation Comments Summary Comments BLE intact to light touch sensation, but 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 PT-OP-J Posture/Palpation/Skin Start: 06/05/23 10:31 Freq: Status: Active Protocol: Document 08/07/23 09:01 NM (Rec: 08/07/23 16:53 NM [id number]) Palpation Assessment Location L hip Palpation Details Tenderness reported in anterior hip near groin, over incision. Did not palpate due to incision Skin Assessment Incisional Assessment Incision Appearance/Comments Incision covered by dressing, which is c/d/i. No signs of redness or infection around dressings Other Assessments Skin Assessment Comments L ankle figure 8 (edema): 50 cm PT-OP-K Range of Motion Start: 06/05/23 10:31 Freq: Status: Active Protocol: Document 09/11/23 07:26 NM (Rec: 09/11/23 07:27 NM [id number]) Hip Goniometric Range of Motion Hip Left Flexion w/Knee Flexed 105 Abduction 20 Comments Pre-surgery: 90 deg flex, 8 deg ext, 15 deg abd, 15 deg IR , 15 deg ER; pain with ER/IR, abd, flex, ext, add; hamstring 150 deg 08/06: did not measure ROM due to hip precautions 09/06/23: 100 deg hip flexion, 15 deg hip abd 09/11/23: 105 deg hip flexion, 20 deg ABD PT-OP-L Special Tests Start: 06/05/23 10:31 Freq: Status: Active Protocol: Document 06/05/23 10:31 NM (Rec: 06/05/23 12:16 NM [id number]) Special Tests Hip Special Tests Straight Leg Raise Test Results + Comments unable to lift LLE Log Roll Test Test Results + SANTOS Test Results + Comments L PT-OP-M Strength Start: 06/05/23 10:31 Freq: Status: Active Protocol: Document 09/11/23 07:26 NM (Rec: 09/11/23 07:27 NM [id number]) Hip Strength Hip Manual Muscle Testing Left Flexion (L2) 3+ Fair+ Abduction 3+ Fair+ Adduction 3+ Fair+ External Rotation 3+ Fair+ Internal Rotation 3+ Fair+ Comments pre-surgery: pain with ER/IR/ Flex; 3+/5 with flex/ext/ER/IR ; 4-/5 abd; 4/5 ADD 08/07/23: did not assess due to hip precuations 09/11/23: 3+/5, minimal resistance against gravity PT-OP-Q Treatments Start: 06/05/23 10:31 Freq: Status: Active Protocol: Document 09/18/23 08:09 AB (Rec: 09/18/23 09:03 AB [id number]) Therapeutic Exercises Supine Exercises AA SLR Supine Exercise Name SLR AROM Side left Reps/Minutes X15 post one seated SLR Comments Patient ed to discontinue SLR able to perform without Quad lag Sitting Exercises hip abduction Sitting Exercise Name 1. isometric hold, 2. L hip abduction isotonic Side bilateral Resistance levle 3 band Reps/Minutes 60 X 10 then 10 sec X 10 Seated SLR Side left Reps/Minutes 1 Comments discontinued Standing Exercises side step Standing Exercise Name side stepping Side bilateral Resistance level 3 band Equipment Used hands above mat at counter height Reps/Minutes one minute Comments VC to avoid toeing out sit to stand with UE use Standing Exercise Name without and with UE use HEP addition Side bilateral Resistance level 3 band Reps/Minutes 15 X 2 Comments verbal and visual cues for hip hinge Neuro Re-Education Treatment Balance Activities step up taps Details CGA hands above bars Reps/Duration X10 marching with handss above counter Reps/Duration one min Comments distant supervision and verbal cues hurdles Details CGA Equipment // bars (hovering, prn finger placement to balance) Comments 10 feet X 6 blue cushion Details blue cushion and black foam Reps/Duration X10 each Comments CGA with hands above bars PT-OP-R Modalities Start: 06/05/23 10:31 Freq: Status: Active Protocol: Document 09/03/23 08:05 AB (Rec: 09/03/23 08:29 AB [id number]) Electric Stimulation Electric Stimulation [place] stim L leg Body Location L quad (VMO and RF) Intensity 18 Cycle 10/10 Ramp 0.5 Comments with SLR, quad set, LAQ PT-OP-T Assessment and Plan Start: 06/05/23 10:31 Freq: Status: Active Protocol: Document 09/18/23 08:09 AB (Rec: 09/18/23 09:03 AB [id number]) Physical Therapy Assessment Goals Five Impairment squat Impairment must be able to squat for return to job Short Term Goal (STG) Pt will be able to perform at least 10 bilateral squats without increase in baseline pain or LOB in order to demonstrate increased BLE strength for transfers, ADLs, return to work if appropriate 09/11/23: Pt can perform 10 STS without UE assist but great effort; can perform 10 squats with hand support STG Duration 6 weeks PROGRESSING Skilled Nursing Goal (LTG) Pt will be able to perform at least 5 squats and lift at least 10# from the ground to at least chest height in order to perform job functions, if appropriate LTG Duration 12 weeks Four Impairment gait Impairment must be able to squat for return to job Short Term Goal (STG) Pt will be able to ambulate without AD at least community distances (at least 800 ft) with normal gait mechanics 09/11/23: reports limited ambulation with LRAD due to discomfort with hip flexion STG Duration 6 weeks NOT MET Skilled Nursing Goal (LTG) Pt will be able to ambulate at least 1000 ft without AD in order to demonstrate improved ADL tolerance and ability to ambulate in community 09/18/2023 6 min walk test without device 1015 feet Goal met for 6 min walk test, but still using SPC for out in community. LTG Duration 12 weeks Three Impairment standing Impairment using FWW (pre-operative 6 MWT 1095 ft) Short Term Goal (STG) Pt will be able to stand with or without AD for at least 30 minutes without increase in baseline pain 09/11/23: reports able to stand with spc as long as needed STG Duration 8 weeks Skilled Nursing Goal (LTG) Pt will be able to stand without AD for at least 1 hour without increase in baseline pain in order to return to work LTG Duration 12 weeks Two Impairment strength Impairment needs to be able to stand for at least 2 hours Short Term Goal (STG) Pt will increase L hip flex/ abd/ext strength to at least 4 /5 MMT in order to demonstrate increased strength for standing and ADLs 09/11/23: 3+/5 L hip flex and abd strength; extension not formally tested due to precautions but pt able to perform several sit to stands without UE assist, although fatiguing STG Duration 6 weeks NOT MET Insulation Helper Goal (LTG) Pt will increase L hip flex/ abd/ext strength to at least 4 +/5 MMT in order to demonstrate increased strength for standing and ADLs LTG Duration 12 weeks One Impairment ROM Short Term Goal (STG) Pt will increase L hip flexion to at least 90 deg for gait, stairs, and transfers 09/11/23: 105 deg hip flexion STG Duration 6 weeks MET Skilled Nursing Goal (LTG) Pt will increase L hip flexion to at least 110 deg in order to perform gait, stairs, and transfers LTG Duration 12 weeks Assessment Summary Assessment 1015 feet without device for 6 minute walk test, able to perform full test without device. Physical Therapy Plan Frequency and Duration Frequency of Treatment 1-2x/wk Duration of treatment (weeks) 12 Plan of Care Start Date 08/07/23 Plan of Care End Date 11/02/23 Next Visit Focus/Plan Next Note Type Treatment Note Next Visit Plan anterior hip precautions still intact per 09/10, WBAT sit to stand with band with UE (decrease UE assistance), lateral step up, STS from lower surface, ball toss. SLS and balance, hip hinge gracie w/ picking up objects Peralta score - for gait w/o spc, non-antalgic gait then able to remove (trial househodl 1st then community)
--- NOTE | 2023-09-25 16:14 | PT.OTN ---
Current Diagnoses Bilateral primary osteoarthritis of hip (09/25/23) Unilateral primary osteoarthritis, left hip (09/25/23) Other lack of coordination (09/25/23) Weakness (09/25/23) Physical Therapy Treatment Note PT-OP-A Visit Information Start: 06/05/23 10:31 Freq: Status: Active Protocol: Document 09/25/23 08:17 AB (Rec: 09/25/23 09:01 AB [id number]) Out-Patient Physical Therapy Visit Information Visit Information Visit Type Treatment Note Visit Note 04/21 Visit Start Time 08:15 Visit Stop Time 08:58 Visit Number 18 Number of HEALTH AID Visits 2 Evaluation Information Evaluation Date 08/07/23 Precautions Precautions Anterior hip precautions: no hip ext, no bridging, no prone , no hip ER beyond neutral PT-OP-B Current Condition Start: 06/05/23 10:31 Freq: Status: Active Protocol: Document 08/07/23 09:01 NM (Rec: 08/07/23 16:53 NM [id number]) Current Condition History of Current Condition Onset Date DOS 07/27/23 Current Complaints pain, mobility History of Current Condition Pt s/p L DAVID on 07/27/23. She had an anterior approach, currently has anterior hip precautions. Pt reports that surgery went without complication, but she spent a couple of days in the hospital due to low blood pressure. She is currently on blood pressure medication, which she does not normally take. Pt has been performing heel slides, ankle pumps. Pt is having most difficulty with getting in and out of bed. She is using a FWW for mobility but has been trying to take steps without RW as able. She is having most difficulty with dressing, standing, bed mobility, sleeping. Pt is planning to return to work on 09/19 and will need to work 4 hr shifts (sand 4 hrs, lifting up to 40#, bending and reaching for stocking). Pt reports that over the weekend, she got very sick and had to lie on her R side, so her L hip hurts more than normal now . She states that she spoke to Dr. Wills, who thinks it's a strained muscle and not dislocated. Pt reports tingling at her toes on LLE, which was not present before surgery. 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 (2 hrs at time with 10 minute break), lifting up to 40#, bending and stocking Current Functional Impairments (Reported) Functional Limitations- Mobility/Gait 4 stairs to enter home, has rails; not using FWW to enter, only rails Functional Limitations- Other using walk in shower, grab bars in shower, shower stool PT-OP-C Subjective Start: 06/05/23 10:31 Freq: Status: Active Protocol: Document 09/25/23 08:17 AB (Rec: 09/25/23 09:01 AB [id number]) OP-PT Subjective Patient Comments Patient Comments Patient reports walking 15 minutes outdoors with SPC without pain and ambulating in home without SPC. Sit to stand from 20 inch seat height with reports without UE use PT-OP-D Balance Start: 06/05/23 10:31 Freq: Status: Active Protocol: Document 09/25/23 08:17 AB (Rec: 09/25/23 16:12 AB [id number]) Peralta Balance Assessment Evaluation Sitting to Standing Ability Independent w/out Hands Unsupported Stance Safely- 2 minutes Sitting Unsupported, Feet on Floor Safely- 2 minutes Standing to Sitting Ability Safely, Minimal Hand Use Transfer Ability Safely, Minimal Hand Use Unsupported Stance- Eyes Closed Safely, 10 seconds Unsupported Stance- Eyes Open Independent, 1 minute Reaching Forward Standing Confidently, 10 inches Pick- Up Object From Floor Independent/Safe Look Behind Shoulder - Standing Shifts Weight Well Turning 360 Degrees Turns Bilateral, < 4 secs Unsupported Stance, Alternating Feet on (I)- 8 Steps in 20 secs Stair Unsupported Tandem Stance Balance Lost- Step/Stand Unilateral Leg Stance Lifts Leg/Holds > 3 secs Total Score Peralta Total Score (out of 56 points) 50 PT-OP-E Functional Tests Start: 06/05/23 10:31 Freq: Status: Active Protocol: Document 09/18/23 08:09 AB (Rec: 09/18/23 16:42 AB [id number]) Functional Tests 6 Minute Walk Test Distance 1015 Device Used without device PT-OP-F Manual Assessment Start: 06/05/23 10:31 Freq: Status: Active Protocol: Document 06/05/23 10:31 NM (Rec: 06/05/23 12:16 NM [id number]) Manual Assessments Soft Tissue Assessment Soft Tissue Mobility Assessment Tight B hip flexors, heel cords Joint Mobility Assessment Joint Mobility Assessment Limited B hip mobility passively with flexion, ER, IR . LLE limited globally. Lacks terminal knee extension bilaterally PT-OP-G Mobility & Gait Start: 06/05/23 10:31 Freq: Status: Active Protocol: Document 08/07/23 09:01 NM (Rec: 08/07/23 16:53 NM [id number]) OP Mobility Evaluation Bed Mobility Rolling SBA Supine to and from Sit min A to bring LLE to EOB supine <> sit Transfers Sit to Stand close SBA to FWW Bed to Chair Transfers close SBA with FWW OP Gait Assessment Gait Gait Assistance Required: Standby Assistance Distance (Feet) 200 Assistive Devices Assistive Device Gait Belt,Front Wheeled Walker Gait Deviations General Gait Pattern Antalgic Factors Limiting Gait Function Factors Limiting Gait Function Decreased Sensation,Decreased Strength,Limited Range of Motion,Pain Comments Gait Comments decreased stride length and WBAT on LLE. Good upright posture PT-OP-H Neuro Start: 06/05/23 10:31 Freq: Status: Active Protocol: Document 06/05/23 10:31 NM (Rec: 06/05/23 12:16 NM [id number]) Sensation Evaluation Comments Summary Comments BLE intact to light touch sensation, but 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 PT-OP-J Posture/Palpation/Skin Start: 06/05/23 10:31 Freq: Status: Active Protocol: Document 08/07/23 09:01 NM (Rec: 08/07/23 16:53 NM [id number]) Palpation Assessment Location L hip Palpation Details Tenderness reported in anterior hip near groin, over incision. Did not palpate due to incision Skin Assessment Incisional Assessment Incision Appearance/Comments Incision covered by dressing, which is c/d/i. No signs of redness or infection around dressings Other Assessments Skin Assessment Comments L ankle figure 8 (edema): 50 cm PT-OP-K Range of Motion Start: 06/05/23 10:31 Freq: Status: Active Protocol: Document 09/11/23 07:26 NM (Rec: 09/11/23 07:27 NM [id number]) Hip Goniometric Range of Motion Hip Left Flexion w/Knee Flexed 105 Abduction 20 Comments Pre-surgery: 90 deg flex, 8 deg ext, 15 deg abd, 15 deg IR , 15 deg ER; pain with ER/IR, abd, flex, ext, add; hamstring 150 deg 08/06: did not measure ROM due to hip precautions 09/06/23: 100 deg hip flexion, 15 deg hip abd 09/11/23: 105 deg hip flexion, 20 deg ABD PT-OP-L Special Tests Start: 06/05/23 10:31 Freq: Status: Active Protocol: Document 06/05/23 10:31 NM (Rec: 06/05/23 12:16 NM [id number]) Special Tests Hip Special Tests Straight Leg Raise Test Results + Comments unable to lift LLE Log Roll Test Test Results + SANTOS Test Results + Comments L PT-OP-M Strength Start: 06/05/23 10:31 Freq: Status: Active Protocol: Document 09/11/23 07:26 NM (Rec: 09/11/23 07:27 NM [id number]) Hip Strength Hip Manual Muscle Testing Left Flexion (L2) 3+ Fair+ Abduction 3+ Fair+ Adduction 3+ Fair+ External Rotation 3+ Fair+ Internal Rotation 3+ Fair+ Comments pre-surgery: pain with ER/IR/ Flex; 3+/5 with flex/ext/ER/IR ; 4-/5 abd; 4/5 ADD 08/07/23: did not assess due to hip precuations 09/11/23: 3+/5, minimal resistance against gravity PT-OP-Q Treatments Start: 06/05/23 10:31 Freq: Status: Active Protocol: Document 09/25/23 08:17 AB (Rec: 09/25/23 09:01 AB [id number]) Gym Equipment Shuttle Rebound red Exercise Details WBOS, stagger, mini squat Reps/Duration 2 min Comments with head turns, visual scanning during WBOS and stagger, Therapeutic Exercises Sitting Exercises hip abduction Sitting Exercise Name 1. isometric hold, 2. L hip abduction isotonic Side bilateral Resistance level 4 band HEP change Reps/Minutes 1. X 1 2. X15 X2 Standing Exercises bilateral heel raise Reps/Minutes X15 Comments verbal cues to lower heels slowly to floor sit to stand with UE use Standing Exercise Name without UE use Side bilateral Resistance level 4 band HEP change from 3 Reps/Minutes X2 19-21 seat height then X 10 without band 2X10 with band Comments requires raised seat height to perform pain free Neuro Re-Education Treatment Balance Activities step up taps Equipment 6 inch step Reps/Duration X10 Comments CGA hurdles Reps/Duration 10 feet X 6 FWd X 1 left and right ( lateral Comments CGA hands above bars thera pads Reps/Duration 4 pads X 4 Comments CGA SLS Details CGA without UE use Surface floor Reps/Duration X3 X 3 PT-OP-R Modalities Start: 06/05/23 10:31 Freq: Status: Active Protocol: Document 09/03/23 08:05 AB (Rec: 09/03/23 08:29 AB [id number]) Electric Stimulation Electric Stimulation [place] stim L leg Body Location L quad (VMO and RF) Intensity 18 Cycle 10/10 Ramp 0.5 Comments with SLR, quad set, LAQ PT-OP-T Assessment and Plan Start: 06/05/23 10:31 Freq: Status: Active Protocol: Document 09/25/23 08:17 AB (Rec: 09/25/23 09:01 AB [id number]) Physical Therapy Assessment Goals Five Impairment squat Impairment must be able to squat for return to job Short Term Goal (STG) Pt will be able to perform at least 10 bilateral squats without increase in baseline pain or LOB in order to demonstrate increased BLE strength for transfers, ADLs, return to work if appropriate 09/11/23: Pt can perform 10 STS without UE assist but great effort; can perform 10 squats with hand support STG Duration 6 weeks [facility] Goal (LTG) Pt will be able to perform at least 5 squats and lift at least 10# from the ground to at least chest height in order to perform job functions, if appropriate LTG Duration 12 weeks Four Impairment gait Impairment must be able to squat for return to job Short Term Goal (STG) Pt will be able to ambulate without AD at least community distances (at least 800 ft) with normal gait mechanics 09/11/23: reports limited ambulation with LRAD due to discomfort with hip flexion STG Duration 6 weeks NOT MET [employer] Goal (LTG) Pt will be able to ambulate at least 1000 ft without AD in order to demonstrate improved ADL tolerance and ability to ambulate in community 09/18/2023 6 min walk test without device 1015 feet Goal met for 6 min walk test, but still using SPC for out in community. 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) Pt will be able to stand without AD for at least 1 hour without increase in baseline pain in order to return to work LTG Duration 12 weeks Two Impairment strength Impairment needs to be able to stand for at least 2 hours Short Term Goal (STG) Pt will increase L hip flex/ abd/ext strength to at least 4 /5 MMT in order to demonstrate increased strength for standing and ADLs 09/11/23: 3+/5 L hip flex and abd strength; extension not formally tested due to precautions but pt able to perform several sit to stands without UE assist, although fatiguing STG Duration 6 weeks NOT MET [facility] Goal (LTG) Pt will increase L hip flex/ abd/ext strength to at least 4 +/5 MMT in order to demonstrate increased strength for standing and ADLs LTG Duration 12 weeks One Impairment ROM Short Term Goal (STG) Pt will increase L hip flexion to at least 90 deg for gait, stairs, and transfers 09/11/23: 105 deg hip flexion STG Duration 6 weeks MET [facility] Goal (LTG) Pt will increase L hip flexion to at least 110 deg in order to perform gait, stairs, and transfers LTG Duration 12 weeks Assessment Summary Assessment Neena able to progress to blue band for seated hip abduction and sit to stand with band. Noted SLS left LE increased from 3 sec during Peralta to 15 + seconds post glute med activation seated with band. Physical Therapy Plan Frequency and Duration Frequency of Treatment 1-2x/wk Duration of treatment (weeks) 12 Plan of Care Start Date 08/07/23 Plan of Care End Date 11/02/23 Next Visit Focus/Plan Next Note Type Treatment Note Next Visit Plan anterior hip precautions still intact per 09/10, WBAT sit to stand with band with UE (decrease UE assistance), lateral step up, STS from lower surface, ball toss. SLS and balance, hip hinge gracie w/ picking up objects non-antalgic gait then able to remove (trial househodl 1st then community)
--- NOTE | 2023-10-02 16:24 | PT.OTN ---
Current Diagnoses Bilateral primary osteoarthritis of hip (10/02/23) Unilateral primary osteoarthritis, left hip (10/02/23) Other lack of coordination (10/02/23) Weakness (10/02/23) Physical Therapy Treatment Note PT-OP-A Visit Information Start: 06/05/23 10:31 Freq: Status: Active Protocol: Document 10/02/23 08:18 NM (Rec: 10/02/23 09:02 NM [id number]) Out-Patient Physical Therapy Visit Information Visit Information Visit Type Progress Note Visit Start Time 08:20 Visit Stop Time 09:00 Visit Number 20 Evaluation Information Evaluation Date 08/07/23 Precautions Precautions Anterior hip precautions: no hip ext, no bridging, no prone , no hip ER beyond neutral PT-OP-B Current Condition Start: 06/05/23 10:31 Freq: Status: Active Protocol: Document 08/07/23 09:01 NM (Rec: 08/07/23 16:53 NM [id number]) Current Condition History of Current Condition Onset Date DOS 07/27/23 Current Complaints pain, mobility History of Current Condition Pt s/p L DAVDI on 07/27/23. She had an anterior approach, currently has anterior hip precautions. Pt reports that surgery went without complication, but she spent a couple of days in the hospital due to low blood pressure. She is currently on blood pressure medication, which she does not normally take. Pt has been performing heel slides, ankle pumps. Pt is having most difficulty with getting in and out of bed. She is using a FWW for mobility but has been trying to take steps without RW as able. She is having most difficulty with dressing, standing, bed mobility, sleeping. Pt is planning to return to work on 09/19 and will need to work 4 hr shifts (sand 4 hrs, lifting up to 40#, bending and reaching for stocking). Pt reports that over the weekend, she got very sick and had to lie on her R side, so her L hip hurts more than normal now . She states that she spoke to Dr. Wills, who thinks it's a strained muscle and not dislocated. Pt reports tingling at her toes on LLE, which was not present before surgery. 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 Wills on . Pt reports no difficulty with ambulation, states can do 30 min w/o spc. States sore. Overall, states pain improved. States tender to touch along lateral hip. States that standing time is the biggest limiting factor for work, also being able to get up and down from the floor . Planning on going back to work on 10/19 for 4 hours x 4 days/wk. States lost spc, has not been using. Called Dr. Wills and anterior hip precautions still in place. PT-OP-D Balance Start: 06/05/23 10:31 Freq: Status: Active Protocol: Document 09/25/23 08:17 AB (Rec: 09/25/23 16:12 AB [id number]) P[place]ta Balance Assessment Evaluation Sitting to Standing Ability Independent w/out Hands Unsupported Stance Safely- 2 minutes Sitting Unsupported, Feet on Floor Safely- 2 minutes Standing to Sitting Ability Safely, Minimal Hand Use Transfer Ability Safely, Minimal Hand Use Unsupported Stance- Eyes Closed Safely, 10 seconds Unsupported Stance- Eyes Open Independent, 1 minute Reaching Forward Standing Confidently, 10 inches Pick- Up Object From Floor Independent/Safe Look Behind Shoulder - Standing Shifts Weight Well Turning 360 Degrees Turns Bilateral, < 4 secs Unsupported Stance, Alternating Feet on (I)- 8 Steps in 20 secs Stair Unsupported Tandem Stance Balance Lost- Step/Stand Unilateral Leg Stance Lifts Leg/Holds > 3 secs Total Score Peralta Total Score (out of 56 points) 50 PT-OP-E Functional Tests Start: 06/05/23 10:31 Freq: Status: Active Protocol: Document 09/18/23 08:09 AB (Rec: 09/18/23 16:42 AB [id number]) Functional Tests 6 Minute Walk Test Distance 1015 Device Used without device PT-OP-F Manual Assessment Start: 06/05/23 10:31 Freq: Status: Active Protocol: Document 06/05/23 10:31 NM (Rec: 06/05/23 12:16 NM [id number]) Manual Assessments Soft Tissue Assessment Soft Tissue Mobility Assessment Tight B hip flexors, heel cords Joint Mobility Assessment Joint Mobility Assessment Limited B hip mobility passively with flexion, ER, IR . LLE limited globally. Lacks terminal knee extension bilaterally PT-OP-G Mobility & Gait Start: 06/05/23 10:31 Freq: Status: Active Protocol: Document 08/07/23 09:01 NM (Rec: 08/07/23 16:53 NM [id number]) OP Mobility Evaluation Bed Mobility Rolling SBA Supine to and from Sit min A to bring LLE to EOB supine <> sit Transfers Sit to Stand close SBA to FWW Bed to Chair Transfers close SBA with FWW OP Gait Assessment Gait Gait Assistance Required: Standby Assistance Distance (Feet) 200 Assistive Devices Assistive Device Gait Belt,Front Wheeled Walker Gait Deviations General Gait Pattern Antalgic Factors Limiting Gait Function Factors Limiting Gait Function Decreased Sensation,Decreased Strength,Limited Range of Motion,Pain Comments Gait Comments decreased stride length and WBAT on LLE. Good upright posture PT-OP-H Neuro Start: 06/05/23 10:31 Freq: Status: Active Protocol: Document 06/05/23 10:31 NM (Rec: 06/05/23 12:16 NM [id number]) Sensation Evaluation Comments Summary Comments BLE intact to light touch sensation, but 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 PT-OP-J Posture/Palpation/Skin Start: 06/05/23 10:31 Freq: Status: Active Protocol: Document 08/07/23 09:01 NM (Rec: 08/07/23 16:53 NM [id number]) Palpation Assessment Location L hip Palpation Details Tenderness reported in anterior hip near groin, over incision. Did not palpate due to incision Skin Assessment Incisional Assessment Incision Appearance/Comments Incision covered by dressing, which is c/d/i. No signs of redness or infection around dressings Other Assessments Skin Assessment Comments L ankle figure 8 (edema): 50 cm PT-OP-K Range of Motion Start: 06/05/23 10:31 Freq: Status: Active Protocol: Document 10/02/23 08:18 NM (Rec: 10/02/23 16:06 NM [id number]) Hip Goniometric Range of Motion Hip Right Flexion w/Knee Flexed 90 Extension 15 Abduction 20 Internal Rotation 15 External Rotation 40 Left Flexion w/Knee Flexed 121 Abduction 30 Comments Pre-surgery: 90 deg flex, 8 deg ext, 15 deg abd, 15 deg IR , 15 deg ER; pain with ER/IR, abd, flex, ext, add; hamstring 150 deg 08/06: did not measure ROM due to hip precautions 09/06/23: 100 deg hip flexion, 15 deg hip abd 09/11/23: 105 deg hip flexion, 20 deg ABD 10/02/23: 121 deg flex, 30 deg abd PT-OP-L Special Tests Start: 06/05/23 10:31 Freq: Status: Active Protocol: Document 06/05/23 10:31 NM (Rec: 06/05/23 12:16 NM [id number]) Special Tests Hip Special Tests Straight Leg Raise Test Results + Comments unable to lift LLE Log Roll Test Test Results + SANTOS Test Results + Comments L PT-OP-M Strength Start: 06/05/23 10:31 Freq: Status: Active Protocol: Document 10/02/23 08:18 NM (Rec: 10/02/23 16:06 NM [id number]) Hip Strength Hip Manual Muscle Testing Right Flexion (L2) 4 Good Extension (S1) 4- Good- Abduction 4 Good Adduction 4 Good External Rotation 4 Good Internal Rotation 4 Good Left Flexion (L2) 4- Good- Abduction 4- Good- Adduction 4 Good Comments pre-surgery: pain with ER/IR/ Flex; 3+/5 with flex/ext/ER/IR ; 4-/5 abd; 4/5 ADD 08/07/23: did not assess due to hip precuations 09/11/23: 3+/5, minimal resistance against gravity 10/02/23: 4-/5 for flex and abd , 4/5 for add; ext and ER not tested post-op yet due to precautions still intact PT-OP-Q Treatments Start: 06/05/23 10:31 Freq: Status: Active Protocol: Document 10/02/23 08:18 NM (Rec: 10/02/23 09:02 NM [id number]) Therapeutic Exercises Sitting Exercises hip abduction Sitting Exercise Name isometric hold Side bilateral Resistance level 1 band for time Reps/Minutes 60 Standing Exercises step up Standing Exercise Name 4 Side bilateral Equipment Used no hand support, slight trunk instability Reps/Minutes 2x10 ea -pain free Comments leg ext to neutral only; cued slower for eccentric control, wider MICHELE side step Standing Exercise Name side stepping Side bilateral Resistance level 2 band at ankles Reps/Minutes 2x8 ft, 1 set monster walk fwd only Comments no hip ER squat Standing Exercise Name 1. picking up object from floor, 2. chair taps Side bilateral Resistance 1. AROM > 5# db, 2. 10# db Reps/Minutes 1. 10 ea, 2. 3x5 Comments medium difficultyfor chair tap ; cued more hip hinge vs trunk flex Manual Therapy Treatment Consent Patient gave verbal consent for manual Yes treatment Soft Tissue Mobilization left hip Body Location quad/hip flexors, ITB Mobilization Type Rolling,Strumming,Other Intensity/Depth Moderate Body Position Hooklying Comments Moderate rolling and strumming of quads/hip flexors gracie pectineus. Increased tenderness more distally, but less tenderness after soft tissue mobilization. Increased tenderness along lateral hip near ITB and greater trochanter left piriformis Body Location left piriformis Mobilization Type Cross-Friction,Rolling Intensity/Depth Moderate Body Position Sidelying Comments Increased tenderness at L glutes and piriformis, decreased with gentle rolling and cross friction. Neuro Re-Education Treatment Balance Activities Peralta Reps/Duration 54/56 Comments challenged with tandem and SLS step up taps Equipment 6 inch step Comments close SBA 1. alt taps, 10 2. alt step-step taps (2nd 6 step), 10 ea alt 3. lateral taps, 10 ea SLS Details CGA without UE use Surface floor Reps/Duration 2 sets ea Comments for time: 10 sec ea after glute isometric, improved stability but still challenging for pt PT-OP-R Modalities Start: 06/05/23 10:31 Freq: Status: Active Protocol: Document 09/03/23 08:05 AB (Rec: 09/03/23 08:29 AB [id number]) Electric Stimulation Electric Stimulation Cuban stim L leg Body Location L quad (VMO and RF) Intensity 18 Cycle 10/10 Ramp 0.5 Comments with SLR, quad set, LAQ PT-OP-T Assessment and Plan Start: 06/05/23 10:31 Freq: Status: Active Protocol: Document 10/02/23 08:18 NM (Rec: 10/02/23 09:02 NM [id number]) Physical Therapy Assessment Goals Five Impairment squat Impairment must be able to squat for return to job Short Term Goal (STG) Pt will be able to perform at least 10 bilateral squats without increase in baseline pain or LOB in order to demonstrate increased BLE strength for transfers, ADLs, return to work if appropriate 09/11/23: Pt can perform 10 STS without UE assist but great effort; can perform 10 squats with hand support 10/02/23: 10 squats with crate AROM, 10 with 5#, 10 goblet squats (no hip ER) with 10# STG Duration 6 weeks MET Group Home Goal (LTG) Pt will be able to perform at least 5 squats and lift at least 10# from the ground to at least chest height in order to perform job functions, if appropriate 10/02/23: 10# with squat but challenging and poor form LTG Duration 12 weeks Four Impairment gait Impairment must be able to squat for return to job Short Term Goal (STG) Pt will be able to ambulate without AD at least community distances (at least 800 ft) with normal gait mechanics 09/11/23: reports limited ambulation with LRAD due to discomfort with hip flexion 10/02/23: reports able to ambulate community distances without spc, no pain STG Duration 6 weeks MEt [facility] [employer] Goal (LTG) Pt will be able to ambulate at least 1000 ft without AD in order to demonstrate improved ADL tolerance and ability to ambulate in community 09/18/2023 6 min walk test without device 1015 feet Goal met for 6 min walk test, but still using SPC for out in community. LTG Duration 12 weeks MET Three Impairment standing Impairment using FWW (pre-operative 6 MWT 1095 ft) Short Term Goal (STG) Pt will be able to stand with or without AD for at least 30 minutes without increase in baseline pain 09/11/23: reports able to stand with spc as long as needed, 10/02/23: can stand 30 min STG Duration 8 weeks MET [facility] Home Goal (LTG) Pt will be able to stand without AD for at least 1 hour without increase in baseline pain in order to return to work LTG Duration 12 weeks Two Impairment strength Impairment needs to be able to stand for at least 2 hours Short Term Goal (STG) Pt will increase L hip flex/ abd/ext strength to at least 4 /5 MMT in order to demonstrate increased strength for standing and ADLs 09/11/23: 3+/5 L hip flex and abd strength; extension not formally tested due to precautions but pt able to perform several sit to stands without UE assist, although fatiguing 10/02/23: 4-/5 L hip flex and abd; no tested in ext due to precautions STG Duration 6 weeks NOT MET [employer] Goal (LTG) Pt will increase L hip flex/ abd/ext strength to at least 4 +/5 MMT in order to demonstrate increased strength for standing and ADLs LTG Duration 12 weeks One Impairment ROM Short Term Goal (STG) Pt will increase L hip flexion to at least 90 deg for gait, stairs, and transfers 09/11/23: 105 deg hip flexion STG Duration 6 weeks MET [employer]inder Goal (LTG) Pt will increase L hip flexion to at least 110 deg in order to perform gait, stairs, and transfers 10/02/23: 121 deg LTG Duration 12 weeks MET Progress Towards Goals Progress Towards Goals Progressing Toward Goals,Goals Met Assessment Summary Assessment Pt tolerated session well. Reports slight anterior hip pain with monster walks. Resolved immediately when stopped activity, pain did not linger. Pt able to lift 10# with difficulty from floor, partially due to strength and also due to balance. Demos increased lumbar muscle use with squat despite cueing for glute activation. Progressed side step resistance to band at ankles. Trialed step ups while maintaining L hip in neutral vs extended behind body to maintain precautions. Pt able to perofrm 4 well and with occasional cues for control with eccentric lowering. Good tolerance to manual therapy, reports reduction in anterior hip tightness and soreness at start of session following manual treatment. Educated to perform gentle rolling of hip flexors and adductors as part of HEP. Physical Therapy Plan Frequency and Duration Frequency of Treatment 1-2x/wk Duration of treatment (weeks) 12 Plan of Care Start Date 08/07/23 Plan of Care End Date 11/02/23 Therapeutic Interventions Therapeutic Interventions Balance Training,Gait Training ,Home Exercise Program,Joint Mobilizations,Manual Therapy, Neuromuscular Re-education, Orthotic/Prosthetic Management ,Patient/Caregiver Education, Self-Care/Home Management, Sensory Integration,Soft Tissue Mobilization,Taping, Therapeutic Activities, Therapeutic Exercises Modalities Cold Pack/Ice Massage,Electric Stimulation,Hot Packs, Ultrasound,Vasopneumatic Devices Next Visit Focus/Plan Next Note Type Treatment Note Next Visit Plan anterior hip precautions still intact per 09/10, WBAT sit to stand with band with UE (decrease UE assistance), lateral step up, STS from lower surface, ball toss. SLS and balance, hip hinge gracie w/ picking up objects non-antalgic gait then able to remove (trial househodl 1st then community)
--- NOTE | 2023-10-04 12:46 | PT.OTN ---
Current Diagnoses Bilateral primary osteoarthritis of hip (10/04/23) Unilateral primary osteoarthritis, left hip (10/04/23) Other lack of coordination (10/04/23) Weakness (10/04/23) Physical Therapy Treatment Note PT-OP-A Visit Information Start: 06/05/23 10:31 Freq: Status: Active Protocol: Document 10/04/23 08:15 NM (Rec: 10/04/23 09:02 NM [id number]) Out-Patient Physical Therapy Visit Information Visit Information Visit Type Treatment Note Visit Start Time 08:16 Visit Stop Time 08:56 Visit Number 21 Evaluation Information Evaluation Date 08/07/23 Precautions Precautions Anterior hip precautions: no hip ext, no bridging, no prone , no hip ER beyond neutral PT-OP-B Current Condition Start: 06/05/23 10:31 Freq: Status: Active Protocol: Document 08/07/23 09:01 NM (Rec: 08/07/23 16:53 NM [id number]) Current Condition History of Current Condition Onset Date DOS 07/27/23 Current Complaints pain, mobility History of Current Condition Pt s/p L DAVID on 07/27/23. She had an anterior approach, currently has anterior hip precautions. Pt reports that surgery went without complication, but she spent a couple of days in the hospital due to low blood pressure. She is currently on blood pressure medication, which she does not normally take. Pt has been performing heel slides, ankle pumps. Pt is having most difficulty with getting in and out of bed. She is using a FWW for mobility but has been trying to take steps without RW as able. She is having most difficulty with dressing, standing, bed mobility, sleeping. Pt is planning to return to work on 09/19 and will need to work 4 hr shifts (sand 4 hrs, lifting up to 40#, bending and reaching for stocking). Pt reports that over the weekend, she got very sick and had to lie on her R side, so her L hip hurts more than normal now . She states that she spoke to Dr. Wills, who thinks it's a strained muscle and not dislocated. Pt reports tingling at her toes on LLE, which was not present before surgery. 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 Thinks following squats. PT-OP-D Balance Start: 06/05/23 10:31 Freq: Status: Active Protocol: Document 09/25/23 08:17 AB (Rec: 09/25/23 16:12 AB [id number]) [place] Balance Assessment Evaluation Sitting to Standing Ability Independent w/out Hands Unsupported Stance Safely- 2 minutes Sitting Unsupported, Feet on Floor Safely- 2 minutes Standing to Sitting Ability Safely, Minimal Hand Use Transfer Ability Safely, Minimal Hand Use Unsupported Stance- Eyes Closed Safely, 10 seconds Unsupported Stance- Eyes Open Independent, 1 minute Reaching Forward Standing Confidently, 10 inches Pick- Up Object From Floor Independent/Safe Look Behind Shoulder - Standing Shifts Weight Well Turning 360 Degrees Turns Bilateral, < 4 secs Unsupported Stance, Alternating Feet on (I)- 8 Steps in 20 secs Stair Unsupported Tandem Stance Balance Lost- Step/Stand Unilateral Leg Stance Lifts Leg/Holds > 3 secs Total Score Peralta Total Score (out of 56 points) 50 PT-OP-E Functional Tests Start: 06/05/23 10:31 Freq: Status: Active Protocol: Document 09/18/23 08:09 AB (Rec: 09/18/23 16:42 AB [id number]) Functional Tests 6 Minute Walk Test Distance 1015 Device Used without device PT-OP-F Manual Assessment Start: 06/05/23 10:31 Freq: Status: Active Protocol: Document 06/05/23 10:31 NM (Rec: 06/05/23 12:16 NM [id number]) Manual Assessments Soft Tissue Assessment Soft Tissue Mobility Assessment Tight B hip flexors, heel cords Joint Mobility Assessment Joint Mobility Assessment Limited B hip mobility passively with flexion, ER, IR . LLE limited globally. Lacks terminal knee extension bilaterally PT-OP-G Mobility & Gait Start: 06/05/23 10:31 Freq: Status: Active Protocol: Document 08/07/23 09:01 NM (Rec: 08/07/23 16:53 NM [id number]) OP Mobility Evaluation Bed Mobility Rolling SBA Supine to and from Sit min A to bring LLE to EOB supine <> sit Transfers Sit to Stand close SBA to FWW Bed to Chair Transfers close SBA with FWW OP Gait Assessment Gait Gait Assistance Required: Standby Assistance Distance (Feet) 200 Assistive Devices Assistive Device Gait Belt,Front Wheeled Walker Gait Deviations General Gait Pattern Antalgic Factors Limiting Gait Function Factors Limiting Gait Function Decreased Sensation,Decreased Strength,Limited Range of Motion,Pain Comments Gait Comments decreased stride length and WBAT on LLE. Good upright posture PT-OP-H Neuro Start: 06/05/23 10:31 Freq: Status: Active Protocol: Document 06/05/23 10:31 NM (Rec: 06/05/23 12:16 NM [id number]) Sensation Evaluation Comments Summary Comments BLE intact to light touch sensation, but 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 PT-OP-J Posture/Palpation/Skin Start: 06/05/23 10:31 Freq: Status: Active Protocol: Document 08/07/23 09:01 NM (Rec: 08/07/23 16:53 NM [id number]) Palpation Assessment Location L hip Palpation Details Tenderness reported in anterior hip near groin, over incision. Did not palpate due to incision Skin Assessment Incisional Assessment Incision Appearance/Comments Incision covered by dressing, which is c/d/i. No signs of redness or infection around dressings Other Assessments Skin Assessment Comments L ankle figure 8 (edema): 50 cm PT-OP-K Range of Motion Start: 06/05/23 10:31 Freq: Status: Active Protocol: Document 10/02/23 08:18 NM (Rec: 10/02/23 16:06 NM [id number]) Hip Goniometric Range of Motion Hip Right Flexion w/Knee Flexed 90 Extension 15 Abduction 20 Internal Rotation 15 External Rotation 40 Left Flexion w/Knee Flexed 121 Abduction 30 Comments Pre-surgery: 90 deg flex, 8 deg ext, 15 deg abd, 15 deg IR , 15 deg ER; pain with ER/IR, abd, flex, ext, add; hamstring 150 deg 08/06: did not measure ROM due to hip precautions 09/06/23: 100 deg hip flexion, 15 deg hip abd 09/11/23: 105 deg hip flexion, 20 deg ABD 10/02/23: 121 deg flex, 30 deg abd PT-OP-L Special Tests Start: 06/05/23 10:31 Freq: Status: Active Protocol: Document 06/05/23 10:31 NM (Rec: 06/05/23 12:16 NM [id number]) Special Tests Hip Special Tests Straight Leg Raise Test Results + Comments unable to lift LLE Log Roll Test Test Results + SANTOS Test Results + Comments L PT-OP-M Strength Start: 06/05/23 10:31 Freq: Status: Active Protocol: Document 10/02/23 08:18 NM (Rec: 10/02/23 16:06 NM [id number]) Hip Strength Hip Manual Muscle Testing Right Flexion (L2) 4 Good Extension (S1) 4- Good- Abduction 4 Good Adduction 4 Good External Rotation 4 Good Internal Rotation 4 Good Left Flexion (L2) 4- Good- Abduction 4- Good- Adduction 4 Good Comments pre-surgery: pain with ER/IR/ Flex; 3+/5 with flex/ext/ER/IR ; 4-/5 abd; 4/5 ADD 08/07/23: did not assess due to hip precuations 09/11/23: 3+/5, minimal resistance against gravity 10/02/23: 4-/5 for flex and abd , 4/5 for add; ext and ER not tested post-op yet due to precautions still intact PT-OP-Q Treatments Start: 06/05/23 10:31 Freq: Status: Active Protocol: Document 10/04/23 08:15 NM (Rec: 10/04/23 09:02 NM [id number]) Therapeutic Exercises Standing Exercises step up Standing Exercise Name 1. fwd 6 step up, 2. 4 lateral step up Side bilateral Equipment Used no hand support Reps/Minutes 1. 3x10 (3rd set w/ 1# ankle wt), 2. 3x10 w/ (1# ankle wt) Comments cued wider MICHELE; LLE ext to neutral only march Standing Exercise Name step tap to 4 step: 1. fwd, 2 . lateral Side bilateral Resistance level 2 band at toes Equipment Used 2 flat hand on rail for balance Reps/Minutes 2x10 ea Comments good trunk position; challenging but not painful side step Standing Exercise Name monster walk (fwd stepping only) Side bilateral Resistance level 2 at thighs Reps/Minutes 4x20 ft Comments no pain; neutral foot placement Manual Therapy Treatment Consent Patient gave verbal consent for manual Yes treatment Soft Tissue Mobilization left hip Body Location quad/hip flexors, ITB, glute, proximal HS Mobilization Type Rolling,Strumming,Other Intensity/Depth Moderate Body Position sidelying,supine Comments Tenderness and palpable knot on L glute and proximal hamstring, reduced and palpable muscle relaxation at glute following soft tissue mobilization. Less tenderness along anterior hip today Neuro Re-Education Treatment Balance Activities hurdles Details close SBA Comments 1. fwd reciprocal, 4x6 hurdles 2. lateral stepping, 4x6 hurdles 3. lateral stepping w/ squat to pickup/put down cones, 2x 6 hurdles SLS Details close SBA, no UE assist Reps/Duration 3 minutes Comments kicking ball w/o UE support, alternating legs Improved SLS. Cued wider MICHELE PT-OP-R Modalities Start: 06/05/23 10:31 Freq: Status: Active Protocol: Document 09/03/23 08:05 AB (Rec: 09/03/23 08:29 AB [id number]) Electric Stimulation Electric Stimulation [place] stim L leg Body Location L quad (VMO and RF) Intensity 18 Cycle 10/10 Ramp 0.5 Comments with SLR, quad set, LAQ PT-OP-T Assessment and Plan Start: 06/05/23 10:31 Freq: Status: Active Protocol: Document 10/04/23 08:15 NM (Rec: 10/04/23 09:02 NM [id number]) Physical Therapy Assessment Goals Five Impairment squat Impairment must be able to squat for return to job Short Term Goal (STG) Pt will be able to perform at least 10 bilateral squats without increase in baseline pain or LOB in order to demonstrate increased BLE strength for transfers, ADLs, return to work if appropriate 09/11/23: Pt can perform 10 STS without UE assist but great effort; can perform 10 squats with hand support 10/02/23: 10 squats with crate AROM, 10 with 5#, 10 goblet squats (no hip ER) with 10# STG Duration 6 weeks MET Sawyer Cork Slabs Goal (LTG) Pt will be able to perform at least 5 squats and lift at least 10# from the ground to at least chest height in order to perform job functions, if appropriate 10/02/23: 10# with squat but challenging and poor form LTG Duration 12 weeks Four Impairment gait Impairment must be able to squat for return to job Short Term Goal (STG) Pt will be able to ambulate without AD at least community distances (at least 800 ft) with normal gait mechanics 09/11/23: reports limited ambulation with LRAD due to discomfort with hip flexion 10/02/23: reports able to ambulate community distances without spc, no pain STG Duration 6 weeks MEt Alf Goal (LTG) Pt will be able to ambulate at least 1000 ft without AD in order to demonstrate improved ADL tolerance and ability to ambulate in community 09/18/2023 6 min walk test without device 1015 feet Goal met for 6 min walk test, but still using SPC for out in community. LTG Duration 12 weeks MET Three Impairment standing Impairment using FWW (pre-operative 6 MWT 1095 ft) Short Term Goal (STG) Pt will be able to stand with or without AD for at least 30 minutes without increase in baseline pain 09/11/23: reports able to stand with spc as long as needed, 10/02/23: can stand 30 min STG Duration 8 weeks MET Sawyer Cork Slabs Goal (LTG) Pt will be able to stand without AD for at least 1 hour without increase in baseline pain in order to return to work LTG Duration 12 weeks Two Impairment strength Impairment needs to be able to stand for at least 2 hours Short Term Goal (STG) Pt will increase L hip flex/ abd/ext strength to at least 4 /5 MMT in order to demonstrate increased strength for standing and ADLs 09/11/23: 3+/5 L hip flex and abd strength; extension not formally tested due to precautions but pt able to perform several sit to stands without UE assist, although fatiguing 10/02/23: 4-/5 L hip flex and abd; no tested in ext due to precautions STG Duration 6 weeks NOT MET Alf Goal (LTG) Pt will increase L hip flex/ abd/ext strength to at least 4 +/5 MMT in order to demonstrate increased strength for standing and ADLs LTG Duration 12 weeks One Impairment ROM Short Term Goal (STG) Pt will increase L hip flexion to at least 90 deg for gait, stairs, and transfers 09/11/23: 105 deg hip flexion STG Duration 6 weeks MET Alf Goal (LTG) Pt will increase L hip flexion to at least 110 deg in order to perform gait, stairs, and transfers 10/02/23: 121 deg LTG Duration 12 weeks MET Assessment Summary Assessment Pt tolerated session well. Demos improved form with step ups today and better control with descent. Still requires cues to maintain wider MICHELE for safety during stance, step ups, and balance activities. Progressed to 6 step for forward step ups with 1# ankle weight; trialed lateral step up for greater glute strengthening. Pt able to perform with good form and effort while maintaining precautions. Able to perform foward stepping with monster walks using shorter lever arm today without pain in lateral hip. Trialed resisted marching , which is challenging for pt hip flexor strength and to maintain balance. Continued with balance training to improve stability. Pt requires consistent cues for wider MICHELE ; CGA occasionally to steady. Physical Therapy Plan Frequency and Duration Frequency of Treatment 1-2x/wk Duration of treatment (weeks) 12 Plan of Care Start Date 08/07/23 Plan of Care End Date 11/02/23 Therapeutic Interventions Therapeutic Interventions Balance Training,Gait Training ,Home Exercise Program,Joint Mobilizations,Manual Therapy, Neuromuscular Re-education, Orthotic/Prosthetic Management ,Patient/Caregiver Education, Self-Care/Home Management, Sensory Integration,Soft Tissue Mobilization,Taping, Therapeutic Activities, Therapeutic Exercises Modalities Cold Pack/Ice Massage,Electric Stimulation,Hot Packs, Ultrasound,Vasopneumatic Devices Next Visit Focus/Plan Next Note Type Treatment Note Next Visit Plan ask if released from precautions If none- leg press B squat, step up, retro walk, hip ext, hip abd; balance If still precautions- cont w/ step up, no hip ext, leg press w/ neutral hip position, LAQ; balance ball toss. SLS and balance, hip hinge gracie w/ picking up objects non-antalgic gait then able to remove (trial househodl 1st then community)
--- NOTE | 2023-10-09 16:44 | PT.OTN ---
Current Diagnoses Bilateral primary osteoarthritis of hip (10/09/23) Unilateral primary osteoarthritis, left hip (10/09/23) Other lack of coordination (10/09/23) Weakness (10/09/23) Physical Therapy Treatment Note PT-OP-A Visit Information Start: 06/05/23 10:31 Freq: Status: Active Protocol: Document 10/09/23 08:06 AB (Rec: 10/09/23 09:05 AB [id number]) Out-Patient Physical Therapy Visit Information Visit Information Visit Type Treatment Note Visit Note Access Code: [email or web address] Visit Start Time 08:15 Visit Stop Time 09:00 Visit Number 22 Number of [employer] Visits 1 Precautions Precautions Anterior hip precautions: no hip ext, no bridging, no prone , no hip ER beyond neutral PT-OP-B Current Condition Start: 06/05/23 10:31 Freq: Status: Active Protocol: Document 08/07/23 09:01 NM (Rec: 08/07/23 16:53 NM [id number]) Current Condition History of Current Condition Onset Date DOS 07/27/23 Current Complaints pain, mobility History of Current Condition Pt s/p L DAVID on 07/27/23. She had an anterior approach, currently has anterior hip precautions. Pt reports that surgery went without complication, but she spent a couple of days in the hospital due to low blood pressure. She is currently on blood pressure medication, which she does not normally take. Pt has been performing heel slides, ankle pumps. Pt is having most difficulty with getting in and out of bed. She is using a FWW for mobility but has been trying to take steps without RW as able. She is having most difficulty with dressing, standing, bed mobility, sleeping. Pt is planning to return to work on 09/19 and will need to work 4 hr shifts (sand 4 hrs, lifting up to 40#, bending and reaching for stocking). Pt reports that over the weekend, she got very sick and had to lie on her R side, so her L hip hurts more than normal now . She states that she spoke to Dr. Wills, who thinks it's a strained muscle and not dislocated. Pt reports tingling at her toes on LLE, which was not present before surgery. 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 (2 hrs at time with 10 minute break), lifting up to 40#, bending and stocking Current Functional Impairments (Reported) Functional Limitations- Mobility/Gait 4 stairs to enter home, has rails; not using FWW to enter, only rails Functional Limitations- Other using walk in shower, grab bars in shower, shower stool PT-OP-C Subjective Start: 06/05/23 10:31 Freq: Status: Active Protocol: Document 10/09/23 08:06 AB (Rec: 10/09/23 09:05 AB [id number]) OP-PT Subjective Patient Comments Patient Comments Patient reports MD told her she no longer has hip precautions but no yoga. Patient reports not using SPC for 1.5 weeks. PT-OP-D Balance Start: 06/05/23 10:31 Freq: Status: Active Protocol: Document 09/25/23 08:17 AB (Rec: 09/25/23 16:12 AB [id number]) P[place]ta Balance Assessment Evaluation Sitting to Standing Ability Independent w/out Hands Unsupported Stance Safely- 2 minutes Sitting Unsupported, Feet on Floor Safely- 2 minutes Standing to Sitting Ability Safely, Minimal Hand Use Transfer Ability Safely, Minimal Hand Use Unsupported Stance- Eyes Closed Safely, 10 seconds Unsupported Stance- Eyes Open Independent, 1 minute Reaching Forward Standing Confidently, 10 inches Pick- Up Object From Floor Independent/Safe Look Behind Shoulder - Standing Shifts Weight Well Turning 360 Degrees Turns Bilateral, < 4 secs Unsupported Stance, Alternating Feet on (I)- 8 Steps in 20 secs Stair Unsupported Tandem Stance Balance Lost- Step/Stand Unilateral Leg Stance Lifts Leg/Holds > 3 secs Total Score Peralta Total Score (out of 56 points) 50 PT-OP-E Functional Tests Start: 06/05/23 10:31 Freq: Status: Active Protocol: Document 09/18/23 08:09 AB (Rec: 09/18/23 16:42 AB [id number]) Functional Tests 6 Minute Walk Test Distance 1015 Device Used without device PT-OP-F Manual Assessment Start: 06/05/23 10:31 Freq: Status: Active Protocol: Document 06/05/23 10:31 NM (Rec: 06/05/23 12:16 NM [id number]) Manual Assessments Soft Tissue Assessment Soft Tissue Mobility Assessment Tight B hip flexors, heel cords Joint Mobility Assessment Joint Mobility Assessment Limited B hip mobility passively with flexion, ER, IR . LLE limited globally. Lacks terminal knee extension bilaterally PT-OP-G Mobility & Gait Start: 06/05/23 10:31 Freq: Status: Active Protocol: Document 08/07/23 09:01 NM (Rec: 08/07/23 16:53 NM [id number]) OP Mobility Evaluation Bed Mobility Rolling SBA Supine to and from Sit min A to bring LLE to EOB supine <> sit Transfers Sit to Stand close SBA to FWW Bed to Chair Transfers close SBA with FWW OP Gait Assessment Gait Gait Assistance Required: Standby Assistance Distance (Feet) 200 Assistive Devices Assistive Device Gait Belt,Front Wheeled Walker Gait Deviations General Gait Pattern Antalgic Factors Limiting Gait Function Factors Limiting Gait Function Decreased Sensation,Decreased Strength,Limited Range of Motion,Pain Comments Gait Comments decreased stride length and WBAT on LLE. Good upright posture PT-OP-H Neuro Start: 06/05/23 10:31 Freq: Status: Active Protocol: Document 06/05/23 10:31 NM (Rec: 06/05/23 12:16 NM [id number]) Sensation Evaluation Comments Summary Comments BLE intact to light touch sensation, but 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 PT-OP-J Posture/Palpation/Skin Start: 06/05/23 10:31 Freq: Status: Active Protocol: Document 08/07/23 09:01 NM (Rec: 08/07/23 16:53 NM [id number]) Palpation Assessment Location L hip Palpation Details Tenderness reported in anterior hip near groin, over incision. Did not palpate due to incision Skin Assessment Incisional Assessment Incision Appearance/Comments Incision covered by dressing, which is c/d/i. No signs of redness or infection around dressings Other Assessments Skin Assessment Comments L ankle figure 8 (edema): 50 cm PT-OP-K Range of Motion Start: 06/05/23 10:31 Freq: Status: Active Protocol: Document 10/02/23 08:18 NM (Rec: 10/02/23 16:06 NM [id number]) Hip Goniometric Range of Motion Hip Right Flexion w/Knee Flexed 90 Extension 15 Abduction 20 Internal Rotation 15 External Rotation 40 Left Flexion w/Knee Flexed 121 Abduction 30 Comments Pre-surgery: 90 deg flex, 8 deg ext, 15 deg abd, 15 deg IR , 15 deg ER; pain with ER/IR, abd, flex, ext, add; hamstring 150 deg 08/06: did not measure ROM due to hip precautions 09/06/23: 100 deg hip flexion, 15 deg hip abd 09/11/23: 105 deg hip flexion, 20 deg ABD 10/02/23: 121 deg flex, 30 deg abd PT-OP-L Special Tests Start: 06/05/23 10:31 Freq: Status: Active Protocol: Document 06/05/23 10:31 NM (Rec: 06/05/23 12:16 NM [id number]) Special Tests Hip Special Tests Straight Leg Raise Test Results + Comments unable to lift LLE Log Roll Test Test Results + SANTOS Test Results + Comments L PT-OP-M Strength Start: 06/05/23 10:31 Freq: Status: Active Protocol: Document 10/02/23 08:18 NM (Rec: 10/02/23 16:06 NM [id number]) Hip Strength Hip Manual Muscle Testing Right Flexion (L2) 4 Good Extension (S1) 4- Good- Abduction 4 Good Adduction 4 Good External Rotation 4 Good Internal Rotation 4 Good Left Flexion (L2) 4- Good- Abduction 4- Good- Adduction 4 Good Comments pre-surgery: pain with ER/IR/ Flex; 3+/5 with flex/ext/ER/IR ; 4-/5 abd; 4/5 ADD 08/07/23: did not assess due to hip precuations 09/11/23: 3+/5, minimal resistance against gravity 10/02/23: 4-/5 for flex and abd , 4/5 for add; ext and ER not tested post-op yet due to precautions still intact PT-OP-Q Treatments Start: 06/05/23 10:31 Freq: Status: Active Protocol: Document 10/09/23 08:06 AB (Rec: 10/09/23 09:05 AB [id number]) Gym Equipment Shuttle Recovery single LE Details left LE Resistance 25 Reps/Time 15 x bilateral Resistance 50lb then 62 lb Reps/Time X15 at 50 then X15 Therapeutic Exercises Prone Exercises lying prone Reps/Minutes 3 min Comments post manual therapy to scar tissue ant left hip Sidelying Exercises hip abduction Side left Reps/Minutes 15 X 2 Comments verbal cues and tacitle cues for LE position and direction of m ovement Sitting Exercises hip abduction Sitting Exercise Name isometric hold Side bilateral Resistance level 4 band Reps/Minutes 60 X1 and X 15 without hold Standing Exercises side step Standing Exercise Name monster walk (fwd stepping only) Side bilateral Resistance level 2 at thighs Reps/Minutes 4x20 ft Comments no pain; neutral foot placement Therapeutic Activity Therapeutic Activity stair training Reps/Minutes X2 X 4 steps Comments monitored for pain, verbal cues for reciprocal pattern without UE use sit to stand Name and squats to reach chair seat height and nearly to floor Reps/Minutes X4 Comments Patient ed use of self tactile cues for hip hinge Manual Therapy Treatment Consent Patient gave verbal consent for manual Yes treatment Soft Tissue Mobilization scar mobilization Mobilization Type Cross-Friction,Rolling,Other Intensity/Depth Superficial Body Position Hooklying Comments Superficial to moderate left hip Body Location left hip flexor Mobilization Type Cross-Friction,Rolling Intensity/Depth Moderate Body Position Hooklying Neuro Re-Education Treatment Balance Activities retoro stepping Reps/Duration 3 min Comments hand above mat at counter height marching with handss above counter Comments Distant supervision and verbal cues PT-OP-R Modalities Start: 06/05/23 10:31 Freq: Status: Active Protocol: Document 09/03/23 08:05 AB (Rec: 09/03/23 08:29 AB [id number]) Electric Stimulation Electric Stimulation Israeli stim L leg Body Location L quad (VMO and RF) Intensity 18 Cycle 10/10 Ramp 0.5 Comments with SLR, quad set, LAQ PT-OP-T Assessment and Plan Start: 06/05/23 10:31 Freq: Status: Active Protocol: Document 10/09/23 08:06 AB (Rec: 10/09/23 09:05 [id number]) Physical Therapy Assessment Goals Five Impairment squat Impairment must be able to squat for return to job Short Term Goal (STG) Pt will be able to perform at least 10 bilateral squats without increase in baseline pain or LOB in order to demonstrate increased BLE strength for transfers, ADLs, return to work if appropriate 09/11/23: Pt can perform 10 STS without UE assist but great effort; can perform 10 squats with hand support 10/02/23: 10 squats with crate AROM, 10 with 5#, 10 goblet squats (no hip ER) with 10# STG Duration 6 weeks [facility] Home Goal (LTG) Pt will be able to perform at least 5 squats and lift at least 10# from the ground to at least chest height in order to perform job functions, if appropriate 10/02/23: 10# with squat but challenging and poor form LTG Duration 12 weeks Four Impairment gait Impairment must be able to squat for return to job Short Term Goal (STG) Pt will be able to ambulate without AD at least community distances (at least 800 ft) with normal gait mechanics 09/11/23: reports limited ambulation with LRAD due to discomfort with hip flexion 10/02/23: reports able to ambulate community distances without spc, no pain STG Duration 6 weeks [employer] [employer] Goal (LTG) Pt will be able to ambulate at least 1000 ft without AD in order to demonstrate improved ADL tolerance and ability to ambulate in community 09/18/2023 6 min walk test without device 1015 feet Goal met for 6 min walk test, but still using SPC for out in community. LTG Duration 12 weeks MET Three Impairment standing Impairment using FWW (pre-operative 6 MWT 1095 ft) Short Term Goal (STG) Pt will be able to stand with or without AD for at least 30 minutes without increase in baseline pain 09/11/23: reports able to stand with spc as long as needed, 10/02/23: can stand 30 min STG Duration 8 weeks MET [employer] Goal (LTG) Pt will be able to stand without AD for at least 1 hour without increase in baseline pain in order to return to work LTG Duration 12 weeks Two Impairment strength Impairment needs to be able to stand for at least 2 hours Short Term Goal (STG) Pt will increase L hip flex/ abd/ext strength to at least 4 /5 MMT in order to demonstrate increased strength for standing and ADLs 09/11/23: 3+/5 L hip flex and abd strength; extension not formally tested due to precautions but pt able to perform several sit to stands without UE assist, although fatiguing 10/02/23: 4-/5 L hip flex and abd; no tested in ext due to precautions STG Duration 6 weeks NOT MET [employer] Goal (LTG) Pt will increase L hip flex/ abd/ext strength to at least 4 +/5 MMT in order to demonstrate increased strength for standing and ADLs LTG Duration 12 weeks One Impairment ROM Short Term Goal (STG) Pt will increase L hip flexion to at least 90 deg for gait, stairs, and transfers 09/11/23: 105 deg hip flexion STG Duration 6 weeks [facility] Home Goal (LTG) Pt will increase L hip flexion to at least 110 deg in order to perform gait, stairs, and transfers 10/02/23: 121 deg LTG Duration 12 weeks MET Assessment Summary Assessment Neena reports having no pain end of session. Improved hip hinge with squats post training. Physical Therapy Plan Frequency and Duration Frequency of Treatment 1-2x/wk Duration of treatment (weeks) 12 Plan of Care Start Date 08/07/23 Plan of Care End Date 11/02/23 Next Visit Focus/Plan Next Note Type Treatment Note Next Visit Plan If none- leg press B squat, step up for HEP, hip ext, hip abduction with level one band, balance balance ball toss. SLS and balance, hip hinge gracie w/ picking up objects
--- NOTE | 2023-10-16 12:59 | PT.OTN ---
Current Diagnoses Bilateral primary osteoarthritis of hip (10/16/23) Unilateral primary osteoarthritis, left hip (10/16/23) Other lack of coordination (10/16/23) Weakness (10/16/23) Physical Therapy Treatment Note PT-OP-A Visit Information Start: 06/05/23 10:31 Freq: Status: Active Protocol: Document 10/16/23 08:06 AB (Rec: 10/16/23 09:02 AB [id number]) Out-Patient Physical Therapy Visit Information Visit Information Visit Type Treatment Note Visit Note Access Code: [email or web address] Visit Start Time 08:17 Visit Stop Time 09:00 Visit Number 23 Number of INVESTMENT MANAGER Visits 2 Evaluation Information Evaluation Date 08/07/23 PT-OP-B Current Condition Start: 06/05/23 10:31 Freq: Status: Active Protocol: Document 08/07/23 09:01 NM (Rec: 08/07/23 16:53 NM [id number]) Current Condition History of Current Condition Onset Date DOS 07/27/23 Current Complaints pain, mobility History of Current Condition Pt s/p L DAVID on 07/27/23. She had an anterior approach, currently has anterior hip precautions. Pt reports that surgery went without complication, but she spent a couple of days in the hospital due to low blood pressure. She is currently on blood pressure medication, which she does not normally take. Pt has been performing heel slides, ankle pumps. Pt is having most difficulty with getting in and out of bed. She is using a FWW for mobility but has been trying to take steps without RW as able. She is having most difficulty with dressing, standing, bed mobility, sleeping. Pt is planning to return to work on 09/19 and will need to work 4 hr shifts (sand 4 hrs, lifting up to 40#, bending and reaching for stocking). Pt reports that over the weekend, she got very sick and had to lie on her R side, so her L hip hurts more than normal now . She states that she spoke to Dr. Wills, who thinks it's a strained muscle and not dislocated. Pt reports tingling at her toes on LLE, which was not present before surgery. 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 (2 hrs at time with 10 minute break), lifting up to 40#, bending and stocking Current Functional Impairments (Reported) Functional Limitations- Mobility/Gait 4 stairs to enter home, has rails; not using FWW to enter, only rails Functional Limitations- Other using walk in shower, grab bars in shower, shower stool PT-OP-C Subjective Start: 06/05/23 10:31 Freq: Status: Active Protocol: Document 10/16/23 08:06 AB (Rec: 10/16/23 09:02 AB [id number]) OP-PT Subjective Patient Comments Patient Comments Patient reports the hip is a little sore, more stiff in the morning, attributes to overdoing it on the weekend. PT-OP-D Balance Start: 06/05/23 10:31 Freq: Status: Active Protocol: Document 09/25/23 08:17 AB (Rec: 09/25/23 16:12 AB [id number]) [place] Balance Assessment Evaluation Sitting to Standing Ability Independent w/out Hands Unsupported Stance Safely- 2 minutes Sitting Unsupported, Feet on Floor Safely- 2 minutes Standing to Sitting Ability Safely, Minimal Hand Use Transfer Ability Safely, Minimal Hand Use Unsupported Stance- Eyes Closed Safely, 10 seconds Unsupported Stance- Eyes Open Independent, 1 minute Reaching Forward Standing Confidently, 10 inches Pick- Up Object From Floor Independent/Safe Look Behind Shoulder - Standing Shifts Weight Well Turning 360 Degrees Turns Bilateral, < 4 secs Unsupported Stance, Alternating Feet on (I)- 8 Steps in 20 secs Stair Unsupported Tandem Stance Balance Lost- Step/Stand Unilateral Leg Stance Lifts Leg/Holds > 3 secs Total Score Peralta Total Score (out of 56 points) 50 PT-OP-E Functional Tests Start: 06/05/23 10:31 Freq: Status: Active Protocol: Document 09/18/23 08:09 AB (Rec: 09/18/23 16:42 AB [id number]) Functional Tests 6 Minute Walk Test Distance 1015 Device Used without device PT-OP-F Manual Assessment Start: 06/05/23 10:31 Freq: Status: Active Protocol: Document 06/05/23 10:31 NM (Rec: 06/05/23 12:16 NM [id number]) Manual Assessments Soft Tissue Assessment Soft Tissue Mobility Assessment Tight B hip flexors, heel cords Joint Mobility Assessment Joint Mobility Assessment Limited B hip mobility passively with flexion, ER, IR . LLE limited globally. Lacks terminal knee extension bilaterally PT-OP-G Mobility & Gait Start: 06/05/23 10:31 Freq: Status: Active Protocol: Document 08/07/23 09:01 NM (Rec: 08/07/23 16:53 NM [id number]) OP Mobility Evaluation Bed Mobility Rolling SBA Supine to and from Sit min A to bring LLE to EOB supine <> sit Transfers Sit to Stand close SBA to FWW Bed to Chair Transfers close SBA with FWW OP Gait Assessment Gait Gait Assistance Required: Standby Assistance Distance (Feet) 200 Assistive Devices Assistive Device Gait Belt,Front Wheeled Walker Gait Deviations General Gait Pattern Antalgic Factors Limiting Gait Function Factors Limiting Gait Function Decreased Sensation,Decreased Strength,Limited Range of Motion,Pain Comments Gait Comments decreased stride length and WBAT on LLE. 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 Did not palpate due to incision Skin Assessment Incisional Assessment Incision Appearance/Comments Incision covered by dressing, which is c/d/i. No signs of redness or infection around dressings Other Assessments Skin Assessment Comments L ankle figure 8 (edema): 50 cm PT-OP-K Range of Motion Start: 06/05/23 10:31 Freq: Status: Active Protocol: Document 10/02/23 08:18 NM (Rec: 10/02/23 16:06 NM [id number]) Hip Goniometric Range of Motion Hip Right Flexion w/Knee Flexed 90 Extension 15 Abduction 20 Internal Rotation 15 External Rotation 40 Left Flexion w/Knee Flexed 121 Abduction 30 Comments Pre-surgery: 90 deg flex, 8 deg ext, 15 deg abd, 15 deg IR , 15 deg ER; pain with ER/IR, abd, flex, ext, add; hamstring 150 deg 08/06: did not measure ROM due to hip precautions 09/06/23: 100 deg hip flexion, 15 deg hip abd 09/11/23: 105 deg hip flexion, 20 deg ABD 10/02/23: 121 deg flex, 30 deg abd PT-OP-L Special Tests Start: 06/05/23 10:31 Freq: Status: Active Protocol: Document 06/05/23 10:31 NM (Rec: 06/05/23 12:16 NM [id number]) Special Tests Hip Special Tests Straight Leg Raise Test Results + Comments unable to lift LLE Log Roll Test Test Results + SANTOS Test Results + Comments L PT-OP-M Strength Start: 06/05/23 10:31 Freq: Status: Active Protocol: Document 10/02/23 08:18 NM (Rec: 10/02/23 16:06 NM [id number]) Hip Strength Hip Manual Muscle Testing Right Flexion (L2) 4 Good Extension (S1) 4- Good- Abduction 4 Good Adduction 4 Good External Rotation 4 Good Internal Rotation 4 Good Left Flexion (L2) 4- Good- Abduction 4- Good- Adduction 4 Good Comments pre-surgery: pain with ER/IR/ Flex; 3+/5 with flex/ext/ER/IR ; 4-/5 abd; 4/5 ADD 08/07/23: did not assess due to hip precuations 09/11/23: 3+/5, minimal resistance against gravity 10/02/23: 4-/5 for flex and abd , 4/5 for add; ext and ER not tested post-op yet due to precautions still intact PT-OP-Q Treatments Start: 06/05/23 10:31 Freq: Status: Active Protocol: Document 10/16/23 08:06 AB (Rec: 10/16/23 09:02 AB [id number]) Therapeutic Exercises Prone Exercises lying prone Comments post manual therapy to scar tissue ant left hip Sidelying Exercises hip abduction Side bilateral Resistance level one band Reps/Minutes 2X15 Comments Verbal cues for trunk and LE positioning Sitting Exercises hip abduction Sitting Exercise Name isometric hold Side bilateral Resistance level 5 band Reps/Minutes 60 X1 Standing Exercises side step Standing Exercise Name side stepping Side bilateral Resistance level 5 Reps/Minutes one to 2 minute Comments VC to avoid toeing out sit to stand with UE use Standing Exercise Name without UE use Side bilateral Resistance level 5 band Reps/Minutes X15 Comments Verbal cues for hip hinge Manual Therapy Treatment Soft Tissue Mobilization scar mobilization Mobilization Type Cross-Friction,Rolling,Other Intensity/Depth Superficial Body Position Hooklying Comments Superficial to moderate Neuro Re-Education Treatment Balance Activities lunges to near floor touch Reps/Duration X5 each LE fwd tandem stepping Details hands above bars Reps/Duration 10 feet X 6 Comments distant supervision retoro stepping Equipment level 5 band tied above knees Reps/Duration 2 min Comments hand above counter SLS Details distant supervision Reps/Duration 2-3minutes Comments hands above mat at counter height, with visual scanning and head turns PT-OP-R Modalities Start: 06/05/23 10:31 Freq: Status: Active Protocol: Document 09/03/23 08:05 AB (Rec: 09/03/23 08:29 AB [id number]) Electric Stimulation Electric Stimulation [place] stim L leg Body Location L quad (VMO and RF) Intensity 18 Cycle 10/10 Ramp 0.5 Comments with SLR, quad set, LAQ PT-OP-T Assessment and Plan Start: 06/05/23 10:31 Freq: Status: Active Protocol: Document 10/16/23 08:06 AB (Rec: 10/16/23 09:02 AB [id number]) Physical Therapy Assessment Goals Five Impairment squat Impairment must be able to squat for return to job Short Term Goal (STG) Pt will be able to perform at least 10 bilateral squats without increase in baseline pain or LOB in order to demonstrate increased BLE strength for transfers, ADLs, return to work if appropriate 09/11/23: Pt can perform 10 STS without UE assist but great effort; can perform 10 squats with hand support 10/02/23: 10 squats with crate AROM, 10 with 5#, 10 goblet squats (no hip ER) with 10# STG Duration 6 weeks MET Intermediate Goal (LTG) Pt will be able to perform at least 5 squats and lift at least 10# from the ground to at least chest height in order to perform job functions, if appropriate 10/02/23: 10# with squat but challenging and poor form LTG Duration 12 weeks Four Impairment gait Impairment must be able to squat for return to job Short Term Goal (STG) Pt will be able to ambulate without AD at least community distances (at least 800 ft) with normal gait mechanics 09/11/23: reports limited ambulation with LRAD due to discomfort with hip flexion 10/02/23: reports able to ambulate community distances without spc, no pain STG Duration 6 weeks [facility] R[facility] Goal (LTG) Pt will be able to ambulate at least 1000 ft without AD in order to demonstrate improved ADL tolerance and ability to ambulate in community 09/18/2023 6 min walk test without device 1015 feet Goal met for 6 min walk test, but still using SPC for out in community. LTG Duration 12 weeks MET Three Impairment standing Impairment using FWW (pre-operative 6 MWT 1095 ft) Short Term Goal (STG) Pt will be able to stand with or without AD for at least 30 minutes without increase in baseline pain 09/11/23: reports able to stand with spc as long as needed, 10/02/23: can stand 30 min STG Duration 8 weeks MET [facility] Rn Goal (LTG) Pt will be able to stand without AD for at least 1 hour without increase in baseline pain in order to return to work LTG Duration 12 weeks Two Impairment strength Impairment needs to be able to stand for at least 2 hours Short Term Goal (STG) Pt will increase L hip flex/ abd/ext strength to at least 4 /5 MMT in order to demonstrate increased strength for standing and ADLs 09/11/23: 3+/5 L hip flex and abd strength; extension not formally tested due to precautions but pt able to perform several sit to stands without UE assist, although fatiguing 10/02/23: 4-/5 L hip flex and abd; no tested in ext due to precautions STG Duration 6 weeks NOT MET [facility] R[facility] Goal (LTG) Pt will increase L hip flex/ abd/ext strength to at least 4 +/5 MMT in order to demonstrate increased strength for standing and ADLs LTG Duration 12 weeks One Impairment ROM Short Term Goal (STG) Pt will increase L hip flexion to at least 90 deg for gait, stairs, and transfers 09/11/23: 105 deg hip flexion STG Duration 6 weeks MET [facility] Goal (LTG) Pt will increase L hip flexion to at least 110 deg in order to perform gait, stairs, and transfers 10/02/23: 121 deg LTG Duration 12 weeks MET Assessment Summary Assessment Progressed to level 5 band for standing and seated hip strengthening ie side stepping , sit to stand, seated hip abd with band, with good jay this session. Neena slightly unsteady with lunge to floor level, but good technique to canales level. Physical Therapy Plan Frequency and Duration Frequency of Treatment 1-2x/wk Duration of treatment (weeks) 12 Plan of Care Start Date 08/07/23 Plan of Care End Date 11/02/23 Next Visit Focus/Plan Next Note Type Discharge Summary Next Visit Plan Condense HEP/assess jay to HEP progressions previous session .
--- NOTE | 2023-10-18 14:50 | PT.OTN ---
Current Diagnoses Bilateral primary osteoarthritis of hip (10/18/23) Unilateral primary osteoarthritis, left hip (10/18/23) Other lack of coordination (10/18/23) Weakness (10/18/23) Physical Therapy Treatment Note PT-OP-A Visit Information Start: 06/05/23 10:31 Freq: Status: Active Protocol: Document 10/18/23 08:19 NM (Rec: 10/18/23 09:02 NM [id number]) Out-Patient Physical Therapy Visit Information Visit Information Visit Type Progress Note Visit Start Time 08:19 Visit Stop Time 09:00 Visit Number 24 Evaluation Information Evaluation Date 08/07/23 Precautions Precautions anterior hip precautions removed PT-OP-B Current Condition Start: 06/05/23 10:31 Freq: Status: Active Protocol: Document 08/07/23 09:01 NM (Rec: 08/07/23 16:53 NM [id number]) Current Condition History of Current Condition Onset Date DOS 07/27/23 Current Complaints pain, mobility History of Current Condition Pt s/p L DAVID on 07/27/23. She had an anterior approach, currently has anterior hip precautions. Pt reports that surgery went without complication, but she spent a couple of days in the hospital due to low blood pressure. She is currently on blood pressure medication, which she does not normally take. Pt has been performing heel slides, ankle pumps. Pt is having most difficulty with getting in and out of bed. She is using a FWW for mobility but has been trying to take steps without RW as able. She is having most difficulty with dressing, standing, bed mobility, sleeping. Pt is planning to return to work on 09/19 and will need to work 4 hr shifts (sand 4 hrs, lifting up to 40#, bending and reaching for stocking). Pt reports that over the weekend, she got very sick and had to lie on her R side, so her L hip hurts more than normal now . She states that she spoke to Dr. Wills, who thinks it's a strained muscle and not dislocated. Pt reports tingling at her toes on LLE, which was not present before surgery. 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 She is uncertain if she has any more insurance visits. She still has tenderness along L lateral hip. She was reall busy last weekend, states overdid it but felt pretty good. PT-OP-D Balance Start: 06/05/23 10:31 Freq: Status: Active Protocol: Document 09/25/23 08:17 AB (Rec: 09/25/23 16:12 AB [id number]) [place] Balance Assessment Evaluation Sitting to Standing Ability Independent w/out Hands Unsupported Stance Safely- 2 minutes Sitting Unsupported, Feet on Floor Safely- 2 minutes Standing to Sitting Ability Safely, Minimal Hand Use Transfer Ability Safely, Minimal Hand Use Unsupported Stance- Eyes Closed Safely, 10 seconds Unsupported Stance- Eyes Open Independent, 1 minute Reaching Forward Standing Confidently, 10 inches Pick- Up Object From Floor Independent/Safe Look Behind Shoulder - Standing Shifts Weight Well Turning 360 Degrees Turns Bilateral, < 4 secs Unsupported Stance, Alternating Feet on (I)- 8 Steps in 20 secs Stair Unsupported Tandem Stance Balance Lost- Step/Stand Unilateral Leg Stance Lifts Leg/Holds > 3 secs Total Score Peralta Total Score (out of 56 points) 50 PT-OP-E Functional Tests Start: 06/05/23 10:31 Freq: Status: Active Protocol: Document 09/18/23 08:09 AB (Rec: 09/18/23 16:42 AB [id number]) Functional Tests 6 Minute Walk Test Distance 1015 Device Used without device PT-OP-F Manual Assessment Start: 06/05/23 10:31 Freq: Status: Active Protocol: Document 06/05/23 10:31 NM (Rec: 06/05/23 12:16 NM [id number]) Manual Assessments Soft Tissue Assessment Soft Tissue Mobility Assessment Tight B hip flexors, heel cords Joint Mobility Assessment Joint Mobility Assessment Limited B hip mobility passively with flexion, ER, IR . LLE limited globally. Lacks terminal knee extension bilaterally PT-OP-G Mobility & Gait Start: 06/05/23 10:31 Freq: Status: Active Protocol: Document 08/07/23 09:01 NM (Rec: 08/07/23 16:53 NM [id number]) OP Mobility Evaluation Bed Mobility Rolling SBA Supine to and from Sit min A to bring LLE to EOB supine <> sit Transfers Sit to Stand close SBA to FWW Bed to Chair Transfers close SBA with FWW OP Gait Assessment Gait Gait Assistance Required: Standby Assistance Distance (Feet) 200 Assistive Devices Assistive Device Gait Belt,Front Wheeled Walker Gait Deviations General Gait Pattern Antalgic Factors Limiting Gait Function Factors Limiting Gait Function Decreased Sensation,Decreased Strength,Limited Range of Motion,Pain Comments Gait Comments decreased stride length and WBAT on LLE. Good upright posture PT-OP-H Neuro Start: 06/05/23 10:31 Freq: Status: Active Protocol: Document 06/05/23 10:31 NM (Rec: 06/05/23 12:16 NM [id number]) Sensation Evaluation Comments Summary Comments BLE intact to light touch sensation, but 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 PT-OP-J Posture/Palpation/Skin Start: 06/05/23 10:31 Freq: Status: Active Protocol: Document 08/07/23 09:01 NM (Rec: 08/07/23 16:53 NM [id number]) Palpation Assessment Location L hip Palpation Details Tenderness reported in anterior hip near groin, over incision. Did not palpate due to incision Skin Assessment Incisional Assessment Incision Appearance/Comments Incision covered by dressing, which is c/d/i. No signs of redness or infection around dressings Other Assessments Skin Assessment Comments L ankle figure 8 (edema): 50 cm PT-OP-K Range of Motion Start: 06/05/23 10:31 Freq: Status: Active Protocol: Document 10/18/23 08:19 NM (Rec: 10/18/23 09:02 NM [id number]) Hip Goniometric Range of Motion Hip Right Flexion w/Knee Flexed 90 Extension 15 Abduction 20 Internal Rotation 15 External Rotation 40 Left Flexion w/Knee Flexed 121 Abduction 30 Comments Pre-surgery: 90 deg flex, 8 deg ext, 15 deg abd, 15 deg IR , 15 deg ER; pain with ER/IR, abd, flex, ext, add; hamstring 150 deg 08/06: did not measure ROM due to hip precautions 09/06/23: 100 deg hip flexion, 15 deg hip abd 09/11/23: 105 deg hip flexion, 20 deg ABD 10/02/23: 121 deg flex, 30 deg abd 10/18/23: 120 deg flex, 30 deg abd PT-OP-L Special Tests Start: 06/05/23 10:31 Freq: Status: Active Protocol: Document 06/05/23 10:31 NM (Rec: 06/05/23 12:16 NM [id number]) Special Tests Hip Special Tests Straight Leg Raise Test Results + Comments unable to lift LLE Log Roll Test Test Results + SANTOS Test Results + Comments L PT-OP-M Strength Start: 06/05/23 10:31 Freq: Status: Active Protocol: Document 10/18/23 08:19 NM (Rec: 10/18/23 09:02 NM [id number]) Hip Strength Hip Manual Muscle Testing Right Flexion (L2) 4 Good Extension (S1) 4- Good- Abduction 4 Good Adduction 4 Good External Rotation 4 Good Internal Rotation 4 Good Left Flexion (L2) 4- Good- Extension (S1) 4- Good- Abduction 4 Good Adduction 4 Good External Rotation 4- Good- Internal Rotation 4- Good- Comments pre-surgery: pain with ER/IR/ Flex; 3+/5 with flex/ext/ER/IR ; 4-/5 abd; 4/5 ADD 08/07/23: did not assess due to hip precuations 09/11/23: 3+/5, minimal resistance against gravity 10/02/23: 4-/5 for flex and abd , 4/5 for add; ext and ER not tested post-op yet due to precautions still intact 10/18/23: 4- ext and 4 abd, 4- for flex for remaining PT-OP-Q Treatments Start: 06/05/23 10:31 Freq: Status: Active Protocol: Document 10/18/23 08:19 NM (Rec: 10/18/23 09:02 NM [id number]) Therapeutic Exercises Supine Exercises SLR Side left Reps/Minutes 2x15 Comments cued good quad activation Sitting Exercises LAQ Sitting Exercise Name HEP Side left Resistance level 3 band Reps/Minutes 2x10 with 3 Comments challenging with level 3 band Standing Exercises lunge Standing Exercise Name stationary fwd lunge Side bilateral Equipment Used hand support on chair for balance Reps/Minutes 2x10 Comments unable to reach floor with lunge step up Standing Exercise Name 1. fwd, 2. lateral Side bilateral Equipment Used 8 Reps/Minutes 2x15 ea Comments no hand support, pain free squat Standing Exercise Name 1. 10# lift from floor, 2. crate lifts 20# Side bilateral Reps/Minutes 1. 2x10, 2. 3x4 Comments good hip hinge, less back dominant Therapeutic Activity Therapeutic Activity floor transfers Reps/Minutes 10 ea direction, ~8 minutes total Comments 1. via 1/2 kneel with chair for hand support, with moderate cueing initially for correct execution 2. with reach to low shelf to simulate job PT-OP-R Modalities Start: 06/05/23 10:31 Freq: Status: Active Protocol: Document 09/03/23 08:05 AB (Rec: 09/03/23 08:29 AB [id number]) Electric Stimulation Electric Stimulation Ghanaian stim L leg Body Location L quad (VMO and RF) Intensity 18 Cycle 10/10 Ramp 0.5 Comments with SLR, quad set, LAQ PT-OP-T Assessment and Plan Start: 06/05/23 10:31 Freq: Status: Active Protocol: Document 10/18/23 08:19 NM (Rec: 10/18/23 09:02 NM [id number]) Physical Therapy Assessment Goals Five Impairment squat Impairment must be able to squat for return to job Short Term Goal (STG) Pt will be able to perform at least 10 bilateral squats without increase in baseline pain or LOB in order to demonstrate increased BLE strength for transfers, ADLs, return to work if appropriate 09/11/23: Pt can perform 10 STS without UE assist but great effort; can perform 10 squats with hand support 10/02/23: 10 squats with crate AROM, 10 with 5#, 10 goblet squats (no hip ER) with 10# STG Duration 6 weeks MET Correction Goal (LTG) Pt will be able to perform at least 5 squats and lift at least 10# from the ground to at least chest height in order to perform job functions, if appropriate 10/02/23: 10# with squat but challenging and poor form 10/18/23: able to lift at least 10# from floor for several reps for squats; can lift and carry up to 20# LTG Duration 12 weeks MET Four Impairment gait Impairment must be able to squat for return to job Short Term Goal (STG) Pt will be able to ambulate without AD at least community distances (at least 800 ft) with normal gait mechanics 09/11/23: reports limited ambulation with LRAD due to discomfort with hip flexion 10/02/23: reports able to ambulate community distances without spc, no pain STG Duration 6 weeks MEt [employer] Mill Operator Goal (LTG) Pt will be able to ambulate at least 1000 ft without AD in order to demonstrate improved ADL tolerance and ability to ambulate in community 09/18/2023 6 min walk test without device 1015 feet Goal met for 6 min walk test, but still using SPC for out in community. LTG Duration 12 weeks MET Three Impairment standing Impairment using FWW (pre-operative 6 MWT 1095 ft) Short Term Goal (STG) Pt will be able to stand with or without AD for at least 30 minutes without increase in baseline pain 09/11/23: reports able to stand with spc as long as needed, 10/02/23: can stand 30 min STG Duration 8 weeks MET Correction Goal (LTG) Pt will be able to stand without AD for at least 1 hour without increase in baseline pain in order to return to work 10/18/23: pt reports can stand for at least an hour before needing to take a break LTG Duration 12 weeks MET Two Impairment strength Impairment needs to be able to stand for at least 2 hours Short Term Goal (STG) Pt will increase L hip flex/ abd/ext strength to at least 4 /5 MMT in order to demonstrate increased strength for standing and ADLs 09/11/23: 3+/5 L hip flex and abd strength; extension not formally tested due to precautions but pt able to perform several sit to stands without UE assist, although fatiguing 10/02/23: 4-/5 L hip flex and abd; no tested in ext due to precautions STG Duration 6 weeks NOT MET [employer] Operator Goal (LTG) Pt will increase L hip flex/ abd/ext strength to at least 4 +/5 MMT in order to demonstrate increased strength for standing and ADLs 10/18/23: 4/5 for ADD and ABD; 4 -/5 for hip flex/ext LTG Duration 12 weeks NOT MET One Impairment ROM Short Term Goal (STG) Pt will increase L hip flexion to at least 90 deg for gait, stairs, and transfers 09/11/23: 105 deg hip flexion STG Duration 6 weeks MET Correction Goal (LTG) Pt will increase L hip flexion to at least 110 deg in order to perform gait, stairs, and transfers 10/02/23: 121 deg LTG Duration 12 weeks MET Progress Towards Goals Progress Towards Goals Progressing Toward Goals,Goals Met Progress Comments progressing toward strength goals Assessment Summary Assessment Pt tolerated session well. Demos improvements in ROM and strength, but still has limitations in hip flexor and glute strength. Progressed to lunges, 8 step ups, and level 3 band for LAQ. Pt able to perform transfers to/from floor via half knee with hand support. She occasionally has lateral hip pain when performing resisted hip flexion motions; however, pt reports that her pain level quickly resolve. She is unable to perform SLR in sitting with hip flexors in shorted position. Physical Therapy Plan Frequency and Duration Frequency of Treatment 1x/Week Duration of treatment (weeks) 8 Plan of Care Start Date 10/18/23 Plan of Care End Date 12/13/23 Therapeutic Interventions Therapeutic Interventions Balance Training,Gait Training ,Home Exercise Program,Joint Mobilizations,Manual Therapy, Neuromuscular Re-education, Orthotic/Prosthetic Management ,Patient/Caregiver Education, Self-Care/Home Management, Sensory Integration,Soft Tissue Mobilization,Taping, Therapeutic Activities, Therapeutic Exercises Modalities Cold Pack/Ice Massage,Electric Stimulation,Hot Packs, Ultrasound,Vasopneumatic Devices Next Visit Focus/Plan Next Note Type Treatment Note Next Visit Plan leg press (unilateral and B squat), lunge, lateral lunge, hip flexion with band, LAQ, deadlift, squat, step up, floor transfers while holding object (hand support), balance global hip strengthening (gracie hip flexors and extensors) no anterior hip precautions but no end range hip ext
--- NOTE | 2023-10-18 14:51 | PT.OPPOC ---
Physical, Occupational & Speech Therapy At [facility] Current Diagnoses Bilateral primary osteoarthritis of hip (10/18/23) Unilateral primary osteoarthritis, left hip (10/18/23) Other lack of coordination (10/18/23) Weakness (10/18/23) Visit Care Team Role Provider Type Dee Dee Mann DO Family Provider Physician Primary Care Provider Specialty: Family Practice Address: [address] [place] [address], [address], [place], [address] Email: [email or web address] Roland Wills MD Attending Provider Physician Referring Provider Specialty: Orthopedics Orthopedic Surgery Address: [address] [place] [address], [id number] Email: [email or web address] PT-OP-B Current Condition Start: 06/05/23 10:31 Freq: Status: Active Protocol: Document 08/07/23 09:01 NM (Rec: 08/07/23 16:53 NM [id number]) Current Condition History of Current Condition Onset Date DOS 07/27/23 Current Complaints pain, mobility History of Current Condition Pt s/p L DAVID on 07/27/23. She had an anterior approach, currently has anterior hip precautions. Pt reports that surgery went without complication, but she spent a couple of days in the hospital due to low blood pressure. She is currently on blood pressure medication, which she does not normally take. Pt has been performing heel slides, ankle pumps. Pt is having most difficulty with getting in and out of bed. She is using a FWW for mobility but has been trying to take steps without RW as able. She is having most difficulty with dressing, standing, bed mobility, sleeping. Pt is planning to return to work on 09/19 and will need to work 4 hr shifts (sand 4 hrs, lifting up to 40#, bending and reaching for stocking). Pt reports that over the weekend, she got very sick and had to lie on her R side, so her L hip hurts more than normal now . She states that she spoke to Dr. Wills, who thinks it's a strained muscle and not dislocated. Pt reports tingling at her toes on LLE, which was not present before surgery. 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 (2 hrs at time with 10 minute break), lifting up to 40#, bending and stocking Current Functional Impairments (Reported) Functional Limitations- Mobility/Gait 4 stairs to enter home, has rails; not using FWW to enter, only rails Functional Limitations- Other using walk in shower, grab bars in shower, shower stool PT-OP-T Assessment and Plan Start: 06/05/23 10:31 Freq: Status: Active Protocol: Document 10/18/23 08:19 NM (Rec: 10/18/23 09:02 NM [id number]) Physical Therapy Assessment Goals Five Impairment squat Impairment must be able to squat for return to job Short Term Goal (STG) Pt will be able to perform at least 10 bilateral squats without increase in baseline pain or LOB in order to demonstrate increased BLE strength for transfers, ADLs, return to work if appropriate 09/11/23: Pt can perform 10 STS without UE assist but great effort; can perform 10 squats with hand support 10/02/23: 10 squats with crate AROM, 10 with 5#, 10 goblet squats (no hip ER) with 10# STG Duration 6 weeks MET Gaming Cage Worker Goal (LTG) Pt will be able to perform at least 5 squats and lift at least 10# from the ground to at least chest height in order to perform job functions, if appropriate 10/02/23: 10# with squat but challenging and poor form 10/18/23: able to lift at least 10# from floor for several reps for squats; can lift and carry up to 20# LTG Duration 12 weeks MET Four Impairment gait Impairment must be able to squat for return to job Short Term Goal (STG) Pt will be able to ambulate without AD at least community distances (at least 800 ft) with normal gait mechanics 09/11/23: reports limited ambulation with LRAD due to discomfort with hip flexion 10/02/23: reports able to ambulate community distances without spc, no pain STG Duration 6 weeks MEt Long-Term Goal (LTG) Pt will be able to ambulate at least 1000 ft without AD in order to demonstrate improved ADL tolerance and ability to ambulate in community 09/18/2023 6 min walk test without device 1015 feet Goal met for 6 min walk test, but still using SPC for out in community. LTG Duration 12 weeks MET Three Impairment standing Impairment using FWW (pre-operative 6 MWT 1095 ft) Short Term Goal (STG) Pt will be able to stand with or without AD for at least 30 minutes without increase in baseline pain 09/11/23: reports able to stand with spc as long as needed, 10/02/23: can stand 30 min STG Duration 8 weeks MET Gaming Cage Worker Goal (LTG) Pt will be able to stand without AD for at least 1 hour without increase in baseline pain in order to return to work 10/18/23: pt reports can stand for at least an hour before needing to take a break LTG Duration 12 weeks MET Two Impairment strength Impairment needs to be able to stand for at least 2 hours Short Term Goal (STG) Pt will increase L hip flex/ abd/ext strength to at least 4 /5 MMT in order to demonstrate increased strength for standing and ADLs 09/11/23: 3+/5 L hip flex and abd strength; extension not formally tested due to precautions but pt able to perform several sit to stands without UE assist, although fatiguing 10/02/23: 4-/5 L hip flex and abd; no tested in ext due to precautions STG Duration 6 weeks NOT MET Long-Term Goal (LTG) Pt will increase L hip flex/ abd/ext strength to at least 4 +/5 MMT in order to demonstrate increased strength for standing and ADLs 10/18/23: 4/5 for ADD and ABD; 4 -/5 for hip flex/ext LTG Duration 12 weeks NOT MET One Impairment ROM Short Term Goal (STG) Pt will increase L hip flexion to at least 90 deg for gait, stairs, and transfers 09/11/23: 105 deg hip flexion STG Duration 6 weeks MET Long-Term Goal (LTG) Pt will increase L hip flexion to at least 110 deg in order to perform gait, stairs, and transfers 10/02/23: 121 deg LTG Duration 12 weeks MET Progress Towards Goals Progress Towards Goals Progressing Toward Goals,Goals Met Progress Comments progressing toward strength goals Assessment Summary Assessment Pt has been seen x 16 visits since re-evaluation in July 2023 s/p L DAVID with anterior approach. She no longer has hip precautions, but is still limited in her end range hip extension ROM per MD request ( e.g. no end range yoga poses into hip ext). Pt is aware of her restrictions. 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 She needs to be able to kneel, lift, climb, carry, and push objects. Pt has full L hip ROM , with occasional mild pain only with max end range. She continues to have limitations in L glute and hip flexor strength. Pt reports minimal limitations in ability to perform ADLs/IADLs. However, she would benefit from skilled PT for L global hip strengthening in order to improve ability to perform work tasks, balance, and safety during lifting/carrying . Physical Therapy Plan Frequency and Duration Frequency of Treatment 1x/Week Duration of treatment (weeks) 8 Plan of Care Start Date 10/18/23 Plan of Care End Date 12/13/23 Therapeutic Interventions Therapeutic Interventions Balance Training,Gait Training ,Home Exercise Program,Joint Mobilizations,Manual Therapy, Neuromuscular Re-education, Orthotic/Prosthetic Management ,Patient/Caregiver Education, Self-Care/Home Management, Sensory Integration,Soft Tissue Mobilization,Taping, Therapeutic Activities, Therapeutic Exercises Modalities Cold Pack/Ice Massage,Electric Stimulation,Hot Packs, Ultrasound,Vasopneumatic Devices Next Visit Focus/Plan Next Note Type Treatment Note Next Visit Plan leg press (unilateral and B squat), lunge, lateral lunge, hip flexion with band, LAQ, deadlift, squat, step up, floor transfers while holding object (hand support), balance global hip strengthening (gracie hip flexors and extensors) no anterior hip precautions but no end range hip ext Plan of Care Dates Plan of Care Start Date 10/18/23 Plan of Care End Date 12/13/23 Electronically Signed by: Tere Demarco, PT 10/18/23 [id number] If you are in agreement with this Plan of Care, please return a signed and dated copy. I have reviewed this Plan of Care and certify that the skilled therapy services above are required to meet the patient?s needs. Physician Signature Date Printed Name and Credentials Clinical Instructor Signature Printed Name and Credentials
--- NOTE | 2023-10-25 12:56 | PT.OTN ---
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 She had an anterior approach, currently has anterior hip precautions. Pt reports that surgery went without complication, but she spent a couple of days in the hospital due to low blood pressure. She is currently on blood pressure medication, which she does not normally take. Pt has been performing heel slides, ankle pumps. Pt is having most difficulty with getting in and out of bed. She is using a FWW for mobility but has been trying to take steps without RW as able. She is having most difficulty with dressing, standing, bed mobility, sleeping. Pt is planning to return to work on 09/19 and will need to work 4 hr shifts (sand 4 hrs, lifting up to 40#, bending and reaching for stocking). Pt reports that over the weekend, she got very sick and had to lie on her R side, so her L hip hurts more than normal now . She states that she spoke to Dr. Wills, who thinks it's a strained muscle and not dislocated. Pt reports tingling at her toes on LLE, which was not present before surgery. 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 (2 hrs at time with 10 minute break), lifting up to 40#, bending and stocking Current Functional Impairments (Reported) Functional Limitations- Mobility/Gait 4 stairs to enter home, has rails; not using FWW to enter, only rails Functional Limitations- Other using walk in shower, grab bars in shower, shower stool PT-OP-C Subjective Start: 06/05/23 10:31 Freq: Status: Active Protocol: Document 10/25/23 09:47 SW (Rec: 10/25/23 10:31 SW [id number]) OP-PT Subjective Patient Comments Patient Comments Pt reports started back to work. 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 PT-OP-D Balance Start: 06/05/23 10:31 Freq: Status: Active Protocol: Document 09/25/23 08:17 AB (Rec: 09/25/23 16:12 AB [id number]) [place] Balance Assessment Evaluation Sitting to Standing Ability Independent w/out Hands Unsupported Stance Safely- 2 minutes Sitting Unsupported, Feet on Floor Safely- 2 minutes Standing to Sitting Ability Safely, Minimal Hand Use Transfer Ability Safely, Minimal Hand Use Unsupported Stance- Eyes Closed Safely, 10 seconds Unsupported Stance- Eyes Open Independent, 1 minute Reaching Forward Standing Confidently, 10 inches Pick- Up Object From Floor Independent/Safe Look Behind Shoulder - Standing Shifts Weight Well Turning 360 Degrees Turns Bilateral, < 4 secs Unsupported Stance, Alternating Feet on (I)- 8 Steps in 20 secs Stair Unsupported Tandem Stance Balance Lost- Step/Stand Unilateral Leg Stance Lifts Leg/Holds > 3 secs Total Score P[place]ta Total Score (out of 56 points) 50 PT-OP-E Functional Tests Start: 06/05/23 10:31 Freq: Status: Active Protocol: Document 09/18/23 08:09 AB (Rec: 09/18/23 16:42 AB [id number]) Functional Tests 6 Minute Walk Test Distance 1015 Device Used without device PT-OP-F Manual Assessment Start: 06/05/23 10:31 Freq: Status: Active Protocol: Document 06/05/23 10:31 NM (Rec: 06/05/23 12:16 NM [id number]) Manual Assessments Soft Tissue Assessment Soft Tissue Mobility Assessment Tight B hip flexors, heel cords Joint Mobility Assessment Joint Mobility Assessment Limited B hip mobility passively with flexion, ER, IR . LLE limited globally. Lacks terminal knee extension bilaterally PT-OP-G Mobility & Gait Start: 06/05/23 10:31 Freq: Status: Active Protocol: Document 08/07/23 09:01 NM (Rec: 08/07/23 16:53 NM [id number]) OP Mobility Evaluation Bed Mobility Rolling SBA Supine to and from Sit min A to bring LLE to EOB supine <> sit Transfers Sit to Stand close SBA to FWW Bed to Chair Transfers close SBA with FWW OP Gait Assessment Gait Gait Assistance Required: Standby Assistance Distance (Feet) 200 Assistive Devices Assistive Device Gait Belt,Front Wheeled Walker Gait Deviations General Gait Pattern Antalgic Factors Limiting Gait Function Factors Limiting Gait Function Decreased Sensation,Decreased Strength,Limited Range of Motion,Pain Comments Gait Comments decreased stride length and WBAT on LLE. Good upright posture PT-OP-H Neuro Start: 06/05/23 10:31 Freq: Status: Active Protocol: Document 06/05/23 10:31 NM (Rec: 06/05/23 12:16 NM [id number]) Sensation Evaluation Comments Summary Comments BLE intact to light touch sensation, but 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 PT-OP-J Posture/Palpation/Skin Start: 06/05/23 10:31 Freq: Status: Active Protocol: Document 08/07/23 09:01 NM (Rec: 08/07/23 16:53 NM [id number]) Palpation Assessment Location L hip Palpation Details Tenderness reported in anterior hip near groin, over incision. Did not palpate due to incision Skin Assessment Incisional Assessment Incision Appearance/Comments Incision covered by dressing, which is c/d/i. No signs of redness or infection around dressings Other Assessments Skin Assessment Comments L ankle figure 8 (edema): 50 cm PT-OP-K Range of Motion Start: 06/05/23 10:31 Freq: Status: Active Protocol: Document 10/18/23 08:19 NM (Rec: 10/18/23 09:02 NM [id number]) Hip Goniometric Range of Motion Hip Right Flexion w/Knee Flexed 90 Extension 15 Abduction 20 Internal Rotation 15 External Rotation 40 Left Flexion w/Knee Flexed 121 Abduction 30 Comments Pre-surgery: 90 deg flex, 8 deg ext, 15 deg abd, 15 deg IR , 15 deg ER; pain with ER/IR, abd, flex, ext, add; hamstring 150 deg 08/06: did not measure ROM due to hip precautions 09/06/23: 100 deg hip flexion, 15 deg hip abd 09/11/23: 105 deg hip flexion, 20 deg ABD 10/02/23: 121 deg flex, 30 deg abd 10/18/23: 120 deg flex, 30 deg abd PT-OP-L Special Tests Start: 06/05/23 10:31 Freq: Status: Active Protocol: Document 06/05/23 10:31 NM (Rec: 06/05/23 12:16 NM [id number]) Special Tests Hip Special Tests Straight Leg Raise Test Results + Comments unable to lift LLE Log Roll Test Test Results + SANTOS Test Results + Comments L PT-OP-M Strength Start: 06/05/23 10:31 Freq: Status: Active Protocol: Document 10/18/23 08:19 NM (Rec: 10/18/23 09:02 NM [id number]) Hip Strength Hip Manual Muscle Testing Right Flexion (L2) 4 Good Extension (S1) 4- Good- Abduction 4 Good Adduction 4 Good External Rotation 4 Good Internal Rotation 4 Good Left Flexion (L2) 4- Good- Extension (S1) 4- Good- Abduction 4 Good Adduction 4 Good External Rotation 4- Good- Internal Rotation 4- Good- Comments pre-surgery: pain with ER/IR/ Flex; 3+/5 with flex/ext/ER/IR ; 4-/5 abd; 4/5 ADD 08/07/23: did not assess due to hip precuations 09/11/23: 3+/5, minimal resistance against gravity 10/02/23: 4-/5 for flex and abd , 4/5 for add; ext and ER not tested post-op yet due to precautions still intact 10/18/23: 4- ext and 4 abd, 4- for flex for remaining PT-OP-Q Treatments Start: 06/05/23 10:31 Freq: Status: Active Protocol: Document 10/25/23 09:47 SW (Rec: 10/25/23 10:31 SW [id number]) Gym Equipment Shuttle Recovery bilateral Resistance 50lb Reps/Time 2x11 Therapeutic Exercises Supine Exercises SLR Side left Reps/Minutes 2x15 Comments cued good quad activation Sitting Exercises LAQ Sitting Exercise Name HEP Side left Resistance level 3 band Reps/Minutes 2x10 with 3 Comments challenging with level 3 band Standing Exercises Hip Flexion Standing Exercise Name Standing hip flexion Side bilateral Resistance Green TB Equipment Used @ rail lunge Standing Exercise Name stationary fwd lunge Side bilateral Equipment Used hand support on chair for balance Reps/Minutes 2x10 Comments unable to reach floor with lunge step up Standing Exercise Name 1. fwd, 2. lateral Side bilateral Equipment Used 8 Reps/Minutes 2x15 ea Comments hand support prn for balance, pain free, cues for feet forward with side squat Standing Exercise Name 1. 10# lift from floor, 2. crate lifts 20# Side bilateral Reps/Minutes 1. 2x10, 2. 3x4 Comments good hip hinge, less back dominant Neuro Re-Education Treatment Balance Activities Dynamic ambulation Details gait with head turns Surface tile Equipment gait belt Reps/Duration 4 x 15 ft Comments gait deviations bilaterally with head turns, CGA tandem stepping Details hands above bars Reps/Duration 10 feet X 6 Comments challenged with slower pacing, occasional TRADE CLERK retoro stepping Equipment level 5 band tied above knees Reps/Duration 2 min Comments hand above counter blue cushion Details NBOS Surface foam Equipment // bars Comments w/ head turns, TRADE CLERK prn, close SBA SLS Details Close SBA Equipment // bars Reps/Duration 2-3minutes Comments hands above mat at counter height, with visual scanning and head turns, ~20 static without TRADE CLERK PT-OP-R Modalities Start: 06/05/23 10:31 Freq: Status: Active Protocol: Document 09/03/23 08:05 AB (Rec: 09/03/23 08:29 AB [id number]) Electric Stimulation Electric Stimulation Panamanian stim L leg Body Location L quad (VMO and RF) Intensity 18 Cycle 10/10 Ramp 0.5 Comments with SLR, quad set, LAQ PT-OP-T Assessment and Plan Start: 06/05/23 10:31 Freq: Status: Active Protocol: Document 10/25/23 09:47 SW (Rec: 10/25/23 10:31 SW [id number]) Physical Therapy Assessment Goals Five Impairment squat Impairment must be able to squat for return to job Short Term Goal (STG) Pt will be able to perform at least 10 bilateral squats without increase in baseline pain or LOB in order to demonstrate increased BLE strength for transfers, ADLs, return to work if appropriate 09/11/23: Pt can perform 10 STS without UE assist but great effort; can perform 10 squats with hand support 10/02/23: 10 squats with crate AROM, 10 with 5#, 10 goblet squats (no hip ER) with 10# STG Duration 6 weeks MET Clarifier Operator Goal (LTG) Pt will be able to perform at least 5 squats and lift at least 10# from the ground to at least chest height in order to perform job functions, if appropriate 10/02/23: 10# with squat but challenging and poor form 10/18/23: able to lift at least 10# from floor for several reps for squats; can lift and carry up to 20# LTG Duration 12 weeks MET Four Impairment gait Impairment must be able to squat for return to job Short Term Goal (STG) Pt will be able to ambulate without AD at least community distances (at least 800 ft) with normal gait mechanics 09/11/23: reports limited ambulation with LRAD due to discomfort with hip flexion 10/02/23: reports able to ambulate community distances without spc, no pain STG Duration 6 weeks MEt Long-Term Goal (LTG) Pt will be able to ambulate at least 1000 ft without AD in order to demonstrate improved ADL tolerance and ability to ambulate in community 09/18/2023 6 min walk test without device 1015 feet Goal met for 6 min walk test, but still using SPC for out in community. LTG Duration 12 weeks MET Three Impairment standing Impairment using FWW (pre-operative 6 MWT 1095 ft) Short Term Goal (STG) Pt will be able to stand with or without AD for at least 30 minutes without increase in baseline pain 09/11/23: reports able to stand with spc as long as needed, 10/02/23: can stand 30 min STG Duration 8 weeks MET Long-Term Goal (LTG) Pt will be able to stand without AD for at least 1 hour without increase in baseline pain in order to return to work 10/18/23: pt reports can stand for at least an hour before needing to take a break LTG Duration 12 weeks MET Two Impairment strength Impairment needs to be able to stand for at least 2 hours Short Term Goal (STG) Pt will increase L hip flex/ abd/ext strength to at least 4 /5 MMT in order to demonstrate increased strength for standing and ADLs 09/11/23: 3+/5 L hip flex and abd strength; extension not formally tested due to precautions but pt able to perform several sit to stands without UE assist, although fatiguing 10/02/23: 4-/5 L hip flex and abd; no tested in ext due to precautions STG Duration 6 weeks NOT MET Clarifier Operator Goal (LTG) Pt will increase L hip flex/ abd/ext strength to at least 4 +/5 MMT in order to demonstrate increased strength for standing and ADLs 10/18/23: 4/5 for ADD and ABD; 4 -/5 for hip flex/ext LTG Duration 12 weeks NOT MET One Impairment ROM Short Term Goal (STG) Pt will increase L hip flexion to at least 90 deg for gait, stairs, and transfers 09/11/23: 105 deg hip flexion STG Duration 6 weeks MET Long-Term Goal (LTG) Pt will increase L hip flexion to at least 110 deg in order to perform gait, stairs, and transfers 10/02/23: 121 deg LTG Duration 12 weeks MET Assessment Summary Assessment Pt challenged with balance during step ups, requiring TRADE CLERK prn this session, close SBA. Progressed hip flexion strengthening in standing with band around feet, good tolerance, minimal discomfort present toward last couple repetitions, resolved. Encouraged pt carryover of exercises, pt reported increased fatigue today, noticed a difference in fatigue level from not doing HEP for a few days. Physical Therapy Plan Frequency and Duration Frequency of Treatment 1x/Week Duration of treatment (weeks) 8 Plan of Care Start Date 10/18/23 Plan of Care End Date 12/13/23 Therapeutic Interventions Therapeutic Interventions Balance Training,Gait Training ,Home Exercise Program,Joint Mobilizations,Manual Therapy, Neuromuscular Re-education, Orthotic/Prosthetic Management ,Patient/Caregiver Education, Self-Care/Home Management, Sensory Integration,Soft Tissue Mobilization,Taping, Therapeutic Activities, Therapeutic Exercises Modalities Cold Pack/Ice Massage,Electric Stimulation,Hot Packs, Ultrasound,Vasopneumatic Devices Next Visit Focus/Plan Next Note Type Treatment Note Next Visit Plan leg press (unilateral and B squat), lunge, lateral lunge, hip flexion with band, LAQ, deadlift, squat, step up, floor transfers while holding object (hand support), balance global hip strengthening (gracie hip flexors and extensors) no anterior hip precautions but no end range hip ext
--- NOTE | 2023-11-09 14:42 | PT.OTN ---
Current Diagnoses Bilateral primary osteoarthritis of hip (11/09/23) Unilateral primary osteoarthritis, left hip (11/09/23) Other lack of coordination (11/09/23) Weakness (11/09/23) Physical Therapy Treatment Note PT-OP-A Visit Information Start: 06/05/23 10:31 Freq: Status: Active Protocol: Document 11/09/23 13:49 AB (Rec: 11/09/23 14:42 AB [id number]) Out-Patient Physical Therapy Visit Information Visit Information Visit Type Treatment Note Visit Note Access Code: [email or web address] Visit Start Time 13:49 Visit Stop Time 15:29 Visit Number 26 Number of MANAGER WEALTH MANAGEMENT Visits 2 PT-OP-B Current Condition Start: 06/05/23 10:31 Freq: Status: Active Protocol: Document 08/07/23 09:01 NM (Rec: 08/07/23 16:53 NM [id number]) Current Condition History of Current Condition Onset Date DOS 07/27/23 Current Complaints pain, mobility History of Current Condition Pt s/p L DAVID on 07/27/23. She had an anterior approach, currently has anterior hip precautions. Pt reports that surgery went without complication, but she spent a couple of days in the hospital due to low blood pressure. She is currently on blood pressure medication, which she does not normally take. Pt has been performing heel slides, ankle pumps. Pt is having most difficulty with getting in and out of bed. She is using a FWW for mobility but has been trying to take steps without RW as able. She is having most difficulty with dressing, standing, bed mobility, sleeping. Pt is planning to return to work on 09/19 and will need to work 4 hr shifts (sand 4 hrs, lifting up to 40#, bending and reaching for stocking). Pt reports that over the weekend, she got very sick and had to lie on her R side, so her L hip hurts more than normal now . She states that she spoke to Dr. Wills, who thinks it's a strained muscle and not dislocated. Pt reports tingling at her toes on LLE, which was not present before surgery. 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 Patient reports having no pain, except for too the touch lateral left hip. Patient reports feeling pressure in groin left hip with reaching toward floor ( lunge pattern. ) SLS 15+ seconds left LE without UE use . PT-OP-D Balance Start: 06/05/23 10:31 Freq: Status: Active Protocol: Document 09/25/23 08:17 AB (Rec: 09/25/23 16:12 AB [id number]) [place] Balance Assessment Evaluation Sitting to Standing Ability Independent w/out Hands Unsupported Stance Safely- 2 minutes Sitting Unsupported, Feet on Floor Safely- 2 minutes Standing to Sitting Ability Safely, Minimal Hand Use Transfer Ability Safely, Minimal Hand Use Unsupported Stance- Eyes Closed Safely, 10 seconds Unsupported Stance- Eyes Open Independent, 1 minute Reaching Forward Standing Confidently, 10 inches Pick- Up Object From Floor Independent/Safe Look Behind Shoulder - Standing Shifts Weight Well Turning 360 Degrees Turns Bilateral, < 4 secs Unsupported Stance, Alternating Feet on (I)- 8 Steps in 20 secs Stair Unsupported Tandem Stance Balance Lost- Step/Stand Unilateral Leg Stance Lifts Leg/Holds > 3 secs Total Score Peralta Total Score (out of 56 points) 50 PT-OP-E Functional Tests Start: 06/05/23 10:31 Freq: Status: Active Protocol: Document 09/18/23 08:09 AB (Rec: 09/18/23 16:42 AB [id number]) Functional Tests 6 Minute Walk Test Distance 1015 Device Used without device PT-OP-F Manual Assessment Start: 06/05/23 10:31 Freq: Status: Active Protocol: Document 06/05/23 10:31 NM (Rec: 06/05/23 12:16 NM [id number]) Manual Assessments Soft Tissue Assessment Soft Tissue Mobility Assessment Tight B hip flexors, heel cords Joint Mobility Assessment Joint Mobility Assessment Limited B hip mobility passively with flexion, ER, IR . LLE limited globally. Lacks terminal knee extension bilaterally PT-OP-G Mobility & Gait Start: 06/05/23 10:31 Freq: Status: Active Protocol: Document 08/07/23 09:01 NM (Rec: 08/07/23 16:53 NM [id number]) OP Mobility Evaluation Bed Mobility Rolling SBA Supine to and from Sit min A to bring LLE to EOB supine <> sit Transfers Sit to Stand close SBA to FWW Bed to Chair Transfers close SBA with FWW OP Gait Assessment Gait Gait Assistance Required: Standby Assistance Distance (Feet) 200 Assistive Devices Assistive Device Gait Belt,Front Wheeled Walker Gait Deviations General Gait Pattern Antalgic Factors Limiting Gait Function Factors Limiting Gait Function Decreased Sensation,Decreased Strength,Limited Range of Motion,Pain Comments Gait Comments decreased stride length and WBAT on LLE. 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 Did not palpate due to incision Skin Assessment Incisional Assessment Incision Appearance/Comments Incision covered by dressing, which is c/d/i. No signs of redness or infection around dressings Other Assessments Skin Assessment Comments L ankle figure 8 (edema): 50 cm PT-OP-K Range of Motion Start: 06/05/23 10:31 Freq: Status: Active Protocol: Document 10/18/23 08:19 NM (Rec: 10/18/23 09:02 NM [id number]) Hip Goniometric Range of Motion Hip Right Flexion w/Knee Flexed 90 Extension 15 Abduction 20 Internal Rotation 15 External Rotation 40 Left Flexion w/Knee Flexed 121 Abduction 30 Comments Pre-surgery: 90 deg flex, 8 deg ext, 15 deg abd, 15 deg IR , 15 deg ER; pain with ER/IR, abd, flex, ext, add; hamstring 150 deg 08/06: did not measure ROM due to hip precautions 09/06/23: 100 deg hip flexion, 15 deg hip abd 09/11/23: 105 deg hip flexion, 20 deg ABD 10/02/23: 121 deg flex, 30 deg abd 10/18/23: 120 deg flex, 30 deg abd PT-OP-L Special Tests Start: 06/05/23 10:31 Freq: Status: Active Protocol: Document 06/05/23 10:31 NM (Rec: 06/05/23 12:16 NM [id number]) Special Tests Hip Special Tests Straight Leg Raise Test Results + Comments unable to lift LLE Log Roll Test Test Results + SANTOS Test Results + Comments L PT-OP-M Strength Start: 06/05/23 10:31 Freq: Status: Active Protocol: Document 10/18/23 08:19 NM (Rec: 10/18/23 09:02 NM [id number]) Hip Strength Hip Manual Muscle Testing Right Flexion (L2) 4 Good Extension (S1) 4- Good- Abduction 4 Good Adduction 4 Good External Rotation 4 Good Internal Rotation 4 Good Left Flexion (L2) 4- Good- Extension (S1) 4- Good- Abduction 4 Good Adduction 4 Good External Rotation 4- Good- Internal Rotation 4- Good- Comments pre-surgery: pain with ER/IR/ Flex; 3+/5 with flex/ext/ER/IR ; 4-/5 abd; 4/5 ADD 08/07/23: did not assess due to hip precuations 09/11/23: 3+/5, minimal resistance against gravity 10/02/23: 4-/5 for flex and abd , 4/5 for add; ext and ER not tested post-op yet due to precautions still intact 10/18/23: 4- ext and 4 abd, 4- for flex for remaining PT-OP-Q Treatments Start: 06/05/23 10:31 Freq: Status: Active Protocol: Document 11/09/23 13:49 AB (Rec: 11/09/23 14:42 AB [id number]) Gym Equipment Shuttle Recovery single LE Details left LE Resistance 25 Reps/Time 15 x1 bilateral Resistance 50lb Reps/Time 2x15 Therapeutic Exercises Sidelying Exercises hip abduction Side bilateral Resistance level 2 band ( band increase to HEP) Reps/Minutes X15 Comments Verbal cues for trunk and LE positioning Sitting Exercises hip abduction Sitting Exercise Name isometric hold Side bilateral Resistance level 5 band Reps/Minutes 60 X1 Standing Exercises hip extension with band Standing Exercise Name HEP trunk resting on mat at counter height Side bilateral Resistance level one band Reps/Minutes X15 X 2 Comments Verbal and visual cues side step Standing Exercise Name side stepping Side bilateral Resistance level 5 Reps/Minutes one to 2 minute Comments VC to avoid toeing out Therapeutic Activity Therapeutic Activity floor transfers Reps/Minutes X1 Comments floor to standing via transfer from kneel to mat to standing CGA Manual Therapy Treatment Soft Tissue Mobilization scar mobilization Mobilization Type Cross-Friction,Rolling,Other Intensity/Depth Superficial Body Position Hooklying Comments Superficial to moderate PT-OP-R Modalities Start: 06/05/23 10:31 Freq: Status: Active Protocol: Document 09/03/23 08:05 AB (Rec: 09/03/23 08:29 AB [id number]) Electric Stimulation Electric Stimulation Gambian stim L leg Body Location L quad (VMO and RF) Intensity 18 Cycle 10/10 Ramp 0.5 Comments with SLR, quad set, LAQ PT-OP-T Assessment and Plan Start: 06/05/23 10:31 Freq: Status: Active Protocol: Document 11/09/23 13:49 AB (Rec: 11/09/23 14:42 AB [id number]) Physical Therapy Assessment Goals Five Impairment squat Impairment must be able to squat for return to job Short Term Goal (STG) Pt will be able to perform at least 10 bilateral squats without increase in baseline pain or LOB in order to demonstrate increased BLE strength for transfers, ADLs, return to work if appropriate 09/11/23: Pt can perform 10 STS without UE assist but great effort; can perform 10 squats with hand support 10/02/23: 10 squats with crate AROM, 10 with 5#, 10 goblet squats (no hip ER) with 10# STG Duration 6 weeks MET Group Home Goal (LTG) Pt will be able to perform at least 5 squats and lift at least 10# from the ground to at least chest height in order to perform job functions, if appropriate 10/02/23: 10# with squat but challenging and poor form 10/18/23: able to lift at least 10# from floor for several reps for squats; can lift and carry up to 20# LTG Duration 12 weeks MET Four Impairment gait Impairment must be able to squat for return to job Short Term Goal (STG) Pt will be able to ambulate without AD at least community distances (at least 800 ft) with normal gait mechanics 09/11/23: reports limited ambulation with LRAD due to discomfort with hip flexion 10/02/23: reports able to ambulate community distances without spc, no pain STG Duration 6 weeks ME[facility] Home Goal (LTG) Pt will be able to ambulate at least 1000 ft without AD in order to demonstrate improved ADL tolerance and ability to ambulate in community 09/18/2023 6 min walk test without device 1015 feet Goal met for 6 min walk test, but still using SPC for out in community. LTG Duration 12 weeks MET Three Impairment standing Impairment using FWW (pre-operative 6 MWT 1095 ft) Short Term Goal (STG) Pt will be able to stand with or without AD for at least 30 minutes without increase in baseline pain 09/11/23: reports able to stand with spc as long as needed, 10/02/23: can stand 30 min STG Duration 8 weeks MET Group Home Goal (LTG) Pt will be able to stand without AD for at least 1 hour without increase in baseline pain in order to return to work 10/18/23: pt reports can stand for at least an hour before needing to take a break LTG Duration 12 weeks MET Two Impairment strength Impairment needs to be able to stand for at least 2 hours Short Term Goal (STG) Pt will increase L hip flex/ abd/ext strength to at least 4 /5 MMT in order to demonstrate increased strength for standing and ADLs 09/11/23: 3+/5 L hip flex and abd strength; extension not formally tested due to precautions but pt able to perform several sit to stands without UE assist, although fatiguing 10/02/23: 4-/5 L hip flex and abd; no tested in ext due to precautions STG Duration 6 weeks NOT MET Group Home Goal (LTG) Pt will increase L hip flex/ abd/ext strength to at least 4 +/5 MMT in order to demonstrate increased strength for standing and ADLs 10/18/23: 4/5 for ADD and ABD; 4 -/5 for hip flex/ext LTG Duration 12 weeks NOT MET One Impairment ROM Short Term Goal (STG) Pt will increase L hip flexion to at least 90 deg for gait, stairs, and transfers 09/11/23: 105 deg hip flexion STG Duration 6 weeks MET Group Home Goal (LTG) Pt will increase L hip flexion to at least 110 deg in order to perform gait, stairs, and transfers 10/02/23: 121 deg LTG Duration 12 weeks MET Assessment Summary Assessment Patient reports discomfort with lunge to reach floor ant left hip post manual therapy and end of session. Physical Therapy Plan Frequency and Duration Frequency of Treatment 1x/Week Duration of treatment (weeks) 8 Plan of Care Start Date 10/18/23 Plan of Care End Date 12/13/23 Next Visit Focus/Plan Next Visit Plan leg press (unilateral and B squat), lunge, lateral lunge, hip flexion with band, LAQ, deadlift, squat, step up, while holding object (hand support), balance global hip strengthening (gracie hip flexors and extensors) no yoga
--- NOTE | 2023-11-15 12:08 | PT.OTN ---
Current Diagnoses Bilateral primary osteoarthritis of hip (11/15/23) Unilateral primary osteoarthritis, left hip (11/15/23) Other lack of coordination (11/15/23) Weakness (11/15/23) Physical Therapy Treatment Note PT-OP-A Visit Information Start: 06/05/23 10:31 Freq: Status: Active Protocol: Document 11/15/23 08:09 AB (Rec: 11/15/23 12:07 AB [id number]) Out-Patient Physical Therapy Visit Information Visit Information Visit Type Treatment Note Visit Note Access Code: [email or web address] Visit Start Time 09:04 Visit Stop Time 09:55 Visit Number 27 Number of HOT SHOT Visits 3 Evaluation Information Evaluation Date 08/07/23 Precautions Precautions anterior hip precautions removed PT-OP-B Current Condition Start: 06/05/23 10:31 Freq: Status: Active Protocol: Document 08/07/23 09:01 NM (Rec: 08/07/23 16:53 NM [id number]) Current Condition History of Current Condition Onset Date DOS 07/27/23 Current Complaints pain, mobility History of Current Condition Pt s/p L DAVID on 07/27/23. She had an anterior approach, currently has anterior hip precautions. Pt reports that surgery went without complication, but she spent a couple of days in the hospital due to low blood pressure. She is currently on blood pressure medication, which she does not normally take. Pt has been performing heel slides, ankle pumps. Pt is having most difficulty with getting in and out of bed. She is using a FWW for mobility but has been trying to take steps without RW as able. She is having most difficulty with dressing, standing, bed mobility, sleeping. Pt is planning to return to work on 09/19 and will need to work 4 hr shifts (sand 4 hrs, lifting up to 40#, bending and reaching for stocking). Pt reports that over the weekend, she got very sick and had to lie on her R side, so her L hip hurts more than normal now . She states that she spoke to Dr. Wills, who thinks it's a strained muscle and not dislocated. Pt reports tingling at her toes on LLE, which was not present before surgery. 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 (2 hrs at time with 10 minute break), lifting up to 40#, bending and stocking Current Functional Impairments (Reported) Functional Limitations- Mobility/Gait 4 stairs to enter home, has rails; not using FWW to enter, only rails Functional Limitations- Other using walk in shower, grab bars in shower, shower stool PT-OP-C Subjective Start: 06/05/23 10:31 Freq: Status: Active Protocol: Document 11/15/23 08:09 AB (Rec: 11/15/23 12:07 AB [id number]) OP-PT Subjective Patient Comments Patient Comments Patient reports the left hip has been achy, tender to touch , attributes to day a working being on feet to much/didn't take break and may have twisted. Noted ipsilateral trunk sidebend stance phase right LE minimally with ambulation without device into clinic. ( unaffected LE ) SLS 12 sec L 9 right LE without UE use PT-OP-D Balance Start: 06/05/23 10:31 Freq: Status: Active Protocol: Document 09/25/23 08:17 AB (Rec: 09/25/23 16:12 AB [id number]) P[place]ta Balance Assessment Evaluation Sitting to Standing Ability Independent w/out Hands Unsupported Stance Safely- 2 minutes Sitting Unsupported, Feet on Floor Safely- 2 minutes Standing to Sitting Ability Safely, Minimal Hand Use Transfer Ability Safely, Minimal Hand Use Unsupported Stance- Eyes Closed Safely, 10 seconds Unsupported Stance- Eyes Open Independent, 1 minute Reaching Forward Standing Confidently, 10 inches Pick- Up Object From Floor Independent/Safe Look Behind Shoulder - Standing Shifts Weight Well Turning 360 Degrees Turns Bilateral, < 4 secs Unsupported Stance, Alternating Feet on (I)- 8 Steps in 20 secs Stair Unsupported Tandem Stance Balance Lost- Step/Stand Unilateral Leg Stance Lifts Leg/Holds > 3 secs Total Score Peralta Total Score (out of 56 points) 50 PT-OP-E Functional Tests Start: 06/05/23 10:31 Freq: Status: Active Protocol: Document 09/18/23 08:09 AB (Rec: 09/18/23 16:42 AB [id number]) Functional Tests 6 Minute Walk Test Distance 1015 Device Used without device PT-OP-F Manual Assessment Start: 06/05/23 10:31 Freq: Status: Active Protocol: Document 06/05/23 10:31 NM (Rec: 06/05/23 12:16 NM [id number]) Manual Assessments Soft Tissue Assessment Soft Tissue Mobility Assessment Tight B hip flexors, heel cords Joint Mobility Assessment Joint Mobility Assessment Limited B hip mobility passively with flexion, ER, IR . LLE limited globally. Lacks terminal knee extension bilaterally PT-OP-G Mobility & Gait Start: 06/05/23 10:31 Freq: Status: Active Protocol: Document 08/07/23 09:01 NM (Rec: 08/07/23 16:53 NM [id number]) OP Mobility Evaluation Bed Mobility Rolling SBA Supine to and from Sit min A to bring LLE to EOB supine <> sit Transfers Sit to Stand close SBA to FWW Bed to Chair Transfers close SBA with FWW OP Gait Assessment Gait Gait Assistance Required: Standby Assistance Distance (Feet) 200 Assistive Devices Assistive Device Gait Belt,Front Wheeled Walker Gait Deviations General Gait Pattern Antalgic Factors Limiting Gait Function Factors Limiting Gait Function Decreased Sensation,Decreased Strength,Limited Range of Motion,Pain Comments Gait Comments decreased stride length and WBAT on LLE. Good upright posture PT-OP-H Neuro Start: 06/05/23 10:31 Freq: Status: Active Protocol: Document 06/05/23 10:31 NM (Rec: 06/05/23 12:16 NM [id number]) Sensation Evaluation Comments Summary Comments BLE intact to light touch sensation, but 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 PT-OP-J Posture/Palpation/Skin Start: 06/05/23 10:31 Freq: Status: Active Protocol: Document 08/07/23 09:01 NM (Rec: 08/07/23 16:53 NM [id number]) Palpation Assessment Location L hip Palpation Details Tenderness reported in anterior hip near groin, over incision. Did not palpate due to incision Skin Assessment Incisional Assessment Incision Appearance/Comments Incision covered by dressing, which is c/d/i. No signs of redness or infection around dressings Other Assessments Skin Assessment Comments L ankle figure 8 (edema): 50 cm PT-OP-K Range of Motion Start: 06/05/23 10:31 Freq: Status: Active Protocol: Document 10/18/23 08:19 NM (Rec: 10/18/23 09:02 NM [id number]) Hip Goniometric Range of Motion Hip Right Flexion w/Knee Flexed 90 Extension 15 Abduction 20 Internal Rotation 15 External Rotation 40 Left Flexion w/Knee Flexed 121 Abduction 30 Comments Pre-surgery: 90 deg flex, 8 deg ext, 15 deg abd, 15 deg IR , 15 deg ER; pain with ER/IR, abd, flex, ext, add; hamstring 150 deg 08/06: did not measure ROM due to hip precautions 09/06/23: 100 deg hip flexion, 15 deg hip abd 09/11/23: 105 deg hip flexion, 20 deg ABD 10/02/23: 121 deg flex, 30 deg abd 10/18/23: 120 deg flex, 30 deg abd PT-OP-L Special Tests Start: 06/05/23 10:31 Freq: Status: Active Protocol: Document 06/05/23 10:31 NM (Rec: 06/05/23 12:16 NM [id number]) Special Tests Hip Special Tests Straight Leg Raise Test Results + Comments unable to lift LLE Log Roll Test Test Results + SANTOS Test Results + Comments L PT-OP-M Strength Start: 06/05/23 10:31 Freq: Status: Active Protocol: Document 10/18/23 08:19 NM (Rec: 10/18/23 09:02 NM [id number]) Hip Strength Hip Manual Muscle Testing Right Flexion (L2) 4 Good Extension (S1) 4- Good- Abduction 4 Good Adduction 4 Good External Rotation 4 Good Internal Rotation 4 Good Left Flexion (L2) 4- Good- Extension (S1) 4- Good- Abduction 4 Good Adduction 4 Good External Rotation 4- Good- Internal Rotation 4- Good- Comments pre-surgery: pain with ER/IR/ Flex; 3+/5 with flex/ext/ER/IR ; 4-/5 abd; 4/5 ADD 08/07/23: did not assess due to hip precuations 09/11/23: 3+/5, minimal resistance against gravity 10/02/23: 4-/5 for flex and abd , 4/5 for add; ext and ER not tested post-op yet due to precautions still intact 10/18/23: 4- ext and 4 abd, 4- for flex for remaining PT-OP-Q Treatments Start: 06/05/23 10:31 Freq: Status: Active Protocol: Document 11/15/23 08:09 AB (Rec: 11/15/23 12:07 [id number]) Gym Equipment Shuttle Recovery single LE Details left LE Resistance 25 Reps/Time 15 x1 bilateral Resistance 50lb Reps/Time 2x15 Shuttle Rebound red Exercise Details WBOS, stagger, mini squat Reps/Duration 2 min Comments with head turns, visual scanning during WBOS and stagger, Therapeutic Exercises Sidelying Exercises hip abduction Side bilateral Resistance level 2 band ( band increase to HEP) Reps/Minutes X15 X2 Comments Verbal cues for trunk and LE positioning Sitting Exercises hip abduction Sitting Exercise Name isometric hold Side bilateral Resistance level 5 band Reps/Minutes 60 X1 Manual Therapy Treatment Soft Tissue Mobilization scar mobilization Mobilization Type Cross-Friction,Rolling,Other Intensity/Depth Superficial Body Position Hooklying Comments Superficial to moderate left hip Body Location left hip flexor Mobilization Type Cross-Friction,Rolling Intensity/Depth Moderate Body Position Hooklying left piriformis Body Location left piriformis Mobilization Type Cross-Friction,Rolling Intensity/Depth Moderate Body Position Sidelying left hip flexor at groin Body Location hip flexors, , Mobilization Type Cross-Friction,Rolling Body Position Hooklying Comments prior to exercise Neuro Re-Education Treatment Balance Activities tandem stepping Details hands above bars Reps/Duration 10 feet X 6 Comments hands above bars CGA step up taps Details standing on air ex Equipment 6 inch step Comments alt taps hands above bars blue cushion Details marching Equipment // bars Comments hands above bars PT-OP-R Modalities Start: 06/05/23 10:31 Freq: Status: Active Protocol: Document 09/03/23 08:05 AB (Rec: 09/03/23 08:29 [id number]) Electric Stimulation Electric Stimulation Bangladeshi stim L leg Body Location L quad (VMO and RF) Intensity 18 Cycle 10/10 Ramp 0.5 Comments with SLR, quad set, LAQ PT-OP-T Assessment and Plan Start: 06/05/23 10:31 Freq: Status: Active Protocol: Document 11/15/23 08:09 AB (Rec: 11/15/23 12:07 [id number]) Physical Therapy Assessment Goals Five Impairment squat Impairment must be able to squat for return to job Short Term Goal (STG) Pt will be able to perform at least 10 bilateral squats without increase in baseline pain or LOB in order to demonstrate increased BLE strength for transfers, ADLs, return to work if appropriate 09/11/23: Pt can perform 10 STS without UE assist but great effort; can perform 10 squats with hand support 10/02/23: 10 squats with crate AROM, 10 with 5#, 10 goblet squats (no hip ER) with 10# STG Duration 6 weeks MET Half-Way Goal (LTG) Pt will be able to perform at least 5 squats and lift at least 10# from the ground to at least chest height in order to perform job functions, if appropriate 10/02/23: 10# with squat but challenging and poor form 10/18/23: able to lift at least 10# from floor for several reps for squats; can lift and carry up to 20# LTG Duration 12 weeks MET Four Impairment gait Impairment must be able to squat for return to job Short Term Goal (STG) Pt will be able to ambulate without AD at least community distances (at least 800 ft) with normal gait mechanics 09/11/23: reports limited ambulation with LRAD due to discomfort with hip flexion 10/02/23: reports able to ambulate community distances without spc, no pain STG Duration 6 weeks MEt Principal Database Developer Goal (LTG) Pt will be able to ambulate at least 1000 ft without AD in order to demonstrate improved ADL tolerance and ability to ambulate in community 09/18/2023 6 min walk test without device 1015 feet Goal met for 6 min walk test, but still using SPC for out in community. LTG Duration 12 weeks MET Three Impairment standing Impairment using FWW (pre-operative 6 MWT 1095 ft) Short Term Goal (STG) Pt will be able to stand with or without AD for at least 30 minutes without increase in baseline pain 09/11/23: reports able to stand with spc as long as needed, 10/02/23: can stand 30 min STG Duration 8 weeks MET Half-Way Goal (LTG) Pt will be able to stand without AD for at least 1 hour without increase in baseline pain in order to return to work 10/18/23: pt reports can stand for at least an hour before needing to take a break LTG Duration 12 weeks MET Two Impairment strength Impairment needs to be able to stand for at least 2 hours Short Term Goal (STG) Pt will increase L hip flex/ abd/ext strength to at least 4 /5 MMT in order to demonstrate increased strength for standing and ADLs 09/11/23: 3+/5 L hip flex and abd strength; extension not formally tested due to precautions but pt able to perform several sit to stands without UE assist, although fatiguing 10/02/23: 4-/5 L hip flex and abd; no tested in ext due to precautions STG Duration 6 weeks NOT MET Principal Database Developer Goal (LTG) Pt will increase L hip flex/ abd/ext strength to at least 4 +/5 MMT in order to demonstrate increased strength for standing and ADLs 10/18/23: 4/5 for ADD and ABD; 4 -/5 for hip flex/ext LTG Duration 12 weeks NOT MET One Impairment ROM Short Term Goal (STG) Pt will increase L hip flexion to at least 90 deg for gait, stairs, and transfers 09/11/23: 105 deg hip flexion STG Duration 6 weeks MET Principal Database Developer Goal (LTG) Pt will increase L hip flexion to at least 110 deg in order to perform gait, stairs, and transfers 10/02/23: 121 deg LTG Duration 12 weeks MET Assessment Summary Assessment Patient reports left hip pain is less, but still present end of session. Physical Therapy Plan Frequency and Duration Frequency of Treatment 1x/Week Duration of treatment (weeks) 8 Plan of Care Start Date 10/18/23 Plan of Care End Date 12/13/23 Next Visit Focus/Plan Next Note Type Treatment Note Next Visit Plan leg press (unilateral and B squat), lunge, lateral lunge, hip flexion with band, LAQ, deadlift, squat, step up, while holding object (hand support), balance global hip strengthening (gracie hip flexors and extensors) no yoga
--- NOTE | 2023-11-21 12:53 | PT.OTN ---
Current Diagnoses Bilateral primary osteoarthritis of hip (11/21/23) Unilateral primary osteoarthritis, left hip (11/21/23) Other lack of coordination (11/21/23) Weakness (11/21/23) Physical Therapy Treatment Note PT-OP-A Visit Information Start: 06/05/23 10:31 Freq: Status: Active Protocol: Document 11/21/23 10:14 AB (Rec: 11/21/23 12:51 AB [id number]) Out-Patient Physical Therapy Visit Information Visit Information Visit Type Treatment Note Visit Note Access Code: [email or web address] Visit Start Time 10:35 Visit Stop Time 11:16 Visit Number 28 Number of CHIEF PSYCHOLOGIST Visits 4 Evaluation Information Evaluation Date 08/07/23 Precautions Precautions anterior hip precautions removed PT-OP-B Current Condition Start: 06/05/23 10:31 Freq: Status: Active Protocol: Document 08/07/23 09:01 NM (Rec: 08/07/23 16:53 NM [id number]) Current Condition History of Current Condition Onset Date DOS 07/27/23 Current Complaints pain, mobility History of Current Condition Pt s/p L DAVID on 07/27/23. She had an anterior approach, currently has anterior hip precautions. Pt reports that surgery went without complication, but she spent a couple of days in the hospital due to low blood pressure. She is currently on blood pressure medication, which she does not normally take. Pt has been performing heel slides, ankle pumps. Pt is having most difficulty with getting in and out of bed. She is using a FWW for mobility but has been trying to take steps without RW as able. She is having most difficulty with dressing, standing, bed mobility, sleeping. Pt is planning to return to work on 09/19 and will need to work 4 hr shifts (sand 4 hrs, lifting up to 40#, bending and reaching for stocking). Pt reports that over the weekend, she got very sick and had to lie on her R side, so her L hip hurts more than normal now . She states that she spoke to Dr. Wills, who thinks it's a strained muscle and not dislocated. Pt reports tingling at her toes on LLE, which was not present before surgery. 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 Patient rate pain 3/10 lateral left hip, attributes to reaching to retrieve items from floor in a normal squat. SLS left LE without UE use 15 + seconds PT-OP-D Balance Start: 06/05/23 10:31 Freq: Status: Active Protocol: Document 09/25/23 08:17 AB (Rec: 09/25/23 16:12 AB [id number]) P[place]ta Balance Assessment Evaluation Sitting to Standing Ability Independent w/out Hands Unsupported Stance Safely- 2 minutes Sitting Unsupported, Feet on Floor Safely- 2 minutes Standing to Sitting Ability Safely, Minimal Hand Use Transfer Ability Safely, Minimal Hand Use Unsupported Stance- Eyes Closed Safely, 10 seconds Unsupported Stance- Eyes Open Independent, 1 minute Reaching Forward Standing Confidently, 10 inches Pick- Up Object From Floor Independent/Safe Look Behind Shoulder - Standing Shifts Weight Well Turning 360 Degrees Turns Bilateral, < 4 secs Unsupported Stance, Alternating Feet on (I)- 8 Steps in 20 secs Stair Unsupported Tandem Stance Balance Lost- Step/Stand Unilateral Leg Stance Lifts Leg/Holds > 3 secs Total Score Peralta Total Score (out of 56 points) 50 PT-OP-E Functional Tests Start: 06/05/23 10:31 Freq: Status: Active Protocol: Document 09/18/23 08:09 AB (Rec: 09/18/23 16:42 AB [id number]) Functional Tests 6 Minute Walk Test Distance 1015 Device Used without device PT-OP-F Manual Assessment Start: 06/05/23 10:31 Freq: Status: Active Protocol: Document 06/05/23 10:31 NM (Rec: 06/05/23 12:16 NM [id number]) Manual Assessments Soft Tissue Assessment Soft Tissue Mobility Assessment Tight B hip flexors, heel cords Joint Mobility Assessment Joint Mobility Assessment Limited B hip mobility passively with flexion, ER, IR . LLE limited globally. Lacks terminal knee extension bilaterally PT-OP-G Mobility & Gait Start: 06/05/23 10:31 Freq: Status: Active Protocol: Document 08/07/23 09:01 NM (Rec: 08/07/23 16:53 NM [id number]) OP Mobility Evaluation Bed Mobility Rolling SBA Supine to and from Sit min A to bring LLE to EOB supine <> sit Transfers Sit to Stand close SBA to FWW Bed to Chair Transfers close SBA with FWW OP Gait Assessment Gait Gait Assistance Required: Standby Assistance Distance (Feet) 200 Assistive Devices Assistive Device Gait Belt,Front Wheeled Walker Gait Deviations General Gait Pattern Antalgic Factors Limiting Gait Function Factors Limiting Gait Function Decreased Sensation,Decreased Strength,Limited Range of Motion,Pain Comments Gait Comments decreased stride length and WBAT on LLE. 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 Did not palpate due to incision Skin Assessment Incisional Assessment Incision Appearance/Comments Incision covered by dressing, which is c/d/i. No signs of redness or infection around dressings Other Assessments Skin Assessment Comments L ankle figure 8 (edema): 50 cm PT-OP-K Range of Motion Start: 06/05/23 10:31 Freq: Status: Active Protocol: Document 10/18/23 08:19 NM (Rec: 10/18/23 09:02 NM [id number]) Hip Goniometric Range of Motion Hip Right Flexion w/Knee Flexed 90 Extension 15 Abduction 20 Internal Rotation 15 External Rotation 40 Left Flexion w/Knee Flexed 121 Abduction 30 Comments Pre-surgery: 90 deg flex, 8 deg ext, 15 deg abd, 15 deg IR , 15 deg ER; pain with ER/IR, abd, flex, ext, add; hamstring 150 deg 08/06: did not measure ROM due to hip precautions 09/06/23: 100 deg hip flexion, 15 deg hip abd 09/11/23: 105 deg hip flexion, 20 deg ABD 10/02/23: 121 deg flex, 30 deg abd 10/18/23: 120 deg flex, 30 deg abd PT-OP-L Special Tests Start: 06/05/23 10:31 Freq: Status: Active Protocol: Document 06/05/23 10:31 NM (Rec: 06/05/23 12:16 NM [id number]) Special Tests Hip Special Tests Straight Leg Raise Test Results + Comments unable to lift LLE Log Roll Test Test Results + SANTOS Test Results + Comments L PT-OP-M Strength Start: 06/05/23 10:31 Freq: Status: Active Protocol: Document 10/18/23 08:19 NM (Rec: 10/18/23 09:02 NM [id number]) Hip Strength Hip Manual Muscle Testing Right Flexion (L2) 4 Good Extension (S1) 4- Good- Abduction 4 Good Adduction 4 Good External Rotation 4 Good Internal Rotation 4 Good Left Flexion (L2) 4- Good- Extension (S1) 4- Good- Abduction 4 Good Adduction 4 Good External Rotation 4- Good- Internal Rotation 4- Good- Comments pre-surgery: pain with ER/IR/ Flex; 3+/5 with flex/ext/ER/IR ; 4-/5 abd; 4/5 ADD 08/07/23: did not assess due to hip precuations 09/11/23: 3+/5, minimal resistance against gravity 10/02/23: 4-/5 for flex and abd , 4/5 for add; ext and ER not tested post-op yet due to precautions still intact 10/18/23: 4- ext and 4 abd, 4- for flex for remaining PT-OP-Q Treatments Start: 06/05/23 10:31 Freq: Status: Active Protocol: Document 11/21/23 10:14 AB (Rec: 11/21/23 12:51 AB [id number]) Gym Equipment Shuttle Recovery single LE Details bilateral Resistance 25 Reps/Time 15 x1 bilateral Resistance 50lb Reps/Time 2x15 Therapeutic Exercises Prone Exercises lying prone Comments post manual therapy to scar tissue ant left hip Sitting Exercises hip abduction Sitting Exercise Name isometric hold Side bilateral Resistance level 4 band, level 3 Reps/Minutes 60 X1 and X 4 without hold, then X 15 and one one min hold green Standing Exercises retro stepping with band Resistance level 5 band Reps/Minutes 12 feet X 2 Comments hand above bar to use as needed fwd T Standing Exercise Name mat at knee height, then mid thigh height Side bilateral Reps/Minutes X10 right X 4 and X 10left Comments Patient reports pain left reaching to knee height lunge Standing Exercise Name walking mini lunge Side bilateral Equipment Used hand above bar Reps/Minutes 12 feet X8 side step Standing Exercise Name side stepping Side bilateral Resistance level 5 Reps/Minutes X1 l and r level 3 X 3 left and right level 5 Comments VC to avoid toeing out Therapeutic Activity Therapeutic Activity positioning for grooming Name High kneeling on yoga mat Comments VC to move legs ie step while on knees vs twisting Manual Therapy Treatment Consent Patient gave verbal consent for manual Yes treatment Soft Tissue Mobilization scar mobilization Mobilization Type Cross-Friction,Rolling,Other Intensity/Depth Superficial Body Position Hooklying Comments Superficial to moderate left hip Body Location left hip flexor Mobilization Type Cross-Friction,Rolling Intensity/Depth Moderate Body Position Hooklying left piriformis Body Location left piriformis Mobilization Type Cross-Friction,Rolling Intensity/Depth Moderate Body Position Sidelying PT-OP-R Modalities Start: 06/05/23 10:31 Freq: Status: Active Protocol: Document 09/03/23 08:05 AB (Rec: 09/03/23 08:29 AB [id number]) Electric Stimulation Electric Stimulation Argentine stim L leg Body Location L quad (VMO and RF) Intensity 18 Cycle 10/10 Ramp 0.5 Comments with SLR, quad set, LAQ PT-OP-T Assessment and Plan Start: 06/05/23 10:31 Freq: Status: Active Protocol: Document 11/21/23 10:14 AB (Rec: 11/21/23 12:51 AB [id number]) Physical Therapy Assessment Goals Five Impairment squat Impairment must be able to squat for return to job Short Term Goal (STG) Pt will be able to perform at least 10 bilateral squats without increase in baseline pain or LOB in order to demonstrate increased BLE strength for transfers, ADLs, return to work if appropriate 09/11/23: Pt can perform 10 STS without UE assist but great effort; can perform 10 squats with hand support 10/02/23: 10 squats with crate AROM, 10 with 5#, 10 goblet squats (no hip ER) with 10# STG Duration [address] [employer] Goal (LTG) Pt will be able to perform at least 5 squats and lift at least 10# from the ground to at least chest height in order to perform job functions, if appropriate 10/02/23: 10# with squat but challenging and poor form 10/18/23: able to lift at least 10# from floor for several reps for squats; can lift and carry up to 20# LTG Duration 12 weeks MET Four Impairment gait Impairment must be able to squat for return to job Short Term Goal (STG) Pt will be able to ambulate without AD at least community distances (at least 800 ft) with normal gait mechanics 09/11/23: reports limited ambulation with LRAD due to discomfort with hip flexion 10/02/23: reports able to ambulate community distances without spc, no pain STG Duration 6 weeks [facility] Goal (LTG) Pt will be able to ambulate at least 1000 ft without AD in order to demonstrate improved ADL tolerance and ability to ambulate in community 09/18/2023 6 min walk test without device 1015 feet Goal met for 6 min walk test, but still using SPC for out in community. LTG Duration 12 weeks MET Three Impairment standing Impairment using FWW (pre-operative 6 MWT 1095 ft) Short Term Goal (STG) Pt will be able to stand with or without AD for at least 30 minutes without increase in baseline pain 09/11/23: reports able to stand with spc as long as needed, 10/02/23: can stand 30 min STG Duration 8 weeks [facility] Goal (LTG) Pt will be able to stand without AD for at least 1 hour without increase in baseline pain in order to return to work 10/18/23: pt reports can stand for at least an hour before needing to take a break LTG Duration 12 weeks MET Two Impairment strength Impairment needs to be able to stand for at least 2 hours Short Term Goal (STG) Pt will increase L hip flex/ abd/ext strength to at least 4 /5 MMT in order to demonstrate increased strength for standing and ADLs 09/11/23: 3+/5 L hip flex and abd strength; extension not formally tested due to precautions but pt able to perform several sit to stands without UE assist, although fatiguing 10/02/23: 4-/5 L hip flex and abd; no tested in ext due to precautions STG Duration [address] [employer] Goal (LTG) Pt will increase L hip flex/ abd/ext strength to at least 4 +/5 MMT in order to demonstrate increased strength for standing and ADLs 10/18/23: 4/5 for ADD and ABD; 4 -/5 for hip flex/ext LTG Duration 12 weeks NOT MET One Impairment ROM Short Term Goal (STG) Pt will increase L hip flexion to at least 90 deg for gait, stairs, and transfers 09/11/23: 105 deg hip flexion STG Duration [address] [employer] Goal (LTG) Pt will increase L hip flexion to at least 110 deg in order to perform gait, stairs, and transfers 10/02/23: 121 deg LTG Duration 12 weeks MET Assessment Summary Assessment Patient reports having no hip pain end of session. Mini lunge stepping post glute med strengthening and activation improved as seen by less ipsilateral trunk sidebend, steadier throughout. Physical Therapy Plan Frequency and Duration Frequency of Treatment 1x/Week Duration of treatment (weeks) 8 Plan of Care Start Date 10/18/23 Plan of Care End Date 12/13/23 Next Visit Focus/Plan Next Note Type Progress Note Next Visit Plan Possible Discharge leg press (unilateral and B squat), lunge, lateral lunge, hip flexion with band, LAQ, deadlift, squat, step up, while holding object (hand support), balance global hip strengthening (gracie hip flexors and extensors) no yoga
--- NOTE | 2023-11-29 12:54 | PT.OTN ---
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 She had an anterior approach, currently has anterior hip precautions. Pt reports that surgery went without complication, but she spent a couple of days in the hospital due to low blood pressure. She is currently on blood pressure medication, which she does not normally take. Pt has been performing heel slides, ankle pumps. Pt is having most difficulty with getting in and out of bed. She is using a FWW for mobility but has been trying to take steps without RW as able. She is having most difficulty with dressing, standing, bed mobility, sleeping. Pt is planning to return to work on 09/19 and will need to work 4 hr shifts (sand 4 hrs, lifting up to 40#, bending and reaching for stocking). Pt reports that over the weekend, she got very sick and had to lie on her R side, so her L hip hurts more than normal now . She states that she spoke to Dr. Wills, who thinks it's a strained muscle and not dislocated. Pt reports tingling at her toes on LLE, which was not present before surgery. 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 She reports soreness on R side when bending, but states no pain. Reports has the motion but is too chicken to use it. Pt reports tender to touch on L hip but denies pain. Pt reports no limitations due to her L hip. Pt reports no difficulty with HEP. PT-OP-D Balance Start: 06/05/23 10:31 Freq: Status: Active Protocol: Document 09/25/23 08:17 AB (Rec: 09/25/23 16:12 AB [id number]) [place] Balance Assessment Evaluation Sitting to Standing Ability Independent w/out Hands Unsupported Stance Safely- 2 minutes Sitting Unsupported, Feet on Floor Safely- 2 minutes Standing to Sitting Ability Safely, Minimal Hand Use Transfer Ability Safely, Minimal Hand Use Unsupported Stance- Eyes Closed Safely, 10 seconds Unsupported Stance- Eyes Open Independent, 1 minute Reaching Forward Standing Confidently, 10 inches Pick- Up Object From Floor Independent/Safe Look Behind Shoulder - Standing Shifts Weight Well Turning 360 Degrees Turns Bilateral, < 4 secs Unsupported Stance, Alternating Feet on (I)- 8 Steps in 20 secs Stair Unsupported Tandem Stance Balance Lost- Step/Stand Unilateral Leg Stance Lifts Leg/Holds > 3 secs Total Score Peralta Total Score (out of 56 points) 50 PT-OP-E Functional Tests Start: 06/05/23 10:31 Freq: Status: Active Protocol: Document 09/18/23 08:09 AB (Rec: 09/18/23 16:42 AB [id number]) Functional Tests 6 Minute Walk Test Distance 1015 Device Used without device PT-OP-F Manual Assessment Start: 06/05/23 10:31 Freq: Status: Active Protocol: Document 06/05/23 10:31 NM (Rec: 06/05/23 12:16 NM [id number]) Manual Assessments Soft Tissue Assessment Soft Tissue Mobility Assessment Tight B hip flexors, heel cords Joint Mobility Assessment Joint Mobility Assessment Limited B hip mobility passively with flexion, ER, IR . LLE limited globally. Lacks terminal knee extension bilaterally PT-OP-G Mobility & Gait Start: 06/05/23 10:31 Freq: Status: Active Protocol: Document 08/07/23 09:01 NM (Rec: 08/07/23 16:53 NM [id number]) OP Mobility Evaluation Bed Mobility Rolling SBA Supine to and from Sit min A to bring LLE to EOB supine <> sit Transfers Sit to Stand close SBA to FWW Bed to Chair Transfers close SBA with FWW OP Gait Assessment Gait Gait Assistance Required: Standby Assistance Distance (Feet) 200 Assistive Devices Assistive Device Gait Belt,Front Wheeled Walker Gait Deviations General Gait Pattern Antalgic Factors Limiting Gait Function Factors Limiting Gait Function Decreased Sensation,Decreased Strength,Limited Range of Motion,Pain Comments Gait Comments decreased stride length and WBAT on LLE. Good upright posture PT-OP-H Neuro Start: 06/05/23 10:31 Freq: Status: Active Protocol: Document 06/05/23 10:31 NM (Rec: 06/05/23 12:16 NM [id number]) Sensation Evaluation Comments Summary Comments BLE intact to light touch sensation, but 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 PT-OP-J Posture/Palpation/Skin Start: 06/05/23 10:31 Freq: Status: Active Protocol: Document 08/07/23 09:01 NM (Rec: 08/07/23 16:53 NM [id number]) Palpation Assessment Location L hip Palpation Details Tenderness reported in anterior hip near groin, over incision. Did not palpate due to incision Skin Assessment Incisional Assessment Incision Appearance/Comments Incision covered by dressing, which is c/d/i. No signs of redness or infection around dressings Other Assessments Skin Assessment Comments L ankle figure 8 (edema): 50 cm PT-OP-K Range of Motion Start: 06/05/23 10:31 Freq: Status: Active Protocol: Document 11/29/23 09:47 NM (Rec: 11/29/23 10:30 NM [id number]) Hip Goniometric Range of Motion Hip Left Flexion w/Knee Flexed 121 Abduction 30 Comments Pre-surgery: 90 deg flex, 8 deg ext, 15 deg abd, 15 deg IR , 15 deg ER; pain with ER/IR, abd, flex, ext, add; hamstring 150 deg 08/06: did not measure ROM due to hip precautions 09/06/23: 100 deg hip flexion, 15 deg hip abd 09/11/23: 105 deg hip flexion, 20 deg ABD 10/02/23: 121 deg flex, 30 deg abd 10/18/23: 120 deg flex, 30 deg abd 11/29/23: 115 deg hip flex, 30 deg abd PT-OP-L Special Tests Start: 06/05/23 10:31 Freq: Status: Active Protocol: Document 06/05/23 10:31 NM (Rec: 06/05/23 12:16 NM [id number]) Special Tests Hip Special Tests Straight Leg Raise Test Results + Comments unable to lift LLE Log Roll Test Test Results + SANTOS Test Results + Comments L PT-OP-M Strength Start: 06/05/23 10:31 Freq: Status: Active Protocol: Document 11/29/23 09:47 NM (Rec: 11/29/23 10:30 NM [id number]) Hip Strength Hip Manual Muscle Testing Left Flexion (L2) 4- Good- Extension (S1) 4- Good- Abduction 4 Good Adduction 4 Good External Rotation 4- Good- Internal Rotation 4- Good- Comments pre-surgery: pain with ER/IR/ Flex; 3+/5 with flex/ext/ER/IR ; 4-/5 abd; 4/5 ADD 08/07/23: did not assess due to hip precuations 09/11/23: 3+/5, minimal resistance against gravity 10/02/23: 4-/5 for flex and abd , 4/5 for add; ext and ER not tested post-op yet due to precautions still intact 10/18/23: 4- ext and 4 abd, 4- for flex for remaining 11/29/23: 4+/5 for all except hip ext and abd 4/5 PT-OP-Q Treatments Start: 06/05/23 10:31 Freq: Status: Active Protocol: Document 11/29/23 09:47 NM (Rec: 11/29/23 10:30 NM [id number]) Therapeutic Exercises Supine Exercises bridge Side bilateral Reps/Minutes 10 Comments to work on hip ext range, pain free Prone Exercises hip extension Side bilateral Reps/Minutes 10 Comments challenging, pain free lying prone Reps/Minutes 60 Comments post manual therapy to scar tissue ant left hip Sitting Exercises LAQ Side bilateral Resistance level 3 band Reps/Minutes 2x10 with 3 Comments challenging with level 3 band Standing Exercises hip 3 way Standing Exercise Name hip flex, abd, ext Side bilateral Resistance level 1 band at ankles Equipment Used hand support at elevated plinth Reps/Minutes 15 ea Comments good tall posture, pain free Hip Flexion Standing Exercise Name may Side bilateral Resistance level 1 band at toes > level 2 band Reps/Minutes 2x10 Comments cued neutral hip rotation step up Standing Exercise Name 1. fwd w/ may, 2. lateral step up Side bilateral Equipment Used 8 step, 1 hand for support Reps/Minutes 2x10 ea squat Standing Exercise Name buttock tap to chair Side bilateral Resistance level 3 band Reps/Minutes 2x10 Manual Therapy Treatment Consent Patient gave verbal consent for manual Yes treatment Soft Tissue Mobilization scar mobilization Mobilization Type Cross-Friction,Rolling,Other Intensity/Depth Superficial Body Position Hooklying Comments Superficial to moderate left hip Body Location left hip flexor, TFL, ITB Mobilization Type Cross-Friction,Rolling Intensity/Depth Moderate Body Position Hooklying Comments Mild tenderness over TFL/ proximal ITB but reduced with soft tissue mobilization. Educated on self STM at home PT-OP-R Modalities Start: 06/05/23 10:31 Freq: Status: Active Protocol: Document 09/03/23 08:05 AB (Rec: 09/03/23 08:29 AB [id number]) Electric Stimulation Electric Stimulation Tristanian stim L leg Body Location L quad (VMO and RF) Intensity 18 Cycle 10/10 Ramp 0.5 Comments with SLR, quad set, LAQ PT-OP-T Assessment and Plan Start: 06/05/23 10:31 Freq: Status: Active Protocol: Document 11/29/23 09:47 NM (Rec: 11/29/23 10:30 NM [id number]) Physical Therapy Assessment Goals Five Impairment squat Impairment must be able to squat for return to job Short Term Goal (STG) Pt will be able to perform at least 10 bilateral squats without increase in baseline pain or LOB in order to demonstrate increased BLE strength for transfers, ADLs, return to work if appropriate 09/11/23: Pt can perform 10 STS without UE assist but great effort; can perform 10 squats with hand support 10/02/23: 10 squats with crate AROM, 10 with 5#, 10 goblet squats (no hip ER) with 10# STG Duration 6 weeks MET Haz Tech Goal (LTG) Pt will be able to perform at least 5 squats and lift at least 10# from the ground to at least chest height in order to perform job functions, if appropriate 10/02/23: 10# with squat but challenging and poor form 10/18/23: able to lift at least 10# from floor for several reps for squats; can lift and carry up to 20# LTG Duration 12 weeks MET Four Impairment gait Impairment must be able to squat for return to job Short Term Goal (STG) Pt will be able to ambulate without AD at least community distances (at least 800 ft) with normal gait mechanics 09/11/23: reports limited ambulation with LRAD due to discomfort with hip flexion 10/02/23: reports able to ambulate community distances without spc, no pain STG Duration 6 weeks MEt Haz Tech Goal (LTG) Pt will be able to ambulate at least 1000 ft without AD in order to demonstrate improved ADL tolerance and ability to ambulate in community 09/18/2023 6 min walk test without device 1015 feet Goal met for 6 min walk test, but still using SPC for out in community. LTG Duration 12 weeks MET Three Impairment standing Impairment using FWW (pre-operative 6 MWT 1095 ft) Short Term Goal (STG) Pt will be able to stand with or without AD for at least 30 minutes without increase in baseline pain 09/11/23: reports able to stand with spc as long as needed, 10/02/23: can stand 30 min STG Duration 8 weeks MET Usp Goal (LTG) Pt will be able to stand without AD for at least 1 hour without increase in baseline pain in order to return to work 10/18/23: pt reports can stand for at least an hour before needing to take a break LTG Duration 12 weeks MET Two Impairment strength Impairment needs to be able to stand for at least 2 hours Short Term Goal (STG) Pt will increase L hip flex/ abd/ext strength to at least 4 /5 MMT in order to demonstrate increased strength for standing and ADLs 09/11/23: 3+/5 L hip flex and abd strength; extension not formally tested due to precautions but pt able to perform several sit to stands without UE assist, although fatiguing 10/02/23: 4-/5 L hip flex and abd; no tested in ext due to precautions STG Duration 6 weeks NOT MET Haz Tech Goal (LTG) Pt will increase L hip flex/ abd/ext strength to at least 4 +/5 MMT in order to demonstrate increased strength for standing and ADLs 10/18/23: 4/5 for ADD and ABD; 4 -/5 for hip flex/ext 11/29/23: 4+/5 for all except hip ext and abd 4/5 LTG Duration 12 weeks PARTIALLY MET One Impairment ROM Short Term Goal (STG) Pt will increase L hip flexion to at least 90 deg for gait, stairs, and transfers 09/11/23: 105 deg hip flexion STG Duration 6 weeks MET Usp Goal (LTG) Pt will increase L hip flexion to at least 110 deg in order to perform gait, stairs, and transfers 10/02/23: 121 deg LTG Duration 12 weeks MET Progress Towards Goals Progress Towards Goals Progressing Toward Goals,Slow Progress due to Activity Tolerance,Goals Met Assessment Summary Assessment Pt tolerated session well. She is requesting discharge from PT today. PT and pt discussed maintenance program as pt has met most goals and is progressing toward her strengthening goal. Pt is compliant with HEP. Session emphasis on creating maintenance program. Demos good hip extension in both prone and hip 3 way; able to maintain good postural control with trunk and stance leg in standing exercises. Pt still fatigues more quickly with hip flexion; however, no pain over incision or at lateral hip. Pt continues to respond well to soft tissue mobilization; educated on use at home, incorporating into her home routine. Physical Therapy Plan Frequency and Duration Frequency of Treatment 1x/Week Duration of treatment (weeks) 8 Plan of Care Start Date 10/18/23 Plan of Care End Date 12/13/23 Therapeutic Interventions Therapeutic Interventions Balance Training,Gait Training ,Home Exercise Program,Joint Mobilizations,Manual Therapy, Neuromuscular Re-education, Orthotic/Prosthetic Management ,Patient/Caregiver Education, Self-Care/Home Management, Sensory Integration,Soft Tissue Mobilization,Taping, Therapeutic Activities, Therapeutic Exercises Modalities Cold Pack/Ice Massage,Electric Stimulation,Hot Packs, Ultrasound,Vasopneumatic Devices Discharge Physical Therapy Discharge Reasons Patient Request Discharge Comments All goals met except strength goal. Issued HEP to address remaining deficits Next Visit Focus/Plan Next Note Type Discharge Summary Next Visit Plan discharge from PT
== END 2023-12-04 13:31 | disposition home or self-care (01) ==
LOC: PHYS 09:45
PROVIDERS: Family Provider Family Medicine; PCP Family Medicine; Referring Provider Orthopaedic Surgery Adult Reconstructive Orthopaedic Surgery; Visit Provider Orthopaedic Surgery Adult Reconstructive Orthopaedic Surgery
DX: M16.0 Bilateral primary osteoarthritis of hip (principal); R53.1 Weakness; R27.8 Other lack of coordination; M16.12 Unilateral primary osteoarthritis, left hip
CPT/HCPCS: 97032; 97110; 97112; 97116; 97140; 97161; 97162; 97530

== ENCOUNTER → 2024-04-03 11:01 | Outpatient (CLI) | payer OTHER, SELFPAY ==
[2023-07-27 11:55] VITALS: BMI 16.9
--- NOTE | 2024-04-03 11:02 | DI.RAD.S_ITS ---
PROCEDURE: XR RIBS RT MIN 3V W CXR 1V INDICATIONS: right sided pain from fall; pain with breathing TECHNIQUE: 2 views of the ribs were acquired, along with a single view chest. COMPARISON: None. FINDINGS: Surgical changes and devices: None. Bones and chest wall: No fractures or dislocations. No suspicious bony lesions. Overlying soft tissues appear unremarkable. Lungs and pleura: No pleural effusions or pneumothorax. Lungs appear clear. Mediastinum: Mediastinal contours appear normal. Heart size is normal. IMPRESSION: No definite displaced rib fracture or pneumothorax. A nuclear medicine bone scan might detect a nondisplaced fracture not visible by plain film. Dictated by: Danny Hernandez M.D. on 04/03/2024 at 12:05 Approved by: Danny Hernandez M.D. on 04/03/2024 at 12:08
== END ==
PROVIDERS: Family Provider Family Medicine; PCP Family Medicine; Referring Provider Family Medicine; Visit Provider Family Medicine
DX: R07.1 Chest pain on breathing (principal); W18.00XA Striking against unspecified object with subsequent fall, initial encounter
CPT/HCPCS: 71101

== ENCOUNTER → 2024-04-08 07:08 | Outpatient (CLI) | payer OTHER, SELFPAY ==
[2023-07-27 11:55] VITALS: BMI 16.9
--- NOTE | 2024-04-08 07:09 | DI.CT.S_ITS ---
PROCEDURE: CT CHEST WO CON INDICATIONS: Irregular nodules R lobe TECHNIQUE: Noncontrast 5 mm thick sections acquired from the pulmonary apices to the posterior costophrenic angles. 1 mm lung window, 5 mm thick coronal and sagittal and 7 mm axial MIP reformats were then acquired. For radiation dose reduction, the following was used: automated exposure control, adjustment of mA and/or kV according to patient size. COMPARISON: None. FINDINGS: Image quality: Diagnostic. Lower Neck: No enlarged lymph nodes. Thyroid: No thyroid nodules. Axillae: No enlarged lymph nodes. Chest Wall: Unremarkable. Bones: Unremarkable. Lungs and Pleura: No pneumothorax or pleural effusions. No consolidation. There is stable right lower lobe pulmonary nodule at 3 millimeters in size which is unchanged from 05/21/2023. No new nodules or parenchymal abnormalities are identified.. Heart: Heart size is normal. No pericardial effusion. There is moderate coronary artery disease. Thoracic Vessels: The aorta and pulmonary arteries demonstrate normal size. Mediastinum and Zita: No enlarged lymph nodes. Esophagus: No wall thickening. No hiatal hernia. Upper Abdomen: Visualized upper abdomen solid organs and bowel loops appear normal. IMPRESSION: Stable CT lung with no new findings when compared to earlier exam of 05/21/2023. Small 3 millimeter nodule has low probability neoplasm. Additional follow-up CT in 1 year or as clinically indicated. Dictated by: Jim Hayes M.D. on 04/09/2024 at 17:40 Approved by: Jim Hayes M.D. on 04/09/2024 at 18:06
[2024-04-08 07:54] LABS: Add Manual Diff / Slide Review NO; Basophils Absolute Auto 100 /uL (0-100); Basophils Percent Auto 0.4 % (0-2); Eosinophils Absolute Auto 200 /uL (0-450); Hematocrit 43.1 % (36-46); Hemoglobin 14.1 g/dL (12.0-16.0); Lymphocytes Absolute Auto 1400 /uL (1100-4500); Lymphocytes Percent Auto 7.8 % (25-40); Mean Corpuscular HGB Conc 32.7 % (30-36); Mean Corpuscular Hemoglobin 29.7 PG (26-34); Mean Corpuscular Volume 90.6 fL (80-100); Monocytes Absolute Auto 1100 /uL (0-900); Monocytes Percent Auto 6.5 % (3-14); Neutrophils Absolute Auto 14600 /uL (1500-7000); Neutrophils Percent Auto 84.3 % (50-75); Platelet Count 259 X10^3/uL (150-400); Red Blood Cell Count 4.76 X10^6/uL (4.0-5.2); Red Cell Distribution Width 14.1 % (11.6-14.8); White Blood Cell Count 17.3 X10^3/uL (4.5-11.0)
[2024-04-08 07:59] LABS: Reticulocyte Count, Percent 0.8 % (1.1-2.6)
[2024-04-08 08:13] LABS: Alanine Aminotransferase 62 IU/L (<35); Albumin 3.8 g/dL (3.5-5.0); Albumin Globulin Ratio 1.7 (1.0-2.8); Alkaline Phosphatase 81 U/L (38-126); Aspartate Aminotransferase 39 IU/L (14-36); BUN Creatinine Ratio 11.8 (6-22); Bilirubin Total 0.2 mg/dL (0.2-1.3); Blood Urea Nitrogen 21 mg/dL (7-17); Calcium 9.3 mg/dL (8.4-10.2); Chloride 91 mmol/L (98-107); Estimated Glomerular Filt Rate 31 mL/min (>60); Globulin 2.3 g/dL (1.7-4.1); Glucose 120 mg/dL (80-110); HEMOLYSIS < 15 (0-50); Lactate Dehydrogenase 247 U/L (120-246); Potassium 2.8 mmol/L (3.4-5.1); Sodium 136 mmol/L (137-145); Total Protein 6.1 g/dL (6.3-8.2)
[2024-04-08 08:20] LABS: Carbon Dioxide 37 mmol/L (22-32)
[2024-04-08 08:40] LABS: TSH w/ Reflex to FT4 4.96 uIU/mL (0.47-4.68)
[2024-04-08 08:56] LABS: Hemoglobin A1C% w Est Avg Glu 5.8 % (4.0-6.0)
[2024-04-08 14:17] LABS: Free T4, Direct Thyroxine 1.02 ng/dL (0.78-2.19)
== END ==
PROVIDERS: Family Provider Family Medicine; PCP Family Medicine; Referring Provider Family Medicine; Visit Provider Family Medicine
DX: R91.1 Solitary pulmonary nodule (principal); D64.9 Anemia, unspecified; D72.829 Elevated white blood cell count, unspecified; N18.9 Chronic kidney disease, unspecified; R73.03 Prediabetes; I50.20 Unspecified systolic (congestive) heart failure
CPT/HCPCS: 36415; 71250; 80053; 83036; 83615; 84439; 84443; 85025; 85045

== ENCOUNTER → 2024-04-10 06:58 | Outpatient (CLI) | payer OTHER, SELFPAY ==
[2023-07-27 11:55] VITALS: BMI 16.9
--- NOTE | 2024-04-10 07:00 | DI.RAD.S_ITS ---
PROCEDURE: XR CHEST 2V INDICATIONS: Rib Pain TECHNIQUE: 2 views of the chest were acquired. COMPARISON: [facility], CR, XR CHEST 2V, 05/21/2023, 15:58. FINDINGS: Surgical changes and devices: None. Lungs and pleura: Lungs are clear. No pleural effusions or pneumothorax. Mediastinum: Mediastinal contours are normal. Heart size is normal. Bones and chest wall: No suspicious bony abnormalities. Soft tissues appear unremarkable. IMPRESSION: No acute cardiopulmonary abnormality is seen. Dictated by: Sathish Varela M.D. on 04/10/2024 at 16:04 Approved by: Sathish Varela M.D. on 04/10/2024 at 16:04
[2024-04-10 08:00] LABS: Appearance Urine UA CLEAR; Bilirubin Urine UA NEGATIVE (NEGATIVE); Color Urine UA YELLOW; Glucose Urine UA NEGATIVE (Negative); Ketones Urine UA NEGATIVE (NEGATIVE); Leukocyte Esterase Urine UA NEGATIVE (NEGATIVE); Nitrite Urine UA NEGATIVE (Negative); Occult Blood Urine UA NEGATIVE (Negative); Protein Urine UA TRACE (Negative); Urobilinogen Urine UA 0.2 E.U./dL (0.2)
[2024-04-10 08:31] LABS: Bacteria Urine None Seen; Culture Indicated Urine Cult Not Indicated; RBC Urine None Seen (0-5/HPF); Squamous Epithelial Cell Urine 0-1 /HPF (0-5/HPF); Urine Volume 10mL (spun); WBC Urine None Seen (0-5/HPF)
== END ==
PROVIDERS: Family Provider Family Medicine; PCP Family Medicine; Referring Provider Family Medicine; Visit Provider Family Medicine
DX: R07.81 Pleurodynia (principal); D72.829 Elevated white blood cell count, unspecified
CPT/HCPCS: 71046; 81001

== ENCOUNTER 2024-04-14 11:58 | Emergency (ER) | payer OTHER, SELFPAY ==
[2023-07-27 11:55] VITALS: BMI 16.9
[2024-04-14] VITALS (12 sets, daily range): BP systolic 111–139; BP diastolic 53–80; PULSE 73–86; RESP 18–38; TEMP 36.9; O2SAT 94–100; BMI 16.9
--- NOTE | 2024-04-14 12:06 | DI.RAD.S_ITS ---
PROCEDURE: XR CHEST 1V INDICATIONS: chest pain TECHNIQUE: One view of the chest was acquired. COMPARISON: [facility], CR, XR CHEST 2V, 04/10/2024, 7:03. FINDINGS: Surgical changes and devices: None. Lungs and pleura: Lungs are clear. No pleural effusions or pneumothorax. Mediastinum: Mediastinal contours appear normal. Heart size is normal. Bones and chest wall: No suspicious bony lesions. Overlying soft tissues appear unremarkable. IMPRESSION: No acute cardiopulmonary abnormality is seen. Dictated by: Kodi Colindres M.D. on 04/14/2024 at 13:02 Approved by: Kodi Colindres M.D. on 04/14/2024 at 13:02
--- NOTE | 2024-04-14 12:06 | EKG_ITS ---
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
[2024-04-14] MEDS: ASPIRIN 81 MG CHEW TAB 324 MG PO (12:34)
[2024-04-14 13:00] LABS: Add Manual Diff / Slide Review NO; Basophils Absolute Auto 100 /uL (0-100); Basophils Percent Auto 1.1 % (0-2); Eosinophils Absolute Auto 200 /uL (0-450); Hematocrit 35.4 % (36-46); Hemoglobin 11.5 g/dL (12.0-16.0); Lymphocytes Absolute Auto 1800 /uL (1100-4500); Lymphocytes Percent Auto 22.1 % (25-40); Mean Corpuscular HGB Conc 32.6 % (30-36); Mean Corpuscular Hemoglobin 29.6 PG (26-34); Mean Corpuscular Volume 90.9 fL (80-100); Monocytes Absolute Auto 900 /uL (0-900); Monocytes Percent Auto 10.6 % (3-14); Neutrophils Absolute Auto 5300 /uL (1500-7000); Neutrophils Percent Auto 64.2 % (50-75); Platelet Count 231 X10^3/uL (150-400); Red Blood Cell Count 3.89 X10^6/uL (4.0-5.2); Red Cell Distribution Width 14.6 % (11.6-14.8); White Blood Cell Count 8.3 X10^3/uL (4.5-11.0)
[2024-04-14 13:04] LABS: Prothrombin Time 10.9 SECONDS (9.4-12.5)
[2024-04-14 13:07] LABS: PTT Partial Thromboplastin Tim 29 SECONDS (25.1-36.5)
[2024-04-14 13:10] LABS: Alanine Aminotransferase 85 IU/L (<35); Albumin 3.6 g/dL (3.5-5.0); Albumin Globulin Ratio 1.4 (1.0-2.8); Alkaline Phosphatase 68 U/L (38-126); Aspartate Aminotransferase 80 IU/L (14-36); BUN Creatinine Ratio 10.2 (6-22); Bilirubin Total 0.2 mg/dL (0.2-1.3); Blood Urea Nitrogen 19 mg/dL (7-17); Calcium 8.9 mg/dL (8.4-10.2); Chloride 94 mmol/L (98-107); Creatine Kinase 64 U/L (30-135); Estimated Glomerular Filt Rate 30 mL/min (>60); Globulin 2.6 g/dL (1.7-4.1); Glucose 100 mg/dL (80-110); Lipase 169 U/L (23-300); Magnesium 2.1 mg/dL (1.6-2.3); Potassium 3.3 mmol/L (3.4-5.1); Sodium 135 mmol/L (137-145); Total Protein 6.2 g/dL (6.3-8.2)
[2024-04-14 13:16] LABS: Carbon Dioxide 36 mmol/L (22-32); HEMOLYSIS 71 (0-50)
[2024-04-14 13:22] LABS: NT-proBNP (BNP-Adult 18+) 356 pg/mL (<125); Troponin I < 0.012 ng/mL (0.01-0.034)
--- NOTE | 2024-04-14 15:07 | ED.CHESTPAIN ---
HPI - Chest Pain General Chief Complaint: Chest Pain Stated Complaint: chest pain Time Seen by Provider: 04/14/24 15:01 Source: patient and family Mode of arrival: Ambulatory Limitations: no limitations History of Present Illness HPI narrative: 64-year-old female history of mood disorder, eating disorder, dyslipidemia with a right-sided chest pain since fall 3 weeks ago. Found to have a right rib fracture and workup had hypokalemia presents with chest pain and shortness of breath today. Patient notes had fracture sort of at the upper sternal border on the right this is a several weeks ago while she was traveling in [place]. Had quite a bit of fall with a facial contusions. Patient states overall she has been improving but had increased pain at that site. She can reproduce it with touch it is worse with movement. Occasionally painful with deep inhalation but usually can breathe without issue. She notes no fevers or chills. Little bit short of breath but she describes it more as feels like she takes a deep breath and it will go all the way. She states she does not feel like it is hard to breathe while she walks exerts herself exertion does not worsen her chest discomfort she has had no syncope or lightheadedness. Tends to have an episode of vomiting in the afternoon but states that has been ongoing. Denies any other GI issues. No new swelling. Patient does know her fingers and toes sometimes get swollen turn white and then blue and red and we will be very painful particularly when exposed to cold situations. She states home medications are Abilify, Lamictal, amoxapine atorvastatin she has been taking potassium 20 mEq daily and was just doubled to 40 mEq by her physician. She states they suspect it is because she was an eating disorder. Prior hip surgery, no known drug allergies. No tobacco, alcohol or recreational drugs. Dr. Mann is her primary care physician. She has been set up to see Nephrology. Related Data Home Medications Medication Instructions Recorded Confirmed aripiprazole 10 mg tablet (Abilify) 10 mg PO BEDTIME 03/21/23 03/31/24 atomoxetine 80 mg capsule 100 mg PO DAILY 03/21/23 03/31/24 (Strattera) lamotrigine 25 mg tablet (Lamictal) 50 mg PO BEDTIME 03/21/23 03/31/24 trazodone 100 mg tablet 150 mg PO BEDTIME 03/21/23 03/31/24 ferrous sulfate 325 mg (65 mg 325 mg PO BID 07/17/23 03/31/24 iron) tablet venlafaxine 150 mg 150 mg PO DAILY 07/17/23 03/31/24 capsule,extended release 24 hr Previous Rx's Medication Instructions Recorded atorvastatin 40 mg tablet 40 mg PO DAILY #90 tabs 05/14/23 potassium chloride 20 mEq 20 meq PO DAILY #90 tabs 07/06/23 tablet,extended release omeprazole 20 mg capsule,delayed 20 mg PO DAILY #90 caps 11/20/23 release hydrocodone 5 mg-acetaminophen 325 0.5 tab PO BID PRN pain #10 tabs 04/04/24 mg tablet Allergies Allergy/AdvReac Type Severity Reaction Status Date / Time Opioids-Meperidine and AdvReac Mild Nausea Verified 03/31/24 07:10 Related Review of Systems Review of Systems ROS Unobtainable: All systems reviewed & are unremarkable except as noted in HPI and below Patient History Medical History Anxiety Easy bruisability Osteoarthritis Ectopic Acid reflux HLD (hyperlipidemia) History of COVID-19 (~2019) Fibromyalgia (~2008) Substance abuse Restless leg syndrome Arthritis Osteopenia Foot pain Chicken pox Vertigo Pancreatitis Hemorrhoid Colon polyps Coronary artery calcification seen on CT scan Osteoarthritis of left hip CKD (chronic kidney disease) Hx of bulimia nervosa Hx of anorexia nervosa Depression ADD (attention deficit disorder) History of tobacco use Nodule of lower lobe of right lung Surgical History Hx of thumb surgery Hx of tonsillectomy Hx of hernia repair (~2020) Family History Father History of heart disease Hypertension Sister Mental health problem Hypertension Stroke Fracture Grandfather Cancer Grandmother Brain aneurysm Social History household members: spouse Smoking Status: Former smoker alcohol intake: former Smoking Status: Former smoker alcohol intake frequency: other Exam Narrative Exam Narrative: GENERAL: Alert and oriented x three, female in mild distress HEENT: Head normocephalic, atraumatic, EOMI, pupils reactive, face symmetric, moist mucous membranes NECK: Supple, full range of motion CARDIOVASCULAR: Regular rate and rhythm without murmurs, rubs or gallops. Patient has easily reproducible tenderness at the right upper sternal border, no ecchymosis, edema or mass appreciated. No crepitus. No obvious deformity. RESPIRATORY: Breath sounds equal bilaterally, no wheezes rales or rhonchi. ABDOMEN: Soft, nontender. Normoactive bowel sounds all 4 quadrants. No guarding or rebound, rigidity, no mass : No CVA tenderness EXTREMITIES: Normal range of motion, no clubbing or edema. Neurovascularly intact NEUROLOGICAL: Cranial nerves II through XII grossly intact. Moving all extremities SKIN: Warm, dry, no petechiae, no rashes or lesions. Initial Vital Signs Initial Vital Signs: Vital Signs Pulse Rate 86 04/14/24 12:04 Pulse Oximetry 94 04/14/24 12:04 Course Orders Ordered: ED Orders 04/14/24 12:06 XR chest 1V Stat EKG-12 Lead Stat 04/14/24 12:20 Complete Blood Count AUTO DIFF Stat Comprehensive Metabolic Panel Stat Lipase Stat Magnesium Stat NT-proBNP (BNP-Adult 18+) Stat PTT Partial Thromboplastin [place] Stat Prothrombin Time INR Stat Troponin & CK Cardiac Panel Stat Discontinued Medications Aspirin (Aspirin 81 Mg Chew Tab) 324 mg PO NOW ONE Stop: 04/14/24 12:07 Last Admin: 04/14/24 12:34 Dose: 324 mg Documented By: RB Potassium Chloride (Potassium Chloride 20 Meq Tab) 40 meq PO NOW ONE Stop: 04/14/24 15:13 Last Admin: 04/14/24 15:24 Dose: Not Given Documented By: SB Vital Signs Vital signs: Vital Signs - 8 hr 04/14/24 12:04 04/14/24 12:08 04/14/24 12:09 Temperature 98.5 F Pulse Rate 86 82 Respiratory Rate 18 Blood Pressure 135/61 Pulse Oximetry 94 96 Oxygen Delivery Method Room Air 04/14/24 12:09 04/14/24 12:30 04/14/24 12:30 Temperature Pulse Rate 81 81 Respiratory Rate 19 27 H Blood Pressure 111/53 L Pulse Oximetry 95 99 Oxygen Delivery Method 04/14/24 13:00 04/14/24 13:00 04/14/24 13:30 Temperature Pulse Rate 78 77 Respiratory Rate 20 Blood Pressure 132/62 Pulse Oximetry 100 100 Oxygen Delivery Method Room Air 04/14/24 13:30 04/14/24 14:00 04/14/24 14:00 Temperature Pulse Rate 74 Respiratory Rate Blood Pressure 137/61 139/65 Pulse Oximetry 100 Oxygen Delivery Method Room Air 04/14/24 14:31 04/14/24 14:32 04/14/24 14:32 Temperature Pulse Rate 76 77 Respiratory Rate Blood Pressure 129/64 Pulse Oximetry 95 100 Oxygen Delivery Method 04/14/24 15:00 04/14/24 15:00 04/14/24 15:30 Temperature Pulse Rate 74 73 Respiratory Rate 21 38 H Blood Pressure 134/68 Pulse Oximetry 99 100 Oxygen Delivery Method Room Air 04/14/24 15:30 04/14/24 15:38 Temperature Pulse Rate Respiratory Rate 20 Blood Pressure 128/80 Pulse Oximetry Oxygen Delivery Method MDM - Chest Pain Lab Data 04/14/24 12:20 04/14/24 12:20 Labs: Lab Results 04/14/24 Range/Units 12:20 WBC 8.3 (4.5-11.0) X10^3/uL RBC 3.89 L (4.0-5.2) X10^6/uL Hgb 11.5 L (12.0-16.0) g/dL Hct 35.4 L (36-46) % MCV 90.9 (80-100) fL MCH 29.6 (26-34) PG MCHC 32.6 (30-36) % RDW 14.6 (11.6-14.8) % Plt Count 231 (150-400) X10^3/uL Neut % (Auto) 64.2 (50-75) % Lymph % (Auto) 22.1 L (25-40) % [place] % (Auto) 10.6 (3-14) % Eos % (Auto) 2.0 (2-4) % Baso % (Auto) 1.1 (0-2) % Neut # (Auto) 5300 (7708-3962) /uL Lymph # (Auto) 1800 (8128-1628) /uL [place] # (Auto) 900 (0-900) /uL Eos # (Auto) 200 (0-450) /uL Baso # (Auto) 100 (0-100) /uL PT 10.9 (9.4-12.5) SECONDS INR 1.0 (0.9-1.3) APTT 29 (25.1-36.5) SECONDS Sodium 135 L (137-145) mmol/L Potassium 3.3 L (3.4-5.1) mmol/L Chloride 94 L (98-107) mmol/L Carbon Dioxide 36 H (22-32) mmol/L BUN 19 H (7-17) mg/dL Creatinine 1.86 H (0.52-1.04) mg/dL Estimated GFR 30 L (>60) mL/min BUN/Creatinine Ratio 10.2 (6-22) Glucose 100 (80-110) mg/dL Calcium 8.9 (8.4-10.2) mg/dL Magnesium 2.1 (1.6-2.3) mg/dL Total Bilirubin 0.2 (0.2-1.3) mg/dL AST 80 H (14-36) IU/L ALT 85 H (<35) IU/L Alkaline Phosphatase 68 (38-126) U/L Total Creatine Kinase 64 (30-135) U/L Troponin I < 0.012 (0.01-0.034) ng/mL NT-Pro-B Natriuret Pep 356 H (<125) pg/mL Total Protein 6.2 L (6.3-8.2) g/dL Albumin 3.6 (3.5-5.0) g/dL Globulin 2.6 (1.7-4.1) g/dL Albumin/Globulin Ratio 1.4 (1.0-2.8) Lipase 169 (23-300) U/L Imaging Data Chest x-ray: Radiologist's Impression: Close Chest X-Ray (Signed) Kodi Colindres - 04/14/24 Chest X-Ray (Signed) Sathish Varela - 04/10/[address] (Signed) Jim Hayes - 04/08/24 Ribs X-Ray (Signed) Danny Heranndez - 04/03/24 Vascular Ultrasound (Signed) Darren Cuevas - 08/02/23 Hip X-Ray (Signed) Kodi Colindres - 07/27/23 Hip X-Ray (Signed) Danyelle Easley - 07/27/23 Echocardiogram Ultrasound (Signed) Marlo Donovan - 05/31/23 Chest CTA (Signed) Ivana Escobar - 05/21/23 Abdomen/Pelvis CT (Signed) Ivana Escobar - 05/21/23 Chest X-Ray (Signed) Ivana Escobar - 05/21/23 CT Lung (Signed) Efrem Jaramillo - 04/12/23 Abdomen MRI with MRCP (Signed) Brody Coles - 03/30/23 Hip X-Ray (Signed) Chiara Cuevasng - 03/22/23 Hip X-Ray (Cancelled) 03/22/23 Abdomen/Pelvis CT (Signed) Deborah Umana - 03/17/23 Launch?Image [address] [address] XRay Report Signed Patient: Neena Mendoza MR#: [id number] : 1960 Acct:[id number] Age/Sex: 64 / F Date of Service: 04/14/24 Loc: ED Accession Number: [id number] Procedure: XR chest 1V Ordering Provider: Kitty Elizondo D.O. PROCEDURE: XR CHEST 1V INDICATIONS: chest pain TECHNIQUE: One view of the chest was acquired. COMPARISON: [facility], , XR CHEST 2V, 04/10/2024, 7:03. FINDINGS: Surgical changes and devices: None. Lungs and pleura: Lungs are clear. No pleural effusions or pneumothorax. Mediastinum: Mediastinal contours appear normal. Heart size is normal. Bones and chest wall: No suspicious bony lesions. Overlying soft tissues appear unremarkable. IMPRESSION: No acute cardiopulmonary abnormality is seen. Dictated by: Kodi Colindres M.D. on 04/14/2024 at 13:02 Approved by: Kodi Colindres M.D. on 04/14/2024 at 13:02 ECG Data Attestation: I personally reviewed and interpreted this ECG as follows: Prior ECG tracings: available for review Interpretation: Sinus rhythm rate 80 NE 134 QRS 80 QTC 440, acute ST elevation depression. Patient has prior from 07/27/2023 has not nonspecific change. MDM Narrative Medical decision making narrative: EKGs sinus rhythm nonspecific change compared to July of 2023. Chest x-ray shows no acute change. White count 8.3 hemoglobin 11.5 platelets of 231. Coags are negative, sodium is 135 potassium 3.3, chloride 94 CO2 is 36 with a BUN 19 creatinine of 1.86 appears similar to prior from March, glucose of 100 AST ALT are slightly elevated 8085 was up at 39 in 62 on last visit with a bilirubin of 0.2 lipase is normal at 169. Troponins less than 0.012 with a BNP of 356. Patient had CT chest 04/08/2024 which showed stable lung CT no pneumothorax or pleural effusions no consolidation stable right lower lobe pulmonary nodule 3 mm no pericardial effusion. ECHO EF of 45-50% normal right ventricular size and function no significant valvular abnormalities compared to prior from May 2022 decreased from 55-50% to 45-50% Patient notes she had a fall while at in [place] was found to have a rib fracture had improvement of pain but has increased recently. She was quite tender over that area and notes that she did recently go back to work at [employer] so she has been lifting a lot since her injury. Maybe easily reproduce her pain on examination my suspicion for cardiac, embolic or other sources was quite low patient has been following with her primary care physician has been referred to nephrology regarding her renal function she has been taking extra potassium, patient has been taking 20 mEq was increased to 40 mEq recently we will have her take an additional take an additional dose this evening of her home medication and patient has a lab draw ordered for tomorrow already. Patient politely defers additional dose of potassium here and states she was extra at home she can take. Discharge Plan Departure Patient Disposition: Home Clinical Impression: Right-sided chest wall pain, Hypokalemia, Elevated serum creatinine Activity Restrictions/Additional Instructions: I suspect your increase of rib pain is from your prior rib fracture as you have been increasing your activity probably becoming more painful. Broken bones typically take 8 to 12 weeks to fully heal. This should continue to improve. Your potassium is slightly low today I would take an extra 40 mEq of potassium this evening. Let your physician know that you took an extra dose after your lab draw tomorrow. Your renal function is fairly similar to prior on the 08 of April agree that I think it is appropriate to follow up with nephrology. I would avoid NSAIDs such as ibuprofen, Aleve and naproxen until you see nephrology as these can affect your kidney function. Please return if you are having worsening increasing shortness of breath any lightheadedness or passing out fevers, coughing up blood, changing chest discomfort or pain, persistent vomiting, new swelling of your extremities or other new or concerning changes. Prescriptions: No Action omeprazole 20 mg capsule,delayed release(DR/EC) 20 mg PO DAILY Qty: 90 3RF hydrocodone-acetaminophen 5-325 mg tablet 0.5 tab PO BID PRN (Reason: pain) Qty: 10 0RF atorvastatin 40 mg tablet 40 mg PO DAILY Qty: 90 3RF lamotrigine [Lamictal] 25 mg tablet 50 mg PO BEDTIME atomoxetine [Strattera] 80 mg capsule 100 mg PO DAILY aripiprazole [Abilify] 10 mg tablet 10 mg PO BEDTIME trazodone 100 mg tablet 150 mg PO BEDTIME potassium chloride 20 mEq tablet extended release 20 meq PO DAILY Qty: 90 3RF venlafaxine 150 mg Capsule,Extended Release 24hr 150 mg PO DAILY ferrous sulfate 325 mg (65 mg iron) Tablet 325 mg PO BID Referrals: Dee Dee Mann DO [Primary Care Provider] - Stand Alone Forms: Patient Portal/API/Survey
== END 2024-04-14 15:41 | disposition home or self-care (01) ==
PROVIDERS: Emergency Provider Emergency Medicine; Family Provider Family Medicine; PCP Family Medicine
DX: R07.89 Other chest pain (principal); R06.02 Shortness of breath; E87.6 Hypokalemia; R74.8 Abnormal levels of other serum enzymes; E78.5 Hyperlipidemia, unspecified; Z87.81 Personal history of (healed) traumatic fracture
CPT/HCPCS: 71045; 80053; 82550; 83690; 83735; 83880; 84484; 85025; 85610; 85730; 93005; 99284

== ENCOUNTER → 2024-04-15 12:19 | Outpatient (CLI) | payer OTHER, SELFPAY ==
[2023-07-27 11:55] VITALS: BMI 16.9
[2024-04-15 12:49] LABS: Add Manual Diff / Slide Review NO; Basophils Absolute Auto 100 /uL (0-100); Basophils Percent Auto 1.1 % (0-2); Eosinophils Absolute Auto 200 /uL (0-450); Eosinophils Percent Auto 1.9 % (2-4); Hematocrit 36.1 % (36-46); Hemoglobin 11.9 g/dL (12.0-16.0); Lymphocytes Absolute Auto 2000 /uL (1100-4500); Lymphocytes Percent Auto 21.9 % (25-40); Mean Corpuscular HGB Conc 32.9 % (30-36); Mean Corpuscular Hemoglobin 29.9 PG (26-34); Mean Corpuscular Volume 91.1 fL (80-100); Monocytes Absolute Auto 900 /uL (0-900); Neutrophils Absolute Auto 6100 /uL (1500-7000); Neutrophils Percent Auto 65.1 % (50-75); Platelet Count 253 X10^3/uL (150-400); Red Blood Cell Count 3.96 X10^6/uL (4.0-5.2); Red Cell Distribution Width 14.7 % (11.6-14.8); White Blood Cell Count 9.3 X10^3/uL (4.5-11.0)
[2024-04-15 13:02] LABS: Alanine Aminotransferase 80 IU/L (<35); Albumin 3.1 g/dL (3.5-5.0); Albumin Globulin Ratio 1.5 (1.0-2.8); Alkaline Phosphatase 69 U/L (38-126); Aspartate Aminotransferase 54 IU/L (14-36); BUN Creatinine Ratio 17.6 (6-22); Blood Urea Nitrogen 26 mg/dL (7-17); Carbon Dioxide 34 mmol/L (22-32); Chloride 99 mmol/L (98-107); Estimated Glomerular Filt Rate 39 mL/min (>60); Globulin 2.1 g/dL (1.7-4.1); Glucose 182 mg/dL (80-110); HEMOLYSIS < 15 (0-50); Potassium 3.8 mmol/L (3.4-5.1); Sodium 137 mmol/L (137-145); Total Protein 5.2 g/dL (6.3-8.2)
[2024-04-15 13:06] LABS: Bilirubin Total < 0.1 mg/dL (0.2-1.3)
== END ==
LOC: LAB 12:21
PROVIDERS: Family Provider Family Medicine; PCP Family Medicine; Referring Provider Family Medicine; Visit Provider Family Medicine
DX: E87.6 Hypokalemia (principal); E87.1 Hypo-osmolality and hyponatremia; D72.829 Elevated white blood cell count, unspecified; D72.828 Other elevated white blood cell count
CPT/HCPCS: 36415; 80053; 85025

== ENCOUNTER → 2024-07-28 11:51 | Outpatient (CLI) | payer OTHER, SELFPAY ==
[2023-07-27 11:55] VITALS: BMI 16.9
--- NOTE | 2024-07-28 11:52 | DI.CT.S_ITS ---
PROCEDURE: CT ABDOMEN PELVIS W CON INDICATIONS: persistent mild liver enzyme elevation pancreatic findings TECHNIQUE: After the administration of intravenous contrast, axial sections acquired from the lung bases to the pubic symphysis. Coronal and sagittal reformats were performed. For radiation dose reduction, the following was used: automated exposure control, adjustment of mA and/or kV according to patient size. COMPARISON: [facility], CT, CT ABDOMEN PELVIS W CON, 05/21/2023, 15:56. FINDINGS: Image quality: Diagnostic. Lower Chest: No significant findings. ABDOMEN: Liver: Possible hemangioma in posterior segment of right hepatic lobe is again seen and measures 1.4 x 2.2 cm in size series 2, image 30 compared to 1.2 x 2 cm on previous study. Gallbladder: No radiopaque gallstones or wall thickening. Biliary ducts: No biliary dilation. Pancreas: 1.1 x 0.9 cm cyst in pancreatic neck/body is again seen unchanged from previous study series 2, image 49. 9 x 7 millimeters cystic structure is also seen in head/neck junction of pancreas series 2, image 49. This is unchanged from previous study. Mild pancreatic ductal dilatation is seen also unchanged from prior study. No peripancreatic inflammatory changes or fluid collection. No discrete solid appearing pancreatic mass is seen. Calcifications are again noted involving os and a process unchanged from prior study. Spleen: Size is within normal limits. Adrenal Glands: No adrenal nodules. Kidneys and Ureters: No hydronephrosis. No solid mass. No complex renal cystic lesion which requires follow up. Stomach and Bowel: There is mild distal esophageal wall thickening and mild gastric wall thickening concerning for gastroesophagitis. No bowel obstruction. No small bowel or colon wall thickening. No abscess collection. Peritoneum: No abnormal intraperitoneal fluid. No free air. Ventral Wall: No significant ventral hernia. Abdominal Nodes: No retroperitoneal or mesenteric adenopathy by size criteria. Vessels: Aorta and inferior vena cava are normal in size. PELVIS: Pelvic Organs: Unremarkable. Bladder: No bladder wall thickening, accounting for underdistention. Pelvic Nodes: No enlarged lymph nodes. Miscellaneous: No inguinal hernias are seen. Bones: No aggressive osseous abnormality. There is prior left total hip arthroplasty. No acute vertebral body compression fractures. IMPRESSION: 1. Suggestion of distal esophageal wall thickening and gastric wall thickening concerning for infectious or inflammatory gastroesophagitis. GI correlation is recommended. 2. No bowel obstruction. No small bowel or colon wall thickening. No abscess collection. No free fluid or free air. 3. Interval slight increase in size of patient's known possible hemangioma in right hepatic lobe as above. 4. Stable cystic areas scattered in pancreatic parenchyma with chronic appearing mild pancreatic biliary ductal dilatation and sequelae of prior episodes of pancreatitis not significantly changed from prior study. No new pancreatic lesion is seen. MRI of abdomen without and with contrast using pancreatic protocol can be done for further evaluation if clinically warranted. Dictated by: Darren Cuevas M.D. on 07/28/2024 at 16:18 Approved by: Darren Cuevas M.D. on 07/28/2024 at 16:29
[2024-07-28 12:39] LABS: Add Manual Diff / Slide Review NO; Basophils Absolute Auto 100 /uL (0-100); Basophils Percent Auto 0.7 % (0-2); Eosinophils Absolute Auto 100 /uL (0-450); Eosinophils Percent Auto 0.8 % (2-4); Hematocrit 41.6 % (36-46); Hemoglobin 13.6 g/dL (12.0-16.0); Lymphocytes Absolute Auto 1600 /uL (1100-4500); Lymphocytes Percent Auto 11.4 % (25-40); Mean Corpuscular HGB Conc 32.8 % (30-36); Mean Corpuscular Hemoglobin 29.8 PG (26-34); Mean Corpuscular Volume 90.9 fL (80-100); Monocytes Absolute Auto 1400 /uL (0-900); Monocytes Percent Auto 9.9 % (3-14); Neutrophils Absolute Auto 10800 /uL (1500-7000); Neutrophils Percent Auto 77.2 % (50-75); Platelet Count 210 X10^3/uL (150-400); Red Blood Cell Count 4.57 X10^6/uL (4.0-5.2)
[2024-07-28 12:45] LABS: Hemoglobin A1C% w Est Avg Glu 5.5 % (4.0-6.0)
[2024-07-28 12:53] LABS: Alanine Aminotransferase 39 IU/L (<35); Albumin 4.3 g/dL (3.5-5.0); Albumin Globulin Ratio 1.8 (1.0-2.8); Albumin Globulin Ratio 1.9 (1.0-2.8); Alkaline Phosphatase 78 U/L (38-126); Alkaline Phosphatase 80 U/L (38-126); Aspartate Aminotransferase 33 IU/L (14-36); Aspartate Aminotransferase 34 IU/L (14-36); BUN Creatinine Ratio 14.6 (6-22); Bilirubin Total 0.3 mg/dL (0.2-1.3); Blood Urea Nitrogen 20 mg/dL (7-17); Calcium 9.7 mg/dL (8.4-10.2); Carbon Dioxide 34 mmol/L (22-32); Chloride 94 mmol/L (98-107); Estimated Glomerular Filt Rate 43 mL/min (>60); Globulin 2.3 g/dL (1.7-4.1); Globulin 2.4 g/dL (1.7-4.1); Glucose 103 mg/dL (70-99); HEMOLYSIS < 15 (0-50); Lipase 89 U/L (23-300); Potassium 3.2 mmol/L (3.4-5.1); Sodium 135 mmol/L (137-145); Total Protein 6.6 g/dL (6.3-8.2); Total Protein 6.7 g/dL (6.3-8.2)
[2024-07-28 13:10] LABS: T4 Total Thyroxine 7.69 ug/dL (5.5-11.0)
[2024-07-28 13:24] LABS: Thyroid Stimulating Hormone 3.42 uIU/mL (0.47-4.68)
[2024-07-29 06:38] LABS: Triiodothyronine T3 Total 127 ng/dL (71-180)
[2024-07-30 11:12] LABS: Lamotrigine Lamictal 1.3 ug/mL (2.0-20.0)
== END ==
LOC: CT 11:52
PROVIDERS: Family Provider Family Medicine; PCP Family Medicine; Referring Provider Family Medicine; Visit Provider Family Medicine
DX: K83.8 Other specified diseases of biliary tract (principal); K86.2 Cyst of pancreas; D64.9 Anemia, unspecified; D72.829 Elevated white blood cell count, unspecified; K86.89 Other specified diseases of pancreas; R73.03 Prediabetes; Z79.899 Other long term (current) drug therapy
CPT/HCPCS: 36415; 74177; 80053; 80076; 80175; 83036; 83690; 84436; 84443; 84480; 85025; Q9967

== ENCOUNTER → 2024-08-13 07:27 | Outpatient (CLI) | payer OTHER, SELFPAY ==
[2023-07-27 11:55] VITALS: BMI 16.9
--- NOTE | 2024-08-13 07:28 | DI.MG.S_ITS ---
MM screening mammo BI: 08/13/2024. BI-RADS: 2 CLINICAL: 64-year old female for bilateral screening mammogram. Tyrer-Cuzick lifetime risk of 5.4%. No personal or first-degree family history of breast cancer. The patient had a prior right breast biopsy. PRIOR EXAMS 06/14/2022. MAMMOGRAPHY TECHNIQUE: 2D and 3D (tomosynthesis) digital mammographic views obtained, with additional images as needed for full coverage. Current study was also evaluated with a Computer Aided Detection (CAD) system. DENSITY C. The breasts are heterogeneously dense, which may obscure small masses. MAMMOGRAPHY FINDINGS Right: No suspicious mass, asymmetry, microcalcification, or other abnormality seen. No significant change from comparison. Left: Biopsy marker present on the left. There are no suspicious masses, calcifications, or other findings in the breast. No significant change from comparison. IMPRESSION: Right * No evidence of malignancy. Left * No evidence of malignancy with benign findings. RECOMMENDATIONS Bilateral * Annual screening mammography. OVERALL ASSESSMENT CATEGORY BI-RADS-2: Benign. The [employer] recommends annual screening mammography beginning at age 40 for women with average risk of breast cancer. ELECTRONICALLY SIGNED: Danyelle Easley M.D. on 08/13/2024 at 03:07:58 PM PT Interpreting Station ID: [id number]
== END ==
PROVIDERS: Family Provider Family Medicine; PCP Family Medicine; Referring Provider Family Medicine; Visit Provider Family Medicine
DX: Z12.31 Encounter for screening mammogram for malignant neoplasm of breast (principal); R92.333 Mammographic heterogeneous density, bilateral breasts
CPT/HCPCS: 77063; 77067

== ENCOUNTER → 2024-09-03 07:56 | Outpatient (CLI) | payer OTHER, SELFPAY ==
[2023-07-27 11:55] VITALS: BMI 16.9
[2024-09-03 09:13] LABS: Hematocrit 40.5 % (36-46); Hemoglobin 13.5 g/dL (12.0-16.0)
[2024-09-03 09:21] LABS: Creatinine Urine Random 248.29 mg/dL; Protein (Total) Urine Random 14 mg/dL (0-12); Protein Creatinine Ratio Urine 0.05 GRAM/24H
[2024-09-03 09:28] LABS: BUN Creatinine Ratio 10.3 (6-22); Blood Urea Nitrogen 13 mg/dL (7-17); Calcium 9.6 mg/dL (8.4-10.2); Carbon Dioxide 33 mmol/L (22-32); Chloride 98 mmol/L (98-107); Estimated Glomerular Filt Rate 47 mL/min (>60); Glucose 98 mg/dL (70-99); HEMOLYSIS < 15 (0-50); Potassium 3.7 mmol/L (3.4-5.1); Sodium 137 mmol/L (137-145)
== END ==
LOC: LAB 07:57
PROVIDERS: Family Provider Family Medicine; PCP Family Medicine; Referring Provider Student in an Organized Health Care Education/Training Program; Visit Provider Student in an Organized Health Care Education/Training Program
DX: D70.9 Neutropenia, unspecified (principal); D63.1 Anemia in chronic kidney disease; N05.9 Unspecified nephritic syndrome with unspecified morphologic changes; R80.9 Proteinuria, unspecified
CPT/HCPCS: 36415; 80048; 82570; 84156; 85014; 85018

== ENCOUNTER 2024-09-22 11:37 | Emergency (ER) | payer OTHER, SELFPAY ==
[2023-07-27 11:55] VITALS: BMI 16.9
[2024-09-22 12:02] VITALS: BP 134/76; PULSE 108; RESP 16; TEMP 36.4; O2SAT 99; BMI 17.7
== END 2024-09-22 16:20 | disposition left against medical advice (07) ==
PROVIDERS: Emergency Provider Family Medicine; Family Provider Family Medicine; PCP Family Medicine
DX: E87.6 Hypokalemia (principal); Z53.21 Procedure and treatment not carried out due to patient leaving prior to being seen by health care provider
CPT/HCPCS: 36415; 80053; 99281

== ENCOUNTER → 2024-09-22 14:31 | Outpatient (CLI) | payer OTHER, SELFPAY ==
[2023-07-27 11:55] VITALS: BMI 16.9
[2024-09-22 16:23] LABS: Alanine Aminotransferase 24 IU/L (<35); Albumin 4.2 g/dL (3.5-5.0); Albumin Globulin Ratio 1.7 (1.0-2.8); Alkaline Phosphatase 86 U/L (38-126); Blood Urea Nitrogen 42 mg/dL (7-17); Calcium 9.7 mg/dL (8.4-10.2); Carbon Dioxide 26 mmol/L (22-32); Chloride 91 mmol/L (98-107); Estimated Glomerular Filt Rate 27 mL/min (>60); Globulin 2.5 g/dL (1.7-4.1); Glucose 177 mg/dL (70-99); HEMOLYSIS < 15 (0-50); Potassium 3.3 mmol/L (3.4-5.1); Sodium 131 mmol/L (137-145); Total Protein 6.7 g/dL (6.3-8.2)
== END ==
PROVIDERS: Family Provider Family Medicine; PCP Family Medicine; Referring Provider Family Medicine; Visit Provider Family Medicine
DX: M79.10 Myalgia, unspecified site (principal); R53.83 Other fatigue; Z86.39 Personal history of other endocrine, nutritional and metabolic disease
CPT/HCPCS: 36415; 80053